=== PATIENT | male | born 1975 | race Caucasian/White ===

== ENCOUNTER → 2017-10-09 12:52 | Outpatient (CLI) | payer OTHER, SELFPAY ==
--- NOTE | 2017-10-09 12:59 | US_ITS ---
US thyroid HISTORY: Thyroid nodule, goiter ITS.REASON: GOITER ORDERING PHYSICIAN: Jovi Rangel MD PATIENT AGE: 41 years COMPARISON: None FINDINGS: Right lobe: 4.3 x 1.5 x 2.3 cm Left lobe: 4.5 x 1.5 x 2.2 cm Isthmus: Unremarkable There is homogeneous echogenicity of the thyroid gland. No mass or nodule evident. IMPRESSION: Mildly enlarged thyroid. No nodules apparent
== END ==
PROVIDERS: Family Provider Family Medicine; PCP Family Medicine; Visit Provider Family Medicine
DX: E04.9 Nontoxic goiter, unspecified (principal)
CPT/HCPCS: 76536

== ENCOUNTER → 2018-02-06 08:16 | Outpatient (CLI) | payer OTHER, SELFPAY ==
--- NOTE | 2018-02-06 08:42 | CA_ITS ---
PROCEDURE: 2-D M-mode and color Doppler study INDICATIONS FOR THE TEST: Chest pain COPD Heart Murmur Tobacco SmokingEX Palpitations Fatigue Syncope Edema HypertensionXDiabetes MellitusX Rheumatic Fever SOBXDOE ObesityXHyperlipidemiaX Family History HDX Additional History PATIENT INFORMATION HEIGHT: 72 WEIGHT:245 GENDER: Male B/P:130/80 2-D/M-MODE INTERPRETATION: 2-D MEASUREMENTS OBSERVED VALUES IN CMS Right Ventricular Dimension (RVDd) 2.6 Interventricular Septum (Thickness)(IVsd) 1.4 Left Ventricular Internal Dimensions(LVIDd) 3.9 Left Ventricular Posterior Wall (Thickness)(LVPWd) 1.3 Aortic Root 3.4 Aortic Cusp Separation 2.3 Left Atrial Dimensions (LAD) 4.0 2D 1. Left atrium is mildly enlarged, left ventricle is normal size, mild concentric left ventricular hypertrophy, hyperdynamic left ventricular systolic function, visually estimated ejection fraction over 65% with no obvious regional wall motion abnormality. 2. The right atrium and right ventricle are normal size and contractility. 3. The aortic valve is minimally thickened and fibrosed. 4. The mitral and tricuspid valvular grossly normal. 5. The pulmonic valve is poorly visualized. 6. No significant pericardial effusion noted. DOPPLER INTERROGATION: Doppler interrogation of the aortic, mitral and tricuspid valvular presence of mild mitral and tricuspid regurgitation, tricuspid regurgitant jet velocity is insufficient for calculation of the right ventricular systolic pressure, grade 1 diastolic dysfunction seen without tissue Doppler evidence of raised left atrial pressure. CONCLUSION: 1. Mildly enlarged left atrium, normal left ventricular size, mild concentric left ventricular hypertrophy, hyperdynamic left ventricular systolic function, visually estimated ejection fraction over 65% with no obvious regional wall motion abnormality, grade 1 diastolic dysfunction seen without tissue Doppler evidence of raised left atrial pressure. 2. Mild mitral and tricuspid regurgitation. 3. No significant pericardial effusion noted.
== END ==
PROVIDERS: Family Provider Family Medicine; PCP Family Medicine; Visit Provider Nurse Practitioner
DX: Z82.49 Family history of ischemic heart disease and other diseases of the circulatory system (principal)
CPT/HCPCS: 93017; 93306

== ENCOUNTER → 2020-04-19 14:41 | Outpatient (POV) | payer OTHER, SELFPAY | PROVIDERS: Visit Provider Dermatology | DX: Z00.00 Encounter for general adult medical examination without abnormal findings (principal) ==

== ENCOUNTER → 2020-11-22 14:41 | Outpatient (POV) | payer OTHER, SELFPAY | PROVIDERS: Visit Provider Dermatology | DX: Z00.00 Encounter for general adult medical examination without abnormal findings (principal) ==

== ENCOUNTER → 2021-09-05 11:19 | Outpatient (CLI) | payer OTHER, SELFPAY | PROVIDERS: PCP Family Medicine; Visit Provider Nurse Practitioner | DX: Z20.822 Contact with and (suspected) exposure to COVID-19 (principal) | CPT/HCPCS: C9803; U0003; U0005 ==

== ENCOUNTER → 2021-10-20 12:52 | Outpatient (CLI) | payer OTHER, SELFPAY ==
--- NOTE | 2021-10-20 12:54 | CA_ITS ---
APPROVED REPORT EXAM: Comprehensive 2D, Doppler, and color-flow Echocardiogram Trade Mark Examiner: Mandy German RVT Ht: 6 ft 1 in Wt: 243lbs BSA: 2.34 BP: 133/80 mmHg Indications: ABN EKG,TACHYCARDIA,HTN,HLD,DM,EX SMOKER 2D Dimensions LVOT 2.09 cm (M/F) 1.5-2.5 LA Volume 29.20 mL LA Volume Index 12.53 mL/m2 (M/F) 16-34 M-Mode Dimensions RVDd 2.38 cm (0.9-2.6) LA Diam 4.39 cm (1.9-4.0) LVDd 3.52 cm (3.5-5.7) Ao Diam 3.15 cm (2.0-3.7) LVDs 2.04 cm (3.5-5.7) IVSd 1.53 cm (0.6-1.1) PWd 1.15 cm (0.6-1.1) EF (Teich) 74.00% FS 42.00% EDV (Teich) 51.60 mL TAPSE 2.15 (<1.7) ESV (Teich) 13.40 mL LV Diastology E Decel Time 200.00 (160-240 msec) E/A Ratio 0.8 MED E' 5.70 (< 7 cm/sec) E'/MED E' Ratio 12.88 (>14) LAT E' 9.20 (<10 cm/sec) E/LAT E' Ratio 7.98 (>14) Aortic Valve AO Peak GR. 6.30 mmHg Mitral Valve MV E Max Randy. 73.00 (40-130 cm/s) MV A Velocity 93.00 (40-130 cm/s) E/A Ratio 0.79 MV Decel. Time 200.00 (160-240 ms) MV PHT 59.00 ms Pulmonary Valve PV Peak Velocity 96.00 (50-150 cm/s) Left Ventricle Left atrium is mildly enlarged, left ventricle is normal size, mild concentric left ventricular hypertrophy, visually estimated ejection fraction 55% with no regional wall motion abnormality, grade 1 diastolic dysfunction seen without tissue Doppler evidence of raise left atrial pressure. Right Ventricle Right atrium and right ventricle are normal size and contractility. Aortic Valve Aortic valve is minimally thickened and fibrosed, there is no aortic stenosis or aortic insufficiency. Mitral Valve Mitral valve grossly normal, there is trace mitral regurgitation. Tricuspid Valve Tricuspid grossly normal, there is trace tricuspid regurgitation, tricuspid regurgitation jet velocity is inadequate for calculation of the right ventricular systolic pressure. Pulmonic Valve Pulmonic valve is poorly visualized. Great Vessels Aortic root is normal size. Inferior vena cava normal 7 normal spectral collapse. Pericardium No significant pericardial effusion noted. Conclusion 1. Mildly enlarged left atrium, normal left ventricular size, mild concentric left ventricular hypertrophy, visually estimated ejection fraction 55% with no regional wall motion abnormality, grade 1 diastolic dysfunction seen without tissue Doppler evidence of raise left atrial pressure. 2. Trace mitral and tricuspid regurgitation. 3. No significant pericardial effusion. 4. Inferior vena cava normal size with normal inspiratory collapse. Electronically signed by : Francois Catalan MD 10/20/2021 14:38:43
== END ==
PROVIDERS: PCP Family Medicine; Visit Provider Urology
DX: R94.31 Abnormal electrocardiogram [ECG] [EKG] (principal); I10 Essential (primary) hypertension; E78.49 Other hyperlipidemia
CPT/HCPCS: 93306

== ENCOUNTER → 2021-11-30 09:10 | Outpatient (POV) | payer OTHER, SELFPAY ==
[2021-11-30 09:24] VITALS: BP 147/89; PULSE 98; RESP 18; TEMP 36.7; O2SAT 97; BMI 32.5
--- NOTE | 2021-11-30 10:10 | HMH.PMCON ---
Assessment and Plan (1) Chronic low back pain Status: Acute Category: Medical Code(s): M54.50 - Low back pain, unspecified; G89.29 - Other chronic pain - Assessment and plan all Dx Assessment and Plan for all problems:: Patient presents no pain. He says that he was having low back pain a few weeks ago but his symptoms resolved a few days later. It was a debilitating pain to a point that he was not able to get up. He took OTC meds that helped significantly. He was told that he had disc issues in the past and thought that he might aggravated it. He does say that he continues to have paresthesia in his right thigh. It is uncomfortable and says that it feels like he has a buzzing phone when there is nothing there. Patient has not had any imaging of his low back. We will schedule the patient for a lumbar MRI. Follow-up after the MRI Patient has been instructed to contact the clinic with any concerns before the next appointment. Dr. Reid has reviewed this note and agrees with this plan of care. This note was dictated using voice recognition software and make contain errors or omissions. HPI - Data of Consult Patient: new to practice Consult date: 11/30/21 Requesting Physician: LISS Huynh - Consult Narrative Reason for consult: low back pain History of present illness: Mr. Cruz is a 46 year old male who presents today as a new patient. Patient is referred by Dr. Grubbs for low back pain. Patient presents today with chronic low back pain that radiates to his right leg. He has a hx of falling in 2006 and hurt his back. He did not have any surgeries then. He was told he had disc issues in the past. Then recently, he was using his mower and feels like he strained his back. He said that he could not do anything for days and had radiating pain to his right leg. He took OTC medications which seemed to help. He did not go to the ER. Today, he presents with no low back pain. He does say that he continues to have paresthesia in his right thigh. This has been going on for several months. It is not painful and he can tolerate it, but just nagging and uncomfortable. He rates his pain today as 0/10. Denies any loss of bowel and bladder functions. He is not on any scheduled medications. CC: LISS Huynh [facility] History I have reviewed the patient's past medical history: Yes Medical History: Reports:: Diabetes Mellitus Type 2, Hyperlipidemia, Hypertension Denies:: Cancer, Diabetes Mellitus Type 1, MRSA *Have you ever received a pneumonia vaccine?: No *Have you received a flu vaccine this season?: Yes Other Surgeries: Yes: No Previous Surgery Amputation: No Fractures: No - *Social History Smoking Status: Former smoker Alcohol Intake: never Alcohol Intake Frequency:: a few times a month Substance Use Type: denies use *Occupational Status:: employed Housing: house Household Members: family *Travel in the last 8 weeks: None Family Hx:: Diabetes, Heart Attack, Stroke Review of Systems - Review of Systems Review of Systems: General: No recent weight changes, no fever, no sleep disturbances Respiratory: No cough, no shortness of air, no recurring pulmonary infections Cardiovascular/peripheral vascular: No chest pain, no palpitations, no edema, no shortness of breath Gastrointestinal: No new onset incontinence, normal bowel movements reported Genitourinary: No new onset incontinence Musculoskeletal: [low back pain] Psychiatric: [Normal mood/affect] Neurological: [Denies weakness in extremities], [denies balance issues] Meds Home Medications Medication Instructions Recorded Confirmed Type liraglutide 0.6 mg/0.1 mL (18 mg/3 1.2 mg SUB-Q ONCE ml 03/06/18 11/30/21 History mL) subcutaneous pen injector metformin 500 mg tablet 1,000 mg PO BID 03/06/18 11/30/21 History simvastatin 40 mg tablet 40 mg PO QPM 03/06/18 11/30/21 History aspirin 81 mg tablet,delayed 81 mg PO DAILY tab 03/11/18 11/30/21 History release
== END ==
PROVIDERS: Visit Provider Student in an Organized Health Care Education/Training Program
DX: M54.50 Low back pain, unspecified (principal); G89.29 Other chronic pain
CPT/HCPCS: 99202; G0463

== ENCOUNTER → 2021-12-08 10:02 | Outpatient (CLI) | payer OTHER, SELFPAY ==
--- NOTE | 2021-12-08 10:08 | MR_ITS ---
FINAL REPORT CLINICAL HISTORY: lower back pain with injury X 2WEEKS when mowing , right sided back pain and right sided tingling FINDINGS: Multiplanar MR imaging of the lumbar spine was performed without contrast. On the sagittal T2-weighted images, disc degeneration is seen at multiple levels. The vertebral alignment is normal. There is no evidence of fracture. The conus has an unremarkable appearance. T12-L1: There is no significant canal stenosis or neural foraminal narrowing. L1-2: There is no significant canal stenosis or neural foraminal narrowing. L2-3: Annular bulge and facet arthropathy are present. There is mild right and moderate left neural foraminal narrowing. L3-4: An annular bulge is present. Facet arthropathy and osteophytes are present. There is moderate right and severe left neural foraminal narrowing. There is mild central canal stenosis with an AP diameter of the thecal sac of 7 mm. L4-5: An annular bulge is present. Facet arthropathy and osteophytes are present. There is a small central disc protrusion with moderate right and severe left neural foraminal narrowing. There is left L5 and possible bilateral L5 nerve root impingement. There is mild central canal stenosis with an AP diameter of the thecal sac of 7 mm. L5-S1: An annular bulge is present. Facet arthropathy and osteophytes are present. There is mild right and severe left neural foraminal narrowing. IMPRESSION: Small central disc protrusion at L4-5 results in left L5 and possible bilateral L5 nerve root impingement. Multilevel degenerative disc disease and spondylosis with mild central canal stenosis at L3-4 and L4-5. Reviewed, Interpreted and Dictated by Juan Abad III, MD Transcribed by Poly Burton Authenticated by Juan Abad III, MD on 12/08/2021 12:17:54 PM [facility]
== END ==
PROVIDERS: PCP Family Medicine; Visit Provider Student in an Organized Health Care Education/Training Program
DX: M54.50 Low back pain, unspecified (principal)
CPT/HCPCS: 72148; 76376; 95806

== ENCOUNTER → 2021-12-25 09:26 | Outpatient (POV) | payer OTHER, SELFPAY ==
[2021-12-25 09:35] VITALS: BP 142/71; PULSE 88; RESP 18; TEMP 36.5; O2SAT 96; BMI 32.0
--- NOTE | 2021-12-25 11:10 | HMH.PAINSOAP ---
[facility] Pain Management SOAP Note Subjective:: This patient is a very pleasant 46-year-old white male that returns our clinic today to review lumbar MRI. MRI shows disc protrusion L4-5 with L5 nerve root impingement. Multilevel degenerative disc disease. Discussed in detail treatment options for the patient. Patient has been taking diclofenac 75 mg 1 p.o. twice daily from his primary care. Patient states this helps with his right leg pain at times. We will send in refill for him on this medication. Discussed in detail with the patient regarding lumbar epidural steroid injection at the L4-5 level. Patient wishes to proceed. Patient rates his low back pain 3/10 today. Patient states the lumbar spine increases significantly with extension and/or flexion. Patient works full-time in a factory. Does a lot of sitting and standing. This increases pain. Objective:: This patient is awake alert oriented x3. In no acute distress. Flexion and extension lumbar spine somewhat guarded secondary to pain. Deep tendon reflexes upper and lower extremities normal. Motor strength upper and lower extremities normal. There is no gross sensory deficit. Gait is normal. Assessment:: Degenerative disc disease lumbar spine. Disc bulge L4-5. Lumbar radicular pain. Plan:: Discussed in detail with the patient regarding lumbar epidural steroid injection of the L4-5 level. Discussed risk and benefits. Answered patient's questions. We will proceed with lumbar epidural steroid injection at the L4-5 level. [facility] History Medical History: Reports:: Diabetes Mellitus Type 2, Hyperlipidemia, Hypertension Denies:: Cancer, Diabetes Mellitus Type 1, MRSA *Have you ever received a pneumonia vaccine?: No *Have you received a flu vaccine this season?: Yes Other Surgeries: Yes: No Previous Surgery Amputation: No Fractures: No - *Social History Smoking Status: Former smoker Alcohol Intake: never Alcohol Intake Frequency:: a few times a month Substance Use Type: denies use *Occupational Status:: employed Housing: house Household Members: family *Travel in the last 8 weeks: None Family Hx:: Diabetes, Heart Attack, Stroke
== END ==
PROVIDERS: Visit Provider Nurse Anesthetist, Certified Registered
DX: M51.16 Intervertebral disc disorders with radiculopathy, lumbar region (principal); M51.26 Other intervertebral disc displacement, lumbar region
CPT/HCPCS: 99212; G0463

== ENCOUNTER 2022-01-12 12:59 | Day surgery (SDC) | payer OTHER, SELFPAY ==
[2022-01-12 13:24] VITALS: BP 135/79; PULSE 91; RESP 20; TEMP 36.6; O2SAT 98; BMI 32.5
[2022-01-12 13:37] VITALS: BP 139/80; PULSE 91; RESP 18; O2SAT 95
[2022-01-12 13:39] VITALS: BP 142/83; PULSE 100; RESP 18; O2SAT 97
[2022-01-12 13:48] VITALS: BP 123/72; PULSE 87; RESP 20; O2SAT 96
--- NOTE | 2022-01-12 13:54 | P.PCN_ITS ---
- Procedure Date: 01/12/22 Time: 13:54 Anesthesiologist:: Judd Valenzuela CRNA Complications:: None Pre-procedure Diagnosis:: Degenerative disc disease lumbar spine. Lumbar radicular symptoms. Post-procedure Diagnosis:: Same Indications for Procedure:: Very pleasant 46-year-old white male that comes to our injection clinic today for lumbar epidural steroid injection at L4-5 level. Patient is having lumbar pain as well as bilateral hip and leg radicular symptoms at times. Procedure Details:: Procedure: Lumbar epidural steroid injection under fluoroscopy Informed consent was obtained and the risks and benefits of the procedure were explained to the patient. The patient was taken to the procedure room and noninvasive monitors placed, including noninvasive blood pressure cuff and pulse oximeter. The back was viewed using C-arm Fluoroscopy and prepped using Betadine as a cleansing solution and the L4-L5 interspace was palpated. Skin and subcutaneous tissues were anesthetized using lidocaine 1.5% and a 25-gauge needle. After this, an 18-gauge Touhy epidural needle was placed into the L4-L5 interspace and advanced using fluoroscopic guidance and loss of resistance to air until the epidural space was encountered. After confirmation of needle placement in the epidural space, with dye, a solution containing lidocaine 1.5%, 4 mL and Depo-Medrol 80 mg were incrementally injected into the lumbar epidural space. The patient tolerated the procedure well with no complications. The patient was observed in the Pain Clinic and then discharged home neur ologically intact. Plan and Disposition:: Patient was discharged without incident.
== END 2022-01-12 13:49 | disposition home or self-care (01) ==
LOC: SC.PAINP 13:00
PROVIDERS: PCP Family Medicine; Visit Provider Nurse Anesthetist, Certified Registered
DX: M51.16 Intervertebral disc disorders with radiculopathy, lumbar region (principal); E11.9 Type 2 diabetes mellitus without complications; E78.5 Hyperlipidemia, unspecified; I10 Essential (primary) hypertension
CPT/HCPCS: 62323; J1040

== ENCOUNTER → 2022-02-06 09:10 | Outpatient (POV) | payer OTHER, SELFPAY ==
[2022-02-06 09:23] VITALS: BP 141/78; PULSE 93; RESP 18; TEMP 36.2; O2SAT 96; BMI 31.8
--- NOTE | 2022-02-06 09:52 | HMH.PAINSOAP ---
[facility] Pain Management SOAP Note Subjective:: Patient is a pleasant 46-year-old male who presents today for follow-up after a lumbar epidural steroid injection at L4-L5 on January 12, 2022. Patient is currently being treated for degenerative disc disease of the lumbar spine with lumbar radiculopathy symptoms. After the procedure, patient had significant relief of 90 to 100% and rates his pain today as 0 out of 10. Denies any issues after the procedure. Patient has been able to increase his activity since the injection. Patient is doing significantly well. He takes diclofenac 75 mg as needed. He is needing refills on this medication today. Review of Systems: General: No recent weight changes, no fever, no sleep disturbances Respiratory: No cough, no shortness of air, no recurring pulmonary infections Cardiovascular/peripheral vascular: No chest pain, no palpitations, no edema, no shortness of breath Gastrointestinal: No new onset incontinence, normal bowel movements reported Genitourinary: No new onset incontinence Musculoskeletal: Improving low back pain Psychiatric: [Normal mood/affect] Neurological: [Denies weakness in extremities], [denies balance issues] Objective:: Physical Exam: General: Alert and oriented x3, no acute distress, pleasant and cooperative Lungs: Respirations even and unlabored, symmetrical chest expansion Eyes: PERRL Musculoskeletal: Flexion and extension of lumbar [spine] somewhat guarded secondary to pain, [antalgic gait noted] Neurological: Speech clear, no gross sensory deficit Assessment:: Degenerative disc disease of the lumbar spine with lumbar radiculopathy symptoms Plan:: Patient continues to have significant relief after the lumbar epidural steroid injection. We will refill his diclofenac 75 mg and provide the patient 3 months worth of refill. He takes his medication as needed. We will follow-up with this patient in 3 months to reevaluate chronic pain syndrome and to see if he needs repeat injection. Patient has been instructed to contact the clinic with any concerns before the next appointment. Dr. Reid has reviewed this note and agrees with this plan of care. This note was dictated using voice recognition software and make contain errors or omissions. [facility] History Medical History: Reports:: Diabetes Mellitus Type 2, Hyperlipidemia, Hypertension Denies:: Cancer, Diabetes Mellitus Type 1, MRSA, Seizures *Have you ever received a pneumonia vaccine?: No *Have you received a flu vaccine this season?: Yes Other Medical History: Reports: Arthritis Other Surgeries: Yes: No Previous Surgery Amputation: No Fractures: No - *Social History Smoking Status: Former smoker Alcohol Intake: never Alcohol Intake Frequency:: a few times a month Substance Use Type: denies use *Occupational Status:: other Housing: house Household Members: other *Travel in the last 8 weeks: None Family Hx:: Diabetes, Heart Attack, Stroke, Hypertension
== END ==
PROVIDERS: Visit Provider Student in an Organized Health Care Education/Training Program
DX: M51.16 Intervertebral disc disorders with radiculopathy, lumbar region (principal)
CPT/HCPCS: 99212; G0463

== ENCOUNTER 2022-04-23 11:56 | Emergency (ER) | payer OTHER, SELFPAY ==
[2022-04-23 13:20] VITALS: BP 131/79; PULSE 99; RESP 20; TEMP 37.3; O2SAT 97; BMI 32.5
--- NOTE | 2022-04-23 13:50 | HMH.EDUTC ---
[facility] [place] Impression: Viral syndrome Disposition: Home, Self-Care Condition on Discharge: Good Instructions: DI for COVID-19 (Suspected or Confirmed ), Preventing the Spread of Coronavirus Discharge Instructions Additional Instructions: Drink plenty of fluids. Take tylenol or ibuprofen for pain or fever. Take the medications as directed. Follow up with your regular doctor. GO TO THE ER FOR ANY WORSENING SYMPTOMS Quarantine until you know the results of your covid-19 test. Notify your school or workplace of your results and follow their instructions regarding return to work/school. Prescriptions: Ondansetron [Zofran 4mg ODT] 4 mg PO Q8HP PRN #12 tab PRN Reason: Nausea Transmission Status: Received by [facility] Benzonatate [Benzonatate 100mg cap] 100 mg PO TIDP PRN #30 cap PRN Reason: Cough Transmission Status: Received by [facility] Referrals: Angie Gunn MD [Primary Care Provider] - Forms: Work/School Release Time of Disposition: 13:57 Medical Decision Making - Medical Records Medical records reviewed: No: I reviewed the patient's medical records. - Mukesh Inquiry Pt receiving controlled substance: No Vital Signs: 04/23/22 13:20 04/23/22 14:07 Temperature 99.2 F 99.2 F Temperature Source Oral Pulse Rate 99 H Pulse Rate [Right Brachial] 99 H Respiratory Rate 20 20 Blood Pressure 131/79 Blood Pressure [Right Arm] 131/79 Blood Pressure Mean [Right Arm] 96 Blood Pressure Source [Right Arm] Automatic Cuff Blood Pressure Position [Right Arm] Sitting 02 Sat by Pulse Oximetry 97 Oxygen Delivery Method Room Air - Lab Data Lab results reviewed: Yes: I reviewed the patient's lab results. Lab Results 04/23/22 13:48: Strep Scn Rapid Clinic Negative Orders (Tests/Meds): ORDERS Category Date Time Status Strep Screen Confirmation Stat Micro 04/23/22 13:48 [place] [facility] [place] - General Stated complaint: covid test Time Seen by Provider: 04/23/22 13:50 Mode of Arrival: Ambulatory Source of Information: Patient Limitations: No Limitations Description of Symptoms (Recalled from Triage Doc. by RN): PATIENT C/O FEVER AND RUNNY NOSE SINCE YESTERDAY HEENT Symptoms (Recalled from RN notes): Yes Resp Symptoms (Recalled from RN notes): No Skin Symptoms (Recalled from RN notes): No MS Symptoms (Recalled from RN notes): No Functional Status (Recalled from RN notes): WNL - History of Present Illness Provider Complaint: He is here to have a covid-19 test done. He has had body aches, chills and malaise for the past 2 days. - Related Data Home Medications Medication Instructions Recorded Confirmed metformin 500 mg tablet 1,000 mg PO BID 03/06/18 04/17/22 cetirizine 10 mg capsule 10 mg PO DAILY cap 03/11/18 04/17/22 zinc 50 mg tablet 50 mg PO QHS tab 03/11/18 04/17/22 empagliflozin 25 mg tablet 25 mg PO DAILY 10/21/18 04/17/22 lisinopril 20 mg tablet 20 mg PO DAILY 10/21/18 04/17/22 cholecalciferol (vitamin D3) 25 25 mcg PO DAILY 10/18/20 04/17/22 mcg (1,000 unit) capsule tamsulosin 0.4 mg capsule 0.4 mg PO DAILY cap 04/17/21 04/17/22 Diclofenac Sodium [Diclofenac 75mg 75 mg PO BID 02/06/22 04/17/22 Tab] simvastatin 20 mg tablet 20 mg PO DAILY tab 02/07/22 04/17/22 insulin glargine 100 unit/mL (3 62 unit SQ AM ml 03/28/22 04/17/22 mL) subcutaneous pen liraglutide 0.6 mg/0.1 mL (18 mg/3 1.8 mg SQ DAILY ml 03/28/22 04/17/22 mL) subcutaneous pen injector Previous Rx's Medication Instructions Recorded metoprolol succinate 100 mg 100 mg PO DAILY #90 tab 04/17/22 tablet,extended release 24 hr Benzonatate [Benzonatate 100mg 100 mg PO TIDP PRN #30 cap 04/23/22 cap] Ondansetron [Zofran 4mg ODT] 4 mg PO Q8HP PRN #12 tab 04/23/22 Allergies Allergy/AdvReac Type Severity Reaction Status Date / Time No Known Allergies Allergy Verified 04/17/22 13:01 - Worker's Co
[2022-04-23 14:01] LABS: UTC Strep Screen (Rapid) Negative (Negative)
[2022-04-23 14:07] VITALS: BP 131/79; PULSE 99; RESP 20; TEMP 37.3; O2SAT 97
== END 2022-04-23 14:12 | disposition home or self-care (01) ==
PROVIDERS: Emergency Provider Nurse Practitioner Family; PCP Family Medicine
DX: B34.9 Viral infection, unspecified (principal); Z20.822 Contact with and (suspected) exposure to COVID-19; Z87.891 Personal history of nicotine dependence
CPT/HCPCS: 87880; 99212; C9803; G0463; U0003; U0005

== ENCOUNTER → 2022-05-08 15:12 | Outpatient (POV) | payer OTHER, SELFPAY ==
[2022-05-08 15:16] VITALS: BP 143/85; PULSE 91; RESP 20; BMI 32.5
--- NOTE | 2022-05-08 15:53 | A.OFFVIS_ITS ---
[facility] Pain Management SOAP Note Subjective:: Patient is a pleasant 46-year-old male who presents today for follow-up. We are currently treating the patient for degenerative disc disease of lumbar spine with lumbar radiculopathy symptoms. Today the patient rates his pain a 0 out of 10. Patient states he only has pain when he is weed eating or on his feet for long periods of time. He states he is continue to have significant pain relief following his last lumbar epidural steroid injection at L4-L5 on January 12, 2022. Patient states he is continue to use his diclofenac 75 mg twice daily. He states this medication does help improve his symptoms. He denies any side effects. Patient states there has been a couple of times where he has taken an Aleve however the patient states he is aware that he is not to take that while using the diclofenac. Patient states he has had some of his tingling sensations in his legs return however they are tolerable at this point. Patient is not on any scheduled medications. His Mukesh is [id number]. It has been reviewed and appropriate. Review of Systems: General: No recent weight changes, no fever, no sleep disturbances Respiratory: No cough, no shortness of air, no recurring pulmonary infections Cardiovascular/peripheral vascular: No chest pain, no palpitations, no edema, no shortness of breath Gastrointestinal: No new onset incontinence, normal bowel movements reported Genitourinary: No new onset incontinence Musculoskeletal: Low back pain Psychiatric: [Normal mood/affect] Neurological: [Denies weakness in extremities], [denies balance issues] Objective:: Physical Exam: General: Alert and oriented x3, no acute distress, pleasant and cooperative Lungs: Respirations even and unlabored, symmetrical chest expansion Eyes: PERRL Musculoskeletal: Flexion and extension of lumbar [spine] somewhat guarded secondary to pain, [antalgic gait noted] Neurological: Speech clear, no gross sensory deficit Assessment:: Degenerative disc disease of lumbar spine with lumbar radiculopathy symptoms Plan:: Patient continues to have significant improvement of his pain symptoms following his last epidural injection. I have discussed with the patient regarding having a repeat lumbar epidural in the future when his symptoms start bothering him more. Risk and benefits were discussed with the patient. He would like to proceed forward with this injection. We will schedule the patient for a lumbar epidural steroid injection at L4-L5 in 1 month. The patient has been counseled regarding calling if he needs this appointment moved up or rescheduling if he needs it pushed further out based off his symptoms. I have counseled the patient to not take any Aleve or other NSAIDs while taking his diclofenac. I have advised the patient to try Tylenol. Patient has been instructed to contact the clinic with any concerns before the next appointment. Dr. Reid has reviewed this note and agrees with this plan of care. This note was dictated using voice recognition software and make contain errors or omissions. [facility] Medical History (Updated 04/23/22 @ 13:57 by George Rees APRN) Abnormal electrocardiography Social History Smoking Status: Former smoker alcohol intake: current substance use type: denies use current occupational status: other Travel in the last 8 weeks: None household members: other housing: house current occupational exposures/hazards: Yes caffeine: Yes
== END ==
PROVIDERS: PCP Family Medicine; Visit Provider Nurse Practitioner Family
DX: M51.16 Intervertebral disc disorders with radiculopathy, lumbar region (principal)
CPT/HCPCS: 99212; G0463

== ENCOUNTER 2022-06-05 12:43 | Day surgery (SDC) | payer OTHER, SELFPAY ==
[2022-06-05 12:57] VITALS: BP 161/77; PULSE 91; RESP 20; TEMP 36.3; O2SAT 98; BMI 71.7
[2022-06-05 13:08] VITALS: BP 172/86; PULSE 93; RESP 18; O2SAT 98
[2022-06-05 13:09] VITALS: BP 172/86; PULSE 93; RESP 18; O2SAT 98
--- NOTE | 2022-06-05 13:14 | EXP.PAIN.PRO ---
Procedure Date: 06/05/22 Time: 13:10 Anesthesiologist:: Judd Valenzuela CRNA Complications:: None Pre-procedure Diagnosis:: Degenerative disc disease lumbar spine multilevels. Lumbar radiculopathy symptoms. Post-procedure Diagnosis:: Same. Indications for Procedure:: Very pleasant 46-year-old male that comes today for a repeat lumbar epidural steroid injection at the L4-5 level. Patient had significant pain relief with his initial injection at the L4-5 level. Patient reports pain has returned to some degree. However, moderate compared to his pain prior to the injection. He describes low back pain as slight, dull, aching. Also, at times lumbar radicular symptoms bilateral hips and legs. Procedure Details:: Procedure: Lumbar epidural steroid injection under fluoroscopy Informed consent was obtained and the risks and benefits of the procedure were explained to the patient. The patient was taken to the procedure room and noninvasive monitors placed, including noninvasive blood pressure cuff and pulse oximeter. The back was viewed using C-arm Fluoroscopy and prepped using Betadine as a cleansing solution and the L4-L5 interspace was palpated. Skin and subcutaneous tissues were anesthetized using lidocaine 1.5% and a 25-gauge needle. After this, an 18-gauge Touhy epidural needle was placed into the L4-L5 interspace and advanced using fluoroscopic guidance and loss of resistance to air until the epidural space was encountered. After confirmation of needle placement in the epidural space, with dye, a solution containing lidocaine 1.5%, 4 mL and Depo-Medrol 80 mg were incrementally injected into the lumbar epidural space. The patient tolerated the procedure well with no complications. The patient was observed in the Pain Clinic and then discharged home neurologically intact. Plan and Disposition:: Patient was discharged without incident.
[2022-06-05 13:18] VITALS: BP 145/72; PULSE 81; RESP 20
[2022-06-05 16:43] LABS: POC Glucose,Bedside 100 (70-110)
== END 2022-06-05 13:20 | disposition home or self-care (01) ==
PROVIDERS: PCP Family Medicine; Visit Provider Nurse Anesthetist, Certified Registered
DX: M51.16 Intervertebral disc disorders with radiculopathy, lumbar region (principal); E11.9 Type 2 diabetes mellitus without complications
CPT/HCPCS: 62323; 82962; J1040

== ENCOUNTER → 2022-06-19 14:54 | Outpatient (POV) | payer OTHER, SELFPAY | PROVIDERS: Visit Provider Dermatology | DX: Z00.00 Encounter for general adult medical examination without abnormal findings (principal) ==

== ENCOUNTER → 2022-06-26 14:49 | Outpatient (POV) | payer OTHER, SELFPAY ==
[2022-06-26 14:56] VITALS: BP 140/67; PULSE 90; RESP 18; TEMP 36.7; O2SAT 97; BMI 31.6
--- NOTE | 2022-06-26 15:16 | EXP.PAIN.SOA ---
[facility] Pain Management SOAP Note Subjective:: Patient is a pleasant 46-year-old male who presents today for follow-up of lumbar epidural steroid injection L4-L5 on 06/05/2022. We are currently treating the patient for degenerative disc disease of lumbar spine with lumbar radiculopathy symptoms. Today the patient states he has gotten 100% relief of his pain symptoms following this injection and feels like it is still continuing to help. Patient rates his pain a 0 out of 10. Patient does continue to take diclofenac 75 mg twice a day. Patient denies any side effects from this medication. He states this medication does adequately help manage his pain symptoms. Patient is not on any scheduled medications. His Mukesh is [id number]. It has been reviewed and appropriate. Review of Systems: General: No recent weight changes, no fever, no sleep disturbances Respiratory: No cough, no shortness of air, no recurring pulmonary infections Cardiovascular/peripheral vascular: No chest pain, no palpitations, no edema, no shortness of breath Gastrointestinal: No new onset incontinence, normal bowel movements reported Genitourinary: No new onset incontinence Musculoskeletal: Low back pain Psychiatric: [Normal mood/affect] Neurological: [Denies weakness in extremities], [denies balance issues] Objective:: Physical Exam: General: Alert and oriented x3, no acute distress, pleasant and cooperative Lungs: Respirations even and unlabored, symmetrical chest expansion Eyes: PERRL Musculoskeletal: Flexion and extension of lumbar [spine] somewhat guarded secondary to pain, [antalgic gait noted] Neurological: Speech clear, no gross sensory deficit Assessment:: Degenerative disc disease lumbar spine with lumbar radiculopathy symptoms Plan:: Patient has had significant improvement of his pain symptoms following his last epidural steroid injection. At this time patient does not require any additional injective therapy. I have discussed with the patient regarding doing a physical therapy referral. Patient agrees with this plan of care. We will order this during today's visit. We will plan on seeing the patient back in 1 month. Patient will return to clinic in 1 month for reevaluation of symptoms and follow-up. Patient has been instructed to contact the clinic with any concerns before the next appointment. Dr. Reid has reviewed this note and agrees with this plan of care. This note was dictated using voice recognition software and make contain errors or omissions. [facility] Medical History (Updated 06/05/22 @ 13:03 by Reny Brandt RN) Abnormal electrocardiography Arthritis BPH (benign prostatic hyperplasia) Hyperlipidemia Hypertension Large tongue RAMESH and COPD overlap syndrome T2DM (type 2 diabetes mellitus) Family History (Updated 06/05/22 @ 13:03 by Reny Brandt RN) Other Diabetes Heart attack Hypertension No significant family history Stroke Social History (Updated 06/05/22 @ 13:03 by Reny Brandt RN) Smoking Status: Former smoker alcohol intake: current substance use type: denies use current occupational status: employed Travel in the last 8 weeks: None household members: other housing: house current occupational exposures/hazards: Yes caffeine: Yes
== END ==
PROVIDERS: PCP Family Medicine; Visit Provider Nurse Practitioner Family
DX: M51.16 Intervertebral disc disorders with radiculopathy, lumbar region (principal); Z79.899 Other long term (current) drug therapy
CPT/HCPCS: 99212; G0463

== ENCOUNTER 2022-07-31 17:00 | Outpatient (RCR) | payer OTHER, SELFPAY ==
--- NOTE | 2022-07-03 11:06 | HMH.PTOPEV ---
PT Outpatient Evaluation Rehab PT Outpatient Evaluation Start: 07/03/22 09:00 Freq: Status: Active Protocol: Document 07/03/22 10:42 FRANKIE (Rec: 07/03/22 11:05 FRANKIE [id number]) E-signed By Philippe Montague, PT Outpatient Therapy Subjective History Subjective History This is the initial PT evaluation for Tariq Cruz 46 yowm who presents with resolving R side LBP x ~8 mos. He reports hit a hole while riding his lawnmower which harris his back and resulted in a sharp pain. He underwent 2 injections (most recent one 06/05) with 100% relief of symptoms. He presents today for home program to maintain his improvement. He also reports distant prior injury ~ 20 yrs ago which similarly harris his back, but resolved on its own. He does reports intermittent continued tingling in the R anterior thigh. If I take the diclofenac every day I don't have that though. He reports PMH of HTN, DM-II, HL, tacchycardia. Chief Complaint Pain,Stiff,Paresthesia Symptom Type Sharp Symptoms Relieved By Prescription Meds Prior Functional Limitations None Current Functional Limitations Lifting Symptom Description Intermittent Level of pain today (0-10) 0 Pain scale - at its worst (0-10) 10 Lumbopelvic Eval Range of Motion Lumbar Spine Active Flexion Range of 0-65 Motion (degrees) Lumbar Spine Active Extension Range of 0-20 Motion (degrees) Left Lumbar Spine Lateral Flexion Active 0-20 Range of Motion (degrees) Right Lumbar Spine Lateral Flexion 0-20 Active Range of Motion (degrees) Manual Muscle Test Bilateral Knee Extension Strength Grade 5 Normal Knee Flexion Strength Grade 5 Normal Hip Flexion Strength Grade 5 Normal Hip Abduction Strength Grade 5 Normal Hip Adduction Strength Grade 5 Normal Extensor Hallucis Longus Strength Grade 5 Normal Ankle Dorsiflexion Strength Grade 5 Normal Gastronemius/Soleus Strength Grade 5 Normal Special Tests Lumbar Spine Screen Negative Forward Bending Test- Standing Negative Left,Negative Right Hip Scouring (Quadrant) Test Negative Left,Negat
== END 2022-07-31 17:35 | disposition home or self-care (01) ==
LOC: PT 17:00
PROVIDERS: PCP Family Medicine; Visit Provider Nurse Practitioner Family
DX: M54.6 Pain in thoracic spine (principal); M54.9 Dorsalgia, unspecified; M54.50 Low back pain, unspecified
CPT/HCPCS: 97110; 97163; 97530

== ENCOUNTER → 2022-10-17 15:11 | Outpatient (POV) | payer OTHER, SELFPAY ==
[2022-10-17 15:23] VITALS: BP 136/78; PULSE 90; RESP 18; O2SAT 97; BMI 32.1
--- NOTE | 2022-10-17 15:24 | EXP.PAIN.SOA ---
[facility] Pain Management SOAP Note Subjective:: Patient is a pleasant 46-year-old male who presents today for follow-up. We are currently treating the patient for degenerative disc disease of lumbar spine with lumbar radiculopathy symptoms. Today he rates his pain a 1 out of 10 while at rest. Patient denies any new trauma or injury. Patient denies any change location or type of pain he experiences. Patient did previously have a lumbar epidural steroid injection in June that provided 100% pain relief lasting up until the last couple of weeks. Patient states he is interested in repeating this injection. Patient has been going to physical therapy that has provided additional improvement however he does state that when he does flexion and reaches down to touch his toes he does experience numbness and tingling in his fingertips however it immediately resolves once he stands back up. Patient is currently managed with diclofenac 75 mg twice a day. Patient denies any side effects from this medication. Patient is not on any scheduled medications. His Mukesh is [id number]. Its been reviewed and appropriate. Review of Systems: General: No recent weight changes, no fever, no sleep disturbances Respiratory: No cough, no shortness of air, no recurring pulmonary infections Cardiovascular/peripheral vascular: No chest pain, no palpitations, no edema, no shortness of breath Gastrointestinal: No new onset incontinence, normal bowel movements reported Genitourinary: No new onset incontinence Musculoskeletal: Low back pain Psychiatric: [Normal mood/affect] Neurological: [Denies weakness in extremities], [denies balance issues] Objective:: Physical Exam: General: Alert and oriented x3, no acute distress, pleasant and cooperative Lungs: Respirations even and unlabored, symmetrical chest expansion Eyes: PERRL Musculoskeletal: Flexion and extension of lumbar [spine] somewhat guarded secondary to pain, [antalgic gait noted] Neurological: Speech clear, no gross sensory deficit Assessment:: Degenerative disc disease of lumbar spine with lumbar radiculopathy symptoms Plan:: Patient is experiencing significant pain in his low back with radiating symptoms into his lower extremities. Patient did have limited range of motion of his lumbar spine during today's visit. I have discussed with the patient that he may benefit from repeat lumbar epidural steroid injection. Risk and benefits were discussed with the patient and he would like to proceed forward with this plan of care. Patient is not on any blood thinners. I have counseled the patient to continue to monitor the numbness and tingling in his fingertips and if this does become a more constant or prominent sensation that we will order cervical imaging. I will refill the patient's diclofenac 75 mg twice daily and provide a 5 month supply of this medication. We will schedule him for a LESI L4-L5. Patient has been instructed to contact the clinic with any concerns before the next appointment. Dr. Reid has reviewed this note and agrees with this plan of care. This note was dictated using voice recognition software and make contain errors or omissions. [facility] Disclaimer: The information contained in this section may have been updated after the patient was seen, as this information can be updated by other users. Medical History Abnormal electrocardiography Arthritis BPH (benign prostatic hyperplasia) Hyperlipidemia Hypertension Large tongue RAMESH and COPD overlap syndrome T2DM (type 2 diabetes mellitus) Family History Other Diabetes Heart attack Hypertension No significant family history Stroke Social History Smoking Status: Former smoker alcohol intake: current substance use type: denies use current occupational status: employed Travel in the last 8
== END | disposition home or self-care (01) ==
PROVIDERS: PCP Nurse Practitioner Family; Visit Provider Nurse Practitioner Family
DX: M51.16 Intervertebral disc disorders with radiculopathy, lumbar region (principal)
CPT/HCPCS: 99212; G0463

== ENCOUNTER 2022-11-06 12:49 | Day surgery (SDC) | payer OTHER, SELFPAY ==
[2022-11-06 13:08] VITALS: BP 148/88; PULSE 79; RESP 18; TEMP 36.2; O2SAT 98; BMI 31.1
[2022-11-06 13:14] VITALS: BP 171/69; PULSE 84; RESP 18; O2SAT 98
[2022-11-06 13:15] VITALS: BP 171/69; PULSE 84; RESP 18; O2SAT 98
[2022-11-06 13:19] VITALS: BP 145/60; PULSE 79; RESP 18; O2SAT 98
--- NOTE | 2022-11-06 13:20 | P.PCN_ITS ---
Procedure Date: 11/06/22 Time: 13:10 Anesthesiologist:: Judd Valenzuela CRNA Complications:: None Pre-procedure Diagnosis:: Degenerative disc disease lumbar spine multilevels. Lumbar radiculopathy. Post-procedure Diagnosis:: Same. Indications for Procedure:: Patient is a very pleasant 46-year-old male who comes our clinic today for therapeutic lumbar epidural steroid injection at the L4-5 level. Patient has had significant improvement in terms of his low back pain as well as bilateral h ip and leg radicular symptoms with an occasional lumbar epidural steroid injection at the L4-5 level. Procedure Details:: Procedure: Lumbar epidural steroid injection under fluoroscopy Informed consent was obtained and the risks and benefits of the procedure were explained to the patient. The patient was taken to the procedure room and noninvasive monitors placed, including noninvasive blood pressure cuff and pulse oximeter. The back was viewed using C-arm Fluoroscopy and prepped using Chloraprep as a cleansing solution and the L4-L5 interspace was palpated. Skin and subcutaneous tissues were anesthetized using lidocaine 1.5% and a 25-gauge needle. After this, an 18-gauge Touhy epidural needle was placed into the L4-L5 interspace and advanced using fluoroscopic guidance and loss of resistance to air until the epidural space was encountered. After confirmation of needle placement in the epidural space, with dye, a solution containing normal saline, 3 mL and Depo-Medrol 80 mg were incrementally injected into the lumbar epidural space. The patient tolerated the procedure well with no complications. The patient was observed in the Pain Clinic and then discharged home neurologically intact. Plan and Disposition:: Patient was discharged without incident.
== END 2022-11-06 13:19 | disposition home or self-care (01) ==
PROVIDERS: PCP Nurse Practitioner Family; Visit Provider Nurse Anesthetist, Certified Registered
DX: M51.16 Intervertebral disc disorders with radiculopathy, lumbar region (principal)
CPT/HCPCS: 62323; J1040

== ENCOUNTER → 2022-11-22 10:50 | Outpatient (POV) | payer OTHER, SELFPAY ==
[2022-11-22 11:10] VITALS: BP 124/76; PULSE 87; RESP 19; O2SAT 97; BMI 32.1
--- NOTE | 2022-11-22 11:16 | A.OFFVIS_ITS ---
[facility] Pain Management SOAP Note Subjective:: Patient is a pleasant 47-year-old male who presents today for follow-up of lumbar epidural steroid injection at L4-L5 on 11/06/2022. We are currently treating the patient for degenerative disc disease of lumbar spine with lumbar radiculopathy symptoms. Today he rates his pain a 0 out of 10. He states he has had 100% improvement following this injection and feels like it still continuing to provide relief. Patient denies any new trauma or injury. Patient is currently managed with diclofenac 75 mg twice a day. Patient denies any side effects from this medication. He states that he does not need refills at this time. Patient is not on any scheduled medications. He does typically gets at least 4 months out of each of these injections. His Mukesh is [id number]. Its been reviewed and appropriate. Review of Systems: General: No recent weight changes, no fever, no sleep disturbances Respiratory: No cough, no shortness of air, no recurring pulmonary infections Cardiovascular/peripheral vascular: No chest pain, no palpitations, no edema, no shortness of breath Gastrointestinal: No new onset incontinence, normal bowel movements reported Genitourinary: No new onset incontinence Musculoskeletal: Low back pain Psychiatric: [Normal mood/affect] Neurological: [Denies weakness in extremities], [denies balance issues] Objective:: Physical Exam: General: Alert and oriented x3, no acute distress, pleasant and cooperative Lungs: Respirations even and unlabored, symmetrical chest expansion Eyes: PERRL Musculoskeletal: Flexion and extension of lumbar [spine] somewhat guarded secondary to pain, [antalgic gait noted] Neurological: Speech clear, no gross sensory deficit Assessment:: Degenerative disc disease lumbar spine with lumbar radiculopathy symptoms Plan:: Patient has had 100% improvement following this injection and does not require any additional injective therapy at this time. Patient will return to clinic in 1 month for reevaluation of symptoms and plan of care. Patient has been instructed to contact the clinic with any concerns before the next appointment. Dr. Reid has reviewed this note and agrees with this plan of care. This note was dictated using voice recognition software and make contain errors or omissions. [facility] Disclaimer: The information contained in this section may have been updated after the patient was seen, as this information can be updated by other users. Medical History Abnormal electrocardiography Arthritis BPH (benign prostatic hyperplasia) Hyperlipidemia Hypertension Large tongue RAMESH and COPD overlap syndrome T2DM (type 2 diabetes mellitus) Family History Other Diabetes Heart attack Hypertension No significant family history Stroke Social History Smoking Status: Former smoker alcohol intake: current substance use type: denies use current occupational status: employed Travel in the last 8 weeks: None household members: other housing: house current occupational exposures/hazards: Yes caffeine: Yes
== END ==
PROVIDERS: PCP Nurse Practitioner Family; Visit Provider Nurse Practitioner Family
DX: M51.16 Intervertebral disc disorders with radiculopathy, lumbar region (principal)
CPT/HCPCS: 99212; G0463

== ENCOUNTER → 2022-12-20 15:17 | Outpatient (POV) | payer OTHER, SELFPAY ==
--- NOTE | 2022-12-20 15:25 | EXP.PAIN.SOA ---
[facility] Pain Management SOAP Note Subjective:: Patient is a pleasant 47-year-old male who presents today for follow-up.? We are currently treating the patient for degenerative disc disease of lumbar spine with lumbar radiculopathy symptoms.? Today he rates his pain a 0 out of 10. Patient did have a lumbar epidural steroid injection on November 06, 2022 that provided 100% relief. He does typically get approximately 4 months worth of relief. Patient denies any new trauma or injury.? Patient is currently managed with diclofenac 75 mg twice a day.? Patient denies any side effects from this medication.? He is requesting this to be made a 90-day supply. He is not on any scheduled medications.? His Mukesh is [id number].? Its been reviewed and appropriate. Review of Systems: General: No recent weight changes, no fever, no sleep disturbances Respiratory: No cough, no shortness of air, no recurring pulmonary infections Cardiovascular/peripheral vascular: No chest pain, no palpitations,? no edema, no shortness of breath Gastrointestinal: No new onset incontinence, normal bowel movements reported Genitourinary: No new onset incontinence Musculoskeletal: Low back pain Psychiatric: [Normal mood/affect] Neurological: [Denies weakness in extremities], [denies balance issues] Objective:: Physical Exam: General: Alert and oriented x3, no acute distress, pleasant and cooperative Lungs: Respirations even and unlabored, symmetrical chest expansion Eyes: PERRL Musculoskeletal: Flexion and extension of lumbar [spine] somewhat guarded secondary to pain, [antalgic gait noted] Neurological: Speech clear, no gross sensory deficit Assessment:: Degenerative disc disease of lumbar spine with lumbar radiculopathy symptoms Plan:: Patient continues to do well from his lumbar epidural steroid injection and does not require any additional injections. I will refill his diclofenac 75 mg twice a day and provide a 90-day supply of this medication. Patient will return to clinic in approximately 1-1/2 months for follow-up, medication refill and reevaluation of symptoms. Patient has been instructed to contact the clinic with any concerns before the next appointment. Dr. Reid has reviewed this note and agrees with this plan of care. This note was dictated using voice recognition software and make contain errors or omissions. [facility] Disclaimer: The information contained in this section may have been updated after the patient was seen, as this information can be updated by other users. Medical History Abnormal electrocardiography Arthritis BPH (benign prostatic hyperplasia) Hyperlipidemia Hypertension Large tongue RAMESH and COPD overlap syndrome T2DM (type 2 diabetes mellitus) Family History Other Diabetes Heart attack Hypertension No significant family history Stroke Social History Smoking Status: Former smoker alcohol intake: current substance use type: denies use current occupational status: employed Travel in the last 8 weeks: None household members: other housing: house current occupational exposures/hazards: Yes caffeine: Yes
[2022-12-20 15:31] VITALS: BP 138/69; PULSE 94; RESP 18; O2SAT 98; BMI 31.2
== END | disposition home or self-care (01) ==
PROVIDERS: PCP Family Medicine; Visit Provider Nurse Practitioner Family
DX: M51.16 Intervertebral disc disorders with radiculopathy, lumbar region (principal)
CPT/HCPCS: 99212; G0463

== ENCOUNTER → 2023-01-24 15:13 | Outpatient (POV) | payer OTHER, SELFPAY ==
--- NOTE | 2023-01-24 15:14 | EXP.PAIN.SOA ---
[facility] Pain Management SOAP Note Subjective:: Patient is a pleasant 46-year-old male who presents today for follow-up.? We are currently treating the patient for degenerative disc disease of lumbar spine with lumbar radiculopathy symptoms.? Today he rates his pain a 0 out of 10.? He denies any new injury or change to the location of pain he experiences.? He has had multiple lumbar epidural steroid injections in the past that have provided significant improvement and typically last approximately 4 months. His last lumbar epidural steroid injection of L4-L5 was on November 06, 2022. He does state that he feels like he is still continuing to get additional relief from this injection. He states since our last visit he only had 1 episode of worsening pain while he was weed eating and immediately after he stopped the pain resolved. Patient is currently managed with diclofenac 75 mg twice a day.? Patient denies any side effects from this medication.? Patient is not on any scheduled medications.? His Mukesh is [id number].? Its been reviewed and appropriate. Review of Systems: General: No recent weight changes, no fever, no sleep disturbances Respiratory: No cough, no shortness of air, no recurring pulmonary infections Cardiovascular/peripheral vascular: No chest pain, no palpitations,? no edema, no shortness of breath Gastrointestinal: No new onset incontinence, normal bowel movements reported Genitourinary: No new onset incontinence Musculoskeletal: Low back pain Psychiatric: [Normal mood/affect] Neurological: [Denies weakness in extremities], [denies balance issues] Objective:: Physical Exam: General: Alert and oriented x3, no acute distress, pleasant and cooperative Lungs: Respirations even and unlabored, symmetrical chest expansion Eyes: PERRL Musculoskeletal: Flexion and extension of lumbar [spine] somewhat guarded secondary to pain, [antalgic gait noted] Neurological: Speech clear, no gross sensory deficit Assessment:: Degenerative disc disease of lumbar spine with lumbar radiculopathy symptoms Plan:: Patient continues to get significant improvement from his last lumbar epidural steroid injection in October and does not require any additional injective therapy at this time. I will refill his diclofenac 75 mg twice daily and provide a 3-month supply of this medication. Patient will return to clinic in 6 weeks for reevaluation of symptoms and plan of care. Patient has been instructed to contact the clinic with any concerns before the next appointment.? Dr. Reid has reviewed this note and agrees with this plan of care.? This note was dictated using voice recognition software and make contain errors or omissions. [facility] Disclaimer: The information contained in this section may have been updated after the patient was seen, as this information can be updated by other users. Medical History Abnormal electrocardiography Arthritis BPH (benign prostatic hyperplasia) Hyperlipidemia Hypertension Large tongue RAMESH and COPD overlap syndrome T2DM (type 2 diabetes mellitus) Family History Other Diabetes Heart attack Hypertension No significant family history Stroke Social History Smoking Status: Former smoker alcohol intake: current substance use type: denies use current occupational status: employed Travel in the last 8 weeks: None household members: other housing: house current occupational exposures/hazards: Yes caffeine: Yes
[2023-01-24 15:37] VITALS: BP 144/67; PULSE 85; RESP 18; O2SAT 98; BMI 31.8
== END | disposition home or self-care (01) ==
PROVIDERS: PCP Family Medicine; Visit Provider Nurse Practitioner Family
DX: M51.16 Intervertebral disc disorders with radiculopathy, lumbar region (principal)
CPT/HCPCS: 99212; G0463

== ENCOUNTER → 2023-03-11 15:02 | Outpatient (POV) | payer OTHER, SELFPAY ==
--- NOTE | 2023-03-11 15:11 | EXP.PAIN.SOA ---
[facility] Pain Management SOAP Note Subjective:: Patient is a pleasant 47-year-old male who presents today for follow-up. We are currently treating the patient for degenerative disc disease of lumbar spine with lumbar radiculopathy symptoms. Today he rates his pain a 3 out of 10. Patient states he is starting to have increasing pain in his low back and legs with limited range of motion. He does describe this as an aching, throbbing sensation that is worse with increased activity. It does interfere with his ability perform activities of daily living. Patient previously had a lumbar epidural steroid injection of L4-L5 on November 06, 2022 that did provide significant improvements of 100% lasting up until this point. Patient states during that time he was able to increase his activity with decreased pain symptoms. He is interested in repeating this injection. Patient is currently managed on diclofenac 75 mg twice a day. He denies any side effects from this medication. His Mukesh is [id number]. Its been reviewed and appropriate. Review of Systems: General: No recent weight changes, no fever, no sleep disturbances Respiratory: No cough, no shortness of air, no recurring pulmonary infections Cardiovascular/peripheral vascular: No chest pain, no palpitations, no edema, no shortness of breath Gastrointestinal: No new onset incontinence, normal bowel movements reported Genitourinary: No new onset incontinence Musculoskeletal: Low back pain, bilateral leg pain Psychiatric: [Normal mood/affect] Neurological: [Denies weakness in extremities], [denies balance issues] Objective:: Physical Exam: General: Alert and oriented x3, no acute distress, pleasant and cooperative Lungs: Respirations even and unlabored, symmetrical chest expansion Eyes: PERRL Musculoskeletal: Flexion and extension of lumbar [spine] somewhat guarded secondary to pain, [antalgic gait noted] Neurological: Speech clear, no gross sensory deficit Assessment:: Degenerative disc disease of lumbar spine with lumbar radiculopathy symptoms Plan:: Patient is experiencing worsening pain in his low back with radiating symptoms into his lower extremities. Patient did have limited range of motion of his lumbar spine during today's visit. I have counseled the patient that he may benefit from repeat lumbar epidural steroid injection. Risk and benefits were discussed with the patient and he would like to proceed forward with this plan of care. Patient did previously have a lumbar injection that did provide 100% relief lasting more than 4 months. Patient is not on any blood thinners. We will schedule him for an LESI L4-L5. Patient has been instructed to contact the clinic with any concerns before the next appointment. Dr. Reid has reviewed this note and agrees with this plan of care. This note was dictated using voice recognition software and make contain errors or omissions. [facility] Disclaimer: The information contained in this section may have been updated after the patient was seen, as this information can be updated by other users. Medical History Abnormal electrocardiography Arthritis BPH (benign prostatic hyperplasia) Hyperlipidemia Hypertension Large tongue RAMESH and COPD overlap syndrome T2DM (type 2 diabetes mellitus) Family History Other Diabetes Heart attack Hypertension No significant family history Stroke Social History Smoking Status: Former smoker alcohol intake: current substance use type: denies use current occupational status: employed Travel in the last 8 weeks: None household members: other housing: house current occupational exposures/hazards: Yes caffeine: Yes
[2023-03-11 15:13] VITALS: BP 132/73; PULSE 89; RESP 18; O2SAT 98; BMI 31.6
== END ==
PROVIDERS: PCP Family Medicine; Visit Provider Nurse Practitioner Family
DX: M51.16 Intervertebral disc disorders with radiculopathy, lumbar region (principal)
CPT/HCPCS: 99212; G0463

== ENCOUNTER → 2023-03-26 09:43 | Day surgery (SDC) | payer OTHER, SELFPAY ==
[2023-03-26 09:54] VITALS: BP 123/72; PULSE 92; RESP 18; TEMP 36.2; O2SAT 98; BMI 30.2
[2023-03-26 10:28] VITALS: BP 149/87; PULSE 91; RESP 20
--- NOTE | 2023-03-26 10:52 | EXP.PAIN.PRO ---
Procedure Date: 03/26/23 Time: 10:40 Anesthesiologist:: Judd Valenzuela CRNA Complications:: None Pre-procedure Diagnosis:: Degenerative disc sees lumbar spine multilevels. Lumbar radiculopathy Post-procedure Diagnosis:: Same. Indications for Procedure:: Patient is a very pleasant 47-year-old male that comes our clinic today for lumbar epidural steroid injection to L4-5 level. Patient complains of chronic low back pain as well as bilateral hip and leg radicular symptoms. Patient states standing for any length of time is difficult due to increased pain in the low back. He rates his pain today 6/10. Procedure Details:: Procedure: Lumbar epidural steroid injection under fluoroscopy Informed consent was obtained and the risks and benefits of the procedure were explained to the patient. The patient was taken to the procedure room and noninvasive monitors placed, including noninvasive blood pressure cuff and pulse oximeter. The back was viewed using C-arm Fluoroscopy and prepped using Chloraprep as a cleansing solution and the L4-L5 interspace was palpated. Skin and subcutaneous tissues were anesthetized using lidocaine 1.5% and a 25-gauge needle. After this, an 18-gauge Touhy epidural needle was placed into the L4-L5 interspace and advanced using fluoroscopic guidance and loss of resistance to air until the epidural space was encountered. After confirmation of needle placement in the epidural space, with dye, a solution containing normal saline, 3 mL and Depo-Medrol 80 mg were incrementally injected into the lumbar epidural space. The patient tolerated the procedure well with no complications. The patient was observed in the Pain Clinic and then discharged home neurologically intact. Plan and Disposition:: Patient was discharged without incident.
== END | disposition home or self-care (01) ==
PROVIDERS: PCP Family Medicine; Visit Provider Nurse Anesthetist, Certified Registered
DX: M51.16 Intervertebral disc disorders with radiculopathy, lumbar region (principal)
CPT/HCPCS: 62323; J1040

== ENCOUNTER → 2023-04-18 15:22 | Outpatient (POV) | payer OTHER, SELFPAY ==
[2023-04-18 15:30] VITALS: BP 129/73; PULSE 87; RESP 18; O2SAT 97; BMI 29.8
--- NOTE | 2023-04-18 15:40 | A.OFFVIS_ITS ---
[facility] Pain Management SOAP Note Subjective:: Patient is a pleasant 47-year-old male who presents today for medication refill and follow-up of lumbar epidural steroid injection L4-L5 on 03/26/2023. We are currently treating the patient for degenerative disc disease of lumbar spine with lumbar radiculopathy symptoms. Today he rates his pain a 0 out of 10. Patient states he has had 100% improvement following this injection and feels like it is still continuing to provide additional relief. Patient is currently managed with diclofenac 75 mg twice a day. Patient denies any side effects from this medication. His Mukesh is [id number]. Its been reviewed and appropriate. Review of Systems: General: No recent weight changes, no fever, no sleep disturbances Respiratory: No cough, no shortness of air, no recurring pulmonary infections Cardiovascular/peripheral vascular: No chest pain, no palpitations, no edema, no shortness of breath Gastrointestinal: No new onset incontinence, normal bowel movements reported Genitourinary: No new onset incontinence Musculoskeletal: Low back pain Psychiatric: [Normal mood/affect] Neurological: [Denies weakness in extremities], [denies balance issues] Objective:: Physical Exam: General: Alert and oriented x3, no acute distress, pleasant and cooperative Lungs: Respirations even and unlabored, symmetrical chest expansion Eyes: PERRL Musculoskeletal: Flexion and extension of lumbar [spine] somewhat guarded secondary to pain, [antalgic gait noted] Neurological: Speech clear, no gross sensory deficit Assessment:: Degenerative disc disease of lumbar spine with lumbar radiculopathy symptoms Plan:: Patient has had significant improvement following his epidural injection and does not require any additional injective therapy. Patient will be refilled of his diclofenac 75 mg twice a day and provided a 3-month supply of this medication. Patient will return to clinic in 3 months for reevaluation of symptoms and plan of care. Patient has been instructed to contact the clinic with any concerns before the next appointment. Dr. Reid has reviewed this note and agrees with this plan of care. This note was dictated using voice recognition software and make contain errors or omissions. [facility] Disclaimer: The information contained in this section may have been updated after the patient was seen, as this information can be updated by other users. Medical History Abnormal electrocardiography Arthritis BPH (benign prostatic hyperplasia) Hyperlipidemia Hypertension Large tongue RAMESH and COPD overlap syndrome T2DM (type 2 diabetes mellitus) Family History Other Diabetes Heart attack Hypertension No significant family history Stroke Social History (Updated 03/26/23 @ 09:54 by Rebeca Aguilar RN) Smoking Status: Former smoker alcohol intake: never substance use type: denies use current occupational status: employed Travel in the last 8 weeks: None household members: other housing: house current occupational exposures/hazards: Yes caffeine: Yes
== END | disposition home or self-care (01) ==
PROVIDERS: PCP Family Medicine; Visit Provider Nurse Practitioner Family
DX: M51.16 Intervertebral disc disorders with radiculopathy, lumbar region (principal)
CPT/HCPCS: 99212; G0463

== ENCOUNTER → 2023-05-17 07:31 | Outpatient (CLI) | payer OTHER, SELFPAY ==
--- NOTE | 2023-05-17 07:31 | CT_ITS ---
FINAL REPORT TECHNIQUE: Axial CT images of the abdomen and pelvis were obtained before and after the administration of IV contrast. Oral contrast was administered.This study was performed with techniques to keep radiation doses as low as reasonably achievable (ALARA). Individualized dose reduction techniques using automated exposure control or adjustment of mA and/or kV according to the patient''s size were employed. CLINICAL HISTORY: hot flashes FINDINGS: Abdomen: The lung bases are clear. The heart is normal in size. The liver has a lobular contour consistent with cirrhosis. There is mild nonspecific gallbladder wall thickening. There are venous collaterals in the right anterior abdomen. There is splenomegaly. The spleen measures 18.8 cm. There is an 18 mm fat attenuation nodule in the left adrenal gland, may represent a myelolipoma. The pancreas has an unremarkable appearance. The kidneys enhance normally. The aorta is normal in caliber. There are multiple mildly enlarged portal and portacaval nodes which are nonspecific but favor reactive. No mass or abnormal fluid collection is seen. Moderate vascular calcification is identified. There is a small left inguinal hernia containing fat. Precontrast images demonstrate no evidence of nephrolithiasis. Pelvis: The appendix is normal. The urinary bladder is unremarkable. No inflammatory process is seen. There is no evidence of mass or adenopathy. There is no evidence of bowel obstruction. IMPRESSION: Cirrhosis. Mild nonspecific gallbladder wall thickening. Reviewed, Interpreted and Dictated by Juan Abad III, MD Transcribed by Poly Burton Authenticated and [facility]
[2023-05-17 08:00] LABS: Blood Urea Nitrogen 12 mg/dl (9-20); Estimated Glomerular Filt Rate 103 ml/min (>60); GFR (African American) 124 ML/MIN (>60)
== END ==
PROVIDERS: PCP Family Medicine; Visit Provider Nurse Practitioner Family
DX: E27.9 Disorder of adrenal gland, unspecified (principal); R23.2 Flushing
CPT/HCPCS: 36415; 74178; 82565; 84520; Q9967

== ENCOUNTER → 2023-05-24 10:54 | Outpatient (CLI) | payer OTHER, SELFPAY ==
[2023-05-24 10:49] LABS: Hemoglobin A1C 5.8 % (4.0-6.0)
[2023-05-24 11:20] LABS: Alanine Aminotransferase 46 U/L (12-78); Albumin Level 4.7 g/dl (3.5-5.0); Albumin/Globulin Ratio 1.5 (1.1-1.8); Alkaline Phosphatase 54 U/L (38-126); Anion Gap 15.9 mEq/L (5-15); Aspartate Amino Transferase 44 U/L (17-59); Bilirubin,Total 0.7 mg/dl (0.2-1.3); Blood Urea Nitrogen 12 mg/dl (9-20); Calcium 9.1 mg/dl (8.4-10.2); Carbon Dioxide 25 mmol/L (22.0-30.0); Chloride 104 mmol/L (98-107); Chol/HDL Ratio 4.6 (1-3.5); Cholesterol 155 mg/dl (140-200); Estimated Glomerular Filt Rate 103 ml/min (>60); GFR (African American) 124 ML/MIN (>60); Globulin 3.1 g/dL (1.3-3.2); Glucose 133 mg/dl (74-100); HDL Cholesterol 34 mg/dl (40-60); Potassium 4.9 mmoL/L (3.5-5.1); Sodium 140 mmol/L (136-145); Total Protein,Serum 7.8 g/dl (6.3-8.2); Triglycerides 217 mg/dl (30-150); VLDL Cholesterol 43 mg/dL (0-40)
[2023-05-25 17:09] LABS: Adrenocorticotropic Hormone 12.7 pg/mL (7.2-63.3)
== END ==
PROVIDERS: PCP Nurse Practitioner Family; Visit Provider Nurse Practitioner Family
DX: E11.9 Type 2 diabetes mellitus without complications (principal); E27.9 Disorder of adrenal gland, unspecified; Q89.1 Congenital malformations of adrenal gland; R23.2 Flushing; E78.5 Hyperlipidemia, unspecified; Z79.4 Long term (current) use of insulin
CPT/HCPCS: 80053; 80061; 82024; 82533; 83036

== ENCOUNTER → 2023-07-18 15:18 | Outpatient (POV) | payer OTHER, SELFPAY ==
--- NOTE | 2023-07-18 15:33 | EXP.PAIN.SOA ---
[facility] Pain Management SOAP Note Subjective:: Patient is a pleasant 47-year-old male who presents today for 1 month follow-up. We are currently treating the patient for degenerative disc disease of lumbar spine with lumbar radiculopathy symptoms. Today he rates his pain a 0 out of 10 while sitting however his pain does go to a 6 out of 10 with ambulation or increased activity. The pain does go from his low back into his bilateral lower extremities with numbness and tingling. Patient does describe his pain as an aching, throbbing sensation that is worse with increased activity. He does state the pain interferes with his ability perform activities of daily living such as cooking and cleaning. Patient previously had a lumbar epidural steroid injection of L4-L5 back in March that did provide 100% relief and has been continuing to help up until the last week or so. Patient denies any new trauma or injury. Patient is currently prescribed diclofenac 75 mg twice a day. He denies any side effects from this medication. He states it does still help some of his symptoms. His Mukesh has been reviewed and is appropriate. Review of Systems: General: No recent weight changes, no fever, no sleep disturbances Respiratory: No cough, no shortness of air, no recurring pulmonary infections Cardiovascular/peripheral vascular: No chest pain, no palpitations, no edema, no shortness of breath Gastrointestinal: No new onset incontinence, normal bowel movements reported Genitourinary: No new onset incontinence Musculoskeletal: Low back pain, bilateral leg pain Psychiatric: [Normal mood/affect] Neurological: [Denies weakness in extremities], [denies balance issues] Objective:: Physical Exam: General: Alert and oriented x3, no acute distress, pleasant and cooperative Lungs: Respirations even and unlabored, symmetrical chest expansion Eyes: PERRL Musculoskeletal: Flexion and extension of lumbar [spine] somewhat guarded secondary to pain, [antalgic gait noted] Neurological: Speech clear, no gross sensory deficit Assessment:: Degenerative disc disease of lumbar spine with lumbar radiculopathy symptoms Plan:: Patient is experiencing worsening pain is in his low back and legs with limited range of motion. I have discussed with the patient that he may benefit from repeat lumbar epidural steroid injection. Risk and benefits were discussed with the patient and he would like to proceed forward with this plan of care. I will refill the patient's diclofenac 75 mg twice daily and provide a 3-month supply of this medication. Patient will be scheduled for an LESI L4-L5. All epidurals are done under fluoroscopic guidance to confirm placement. Patient has been counseled to contact our office with any questions or concerns before their next appointment date. This note has been dictated using voice recognition software and may contain errors or omissions. Dr. Reid has read this note and agrees with this plan of care. [facility] Disclaimer: The information contained in this section may have been updated after the patient was seen, as this information can be updated by other users. Medical History (Updated 05/24/23 @ 08:53 by Clarisa Grubbs APRN) Abnormal electrocardiography Arthritis BPH (benign prostatic hyperplasia) Fatty tumor Hyperlipidemia Hypertension Large tongue Non-alcoholic cirrhosis RAMESH and COPD overlap syndrome Skin cancer T2DM (type 2 diabetes mellitus) Family History (Updated 05/24/23 @ 08:24 by Slime Triplett CMA) Family/Other Cancer Other Diabetes Heart attack Hypertension No significant family history Stroke Social History Smoking Status: Former smoker alcohol intake: never substance use type: denies use current occupational status: employed Travel in the last 8 weeks: None household members: other housing: house current occupational exposures/hazards: Yes caffeine: Yes
[2023-07-18 15:37] VITALS: BP 141/74; PULSE 90; RESP 18; O2SAT 93; BMI 31.1
== END | disposition home or self-care (01) ==
PROVIDERS: PCP Nurse Practitioner Family; Visit Provider Nurse Practitioner Family
DX: M51.16 Intervertebral disc disorders with radiculopathy, lumbar region (principal)
CPT/HCPCS: 99212; G0463

== ENCOUNTER 2023-08-13 07:57 | Day surgery (SDC) | payer OTHER, SELFPAY ==
[2023-08-13 08:10] VITALS: BP 136/72; PULSE 81; RESP 16; TEMP 36.3; O2SAT 98; BMI 30.5
[2023-08-13 08:20] VITALS: BP 128/71; PULSE 78; RESP 16; O2SAT 98
--- NOTE | 2023-08-13 08:24 | EXP.PAIN.PRO ---
Procedure Date: 08/13/23 Time: 08:00 Anesthesiologist:: Judd Valenzuela CRNA Complications:: None Pre-procedure Diagnosis:: Degenerative disc lumbar spine multilevels. Lumbar radiculopathy. Post-procedure Diagnosis:: Same. Indications for Procedure:: Patient is a pleasant 47-year-old male who comes our clinic today for lumbar epidural steroid injection at L4-5 level. Patient currently being managed with occasional lumbar epidural steroid injection for low back pain as well as bilateral hip and leg radicular symptoms. His last injection was 6 months ago. Patient very happy with the results regarding lumbar epidural steroid injections for symptomology. He rates his pain today 5/10. Procedure Details:: Procedure: Lumbar epidural steroid injection under fluoroscopy Informed consent was obtained and the risks and benefits of the procedure were explained to the patient. The patient was taken to the procedure room and noninvasive monitors placed, including noninvasive blood pressure cuff and pulse oximeter. The back was viewed using C-arm Fluoroscopy and prepped using Chloraprep as a cleansing solution and the L4-L5 interspace was palpated. Skin and subcutaneous tissues were anesthetized using lidocaine 1.5% and a 25-gauge needle. After this, an 18-gauge Touhy epidural needle was placed into the L4-L5 interspace and advanced using fluoroscopic guidance and loss of resistance to air until the epidural space was encountered. After confirmation of needle placement in the epidural space, with dye, a solution containing normal saline, 3 mL and Depo-Medrol 80 mg were incrementally injected into the lumbar epidural space. The patient tolerated the procedure well with no complications. The patient was observed in the Pain Clinic and then discharged home neurologically intact. Plan and Disposition:: Patient was discharged without incident.
== END 2023-08-13 08:20 | disposition home or self-care (01) ==
PROVIDERS: PCP Nurse Practitioner Family; Visit Provider Nurse Anesthetist, Certified Registered
DX: M51.16 Intervertebral disc disorders with radiculopathy, lumbar region (principal)
CPT/HCPCS: 62323; J1040

== ENCOUNTER → 2023-08-16 11:59 | Outpatient (CLI) | payer OTHER, SELFPAY ==
[2023-08-17 10:04] LABS: DHEA-Sulfate 47.5 ug/dL (71.6-375.4)
[2023-08-17 14:14] LABS: Adrenocorticotropic Hormone 14.1 pg/mL (7.2-63.3)
== END ==
PROVIDERS: PCP Nurse Practitioner Family; Visit Provider Nurse Practitioner Family
DX: E27.8 Other specified disorders of adrenal gland (principal); Q89.1 Congenital malformations of adrenal gland; E11.9 Type 2 diabetes mellitus without complications; Z79.4 Long term (current) use of insulin; Z79.84 Long term (current) use of oral hypoglycemic drugs; Z79.85 Long-term (current) use of injectable non-insulin antidiabetic drugs
CPT/HCPCS: 82024; 82533; 82626; 83036

== ENCOUNTER → 2023-08-28 08:15 | Outpatient (CLI) | payer OTHER, SELFPAY ==
[2023-08-28 08:34] LABS: Basophils % 0.5 % (0.1-2.0); Eosinophils # 0.1 K/mm3 (0.0-0.4); Eosinophils % 1.1 % (0.1-12.0); Hematocrit 52.6 % (42.0-52.0); Hemoglobin 17.8 g/dL (14.1-18.0); Lymphocytes # 1.6 K/mm3 (0.7-4.5); Lymphocytes % 27.2 % (10-50); Mean Corpuscular HGB Conc 33.8 g/dL (31.8-35.4); Mean Corpuscular Hemoglobin 30.9 pg (27.0-31.2); Mean Corpuscular Volume 91.3 fl (80-94); Mean Platelet Volume 8.1 fl (7.4-10.4); Monocytes # 2.9 K/mm3 (0.1-1.0); Monocytes % 50.9 % (1.7-9.3); Neutrophils # 1.2 K/mm3 (1.8-7.8); Neutrophils % 20.3 % (37.0-80.0); Platelet Count 123 K/mm3 (142-424); Red Blood Count 5.76 M/mm3 (4.60-6.20); Red Cell Distribution Width 13.8 % (11.5-17.5); White Blood Count 5.7 K/mm3 (4.8-10.8)
[2023-08-28 08:40] LABS: MANUAL DIFFERENTIAL MANUAL DIFFERENTIAL (MANUAL DIFF)
[2023-08-28 08:51] LABS: INR 1.12 (0.9-1.1)
[2023-08-28 09:34] LABS: Lymphocytes % 30 % (10-50); Monocytes % 3 % (2-9); Neutrophils % 67 % (42-76); Total Cells Counted 100
[2023-08-28 09:36] LABS: Platelet Estimate Slight Decrease; RBC Morphology Normal
[2023-08-29 05:20] LABS: HBsAg Screen Negative (Negative); HCV Ab Non Reactive (Non Reactive); Hep A Ab, IGM Negative (Negative); Hep B Core Ab, IgM Negative (Negative)
[2023-08-29 08:18] LABS: AFP, Tumor Marker 3.9 ng/mL (0.0-6.9)
[2023-09-01 07:55] LABS: Fibrosis Score 0.24
[2023-09-01 07:56] LABS: Fibrosis Stage F0-F1; NASH Grade N2-MODERATE NASH; NASH Score 0.57; Steatosis Grade S1; Steatosis Score 0.54
[2023-09-01 07:57] LABS: Alpha 2-Macroglobulins, Qn 210; Apolipoprotein A-1 150; Bilirubin, Total 0.3; Haptoglobin 82
[2023-09-01 07:58] LABS: ALT (SGPT) P5P 37; AST (SGOT) P5P 30; GGT 45
[2023-09-01 07:59] LABS: Cholesterol, Total 146; Glucose 124; Triglycerides 202
== END ==
LOC: LAB 08:16
PROVIDERS: PCP Nurse Practitioner Family; Visit Provider Nurse Practitioner
DX: K76.0 Fatty (change of) liver, not elsewhere classified (principal); K74.60 Unspecified cirrhosis of liver; R23.3 Spontaneous ecchymoses; R16.1 Splenomegaly, not elsewhere classified; R93.89 Abnormal findings on diagnostic imaging of other specified body structures
CPT/HCPCS: 36415; 80074; 82105; 85007; 85025; 85610

== ENCOUNTER 2023-09-05 08:40 | Outpatient (CLI) | payer OTHER, SELFPAY ==
[2023-09-05 10:04] LABS: Iron 86 ug/dL (49-181)
[2023-09-05 10:14] LABS: Total Iron Binding Capacity 404 ug/dL (261-462)
[2023-09-05 10:40] LABS: Ferritin 60.9 ng/ml (17.9-464)
[2023-09-06 08:19] LABS: Transferrin 330 mg/dL (177-329)
== END 2023-09-05 23:59 ==
LOC: LAB 08:42
PROVIDERS: PCP Nurse Practitioner Family; Visit Provider Nurse Practitioner
DX: R79.89 Other specified abnormal findings of blood chemistry (principal); E83.119 Hemochromatosis, unspecified
CPT/HCPCS: 36415; 81256; 82728; 83540; 83550; 84466

== ENCOUNTER → 2023-09-05 10:05 | Outpatient (POV) | payer OTHER, SELFPAY ==
[2023-09-05 10:25] VITALS: BP 129/74; PULSE 80; RESP 18; O2SAT 99; BMI 29.7
--- NOTE | 2023-09-05 10:45 | A.OFFVIS_ITS ---
[facility] Pain Management SOAP Note Subjective:: Patient is a pleasant 47-year-old male who presents today for follow-up of lumbar epidural steroid injection L4-L5 on 08/13/2023. We are currently treating the patient for degenerative disc disease of lumbar spine with lumbar radiculopathy symptoms. Today he rates his pain a 0 out of 10. Patient states he has had at least 60% improvement following this injection and feels like it is still providing additional relief. Patient states he has been able to increase his activity with decreased pain symptoms and feels overall more functional. Since our last visit he does state that he has a CT scan that did end up showing some liver issues and since then he has stopped his diclofenac as a precaution. Patient does state this is his fourth day without this medication and he is doing fine. He does state in the past that when he would stop taking his diclofenac he would experience more leg spasms and tingling as if he had his phone in his pocket and it was on fibrate. Patient does state that he had complete resolution of this while on diclofenac. He states he has not noticed any of the symptoms return as of yet but is concerned that they may at a later date. His Mukesh has been reviewed and is appropriate. Review of Systems: General: No recent weight changes, no fever, no sleep disturbances Respiratory: No cough, no shortness of air, no recurring pulmonary infections Cardiovascular/peripheral vascular: No chest pain, no palpitations, no edema, no shortness of breath Gastrointestinal: No new onset incontinence, normal bowel movements reported Genitourinary: No new onset incontinence Musculoskeletal: Low back pain Psychiatric: [Normal mood/affect] Neurological: [Denies weakness in extremities], [denies balance issues] Objective:: Physical Exam: General: Alert and oriented x3, no acute distress, pleasant and cooperative Lungs: Respirations even and unlabored, symmetrical chest expansion Eyes: PERRL Musculoskeletal: Flexion and extension of lumbar [spine] somewhat guarded secondary to pain, [antalgic gait noted] Neurological: Speech clear, no gross sensory deficit Assessment:: Degenerative disc disease of lumbar spine with lumbar radiculopathy symptoms Plan:: Patient has had significant improvement following his lumbar epidural and does not require any additional injection therapy at this time. I have discussed with the patient if his leg spasms do return that I do recommend he contact our office to let us know. I have discussed with the patient that he may benefit from muscle relaxers or a trial of ropinirole 0.25 mg at bedtime. We will review this at future visits. Patient will return to clinic in 1 month for reevaluation of symptoms and plan of care. Patient has been instructed to contact the clinic with any concerns before the next appointment. Dr. Reid has reviewed this note and agrees with this plan of care. This note was dictated using voice recognition software and make contain errors or omissions. [facility] Disclaimer: The information contained in this section may have been updated after the patient was seen, as this information can be updated by other users. Medical History Abnormal electrocardiography Arthritis BPH (benign prostatic hyperplasia) Fatty tumor Hyperlipidemia Hypertension Large tongue Non-alcoholic cirrhosis RAMESH and COPD overlap syndrome Skin cancer T2DM (type 2 diabetes mellitus) Family History Family/Other Cancer skin Other Diabetes Heart attack Hypertension No significant family history Stroke Social History Smoking Status: Former smoker alcohol intake: never substance use type: denies use current occupational status: employed Travel in the last 8 weeks: None household members: other housing: house current occupational exposures/hazards: Yes caffeine: Yes
== END ==
LOC: SC.PAIN 10:05
PROVIDERS: PCP Nurse Practitioner Family; Visit Provider Nurse Practitioner Family
DX: M51.16 Intervertebral disc disorders with radiculopathy, lumbar region (principal)
CPT/HCPCS: 99212; G0463

== ENCOUNTER 2023-09-12 12:46 | Outpatient (CLI) | payer OTHER, SELFPAY ==
[2023-09-12 14:25] VITALS: BMI 31.1
== END 2023-09-12 23:59 ==
PROVIDERS: PCP Nurse Practitioner Family; Visit Provider Nurse Practitioner
DX: E66.3 Overweight (principal); E83.119 Hemochromatosis, unspecified; K76.0 Fatty (change of) liver, not elsewhere classified; K74.60 Unspecified cirrhosis of liver; Z68.30 Body mass index [BMI] 30.0-30.9, adult
CPT/HCPCS: 97802

== ENCOUNTER 2023-09-23 08:22 | Outpatient (CLI) | payer OTHER, SELFPAY ==
[2023-09-23 08:49] LABS: Basophils % 0.7 % (0.1-2.0); Eosinophils % 0.9 % (0.1-12.0); Hematocrit 49.8 % (42.0-52.0); Hemoglobin 17.4 g/dL (14.1-18.0); Lymphocytes # 1.5 K/mm3 (0.7-4.5); Lymphocytes % 30.6 % (10-50); Mean Corpuscular HGB Conc 34.8 g/dL (31.8-35.4); Mean Corpuscular Hemoglobin 31.6 pg (27.0-31.2); Mean Corpuscular Volume 90.9 fl (80-94); Mean Platelet Volume 8.5 fl (7.4-10.4); Monocytes # 2.1 K/mm3 (0.1-1.0); Monocytes % 43.6 % (1.7-9.3); Neutrophils # 1.2 K/mm3 (1.8-7.8); Neutrophils % 24.2 % (37.0-80.0); Platelet Count 130 K/mm3 (142-424); Red Blood Count 5.49 M/mm3 (4.60-6.20); Red Cell Distribution Width 14.2 % (11.5-17.5); White Blood Count 4.8 K/mm3 (4.8-10.8)
[2023-09-23 09:00] LABS: INR 1.12 (0.9-1.1)
[2023-09-23 09:02] LABS: MANUAL DIFFERENTIAL MANUAL DIFFERENTIAL (MANUAL DIFF)
[2023-09-23 09:28] LABS: Lymphocytes % 27 % (10-50); Monocytes % 3 % (2-9); Neutrophils % 70 % (42-76); RBC Morphology Normal; Total Cells Counted 100
[2023-09-23 09:30] LABS: Platelet Estimate Slight Decrease
[2023-09-23 10:07] LABS: Alanine Aminotransferase 42 U/L (12-78); Albumin Level 4.6 g/dl (3.5-5.0); Albumin/Globulin Ratio 1.6 (1.1-1.8); Alkaline Phosphatase 51 U/L (38-126); Anion Gap 13.5 mEq/L (5-15); Aspartate Amino Transferase 41 U/L (17-59); Bilirubin,Total 0.9 mg/dl (0.2-1.3); Blood Urea Nitrogen 14 mg/dl (9-20); Calcium 8.9 mg/dl (8.4-10.2); Carbon Dioxide 31 mmol/L (22.0-30.0); Chloride 100 mmol/L (98-107); Estimated Glomerular Filt Rate 103 ml/min (>60); GFR (African American) 124 ML/MIN (>60); Globulin 2.8 g/dL (1.3-3.2); Glucose 105 mg/dl (74-100); Potassium 4.5 mmoL/L (3.5-5.1); Sodium 140 mmol/L (136-145); Total Protein,Serum 7.4 g/dl (6.3-8.2)
[2023-09-24 09:24] LABS: AFP, Tumor Marker 3.1 ng/mL (0.0-6.9)
[2023-09-24 13:12] LABS: Mitochondrial (M2) Antibody <20.0 Units (0.0-20.0)
[2023-09-25 09:09] LABS: Antinuclear Antibodies (ANA) Negative
== END 2023-09-23 23:59 ==
LOC: LAB 08:23
PROVIDERS: PCP Nurse Practitioner Family; Visit Provider Nurse Practitioner
DX: K74.60 Unspecified cirrhosis of liver (principal); K76.0 Fatty (change of) liver, not elsewhere classified; R16.1 Splenomegaly, not elsewhere classified; R79.89 Other specified abnormal findings of blood chemistry; R93.89 Abnormal findings on diagnostic imaging of other specified body structures; R23.3 Spontaneous ecchymoses
CPT/HCPCS: 36415; 80053; 82105; 85007; 85025; 85610; 86038; 86225; 86235; 86256

== ENCOUNTER 2023-10-01 06:42 | Outpatient (CLI) | payer OTHER, SELFPAY ==
[2023-10-01] VITALS (13 sets, daily range): BP systolic 90–143; BP diastolic 49–85; PULSE 71–92; RESP 16–18; TEMP 36.1–36.3; O2SAT 95–100; BMI 28.5
--- NOTE | 2023-10-01 06:53 | CT_ITS ---
FINAL REPORT CLINICAL HISTORY: liver biopsy, evaluate for cirrhosis. FINDINGS: CT GUIDE Liver biopsy. HISTORY:Cirrhosis ATTENDING PHYSICIAN: Dr. Strong PHYSICIAN TRAIN BRAKEMAN: True Mckeon PA-C PROCEDURE: After informed consent was obtained and a timeout was performed, the patient was prepped and draped in usual sterile fashion over the right lateral abdomen. Utilizing local anesthesia and sterile technique with a coaxial system, access to liverwas obtained. 3 18-gauge core biopsy passes were made. The patient received mild procedural sedation. The patient tolerated the procedure well and left the department in good condition. IMPRESSION: Status post CT-guided biopsy of the liver. PROCEDURAL SEDATION: 2 mg of IV Versed and 50 mcg of Fentanyl were administered. Continuous vital sign monitoring was used. An RN was present during the sedation process. Overall sedation time was 30 minutes. Films reviewed , interpreted and dictated by Dr. Strong. Transcribed by True Mckeon PA-C. Reviewed, Interpreted and Dictated by Juan Pablo Strong MD Transcribed by LISS Kunz Authenticated and [facility]
--- NOTE | 2023-10-01 07:26 | PC.NURSE ---
FSBS 111
[2023-10-01] MEDS: LACTATED RINGERS 1000ML 1,000 ML 25 ML IV (07:30)
[2023-10-01 07:32] LABS: Basophils % 0.4 % (0.1-2.0); Eosinophils % 0.9 % (0.1-12.0); Hematocrit 47.2 % (42.0-52.0); Hemoglobin 16.2 g/dL (14.1-18.0); Lymphocytes # 1.4 K/mm3 (0.7-4.5); Lymphocytes % 31.7 % (10-50); Mean Corpuscular HGB Conc 34.4 g/dL (31.8-35.4); Mean Corpuscular Hemoglobin 31.1 pg (27.0-31.2); Mean Corpuscular Volume 90.4 fl (80-94); Mean Platelet Volume 7.3 fl (7.4-10.4); Monocytes # 2.1 K/mm3 (0.1-1.0); Monocytes % 46.9 % (1.7-9.3); Neutrophils # 0.9 K/mm3 (1.8-7.8); Neutrophils % 20.2 % (37.0-80.0); Platelet Count 110 K/mm3 (142-424); Red Blood Count 5.22 M/mm3 (4.60-6.20); White Blood Count 4.6 K/mm3 (4.8-10.8)
[2023-10-01 07:36] LABS: MANUAL DIFFERENTIAL MANUAL DIFFERENTIAL (MANUAL DIFF)
[2023-10-01 07:39] LABS: Activated Partial Thrombo Time 28.3 seconds (22.8-30.6); INR 1.09 (0.9-1.1); Prothrombin Time 11.7 seconds (10.1-12.5)
[2023-10-01 08:21] LABS: POC Glucose,Bedside 111 (70-110)
[2023-10-01 09:16] LABS: Total Cells Counted 100
[2023-10-01 09:20] LABS: Band Neutrophils % 2 (0-8); Lymphocytes % 25 % (10-50); Monocytes % 2 % (2-9); Neutrophils % 71 % (42-76)
[2023-10-01 09:21] LABS: Platelet Estimate Slight Decrease; RBC Morphology Normal
--- NOTE | 2023-10-01 09:24 | PC.NURSE ---
Time in room: 829 Time out: 844 Procedure start: 845 Procedure end: 849 Versed 2mg and Fentanyl 50mcg given at 45 Staff present during procedure: Juan Pablo Funk RN, Delores Hyatt RN, Paramjit Reynoso, RT and Juan Pablo Mckeon, NUSRAT Pt transported to Postop via stretcher, report given to Emigdio Pringle RN
== END 2023-10-01 11:00 | disposition home or self-care (01) ==
PROVIDERS: PCP Nurse Practitioner Family; Visit Provider Nurse Practitioner
DX: K74.60 Unspecified cirrhosis of liver (principal); K76.0 Fatty (change of) liver, not elsewhere classified; R79.89 Other specified abnormal findings of blood chemistry
CPT/HCPCS: 47000; 77012; 82962; 85007; 85025; 85610; 85730

== ENCOUNTER 2023-10-03 12:04 | Day surgery (SDC) | payer OTHER, SELFPAY ==
[2023-10-01 10:17] VITALS: BMI 28.5
[2023-10-03 12:15] VITALS: BP 149/84; PULSE 97; RESP 17; TEMP 36.2; O2SAT 98
[2023-10-03] MEDS: LACTATED RINGERS 1000ML 1,000 ML 25 ML IV (12:19)
--- NOTE | 2023-10-03 12:26 | EXP.ANES.CKL ---
[facility] Disclaimer: The information contained in this section may have been updated after the patient was seen, as this information can be updated by other users. Medical History Abnormal electrocardiography Arrhythmia Arthritis BPH (benign prostatic hyperplasia) Fatty tumor Hyperlipidemia Hypertension Large tongue Non-alcoholic cirrhosis RAEMSH and COPD overlap syndrome Skin cancer Sleep apnea T2DM (type 2 diabetes mellitus) Surgical History History of liver biopsy Family History Family/Other Cancer skin Other Diabetes Heart attack Hypertension No significant family history Stroke Social History Smoking Status: Former smoker alcohol intake: never substance use type: denies use current occupational status: employed Travel in the last 8 weeks: None household members: other housing: house current occupational exposures/hazards: Yes caffeine: Yes [facility] Anesthesia Checklist Patient Identification Patient Identification: Arm Band Structural Data Admitted From: Home Planned Operative Procedure/s: EGD/Colonoscopy Consent for Planned Operative Procedure(s) Verified: Yes Verified Documents: Surgical Consent and History and Physical NPO Status Verified Time NPO: 00:00 Additional verifications Anesthesia Reactions: No Hx Blood Transfusions: No Blood Transfusion Reaction: No Airway Assessment Mallampati Score:: Class II C-Spine Mobility Assessed: Yes TMJ Mobility Assessed: Yes Dentition: Good Dentition Neurological Assessment Level of Consciousness: Awake and Alert Anesthesia Plan Anesthesia Risk discussed: Yes Anesthesia Plan: Verified ASA Class: III Anesthesia Type: MAC
[2023-10-03 13:03] VITALS: O2SAT 98
[2023-10-03 13:35] VITALS: BP 169/65; PULSE 109; RESP 20; TEMP 36.1; O2SAT 96
--- NOTE | 2023-10-03 13:35 | HMH.SCOPE ---
Procedure: Date: 10/03/23 Patient Date of :: 1975 Procedure Performed:: Diagnostic EGD Indications:: Cirrhosis varices check Performing Provider:: Kaylin Mtz MD Referring Provider:: Sharri Mtz APRN Sedation:: Propofol Procedure:: The gastroscope was gently passed through the incisoral orifice into the oral cavity and under direct visualization the esophagus was intubated. The endoscope was passed down the esophagus, through the stomach, and into the duodenum. Color, texture, mucosa, and anatomy of the esophagus, stomach, and duodenum were carefully examined with the scope. 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
--- NOTE | 2023-10-03 13:39 | HMH.SCOPE ---
Procedure: Date: 10/03/23 Patient Date of :: 1975 Procedure Performed:: Screening colonoscopy with polypectomy Indications:: Colon cancer screening, rectal bleeding Performing Provider:: Kaylin Mtz MD Referring Provider:: Sharri Mtz APRN Sedation:: Propofol Procedure:: After placing the patient in the left lateral decubitus position, the colonoscopy was gently inserted into the rectum and under direct visualization advanced to the cecum which was identified by transillumination in the right lower quadrant, identification of the ileocecal valve, appendiceal orifice, and cecal strap. Color, texture, mucosa, and anatomy of the colon were carefully examined with the scope. Findings:: Anal canal: normal Rectum: 0.5 cm polyp identified and removed with forceps Sigmoid colon: normal without polyps or inflammatory changes Descending colon: 0.75 cm adenomatous polyp identified and removed with snare Splenic flexure: normal Transverse colon: normal without polyps or inflammatory changes Hepatic flexure: normal Ascending colon: normal without polyps or inflammatory changes Cecum: normal Terminal ileum: not visualized Impression: Polyps of decending colon & rectum Specimens:: Colon polyps Recommendations:: Follow up examination in about THREE years or so, sooner if clinically indicated in view of findings of polyps. Complications:: None Estimated blood obtained (mL): 1 Colonoscopy Component Colonoscopy Component Was a colonoscopy performed during today's procedure?: Yes Recommended follow up colonoscopy of at least 10 years?: No If no, follow up colonoscopy recommended in ___ years?: Three Reason for not recommending >/= 10 yr follow-up interval?: Polyps
[2023-10-03 13:45] VITALS: BP 153/66; PULSE 102; RESP 18; O2SAT 95
[2023-10-03 13:55] VITALS: BP 148/71; PULSE 100; RESP 20; O2SAT 94
[2023-10-03 14:21] VITALS: BP 128/70; PULSE 97; RESP 18; O2SAT 96
[2023-10-04 09:04] LABS: POC Glucose,Bedside 78 (70-110)
== END 2023-10-03 14:30 | disposition home or self-care (01) ==
PROVIDERS: PCP Nurse Practitioner Family; Visit Provider Internal Medicine Gastroenterology
PROC: 0DJ08ZZ Inspection of Upper Intestinal Tract, Via Natural or Artificial Opening Endoscopic (ICD-10-PCS; CPT 43235; principal; 2023-10-03 13:00)
DX: K74.60 Unspecified cirrhosis of liver (principal); I85.10 Secondary esophageal varices without bleeding; K76.6 Portal hypertension; Z12.11 Encounter for screening for malignant neoplasm of colon; K62.5 Hemorrhage of anus and rectum; D12.4 Benign neoplasm of descending colon; K62.1 Rectal polyp; E11.9 Type 2 diabetes mellitus without complications
CPT/HCPCS: 43235; 45380; 45385; 82962

== ENCOUNTER → 2023-10-10 15:00 | Outpatient (POV) | payer OTHER, SELFPAY ==
--- NOTE | 2023-10-10 15:03 | A.OFFVIS_ITS ---
[facility] Pain Management SOAP Note Subjective:: Patient is a pleasant 47-year-old male who presents today for 1 month follow-up. We are currently treating the patient for degenerative disc disease of lumbar spine with lumbar radiculopathy symptoms. Today he rates his pain a 5 out of 10. Patient denies any new trauma or injury. He states he continues to have good relief from his last lumbar epidural that was in August. Patient states he has been able to increase his activity with decreased pain symptoms and feels overall more functional on a day-to-day basis. Patient did previously have EGD and colonoscopy and was diagnosed with an esophageal ulcer. Patient did have to stop taking this and was worried about having additional leg symptoms however he states that this is still not came back. Patient does also state that over the last year he has lost approximately 30 pounds and feels like this may have also helped improve his overall back pain symptoms. Patient is not on any scheduled medications. His Mukesh has been reviewed and is appropriate. Review of Systems: General: No recent weight changes, no fever, no sleep disturbances Respiratory: No cough, no shortness of air, no recurring pulmonary infections Cardiovascular/peripheral vascular: No chest pain, no palpitations, no edema, no shortness of breath Gastrointestinal: No new onset incontinence, normal bowel movements reported Genitourinary: No new onset incontinence Musculoskeletal: Low back pain, bilateral leg pain Psychiatric: [Normal mood/affect] Neurological: [Denies weakness in extremities], [denies balance issues] Objective:: Physical Exam: General: Alert and oriented x3, no acute distress, pleasant and cooperative Lungs: Respirations even and unlabored, symmetrical chest expansion Eyes: PERRL Musculoskeletal: Flexion and extension of lumbar [spine] somewhat guarded secondary to pain, [antalgic gait noted] Neurological: Speech clear, no gross sensory deficit Assessment:: Degenerative disc disease of lumbar spine with lumbar radiculopathy symptoms Plan:: Patient continues to have significant relief following his lumbar epidural and does not require any additional injection therapy at this time. Patient will return to clinic in 3 months for reevaluation of symptoms and plan of care. Patient has been instructed to contact the clinic with any concerns before the next appointment. Dr. Reid has reviewed this note and agrees with this plan of care. This note was dictated using voice recognition software and make contain errors or omissions. [facility] Disclaimer: The information contained in this section may have been updated after the patient was seen, as this information can be updated by other users. Medical History (Updated 10/03/23 @ 17:22 by Sharri Mtz APRN) Abnormal electrocardiography Arrhythmia Arthritis BPH (benign prostatic hyperplasia) Fatty tumor Hyperlipidemia Hypertension Large tongue Non-alcoholic cirrhosis RAMESH and COPD overlap syndrome Skin cancer Sleep apnea T2DM (type 2 diabetes mellitus) Surgical History History of liver biopsy Family History Family/Other Cancer skin Other Diabetes Heart attack Hypertension No significant family history Stroke Social History Smoking Status: Former smoker alcohol intake: never substance use type: denies use current occupational status: employed Travel in the last 8 weeks: None household members: other housing: house current occupational exposures/hazards: Yes caffeine: Yes
[2023-10-10 15:09] VITALS: BP 137/76; PULSE 89; RESP 18; O2SAT 98; BMI 28.3
== END | disposition home or self-care (01) ==
PROVIDERS: PCP Nurse Practitioner Family; Visit Provider Nurse Practitioner Family
DX: M51.16 Intervertebral disc disorders with radiculopathy, lumbar region (principal)
CPT/HCPCS: 99212; G0463

== ENCOUNTER 2023-11-11 10:36 | Outpatient (CLI) | payer OTHER, SELFPAY ==
[2023-11-11 10:59] LABS: Basophils % 0.8 % (0.1-2.0); Eosinophils % 0.8 % (0.1-12.0); Hematocrit 49.9 % (42.0-52.0); Hemoglobin 16.5 g/dL (14.1-18.0); Lymphocytes # 1.4 K/mm3 (0.7-4.5); Mean Corpuscular HGB Conc 33.1 g/dL (31.8-35.4); Mean Corpuscular Hemoglobin 31.2 pg (27.0-31.2); Mean Corpuscular Volume 94.3 fl (80-94); Mean Platelet Volume 8.5 fl (7.4-10.4); Monocytes # 2.4 K/mm3 (0.1-1.0); Monocytes % 46.6 % (1.7-9.3); Neutrophils # 1.2 K/mm3 (1.8-7.8); Neutrophils % 23.9 % (37.0-80.0); Platelet Count 118 K/mm3 (142-424); Red Blood Count 5.29 M/mm3 (4.60-6.20); Red Cell Distribution Width 13.6 % (11.5-17.5); White Blood Count 5.1 K/mm3 (4.8-10.8)
[2023-11-11 11:03] LABS: MANUAL DIFFERENTIAL MANUAL DIFFERENTIAL (MANUAL DIFF)
[2023-11-11 11:11] LABS: INR 1.11 (0.9-1.1); Prothrombin Time 11.9 seconds (10.1-12.5)
[2023-11-11 11:18] LABS: Lymphocytes % 24 % (10-50); Monocytes % 5 % (2-9); Neutrophils % 64 % (42-76); Total Cells Counted 100
[2023-11-11 11:19] LABS: Platelet Estimate Slight Decrease; RBC Morphology Normal
[2023-11-11 11:22] LABS: Hemoglobin A1C 5.7 % (4.0-6.0)
[2023-11-11 11:36] LABS: Alanine Aminotransferase 35 U/L (12-78); Albumin Level 4.6 g/dl (3.5-5.0); Albumin/Globulin Ratio 1.8 (1.1-1.8); Alkaline Phosphatase 46 U/L (38-126); Anion Gap 11.4 mEq/L (5-15); Aspartate Amino Transferase 39 U/L (17-59); Bilirubin,Total 0.9 mg/dl (0.2-1.3); Blood Urea Nitrogen 15 mg/dl (9-20); Calcium 9.6 mg/dl (8.4-10.2); Carbon Dioxide 29 mmol/L (22.0-30.0); Chloride 104 mmol/L (98-107); Chol/HDL Ratio 4.8 (1-3.5); Cholesterol 181 mg/dl (140-200); Estimated Glomerular Filt Rate 120 ml/min (>60); GFR (African American) 145 ML/MIN (>60); Globulin 2.6 g/dL (1.3-3.2); Glucose 98 mg/dl (74-100); HDL Cholesterol 38 mg/dl (40-60); Potassium 4.4 mmoL/L (3.5-5.1); Sodium 140 mmol/L (136-145); Total Protein,Serum 7.2 g/dl (6.3-8.2); Triglycerides 96 mg/dl (30-150); VLDL Cholesterol 19 mg/dL (0-40)
[2023-11-11 11:47] LABS: Direct LDL Cholesterol 108.75 mg/dL (100-129)
[2023-11-11 12:08] LABS: Prostate Specific Ag Screen 0.6 ng/ml (0.0-4.0)
[2023-11-12 13:10] LABS: AFP, Tumor Marker 3.6 ng/mL (0.0-6.9)
== END 2023-11-11 23:59 ==
LOC: LAB 10:36
PROVIDERS: PCP Nurse Practitioner Family; Visit Provider Nurse Practitioner
DX: E11.9 Type 2 diabetes mellitus without complications (principal); Z12.5 Encounter for screening for malignant neoplasm of prostate; K76.0 Fatty (change of) liver, not elsewhere classified; K74.60 Unspecified cirrhosis of liver; I10 Essential (primary) hypertension; I85.00 Esophageal varices without bleeding; D69.6 Thrombocytopenia, unspecified; Z79.4 Long term (current) use of insulin; Z87.891 Personal history of nicotine dependence; E78.49 Other hyperlipidemia
CPT/HCPCS: 36415; 80053; 80061; 82105; 83036; 85007; 85025; 85610; G0103

== ENCOUNTER 2023-11-14 07:56 | Outpatient (CLI) | payer OTHER, SELFPAY ==
[2023-11-14] VITALS (10 sets, daily range): BP systolic 91–132; BP diastolic 60–90; PULSE 74–81; RESP 16; O2SAT 94–99; BMI 29.5
--- NOTE | 2023-11-14 08:00 | CT_ITS ---
APPROVED REPORT Electric Motor Mechanic: CLINICAL INDICATION Chest Pain TECHNIQUE Image Acquisition: A 128 slice MDCT scanner ([employer] RatePointa View) was used for data acquisition. A noncontrast coronary calcium scan was performed. A CT attenuation threshold of 130 Hounsfield units (HU) was used for the detection of calcium in contiguous voxels of 1 sq mm in area to be counted as individual lesions. Bolus tracking in the ascending aorta with a threshold of 180 HU was performed. Immediately afterwards, ECG synchronized cardiac CT was then performed from the cardiac base to apex using retrospective gating with ECG tube current modulation. A total of 85 mL of Isovue 370 mg/mL contrast medium was administered at 5 mL/sec followed by a saline flush using a biphasic injection protocol. A tube voltage of 120 KVp was used. The patient received the following medications prior to the cardiac CT. 125 mg of oral metoprolol 20 mg of intravenous metoprolol 15 mg of oral ivabradine 0.8 mg of sublingual nitroglycerin The average heart rate at the time of acquisition was 75 bpm and regular. Additional heart rate reducing medications were not administered due to marginal BP. Image Reconstruction Transaxial images were reconstructed at 0.67 mm slide thickness. Data was reviewed interactively on an advanced workstation capable of 2 and 3-dimensional displays in all conventional reconstruction formats, including multiplanar reformations, maximum intensity projections, curved multiplanar reformations, and volume rendered reconstructions. When applicable, selected routine images describing the relevant coronary anatomy and pathology were saved and sent to PACS. Complications None Technical Quality Overall image quality was suboptimal due to elevated HR despite HR-controlling medications. Coronary artery opacification was adequate. Total DLP (Dose-Length Product) is 1438.0 mGy-cm. The reported value represents the total of one or more individual components during the CT acquisition of this date and at this time, and as such, the same value may appear in more than one CT report depending on the interpreting/reporting physicians. COMPARISON None FINDINGS CT Coronary Calcium Scoring LMA (Left Main Artery) = 32 LAD (Left Anterior Descending) = 313 LCX (Left Coronary Circumflex) = 40 RCA (Right Coronary Artery) = 23 Total Calcium Score = 408 using the AJ-130 method. The observed calcium score of 408 is at 98th percentile for subjects of the same age, sex, and race/ethnicity. The interpretation of the calcium heart score is based on the following continuum*: 0 = no calcified plaque detected (risk of coronary artery disease is very low ??? less than 5%) 1-10 = calcium detected in extremely minimal levels (risk of coronary diseases is still low ??? less than 10%) 11-100 = mild levels of plaque detected with certainty (mild or minimal narrowing of heart arteries is likely) 101-400 = definite,at least moderate levels of plaque detected (relatively high risk of a heart attack within 3-5 years) >401-999 = extensive levels of plaque detected (high risk of heart attack, high levels of vascular disease are present, high likelihood of at least one significant coronary narrowing) *The calcium heart score quantifies the burden of coronary calcification/plaque in the coronary arteries. The calcium heart score is not able to evaluate the presence or burden of non-calcified (i.e. soft) plaque. There is also identifiable calcification in the ascending and descending thoracic aorta. Coronary CT Angiography The coronary arterial system is right dominant. Quantitative Stenosis Grading: Left Main (LM): The left main originates normally from the left sinus of Valsalva. The LM bifurcates into the left anterior descending artery and left circumflex artery. There is calcified plaque in the proxima Left Anterior Descending (LAD) and Diagonal Branches: The LAD gives off 2 diagonal branch(es). There is mixed calcified/noncalcified plaque along the proximal and mid LAD, with up to 50-70% luminal stenosis noted in the mid-segment. There is no evidence of LAD-myocardial bridge. Left Circumflex (LCX) and Obtuse Marginals (OM): The LCX gives off 1 Obtuse Marginal (OM) branch(es). There is calcified plaque in the distal LCx segment with 25-49% luminal stenosis. Right Coronary Artery (RCA): The RCA originates normally from the right sinus of Valsalva. The RCA gives off a posterior descending artery (PDA) and posterolateral (PL) branches. There is calcified plaque present along the RCA segment but with no evidence of luminal stenosis. Non-Coronary Cardiac Findings: Analysis of the left ventricular (LV) structure and function was performed after 3-D reconstruction of the LV from axial images, with user-corrected automatic contouring for assessment of LV volumes and user-defined reconstruction from oblique planes for measurement of 3-D cardiac structure and function. -The left ventricle systolic function is globally normal (LVEF 57%). There is mild hypokinesis of the anterior and anteroseptal LV mccullough. -There is no left atrial appendage filling defect. Two right pulmonary veins and two left pulmonary veins drain normally into the left atrium. -No pericardial thickening or calcification. -Central and branch pulmonary arteries in the [id number] are unremarkable. -Thoracic aorta within the visualized thoracic aortic-branches in the [id number] is unremarkable. Extracardiac Structures No significant extra-cardiac findings. Note, however, that this study is focused on the cardiac findings. IMPRESSION -Overall image quality was suboptimal due to elevated HR despite HR-controlling medications. -Presence of coronary calcification with an Agatston score = 408 using the AJ-130 method. -The observed calcium score of 408 is at 98th percentile for subjects of the same age, sex, and race/ethnicity. -Presence of multivessel plauqe, with possible significant flow-limiting atherosclerosis in the mid LAD. -CAD-RADS 3. Management recommendations per ACC/AHA guidelines*, as clinically appropriate. -Left ventricle systolic function is globally normal (LVEF 57%). There is mild hypokinesis of the anterior and anteroseptal LV mccullough. *Recommendations: CAD RADS 0: Reassurance. Consider non-atherosclerotic causes of chest pain. CAD RADS 1: Consider non-atherosclerotic causes of chest pain. Consider preventive therapy and risk factor modification. CAD RADS 2: Consider non-atherosclerotic causes of chest pain. Consider preventive therapy and risk factor modification, particularly for patients with nonobstructive plaque in multiple segments. CAD RADS 3: Consider further functional testing. Consider symptom-guided anti-ischemic and preventive pharmacotherapy as well as risk factor modification per published guideline statements. CAD RADS 4A: Consider further functional testing or invasive coronary angiography with revascularization per published guideline statements. Consider symptom-guided anti-ischemic and preventive pharmacotherapy as well as risk factor modification per published guideline statements. CAD RADS 4B: Invasive coronary angiography recommended with revascularization per published guideline statements. Consider symptom-guided anti-ischemic and preventive pharmacotherapy as well as risk factor modification per published guideline statements. CAD RADS 5: Consider invasive angiography and/or viability assessment with revascularization per published guideline statements. Consider symptom-guided anti-ischemic and preventive pharmacotherapy as well as risk factor modification per published guideline statements. CRITICAL RESULT None COMMUNICATION Per this written report The coronary and cardiac findings of this CCTA were reviewed, reported, and signed by Tomas Espinosa MD (Bus Cleaner) Conclusion Electronically signed by : Domenica Espinosa MD 11/19/2023 12:50:10
--- NOTE | 2023-11-14 08:01 | CA_ITS ---
APPROVED REPORT EXAM: Comprehensive 2D, Doppler, and color-flow Echocardiogram Commissary Manager: Michelle So RT(R) Ht: 6 ft 0 in Wt: 210lbs BSA: 2.18 BP: 122/68 mmHg Indications: ABN EKG, ex smoker, HTN, hyperlipidemia, DM, SOB, SANCHEZ, RAMESH 2D Dimensions LVEF (Malagon's) 58.60 % M: 52 - 72 LV Volume 95.60 mL M: 62 - 150 LV Volume Index 43.9 mL/m2 M: 34 - 74 LA Volume 35.00 mL LA Volume Index 16.06 mL/m2 (M/F) 16-34 EF AP4 63.00 % EF AP2 52.2 % EF BP 58.6 % GL Strain -19.6 % M-Mode Dimensions RVDd 2.50 cm (0.9-2.6) LA Diam 3.83 cm (1.9-4.0) LVDd 4.15 cm (3.5-5.7) LVDs 2.90 cm (3.5-5.7) IVSd 1.21 cm (0.6-1.1) PWd 0.85 cm (0.6-1.1) EF (Teich) 57.90% FS 30.10% EDV (Teich) 76.40 mL ESV (Teich) 32.20 mL LV Diastology E Decel Time 150 (160-240 msec) E/A Ratio 0.8 Mitral Valve MV E Max Randy. 75.0 (40-130 cm/s) MV A Velocity 100.0 (40-130 cm/s) E/A Ratio 0.75 MV PHT 44.0 ms Left Ventricle The left ventricle is normal size. The left ventricular systolic function is normal. The left ventricular ejection fraction is within the normal range. Proximal septal thickening is noted. There is normal LV segmental wall motion. Transmitral Doppler flow pattern suggests impaired LV relaxation. LVEF is 55%. Right Ventricle The right ventricle is normal size. The right ventricular systolic function is normal. Atria The left atrium size is normal. The right atrium size is normal. There is no Doppler evidence of interatrial shunt. Aortic Valve The aortic valve opens well. There is no aortic valvular stenosis. No aortic regurgitation is present. Mitral Valve The mitral valve is normal in structure. No evidence of mitral valve stenosis. There is no mitral valve regurgitation noted. Tricuspid Valve The tricuspid valve leaflets are thin and pliable. Trace tricuspid regurgitation. There is insufficient TR jet to estimate RVSP. Pulmonic Valve The pulmonary valve is normal in structure. Trace pulmonic regurgitation. Great Vessels The aortic root is normal in size. The ascending aorta is normal in size. IVC is normal in size and collapses >50% with inspiration. Pericardium There is no pericardial effusion. Conclusion Normal biventricular systolic function. No significant valvular stenosis or regurgitation. Electronically signed by : Domenica Espinosa MD 11/16/2023 22:16:54
[2023-11-14] MEDS: METOPROLOL TARTRATE 50MG TABLET *IVABRADINE+METOPROLOL REGIMINE 75 MG PO (08:48)
[2023-11-14] MEDS: IVABRADINE HCL 7.5MG TABLET *IVABRADINE+METOPROLOL REGIMINE 15 MG PO (08:48)
[2023-11-14 08:52] LABS: POC Glucose,Bedside 107 (70-110)
[2023-11-14] MEDS: METOPROLOL TARTRATE 25MG TABLET *IVABRADINE+METOPROLOL REGIMINE 25 MG PO (09:37)
[2023-11-14] MEDS: METOPROLOL TARTRATE 50MG TABLET *IVABRADINE+METOPROLOL REGIMINE 50 MG PO (09:37)
[2023-11-14] MEDS: NITROGLYCERIN 0.4MG SL TABLET 0.800000000000000044 MG SL (10:38)
[2023-11-14] MEDS: METOPROLOL TARTRATE 5MG/5ML VIAL *IVABRADINE+METOPROLOL REGIMINE 5 MG IV ×4 (10:39→10:54)
[2023-11-14] MEDS: 0.9 % SODIUM CHLORIDE 50 ML VIAL IV (11:03)
[2023-11-14] MEDS: IOPAMIDOL-370 (76%);100ML BOTTLE 85 ML IV (11:03)
== END 2023-11-14 11:49 | disposition home or self-care (01) ==
LOC: RT 07:57 → RAD 08:29
PROVIDERS: PCP Nurse Practitioner Family; Visit Provider Nurse Practitioner Family
DX: R06.00 Dyspnea, unspecified (principal); R94.31 Abnormal electrocardiogram [ECG] [EKG]; E11.9 Type 2 diabetes mellitus without complications; E78.5 Hyperlipidemia, unspecified; I10 Essential (primary) hypertension; G47.33 Obstructive sleep apnea (adult) (pediatric); Z99.89 Dependence on other enabling machines and devices; Z79.4 Long term (current) use of insulin
CPT/HCPCS: 75571; 75574; 82962; 93306; Q9967

== ENCOUNTER 2023-11-27 07:01 | Day surgery (SDC) | payer OTHER, SELFPAY ==
[2023-11-27] VITALS (12 sets, daily range): BP systolic 93–167; BP diastolic 56–104; PULSE 68–92; RESP 16–19; TEMP 36.6; O2SAT 92–97; BMI 30.1
--- NOTE | 2023-11-27 07:07 | IR_ITS ---
APPROVED REPORT Patient Location: Outpatient PROCEDURES Left heart catheterization Left ventriculogram Selective coronary angiogram INDICATION Abnormal noninvasive test, Coronary artery disease, Angina pectoris Informed consent was obtained prior to the procedure. COMPLICATIONS NONE Estimated Blood Loss: LESS THAN 10 ML TECHNIQUE One percent lidocaine used to anesthetize the right anterior aspect of the wrist. The right radial artery was accessed via the Seldinger technique. A 6 Guamanian sheath was placed in the right radial artery. 2.5 mg of Verapamil, 800 mcg of nitroglycerin, 1mg Lidocaine and 5000 U Heparin were given through the arterial sheath. The papa catheter was also used to perform left heart catheterization, left ventriculogram and selective coronary angiogram. At the end of the procedure the sheath was removed good hemostasis was achieved using Traclet band, patient was transferred to the postop holding area in stable condition. ANGIOGRAPHIC RESULTS The left main artery Normal The left anterior descending artery Has proximal 10% stenoses with diffuse 20 and 30% mid vessel stenoses The circumflex artery Nondominant with diffuse 10% luminal irregularities The right coronary artery Dominant with mid vessel distal 10% luminal irregularities The MIRANDA ventriculogram reveals Normal 65% The left ventricular end-diastolic pressure 10 mmHg IMPRESSION Mild diffuse luminal irregularities with mild disease involving the mid LAD Normal ejection fraction Normal left ventricular end-diastolic pressure PLAN 1. Aggressive medical management Electronically signed by : Gerry Golden MD 11/27/2023 09:54:57
[2023-11-27] MEDS: VERAPAMIL 2.5MG/ML 2ML VIAL 2.5 MG IV (09:48)
[2023-11-27] MEDS: LIDOCAINE 1% 10ML MDV 20 ML IJ (09:48)
[2023-11-27] MEDS: HEPARIN 1,000 UNITS/500ML NS (CATH LAB) 3000 UNIT IV (09:48)
[2023-11-27] MEDS: NITROGLYCERIN 800MCG/8ML SYR (CATH LAB) 800 MCG IA (09:48)
[2023-11-27] MEDS: 0.9 % SODIUM CHLORIDE 500 ML 25 ML IV (09:48)
[2023-11-27] MEDS: HEPARIN 1,000 UNITS/ML 10ML VIAL (CATH LAB) 10000 UNIT IV (09:48)
[2023-11-27] MEDS: diphenhydrAMINE 50MG/ML VIAL 50 MG IV (09:48)
[2023-11-27] MEDS: MIDAZOLAM HCL 1MG/1ML 5ML VIAL 1 MG IV (09:52)
[2023-11-27] MEDS: FENTANYL 100MCG/2ML VIAL 50 MCG IV (09:52)
[2023-11-27] MEDS: IOPAMIDOL-370 (76%);100ML BOTTLE 50 ML IV (12:26)
== END 2023-11-27 12:54 | disposition home or self-care (01) ==
PROVIDERS: PCP Nurse Practitioner Family; Visit Provider Internal Medicine
DX: I25.118 Atherosclerotic heart disease of native coronary artery with other forms of angina pectoris (principal); R93.1 Abnormal findings on diagnostic imaging of heart and coronary circulation; E11.69 Type 2 diabetes mellitus with other specified complication; Z87.891 Personal history of nicotine dependence; G47.33 Obstructive sleep apnea (adult) (pediatric); E11.9 Type 2 diabetes mellitus without complications; Z79.4 Long term (current) use of insulin; E78.5 Hyperlipidemia, unspecified; I10 Essential (primary) hypertension; R94.31 Abnormal electrocardiogram [ECG] [EKG]; Z79.899 Other long term (current) drug therapy; Z99.89 Dependence on other enabling machines and devices
CPT/HCPCS: 93458; 99152; C1725; C1769; J1644; Q9967

== ENCOUNTER 2023-12-05 15:05 | Outpatient (CLI) | payer OTHER, SELFPAY ==
--- NOTE | 2023-12-05 15:06 | CT_ITS ---
FINAL REPORT CLINICAL HISTORY: lung cancer screening former smoker, quit 15 years ago. smoked 3 ppd. smoked 15 years total FINDINGS: Axial images were obtained from the lung apex to the mid abdomen by computed tomography. Low-dose protocol was utilized. CTDl vol(mGy): 2.90 DLP (mGy-cm): 106.55 FINDINGS: There is no axillary adenopathy. There is no hilar or mediastinal adenopathy. There are moderate coronary artery calcifications. The heart size is normal. There is no pericardial or pleural effusion. Lung window images demonstrate a nodule at the major fissure measuring 6 mm which is felt to represent a fissural nodule. There is a nodule in the anterior right lower lobe measuring 3 mm seen on image 44. A nodule in the right lower lobe measures 3 mm and is well-seen on image 43. Limited images of the upper abdomen are unremarkable. IMPRESSION: Lung RADS category 2. Recommend 12 month follow-up low-dose chest CT. Reviewed, Interpreted and Dictated by Juan Abad III, MD Transcribed by Mallory Colón Authenticated and [facility]
== END 2023-12-05 23:59 ==
LOC: RAD 15:06
PROVIDERS: PCP Nurse Practitioner Family; Visit Provider Nurse Practitioner Family
DX: Z87.891 Personal history of nicotine dependence (principal)
CPT/HCPCS: 71271

== ENCOUNTER 2024-01-09 15:10 | Outpatient (POV) | payer OTHER, SELFPAY ==
[2024-01-09 15:23] VITALS: BP 155/83; PULSE 100; RESP 18; TEMP 36.7; O2SAT 99; BMI 29.0
--- NOTE | 2024-01-09 15:53 | EXP.PAIN.SOA ---
[facility] Pain Management SOAP Note Subjective:: Patient is a pleasant 48-year-old male who presents today for follow-up. Today he states his back is a 0 out of 10 however states that his bilateral shoulders are a 5 or 6 out of 10. Patient states that he has had shoulder discomfort for at least a year to year and a half. Patient states initially he thought it was more related to possible cholesterol medication and that he did end up stopping this medication and it seemed to get a little bit better however now over time it seems to be worse. He states that any little movement or range of motion with reaching his pain is aggravated. He does describe it as a throbbing, tingling sensation that does interfere with his ability to perform activities of daily living such as cooking and cleaning. Patient states he is interested in any help we may be able to provide regarding this. His Mukesh has been reviewed and is appropriate. Review of Systems: General: No recent weight changes, no fever, no sleep disturbances Respiratory: No cough, no shortness of air, no recurring pulmonary infections Cardiovascular/peripheral vascular: No chest pain, no palpitations, no edema, no shortness of breath Gastrointestinal: No new onset incontinence, normal bowel movements reported Genitourinary: No new onset incontinence Musculoskeletal: Bilateral shoulder pain Psychiatric: [Normal mood/affect] Neurological: [Denies weakness in extremities], [denies balance issues] Objective:: Physical Exam: General: Alert and oriented x3, no acute distress, pleasant and cooperative Lungs: Respirations even and unlabored, symmetrical chest expansion Eyes: PERRL Musculoskeletal: Flexion and extension of bilateral shoulders somewhat guarded secondary to pain, [antalgic gait noted] Neurological: Speech clear, no gross sensory deficit Assessment:: Degenerative disc disease of lumbar spine with lumbar radiculopathy symptoms, bilateral shoulder pain Plan:: Patient is experiencing worsening pain in his bilateral shoulders with limited range of motion. I have discussed with the patient that he may benefit from bilateral shoulder intra-articular injection. Risk and benefits were discussed with the patient and he would like to proceed forward with this plan of care. Patient will be scheduled for bilateral intra-articular shoulder injection. I will also order the patient a compounded cream. Patient has tried and failed conservative therapy. Patient has been instructed to contact the clinic with any concerns before the next appointment. Dr. Reid has reviewed this note and agrees with this plan of care. This note was dictated using voice recognition software and make contain errors or omissions. [facility] Disclaimer: The information contained in this section may have been updated after the patient was seen, as this information can be updated by other users. Medical History History of left heart catheterization Sleep apnea Arrhythmia Skin cancer Fatty tumor Non-alcoholic cirrhosis BPH (benign prostatic hyperplasia) Large tongue RAMESH and COPD overlap syndrome Arthritis T2DM (type 2 diabetes mellitus) Abnormal electrocardiography Hypertension Hyperlipidemia Surgical History History of esophagogastroduodenoscopy (EGD) History of liver biopsy Family History Family/Other Cancer skin Other Diabetes Heart attack Hypertension No significant family history Stroke Social History Smoking Status: Former smoker alcohol intake: never substance use type: denies use current occupational status: other Travel in the last 8 weeks: None household members: other housing: house current occupational exposures/hazards: Yes caffeine: Yes
== END 2024-01-09 23:59 | disposition home or self-care (01) ==
LOC: SC.PAIN 15:10
PROVIDERS: PCP Nurse Practitioner Family; Visit Provider Nurse Practitioner Family
DX: M51.16 Intervertebral disc disorders with radiculopathy, lumbar region (principal); M25.511 Pain in right shoulder; M25.512 Pain in left shoulder
CPT/HCPCS: 99212; G0463

== ENCOUNTER 2024-02-04 13:57 | Day surgery (SDC) | payer OTHER, SELFPAY ==
[2024-02-04 14:23] VITALS: BP 134/65; PULSE 97; RESP 18; TEMP 36.6; O2SAT 96; BMI 29.8
--- NOTE | 2024-02-04 14:34 | P.PCN_ITS ---
Procedure Date: 02/04/24 Time: 14:30 Anesthesiologist:: Judd Valenzuela CRNA Complications:: None Pre-procedure Diagnosis:: DJD bilateral shoulder joints. Chronic bilateral shoulder pain. Post-procedure Diagnosis:: Same. Indications for Procedure:: Patient is a very pleasant 48-year-old male comes our clinic today for bilateral intra-articular shoulder injections. Patient reports pain intensifies in the bilateral shoulders when working overhead with his arms. He describes the pain as constant, dull, aching. He rates pain 7/10. Procedure Details:: Procedure Details: Right shoulder intra-articular injection Informed consent was obtained risk and benefits of the procedure were explained to the patient. Patient was taken to the procedure room. The right shoulder was prepped using ChloraPrep. A 25-gauge needle was used first anteriorly, laterally, and then posteriorly to inject 10 mL bupivacaine 0.25% and Depo- Medrol 40 mg. The left shoulder was injected in the same manner. Patient tolerated procedure without difficulty. There are no complications. Plan and Disposition:: Patient was discharged without incident.
[2024-02-04 14:37] VITALS: BP 154/91; PULSE 94; RESP 18; O2SAT 95
[2024-02-04] MEDS: methylPREDNISolone ACETATE 80MG/ML VIAL 80 MG (14:43)
[2024-02-04] MEDS: BUPIVACAINE 0.25% 10ML INJ 25 MG IJ (14:43)
[2024-02-04] MEDS: LIDOCAINE 1% 5ML PF VIAL 5 ML (14:43)
[2024-02-04 14:44] VITALS: BP 140/92; PULSE 96; RESP 18; O2SAT 97
[2024-02-04 14:45] VITALS: BP 140/92; PULSE 96; RESP 18; O2SAT 97
== END 2024-02-04 14:39 | disposition home or self-care (01) ==
PROVIDERS: PCP Nurse Practitioner Family; Visit Provider Nurse Anesthetist, Certified Registered
DX: M19.011 Primary osteoarthritis, right shoulder (principal); M19.012 Primary osteoarthritis, left shoulder; M25.511 Pain in right shoulder; M25.512 Pain in left shoulder; G89.29 Other chronic pain
CPT/HCPCS: 20610; J1010

== ENCOUNTER 2024-03-04 14:45 | Outpatient (CLI) | payer OTHER, SELFPAY ==
[2024-03-04 13:12] LABS: Basophils % 0.6 % (0.1-2.0); Eosinophils # 0.1 K/mm3 (0.0-0.4); Eosinophils % 1.9 % (0.1-12.0); Hematocrit 51.4 % (42.0-52.0); Lymphocytes # 1.2 K/mm3 (0.7-4.5); Lymphocytes % 31.1 % (10-50); Mean Corpuscular HGB Conc 33.1 g/dL (31.8-35.4); Mean Corpuscular Hemoglobin 31.1 pg (27.0-31.2); Mean Corpuscular Volume 94.1 fl (80-94); Mean Platelet Volume 8.5 fl (7.4-10.4); Monocytes # 1.6 K/mm3 (0.1-1.0); Monocytes % 43.9 % (1.7-9.3); Neutrophils # 0.8 K/mm3 (1.8-7.8); Neutrophils % 22.5 % (37.0-80.0); Platelet Count 102 K/mm3 (142-424); Red Blood Count 5.47 M/mm3 (4.60-6.20); Red Cell Distribution Width 14.9 % (11.5-17.5); White Blood Count 3.7 K/mm3 (4.8-10.8)
[2024-03-04 13:15] LABS: MANUAL DIFFERENTIAL MANUAL DIFFERENTIAL (MANUAL DIFF)
[2024-03-04 13:47] LABS: Lymphocytes % 31 % (10-50); Monocytes % 6 % (2-9); Neutrophils % 59 % (42-76); Platelet Estimate Slight Decrease; RBC Morphology Normal; Total Cells Counted 100
[2024-03-04 13:54] LABS: Alanine Aminotransferase 54 U/L (12-78); Albumin Level 4.5 g/dl (3.5-5.0); Albumin/Globulin Ratio 1.6 (1.1-1.8); Alkaline Phosphatase 53 U/L (38-126); Anion Gap 15.6 mEq/L (5-15); Aspartate Amino Transferase 45 U/L (17-59); Bilirubin,Total 0.9 mg/dl (0.2-1.3); Blood Urea Nitrogen 13 mg/dl (9-20); Calcium 9.2 mg/dl (8.4-10.2); Carbon Dioxide 28 mmol/L (22.0-30.0); Chloride 101 mmol/L (98-107); Estimated Glomerular Filt Rate 143 ml/min (>60); GFR (African American) 173 ML/MIN (>60); Globulin 2.9 g/dL (1.3-3.2); Glucose 116 mg/dl (74-100); Potassium 4.6 mmoL/L (3.5-5.1); Sodium 140 mmol/L (136-145); Total Protein,Serum 7.4 g/dl (6.3-8.2)
[2024-03-04 14:24] LABS: Thyroid Stimulating Hormone 0.47 uIU/mL (0.465-4.68)
[2024-03-04 17:18] LABS: Hemoglobin A1C 6.4 % (4.0-6.0)
[2024-03-05 08:18] LABS: Testosterone,Total 440 ng/dL (264-916)
[2024-03-06 16:58] LABS: Peripheral Smear Review Scanned Result
== END 2024-03-04 23:59 | disposition home or self-care (01) ==
LOC: LAB.DROPOF 14:46
PROVIDERS: PCP Nurse Practitioner Family; Visit Provider Nurse Practitioner Family
DX: E11.69 Type 2 diabetes mellitus with other specified complication (principal); R79.89 Other specified abnormal findings of blood chemistry; D69.6 Thrombocytopenia, unspecified
CPT/HCPCS: 80053; 83036; 84403; 84443; 85007; 85025; 85027

== ENCOUNTER 2024-03-16 15:11 | Outpatient (POV) | payer OTHER, SELFPAY ==
[2024-03-16 15:21] VITALS: BP 135/76; PULSE 86; RESP 16; O2SAT 96; BMI 29.8
--- NOTE | 2024-03-16 15:22 | A.OFFVIS_ITS ---
[facility] Disclaimer: The information contained in this section may have been updated after the patient was seen, as this information can be updated by other users. Medical History History of left heart catheterization Sleep apnea Arrhythmia Skin cancer Fatty tumor Non-alcoholic cirrhosis BPH (benign prostatic hyperplasia) Large tongue RAMESH and COPD overlap syndrome Arthritis T2DM (type 2 diabetes mellitus) Abnormal electrocardiography Hypertension Hyperlipidemia Surgical History History of esophagogastroduodenoscopy (EGD) History of liver biopsy Family History Family/Other Cancer skin Other Diabetes Heart attack Hypertension No significant family history Stroke Social History Smoking Status: Former smoker alcohol intake: never substance use type: denies use current occupational status: other Travel in the last 8 weeks: None household members: other housing: house current occupational exposures/hazards: Yes caffeine: Yes PM Subjective & Objective Subjective Subjective:: Patient is a pleasant 48-year-old male who presents today for follow-up of bilateral intra-articular shoulder injections on 02/04/2024. Today he rates his pain a 3 out of 10. Patient states he has had at least 85 to 90% improvement following these injections. He denies any other issues. He does state that overall eating his low back has been managing well. He states he really only had 1 episode that he can think of where he started to have a little bit of pain in his low back however it was still manageable and then it did ease back down. His Mukesh has been reviewed and is appropriate. Review of Systems: General: No recent weight changes, no fever, no sleep disturbances Respiratory: No cough, no shortness of air, no recurring pulmonary infections Cardiovascular/peripheral vascular: No chest pain, no palpitations, no edema, no shortness of breath Gastrointestinal: No new onset incontinence, normal bowel movements reported Genitourinary: No new onset incontinence Musculoskeletal: Low back pain Psychiatric: [Normal mood/affect] Neurological: [Denies weakness in extremities], [denies balance issues] Pain at rest (0-10 scale): 3 Objective Objective:: Physical Exam: General: Alert and oriented x3, no acute distress, pleasant and cooperative Lungs: Respirations even and unlabored, symmetrical chest expansion Eyes: PERRL Musculoskeletal: Flexion and extension of lumbar spine within normal limits Neurological: Speech clear, no gross sensory deficit Has patient had previous pain injection?: Yes Percent improvement in pain since last injection: 85 to 90% improvement Conservative treatment options previously tried: Home exercise plan Length of treatment: Longer than 6 weeks Meds Home Medications and Allergies Home Medications Medication Instructions Recorded Confirmed Type cetirizine 10 mg capsule 10 mg PO DAILY ALLERGIES 03/11/18 03/04/24 History cholecalciferol (vitamin D3) 25 25 mcg PO DAILY SUPPLIMENT 10/18/20 03/04/24 History mcg (1,000 unit) capsule fluticasone propionate 50 1 spray intranasal DIRECTED PRN 09/26/22 03/04/24 History mcg/actuation nasal ALLERGIES spray,suspension metoprolol succinate 100 mg 100 mg PO DAILY BLOOD PRESSURE 90 08/16/23 03/04/24 Rx tablet,extended release 24 hr days #90 tabs blood-glucose sensor (Dexcom G7 #9 ea 10/07/23 03/04/24 Rx Sensor device) empagliflozin 25 mg tablet 25 mg PO DAILY Diabetes 90 days 11/11/23 03/04/24 Rx (Jardiance) #90 tabs insulin glargine 100 unit/mL (3 See Rx Instructions .Route 11/11/23 03/04/24 Rx mL) subcutaneous pen (Lantus .COMPLEX #45 mL Solostar U-100 Insulin) lisinopril 10 mg tablet 10 mg PO DAILY BLOOD PRESSURE 90 11/11/23 03/04/24 Rx days #90 tabs tamsulosin 0.4 mg capsule 0.4 mg PO DAILY BLADDER 90 days 11/11/23 03/04/24 Rx #90 caps tirzepatide 12.5 mg/0.5 mL 12.5 mg (0.5 mL) SQ WEEKLY 90 days 11/11/23 03/04/24 Rx subcutaneous pen injector #6.5 mL (Chaz) atorvastatin 40 mg tablet (Lipitor) 40 mg PO DAILY #30 tabs 11/27/23 03/04/24 Rx levalbuterol tartrate 45 inhalation 03/04/24 03/04/24 History mcg/actuation aerosol inhaler trazodone 50 mg tablet 50 mg PO DAILY #30 tabs 03/04/24 03/04/24 Rx New Prescriptions to Start Prescriptions: Allergies Allergy/AdvReac Type Severity Reaction Status Date / Time No Known Allergies Allergy Verified 03/04/24 08:29 Assessment and Plan *Assessment and plan (1) Bilateral shoulder pain: Status: Acute Qualifiers: Chronicity: chronic Qualified Code(s): M25.511 - Pain in right shoulder; M25.512 - Pain in left shoulder; G89.29 - Other chronic pain Category: Medical Code(s): M25.511 - Pain in right shoulder; M25.512 - Pain in left shoulder (2) Degenerative disc disease, lumbar: Status: Acute Category: Medical Code(s): M51.36 - Other intervertebral disc degeneration, lumbar region (3) Lumbar radiculopathy: Status: Acute Category: Medical Code(s): M54.16 - Radiculopathy, lumbar region Plan Patient has had significant improvement following his injections and does not require any additional injection therapy at this time. Patient will return to clinic in 3 months for reevaluation of symptoms and plan of care. Patient has been instructed to contact the clinic with any concerns before the next appointment. Dr. Reid has reviewed this note and agrees with this plan of care. This note was dictated using voice recognition software and make contain errors or omissions.
== END 2024-03-16 23:59 | disposition home or self-care (01) ==
LOC: SC.PAIN 15:11
PROVIDERS: PCP Nurse Practitioner Family; Visit Provider Nurse Practitioner Family
DX: M25.511 Pain in right shoulder (principal); M25.512 Pain in left shoulder; G89.29 Other chronic pain; M51.36 Other intervertebral disc degeneration, lumbar region; M54.16 Radiculopathy, lumbar region; E11.9 Type 2 diabetes mellitus without complications; Z79.4 Long term (current) use of insulin
CPT/HCPCS: 99212; G0463

== ENCOUNTER 2024-03-18 13:42 | Outpatient (CLI) | payer OTHER, SELFPAY ==
[2024-03-18 14:34] LABS: Basophils % 0.6 % (0.1-2.0); Eosinophils # 0.1 K/mm3 (0.0-0.4); Eosinophils % 1.2 % (0.1-12.0); Hematocrit 48.4 % (42.0-52.0); Hemoglobin 16.3 g/dL (14.1-18.0); Lymphocytes # 1.6 K/mm3 (0.7-4.5); Lymphocytes % 35.8 % (10-50); Mean Corpuscular HGB Conc 33.7 g/dL (31.8-35.4); Mean Corpuscular Hemoglobin 30.7 pg (27.0-31.2); Mean Corpuscular Volume 91.1 fl (80-94); Mean Platelet Volume 7.4 fl (7.4-10.4); Monocytes # 0.3 K/mm3 (0.1-1.0); Monocytes % 6.1 % (1.7-9.3); Neutrophils # 2.5 K/mm3 (1.8-7.8); Neutrophils % 56.3 % (37.0-80.0); Platelet Count 96 K/mm3 (142-424); Red Blood Count 5.31 M/mm3 (4.60-6.20); Red Cell Distribution Width 14.9 % (11.5-17.5); White Blood Count 4.5 K/mm3 (4.8-10.8)
[2024-03-18 15:46] LABS: Vitamin B12 768 pg/mL (239-931)
[2024-03-18 15:47] LABS: Folate > 20.00 ng/mL
== END 2024-03-18 23:59 | disposition home or self-care (01) ==
LOC: LAB 13:42
PROVIDERS: PCP Nurse Practitioner Family; Visit Provider Internal Medicine Medical Oncology
DX: D69.6 Thrombocytopenia, unspecified (principal)
CPT/HCPCS: 36415; 82607; 82746; 85025

== ENCOUNTER 2024-06-01 08:08 | Outpatient (CLI) | payer OTHER, SELFPAY ==
[2024-06-01 08:53] LABS: INR 1.08 (0.9-1.1)
[2024-06-01 08:54] LABS: Basophils % 0.1 % (0.1-2.0); Eosinophils # 0.1 K/mm3 (0.0-0.4); Eosinophils % 1.4 % (0.1-12.0); Hemoglobin 16.2 g/dL (14.1-18.0); Lymphocytes # 1.3 K/mm3 (0.7-4.5); Lymphocytes % 36.7 % (10-50); Mean Corpuscular HGB Conc 33.1 g/dL (31.8-35.4); Mean Corpuscular Hemoglobin 30.9 pg (27.0-31.2); Mean Corpuscular Volume 93.5 fl (80-94); Mean Platelet Volume 7.3 fl (7.4-10.4); Monocytes # 1.8 K/mm3 (0.1-1.0); Monocytes % 51.5 % (1.7-9.3); Neutrophils # 0.4 K/mm3 (1.8-7.8); Platelet Count 99 K/mm3 (142-424); Red Blood Count 5.24 M/mm3 (4.60-6.20); Red Cell Distribution Width 13.8 % (11.5-17.5); White Blood Count 3.4 K/mm3 (4.8-10.8)
[2024-06-01 08:57] LABS: Neutrophils % 10.1 % (37.0-80.0)
[2024-06-01 09:00] LABS: MANUAL DIFFERENTIAL MANUAL DIFFERENTIAL (MANUAL DIFF)
[2024-06-01 09:51] LABS: Chloride 99 mmol/L (98-107)
[2024-06-01 09:52] LABS: Albumin Level 4.5 g/dl (3.5-5.0); Potassium 4.5 mmoL/L (3.5-5.1); Sodium 136 mmol/L (136-145)
[2024-06-01 09:54] LABS: Blood Urea Nitrogen 13 mg/dl (9-20); Estimated Glomerular Filt Rate 102 ml/min (>60); GFR (African American) 124 ML/MIN (>60)
[2024-06-01 09:55] LABS: Alanine Aminotransferase 37 U/L (12-78); Albumin/Globulin Ratio 1.7 (1.1-1.8); Alkaline Phosphatase 56 U/L (38-126); Anion Gap 12.5 mEq/L (5-15); Aspartate Amino Transferase 41 U/L (17-59); Bilirubin,Total 1.1 mg/dl (0.2-1.3); Calcium 9.5 mg/dl (8.4-10.2); Carbon Dioxide 29 mmol/L (22.0-30.0); Globulin 2.6 g/dL (1.3-3.2); Glucose 139 mg/dl (74-100); Total Protein,Serum 7.1 g/dl (6.3-8.2)
[2024-06-01 10:14] LABS: Lymphocytes % 22 % (10-50); Monocytes % 3 % (2-9); Neutrophils % 75 % (42-76); Platelet Estimate Moderate Decrease; RBC Morphology Normal; Total Cells Counted 100
[2024-06-02 11:29] LABS: AFP, Tumor Marker 4.4 ng/mL (0.0-6.9)
== END 2024-06-01 23:59 | disposition home or self-care (01) ==
LOC: LAB 08:10
PROVIDERS: PCP Nurse Practitioner Family; Visit Provider Nurse Practitioner
DX: K74.60 Unspecified cirrhosis of liver (principal); I85.00 Esophageal varices without bleeding; D69.6 Thrombocytopenia, unspecified
CPT/HCPCS: 36415; 80053; 82105; 85007; 85025; 85027; 85610

== ENCOUNTER 2024-06-25 09:47 | Outpatient (POV) | payer OTHER, SELFPAY ==
--- NOTE | 2024-06-25 10:15 | A.OFFVIS_ITS ---
[facility] Disclaimer: The information contained in this section may have been updated after the patient was seen, as this information can be updated by other users. Medical History History of left heart catheterization Sleep apnea Arrhythmia Skin cancer Fatty tumor Non-alcoholic cirrhosis BPH (benign prostatic hyperplasia) Large tongue RAMESH and COPD overlap syndrome Arthritis T2DM (type 2 diabetes mellitus) Abnormal electrocardiography Hypertension Hyperlipidemia Surgical History History of esophagogastroduodenoscopy (EGD) History of liver biopsy Family History Family/Other Cancer skin Other Diabetes Heart attack Hypertension No significant family history Stroke Social History Smoking Status: Former smoker alcohol intake: never substance use type: denies use current occupational status: employed Travel in the last 8 weeks: None household members: other housing: house current occupational exposures/hazards: Yes caffeine: Yes PM Subjective & Objective Subjective Subjective:: Patient is a pleasant 48-year-old male who presents today for worsening pain in his left shoulder. Today he rates his pain a 6 out of 10. He denies any new trauma or injury. Patient does say he has started to have more pain as an aching, throbbing sensation in his left shoulder however he states he has right is pain-free. Patient did previously have intra-articular injections bilaterally in January that provided 85% to 90% and has lasted up until the last couple of weeks. Patient did have improved function overall and is interested in repeating the left shoulder injection. Patient has tried and failed conservative therapy including continued at home stretching exercise for longer than 12 weeks. Patient is also requesting if we can make sure to put refills on his compounded cream. His Mukesh has been reviewed and is appropriate. Review of Systems: General: No recent weight changes, no fever, no sleep disturbances Respiratory: No cough, no shortness of air, no recurring pulmonary infections Cardiovascular/peripheral vascular: No chest pain, no palpitations, no edema, no shortness of breath Gastrointestinal: No new onset incontinence, normal bowel movements reported Genitourinary: No new onset incontinence Musculoskeletal: Left shoulder pain Psychiatric: [Normal mood/affect] Neurological: [Denies weakness in extremities], [denies balance issues] Pain at rest (0-10 scale): 6 Objective Objective:: Physical Exam: General: Alert and oriented x3, no acute distress, pleasant and cooperative Lungs: Respirations even and unlabored, symmetrical chest expansion Eyes: PERRL Musculoskeletal: Flexion and extension of left shoulder somewhat guarded secondary to pain Neurological: Speech clear, no gross sensory deficit Has patient had previous pain injection?: No Conservative treatment options previously tried: Home exercise plan Length of treatment: Longer than 12 weeks Meds Home Medications and Allergies Home Medications ?Medication ?Instructions ?Recorded ?Confirmed ?Type cetirizine 10 mg capsule 10 mg PO DAILY ALLERGIES 03/11/18 03/18/24 History cholecalciferol (vitamin D3) 25 25 mcg PO DAILY SUPPLIMENT 10/18/20 03/18/24 History mcg (1,000 unit) capsule fluticasone propionate 50 1 spray intranasal DIRECTED PRN 09/26/22 03/18/24 History mcg/actuation nasal ALLERGIES spray,suspension blood-glucose sensor (Dexcom G7 #9 ea 10/07/23 03/18/24 Rx Sensor device) insulin glargine 100 unit/mL (3 See Rx Instructions .Route 11/11/23 03/18/24 Rx mL) subcutaneous pen (Lantus .COMPLEX #45 mL Solostar U-100 Insulin) lisinopril 10 mg tablet 10 mg PO DAILY BLOOD PRESSURE 90 11/11/23 03/18/24 Rx days #90 tabs tamsulosin 0.4 mg capsule 0.4 mg PO DAILY BLADDER 90 days 11/11/23 03/18/24 Rx #90 caps levalbuterol tartrate 45 45 mcg inhalation DIRECTED 03/04/24 03/18/24 History mcg/actuation aerosol inhaler metoprolol succinate 100 mg See Rx Instructions .Route 03/23/24 Rx tablet,extended release 24 hr .COMPLEX #90 tabs atorvastatin 40 mg tablet See Rx Instructions .Route 04/03/24 Rx .COMPLEX #90 tabs empagliflozin 25 mg tablet 25 mg PO DAILY Diabetes 90 days 06/01/24 Rx (Jardiance) #90 tabs trazodone 50 mg tablet 50 mg PO DAILY #90 tabs 06/01/24 Rx tirzepatide 12.5 mg/0.5 mL See Rx Instructions .Route 06/12/24 Rx subcutaneous pen injector .COMPLEX #2 mL (Mounjaro) New Prescriptions to Start Prescriptions: Allergies Allergy/AdvReac Type Severity Reaction Status Date / Time No Known Allergies Allergy Verified 03/18/24 13:21 Assessment and Plan *Assessment and plan (1) Left shoulder pain: Status: Acute Qualifiers: Chronicity: chronic Qualified Code(s): M25.512 - Pain in left shoulder; G89.29 - Other chronic pain Category: Medical Code(s): M25.512 - Pain in left shoulder Plan Patient is experiencing worsening pain in his left shoulder with limited range of motion. Patient did previously have a successful bilateral intra-articular shoulder injections with 85 to 90% improvement back in January and his right shoulder remains pain-free. I did discuss with patient that he may benefit from repeat left intra-articular shoulder injection. Risk and benefits were discussed with the patient and he would like to proceed forward with this plan of care. Patient has tried and failed conservative therapy including continued at home exercise and stretching for longer than 12 weeks. I will also refill the patient's compounded cream. Patient will be scheduled for a left shoulder intra-articular injection. This will be done without fluoroscopic guidance or ultrasound guidance. Patient has been instructed to contact the clinic with any concerns before the next appointment. Dr. Reid has reviewed this note and agrees with this plan of care. This note was dictated using voice recognition software and make contain errors or omissions. All injections are used with Lidocaine or Bupivacaine and Depo Medrol.
[2024-06-25 10:34] VITALS: BP 119/75; PULSE 81; RESP 18; O2SAT 96; BMI 29.5
== END 2024-06-25 23:59 | disposition home or self-care (01) ==
LOC: SC.PAIN 09:47
PROVIDERS: PCP Nurse Practitioner Family; Visit Provider Nurse Practitioner Family
DX: M25.512 Pain in left shoulder (principal); G89.29 Other chronic pain; Z87.891 Personal history of nicotine dependence
CPT/HCPCS: 99212; G0463

== ENCOUNTER 2024-07-14 08:21 | Day surgery (SDC) | payer OTHER, SELFPAY ==
[2024-07-14 08:24] VITALS: BP 129/70; PULSE 89; RESP 16; TEMP 36.6; O2SAT 98; BMI 29.2
[2024-07-14 08:57] VITALS: BP 131/72; PULSE 93; RESP 18; O2SAT 96
[2024-07-14] MEDS: methylPREDNISolone ACETATE 80MG/ML VIAL 80 MG (08:57)
[2024-07-14] MEDS: LIDOCAINE 1% 5ML PF VIAL 5 ML (08:57)
[2024-07-14] MEDS: BUPIVACAINE 0.25% 10ML INJ 25 MG IJ (08:57)
[2024-07-14 08:59] VITALS: BP 131/72; PULSE 85; RESP 18; O2SAT 98
--- NOTE | 2024-07-14 09:00 | EXP.PAIN.PRO ---
Procedure Date: 07/14/24 Time: 09:00 Anesthesiologist:: Judd Valenzuela CRNA Complications:: None Pre-procedure Diagnosis:: DJD left shoulder. Chronic left shoulder pain. Post-procedure Diagnosis:: Same. Indications for Procedure:: Patient is a very pleasant 48-year-old male who comes our clinic today for intra-articular left shoulder injection. Patient has 5/5 strength in the left arm. However, limited range of motion secondary to left shoulder pain. He has responded well to intra-articular cortisone and local anesthetic in the past. He is requesting a repeat injection to the left shoulder joint. Procedure Details:: Procedure Details: Left shoulder intra-articular injection Informed consent was obtained risk and benefits of the procedure were explained to the patient. Patient was taken to the procedure room. The Left shoulder was prepped using ChloraPrep. A 25-gauge needle was used posteriorly to inject 10 mL bupivacaine 0.25% and Depo-Medrol 40 mg. Patient tolerated procedure well with no complications. Plan and Disposition:: Patient was discharged without incident.
[2024-07-14 09:03] VITALS: BP 146/86; PULSE 94; RESP 16; O2SAT 97
== END 2024-07-14 09:03 | disposition home or self-care (01) ==
PROVIDERS: PCP Nurse Practitioner Family; Visit Provider Nurse Anesthetist, Certified Registered
DX: M19.012 Primary osteoarthritis, left shoulder (principal); M25.512 Pain in left shoulder; G89.29 Other chronic pain
CPT/HCPCS: 20610; J1010

== ENCOUNTER 2024-07-16 12:44 | Outpatient (CLI) | payer OTHER, SELFPAY ==
[2024-07-15 14:29] LABS: Alanine Aminotransferase 33 U/L (12-78); Albumin Level 4.8 g/dl (3.5-5.0); Albumin/Globulin Ratio 1.9 (1.1-1.8); Alkaline Phosphatase 51 U/L (38-126); Anion Gap 15.1 mEq/L (5-15); Aspartate Amino Transferase 37 U/L (17-59); Bilirubin,Total 1.2 mg/dl (0.2-1.3); Blood Urea Nitrogen 14 mg/dl (9-20); Calcium 9.2 mg/dl (8.4-10.2); Carbon Dioxide 25 mmol/L (22.0-30.0); Chloride 105 mmol/L (98-107); Chol/HDL Ratio 2.7 (1-3.5); Cholesterol 123 mg/dl (140-200); Estimated Glomerular Filt Rate 119 ml/min (>60); GFR (African American) 144 ML/MIN (>60); Globulin 2.5 g/dL (1.3-3.2); Glucose 97 mg/dl (74-100); HDL Cholesterol 46 mg/dl (40-60); Potassium 4.1 mmoL/L (3.5-5.1); Sodium 141 mmol/L (136-145); Total Protein,Serum 7.3 g/dl (6.3-8.2); Triglycerides 86 mg/dl (30-150); VLDL Cholesterol 17 mg/dL (0-40)
[2024-07-15 14:40] LABS: Direct LDL Cholesterol 74.28 mg/dL (100-129)
[2024-07-15 15:00] LABS: Hemoglobin A1C 6.1 % (4.0-6.0)
[2024-07-16 13:13] LABS: Ammonia < 9 umol/L (9-30)
[2024-07-16 13:18] LABS: Prothrombin Time 12.2 seconds (10.1-12.5)
[2024-07-16 13:26] LABS: Creatinine,Urine Random 85 mg/dL (Not Estab.)
[2024-07-16 13:27] LABS: Microalbumin/Creatinine Ratio 7.8
[2024-07-16 13:34] LABS: Alanine Aminotransferase 36 U/L (12-78); Albumin Level 4.6 g/dl (3.5-5.0); Albumin/Globulin Ratio 1.8 (1.1-1.8); Alkaline Phosphatase 58 U/L (38-126); Anion Gap 11.9 mEq/L (5-15); Aspartate Amino Transferase 38 U/L (17-59); Blood Urea Nitrogen 16 mg/dl (9-20); Calcium 9.2 mg/dl (8.4-10.2); Carbon Dioxide 28 mmol/L (22.0-30.0); Chloride 102 mmol/L (98-107); Estimated Glomerular Filt Rate 119 ml/min (>60); GFR (African American) 144 ML/MIN (>60); Globulin 2.5 g/dL (1.3-3.2); Glucose 101 mg/dl (74-100); Iron 79 ug/dL (49-181); Potassium 3.9 mmoL/L (3.5-5.1); Sodium 138 mmol/L (136-145); Total Protein,Serum 7.1 g/dl (6.3-8.2)
[2024-07-16 13:44] LABS: Total Iron Binding Capacity 382 ug/dL (261-462)
[2024-07-16 13:59] LABS: Basophils % 0.3 % (0.1-2.0); Eosinophils % 0.5 % (0.1-12.0); Hematocrit 47.9 % (42.0-52.0); Hemoglobin 16.3 g/dL (14.1-18.0); Lymphocytes # 1.1 K/mm3 (0.7-4.5); Mean Corpuscular Hemoglobin 30.2 pg (27.0-31.2); Mean Platelet Volume 7.9 fl (7.4-10.4); Monocytes # 3.1 K/mm3 (0.1-1.0); Monocytes % 51.8 % (1.7-9.3); Neutrophils # 1.8 K/mm3 (1.8-7.8); Neutrophils % 29.4 % (37.0-80.0); Platelet Count 92 K/mm3 (142-424); Red Blood Count 5.38 M/mm3 (4.60-6.20); Red Cell Distribution Width 14.1 % (11.5-17.5)
[2024-07-16 14:01] LABS: MANUAL DIFFERENTIAL MANUAL DIFFERENTIAL (MANUAL DIFF)
[2024-07-16 14:10] LABS: Ferritin 62.2 ng/ml (17.9-464)
[2024-07-16 15:09] LABS: Eosinophils % 1 % (0-3); Lymphocytes % 19 % (10-50); Monocytes % 10 % (2-9); Neutrophils % 69 % (42-76); Platelet Estimate Slight Decrease; RBC Morphology Normal; Total Cells Counted 100
== END 2024-07-16 23:59 | disposition home or self-care (01) ==
LOC: LAB 12:45
PROVIDERS: Nurse Practitioner Family; PCP Nurse Practitioner Family; Visit Provider Nurse Practitioner Family
DX: E11.69 Type 2 diabetes mellitus with other specified complication (principal); K74.60 Unspecified cirrhosis of liver
CPT/HCPCS: 36415; 80053; 80061; 82043; 82105; 82140; 82570; 82728; 83036; 83540; 83550; 85007; 85025; 85027; 85610

== ENCOUNTER 2024-07-21 07:56 | Outpatient (CLI) | payer OTHER, SELFPAY ==
--- NOTE | 2024-07-21 07:56 | US_ITS ---
FINAL REPORT CLINICAL HISTORY: cirrhosis COMPARISON: None FINDINGS: Sonographic images of the right upper quadrant were obtained. The pancreas is partially obscured. There is a mildly nodular marginated liver with a coarsened echotexture, probably due to cirrhosis. The gallbladder appears normal without evidence of gallstones.There is no evidence of biliary ductal dilatation.The common duct measures 4mm. Limited images of the right kidney are unremarkable. IMPRESSION: Findings consistent with cirrhosis. Reviewed, Interpreted and Dictated by Nicola Harrell MD Transcribed by Kimberly Mcmillan Authenticated and [facility]
== END 2024-07-21 23:59 | disposition home or self-care (01) ==
LOC: RAD 07:56
PROVIDERS: PCP Nurse Practitioner Family; Visit Provider Nurse Practitioner Family
DX: K74.60 Unspecified cirrhosis of liver (principal)
CPT/HCPCS: 76705

== ENCOUNTER 2024-08-07 15:03 | Outpatient (POV) | payer OTHER, SELFPAY ==
--- NOTE | 2024-08-07 15:08 | A.OFFVIS_ITS ---
[facility] Disclaimer: The information contained in this section may have been updated after the patient was seen, as this information can be updated by other users. Medical History History of left heart catheterization Sleep apnea Arrhythmia Skin cancer Fatty tumor Non-alcoholic cirrhosis BPH (benign prostatic hyperplasia) Large tongue RAMESH and COPD overlap syndrome Arthritis T2DM (type 2 diabetes mellitus) Abnormal electrocardiography Hypertension Hyperlipidemia Surgical History History of esophagogastroduodenoscopy (EGD) History of liver biopsy Family History Family/Other Cancer skin Other Diabetes Heart attack Hypertension No significant family history Stroke Social History Smoking Status: Former smoker alcohol intake: never substance use type: denies use current occupational status: employed Travel in the last 8 weeks: None household members: other housing: house current occupational exposures/hazards: Yes caffeine: Yes PM Subjective & Objective Subjective Subjective:: Patient is a pleasant 48-year-old male who presents today for follow-up of left shoulder intra-articular injection. Today he rates his pain a 0 out of 10 and that only when he moves his arm a certain way will even go to roughly a 3 out of 10. He denies any new trauma or injury. He does state he has had significant improvement following this injection and feels that it did help approximately 75-80 % and it is still working well. He is prescribed compounded cream. His Mukesh has been reviewed and is appropriate. Review of Systems: General: No recent weight changes, no fever, no sleep disturbances Respiratory: No cough, no shortness of air, no recurring pulmonary infections Cardiovascular/peripheral vascular: No chest pain, no palpitations, no edema, no shortness of breath Gastrointestinal: No new onset incontinence, normal bowel movements reported Genitourinary: No new onset incontinence Musculoskeletal: Left shoulder pain Psychiatric: [Normal mood/affect] Neurological: [Denies weakness in extremities], [denies balance issues] Pain at rest (0-10 scale): 0 Objective Objective:: Physical Exam: General: Alert and oriented x3, no acute distress, pleasant and cooperative Lungs: Respirations even and unlabored, symmetrical chest expansion Eyes: PERRL Musculoskeletal: Flexion and extension of left shoulder somewhat guarded secondary to pain Neurological: Speech clear, no gross sensory deficit Has patient had previous pain injection?: Yes Percent improvement in pain since last injection: 75 to 80% Conservative treatment options previously tried: Home exercise plan Length of treatment: Longer than 12 Meds Home Medications and Allergies Home Medications ?Medication ?Instructions ?Recorded ?Confirmed ?Type cetirizine 10 mg capsule 10 mg PO DAILY ALLERGIES 03/11/18 08/06/24 History cholecalciferol (vitamin D3) 25 25 mcg PO DAILY SUPPLIMENT 10/18/20 08/06/24 History mcg (1,000 unit) capsule fluticasone propionate 50 1 spray intranasal DIRECTED PRN 09/26/22 08/06/24 History mcg/actuation nasal ALLERGIES spray,suspension blood-glucose sensor ([email or web address] G7 #9 ea 10/07/23 08/06/24 Rx Sensor device) insulin glargine 100 unit/mL (3 See Rx Instructions .Route 11/11/23 08/06/24 Rx mL) subcutaneous pen (Lantus .COMPLEX #45 mL Solostar U-100 Insulin) lisinopril 10 mg tablet 10 mg PO DAILY BLOOD PRESSURE 90 11/11/23 08/06/24 Rx days #90 tabs tamsulosin 0.4 mg capsule 0.4 mg PO DAILY BLADDER 90 days 11/11/23 08/06/24 Rx #90 caps levalbuterol tartrate 45 45 mcg inhalation DIRECTED 03/04/24 08/06/24 History mcg/actuation aerosol inhaler metoprolol succinate 100 mg See Rx Instructions .Route 03/23/24 08/06/24 Rx tablet,extended release 24 hr .COMPLEX #90 tabs atorvastatin 40 mg tablet See Rx Instructions .Route 04/03/24 08/06/24 Rx .COMPLEX #90 tabs empagliflozin 25 mg tablet 25 mg PO DAILY Diabetes 90 days 06/01/24 08/06/24 Rx (Jardiance) #90 tabs trazodone 50 mg tablet 50 mg PO DAILY #90 tabs 06/01/24 08/06/24 Rx tirzepatide 12.5 mg/0.5 mL See Rx Instructions .Route 07/15/24 08/06/24 Rx subcutaneous pen injector .COMPLEX #2 mL (Chaz) New Prescriptions to Start Prescriptions: Allergies Allergy/AdvReac Type Severity Reaction Status Date / Time No Known Allergies Allergy Verified 08/05/24 17:04 Assessment and Plan *Assessment and plan (1) Left shoulder pain: Status: Acute Qualifiers: Chronicity: chronic Qualified Code(s): M25.512 - Pain in left shoulder; G89.29 - Other chronic pain Category: Medical Code(s): M25.512 - Pain in left shoulder (2) Lumbar radiculopathy: Status: Acute Category: Medical Code(s): M54.16 - Radiculopathy, lumbar region (3) Degenerative disc disease, lumbar: Status: Acute Category: Medical Code(s): M51.36 - Other intervertebral disc degeneration, lumbar region Plan Patient has had significant improvement following his shoulder injection and does not require any additional injection therapy at this time. Patient will return to clinic in 2 months for reevaluation of symptoms and plan of care. Patient has been instructed to contact the clinic with any concerns before the next appointment. Dr. Reid has reviewed this note and agrees with this plan of care. This note was dictated using voice recognition software and make contain errors or omissions. All injections are used with Lidocaine or Bupivacaine and Depo Medrol.
[2024-08-07 15:28] VITALS: BP 151/87; PULSE 80; RESP 14; O2SAT 98; BMI 29.8
== END 2024-08-07 23:59 | disposition home or self-care (01) ==
LOC: SC.PAIN 15:03
PROVIDERS: PCP Nurse Practitioner Family; Visit Provider Nurse Practitioner Family
DX: M25.512 Pain in left shoulder (principal); G89.29 Other chronic pain; M51.16 Intervertebral disc disorders with radiculopathy, lumbar region; Z87.891 Personal history of nicotine dependence; Z79.899 Other long term (current) drug therapy
CPT/HCPCS: 99212; G0463

== ENCOUNTER 2024-10-08 10:44 | Outpatient (POV) | payer OTHER, SELFPAY ==
[2024-10-08 11:10] VITALS: BP 116/69; PULSE 92; RESP 14; O2SAT 98; BMI 29.1
--- NOTE | 2024-10-08 11:13 | A.OFFVIS_ITS ---
[facility] Disclaimer: The information contained in this section may have been updated after the patient was seen, as this information can be updated by other users. Medical History History of left heart catheterization Sleep apnea Arrhythmia Skin cancer Fatty tumor Non-alcoholic cirrhosis BPH (benign prostatic hyperplasia) Large tongue RAMESH and COPD overlap syndrome Arthritis T2DM (type 2 diabetes mellitus) Abnormal electrocardiography Hypertension Hyperlipidemia Surgical History History of esophagogastroduodenoscopy (EGD) History of liver biopsy Family History Family/Other Cancer skin Other Diabetes Heart attack Hypertension No significant family history Stroke Social History Smoking Status: Former smoker alcohol intake: never substance use type: denies use current occupational status: other Travel in the last 8 weeks: None household members: other housing: house current occupational exposures/hazards: Yes caffeine: Yes PM Subjective & Objective Subjective Subjective:: Patient is a pleasant 48-year-old male who presents today for follow-up. Today he rates his pain a 0 out of 10. He denies any new trauma or injury. He does state that he is still doing well from his shoulder injection and does not need any additional interventions. He states that those have done really well for him. His Mukesh has been reviewed and is appropriate. Review of Systems: General: No recent weight changes, no fever, no sleep disturbances Respiratory: No cough, no shortness of air, no recurring pulmonary infections Cardiovascular/peripheral vascular: No chest pain, no palpitations, no edema, no shortness of breath Gastrointestinal: No new onset incontinence, normal bowel movements reported Genitourinary: No new onset incontinence Musculoskeletal: Shoulder pain Psychiatric: [Normal mood/affect] Neurological: [Denies weakness in extremities], [denies balance issues] Pain at rest (0-10 scale): 0 Objective Objective:: Physical Exam: General: Alert and oriented x3, no acute distress, pleasant and cooperative Lungs: Respirations even and unlabored, symmetrical chest expansion Eyes: PERRL Musculoskeletal: Flexion and extension of left shoulder within normal limits Neurological: Speech clear, no gross sensory deficit Has patient had previous pain injection?: No Conservative treatment options previously tried: Home exercise plan Length of treatment: Longer than 12 weeks Meds Home Medications and Allergies Home Medications ?Medication ?Instructions ?Recorded ?Confirmed ?Type cetirizine 10 mg capsule 10 mg PO DAILY ALLERGIES 03/11/18 10/08/24 History cholecalciferol (vitamin D3) 25 25 mcg PO DAILY SUPPLIMENT 10/18/20 10/08/24 His tory mcg (1,000 unit) capsule fluticasone propionate 50 1 spray intranasal DIRECTED PRN 09/26/22 10/08/24 History mcg/actuation nasal ALLERGIES spray,suspension insulin glargine 100 unit/mL (3 See Rx Instructions .Route 11/11/23 10/08/24 Rx mL) subcutaneous pen (Lantus .COMPLEX #45 mL Solostar U-100 Insulin) tamsulosin 0.4 mg capsule 0.4 mg PO DAILY BLADDER 90 days 11/11/23 10/08/24 Rx #90 caps levalbuterol tartrate 45 45 mcg inhalation DIRECTED 03/04/24 10/08/24 History mcg/actuation aerosol inhaler metoprolol succinate 100 mg See Rx Instructions .Route 03/23/24 10/08/24 Rx tablet,extended release 24 hr .COMPLEX #90 tabs atorvastatin 40 mg tablet See Rx Instructions .Route 04/03/24 10/08/24 Rx .COMPLEX #90 tabs empagliflozin 25 mg tablet 25 mg PO DAILY Diabetes 90 days 06/01/24 10/08/24 Rx (Jardiance) #90 tabs trazodone 50 mg tablet 50 mg PO DAILY #90 tabs 06/01/24 10/08/24 Rx tirzepatide 12.5 mg/0.5 mL See Rx Instructions .Route 07/15/24 10/08/24 Rx subcutaneous pen injector .COMPLEX #2 mL (Mounjaro) blood-glucose sensor (Dexcom G7 #9 ea 08/18/24 10/08/24 Rx Sensor device) lisinopril 10 mg tablet See Rx Instructions .Route 08/27/24 10/08/24 Rx .COMPLEX #90 tabs New Prescriptions to Start Prescriptions: Allergies Allergy/AdvReac Type Severity Reaction Status Date / Time No Known Allergies Allergy Verified 08/05/24 17:04 Assessment and Plan *Assessment and plan (1) Left shoulder pain: Status: Acute Qualifiers: Chronicity: chronic Qualified Code(s): M25.512 - Pain in left shoulder; G89.29 - Other chronic pain Category: Medical Code(s): M25.512 - Pain in left shoulder Plan Patient is still doing extremely well and does not require any additional interventions at this time. Patient will return to clinic in 3 months. Patient has been instructed to contact the clinic with any concerns before the next appointment. Dr. Reid has reviewed this note and agrees with this plan of care. This note was dictated using voice recognition software and make contain errors or omissions. All injections are used with Lidocaine, Bupivacaine and Depo Medrol. Occasionally urine drug screen is needed to verify patient's compliance with our office pain contract. This is ordered based off specific treatments related to chronic pain with the potential to abuse certain medications.
== END 2024-10-08 23:59 | disposition home or self-care (01) ==
LOC: SC.PAIN 10:45
PROVIDERS: PCP Nurse Practitioner Family; Visit Provider Nurse Practitioner Family
DX: M25.512 Pain in left shoulder (principal); G89.29 Other chronic pain
CPT/HCPCS: 99212; G0463

== ENCOUNTER 2025-01-04 13:47 | Outpatient (POV) | payer OTHER, SELFPAY ==
[2025-01-04 13:59] VITALS: BP 115/79; PULSE 104; RESP 16; O2SAT 96; BMI 28.6
--- NOTE | 2025-01-04 14:16 | EXP.PAIN.SOA ---
[facility] Disclaimer: The information contained in this section may have been updated after the patient was seen, as this information can be updated by other users. 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 overlap syndrome Skin cancer Sleep apnea T2DM (type 2 diabetes mellitus) Surgical History History of esophagogastroduodenoscopy (EGD) History of liver biopsy Family History Family/Other Cancer skin Other Diabetes Heart attack Hypertension No significant family history Stroke Social History (Updated 01/04/25 @ 10:02 by Slime Triplett CMA) Smoking Status: Former smoker alcohol intake: never substance use type: denies use current occupational status: other Travel in the last 8 weeks?: None household members: other housing: house current occupational exposures/hazards: Yes caffeine: Yes PM Subjective & Objective Subjective Subjective:: Patient is a pleasant 49-year-old male who presents today for 3-month follow-up. Today he rates his pain a 0 out of 10. He states overall he is still doing very well from his last shoulder injection and does not require any additional injection therapy. He does continue to get occasionally of pain every so often but he is using his compounded cream and feels like this is working well. His Mukesh has been reviewed and is appropriate. Review of Systems: General: No recent weight changes, no fever, no sleep disturbances Respiratory: No cough, no shortness of air, no recurring pulmonary infections Cardiovascular/peripheral vascular: No chest pain, no palpitations, no edema, no shortness of breath Gastrointestinal: No new onset incontinence, normal bowel movements reported Genitourinary: No new onset incontinence Musculoskeletal: Shoulder pain Psychiatric: [Normal mood/affect] Neurological: [Denies weakness in extremities], [denies balance issues] Pain at rest (0-10 scale): 0 Objective Objective:: Physical Exam: General: Alert and oriented x3, no acute distress, pleasant and cooperative Lungs: Respirations even and unlabored, symmetrical chest expansion Eyes: PERRL Musculoskeletal: Flexion and extension of lumbar spine within normal limits Neurological: Speech clear, no gross sensory deficit Has patient had previous pain injection?: No Conservative treatment options previously tried: Home exercise plan Length of treatment: Longer than 12 weeks Meds Home Medications and Allergies Home Medications ?Medication ?Instructions ?Recorded ?Confirmed ?Type cetirizine 10 mg capsule 10 mg PO DAILY ALLERGIES 03/11/18 01/04/25 History cholecalciferol (vitamin D3) 25 25 mcg PO DAILY SUPPLIMENT 10/18/20 01/04/25 History mcg (1,000 unit) capsule fluticasone propionate 50 1 spray intranasal DIRECTED PRN 09/26/22 01/04/25 History mcg/actuation nasal ALLERGIES spray,suspension levalbuterol tartrate 45 45 mcg inhalation DIRECTED 03/04/24 01/04/25 History mcg/actuation aerosol inhaler metoprolol succinate 100 mg See Rx Instructions .Route 03/23/24 01/04/25 Rx tablet,extended release 24 hr .COMPLEX #90 tabs atorvastatin 40 mg tablet See Rx Instructions .Route 04/03/24 01/04/25 Rx .COMPLEX #90 tabs trazodone 50 mg tablet 50 mg PO DAILY #90 tabs 06/01/24 01/04/25 Rx blood-glucose sensor (Dexcom G7 #9 ea 08/18/24 01/04/25 Rx Sensor device) tamsulosin 0.4 mg capsule 0.4 mg PO DAILY BLADDER 90 days 10/23/24 01/04/25 Rx #90 caps empagliflozin 25 mg tablet 25 mg PO DAILY Diabetes 90 days 11/18/24 01/04/25 Rx (Jardiance) #90 tabs insulin glargine 100 unit/mL (3 50 unit SQ DAILY 01/04/25 01/04/25 History mL) subcutaneous pen (Lantus Solostar U-100 Insulin) tirzepatide 12.5 mg/0.5 mL See Rx Instructions .Route 01/04/25 01/04/25 Rx subcutaneous pen injector .COMPLEX #2 mL (Chaz) New Prescriptions to Start Prescriptions: Allergies Allergy/AdvReac Type Severity Reaction Status Date / Time No Known Allergies Allergy Verified 01/04/25 09:59 Assessment and Plan *Assessment and plan (1) Left shoulder pain: Status: Acute Qualifiers: Chronicity: chronic Qualified Code(s): M25.512 - Pain in left shoulder; G89.29 - Other chronic pain Category: Medical Code(s): M25.512 - Pain in left shoulder Plan Patient continues to do well and does not require any additional interventional therapy at this time. Patient will return to clinic in 6 months for reevaluation of symptoms and plan of care. Patient has been instructed to contact the clinic with any concerns before the next appointment. Dr. Reid has reviewed this note and agrees with this plan of care. This note was dictated using voice recognition software and make contain errors or omissions. All injections are used with Lidocaine, Bupivacaine and dexamethasone. Occasionally urine drug screen is needed to verify patient's compliance with our office pain contract. This is ordered based off specific treatments related to chronic pain with the potential to abuse certain medications.
[2025-01-04 14:49] LABS: Basophils % 0.2 % (0.1-2.0); Eosinophils # 0.1 Kmm3 (0.0-0.4); Eosinophils % 0.4 % (0.1-12.0); Hematocrit 36.7 % (42.0-52.0); Hemoglobin 11.1 g/dL (14.1-18.0); Lymphocytes # 0.8 K/mm3 (0.7-4.5); Mean Corpuscular HGB Conc 30.2 g/dL (31.8-35.4); Mean Corpuscular Hemoglobin 25.1 pg (27.0-31.2); Mean Platelet Volume 9.6 fl (7.4-10.4); Monocytes # 0.7 K/mm3 (0.1-1.0); Monocytes % 5.4 % (1.7-9.3); Neutrophils # 11.3 K/mm3 (1.8-7.8); Neutrophils % 87.8 % (37.0-80.0); Nucleated Red Blood Cells # 0 10^3/uL; Nucleated Red Blood Cells % 0 %; Platelet Count 264 K/mm3 (142-424); Red Blood Count 4.42 M/mm3 (4.60-6.20); Red Cell Distribution Width 13.9 % (11.5-17.5); Red Cell Distribution Width-SD 42.1 fL; White Blood Count 12.9 K/mm3 (4.8-10.8)
[2025-01-04 14:57] LABS: NT Pro Brain Natriuretic Pep. 22.4 pg/mL (0-125)
[2025-01-04 14:58] LABS: Albumin Level 3.3 g/dl (3.5-5.0)
[2025-01-04 14:59] LABS: Chloride 102 mmol/L (98-107); Potassium 3.6 mmoL/L (3.5-5.1); Sodium 136 mmol/L (136-145)
[2025-01-04 15:01] LABS: Alanine Aminotransferase 20 U/L (12-78); Amylase 110 U/L (30-110); Blood Urea Nitrogen 12 mg/dl (9-20); Creatinine Clearance Estimated 197 mL/min (50-200); Estimated Glomerular Filt Rate 142 ml/min (>60); GFR (African American) 172 ML/MIN (>60)
[2025-01-04 15:02] LABS: Albumin/Globulin Ratio 1.3 (1.1-1.8); Alkaline Phosphatase 103 U/L (38-126); Anion Gap 8.6 mEq/L (5-15); Aspartate Amino Transferase 83 U/L (17-59); Bilirubin,Total 0.5 mg/dl (0.2-1.3); Calcium 8.3 mg/dl (8.4-10.2); Carbon Dioxide 29 mmol/L (22.0-30.0); Chol/HDL Ratio 3.8 (1-3.5); Cholesterol 106 mg/dl (140-200); Globulin 2.6 g/dL (1.3-3.2); Glucose 95 mg/dl (74-100); HDL Cholesterol 28 mg/dl (40-60); Magnesium 1.8 mg/dl (1.6-2.3); Total Protein,Serum 5.9 g/dl (6.3-8.2); Triglycerides 125 mg/dl (30-150); VLDL Cholesterol 25 mg/dL (0-40)
[2025-01-04 15:13] LABS: Direct LDL Cholesterol 55.47 mg/dL (100-129)
[2025-01-04 15:18] LABS: Thyroid Stimulating Hormone 0.73 uIU/mL (0.465-4.68)
[2025-01-04 15:46] LABS: Lactate Dehydrogenase 372 U/L (313-618)
[2025-01-04 16:50] LABS: Microscopic, Urine URINE MICROSCOPIC (MICROSCOPIC)
[2025-01-04 20:17] LABS: Appearance,Urine CLEAR (Clear); Bilirubin,Urine Negative (Negative); Blood, Urine Negative (Negative); Color,Urine YELLOW (Yellow); Glucose,Urine (UA) 3+ (Negative); Ketones,Urine Negative (Negative); Leukocyte Esterase,Urine Negative (Negative); Nitrate,Urine Negative (Negative); Protein,Urine Negative (Negative); Specific Gravity, Urine 1.015 (1.005-1.030)
[2025-01-04 20:48] LABS: Squamous Epithelial Cell,Urine Occasional #/hpf (0-5); WBC,Urine Occasional #/hpf (0-3)
[2025-01-04 20:49] LABS: Bacteria,Urine Trace /lpf
[2025-01-05 11:30] LABS: Hemoglobin A1C 5.5 % (4.0-6.0)
== END 2025-01-04 23:59 | disposition home or self-care (01) ==
LOC: SC.PAIN 13:48
PROVIDERS: PCP Nurse Practitioner Family; Visit Provider Nurse Practitioner Family
DX: M25.512 Pain in left shoulder (principal); G89.29 Other chronic pain; R19.00 Intra-abdominal and pelvic swelling, mass and lump, unspecified site; R11.0 Nausea; E11.69 Type 2 diabetes mellitus with other specified complication; I10 Essential (primary) hypertension; Z79.4 Long term (current) use of insulin; K74.60 Unspecified cirrhosis of liver; K76.0 Fatty (change of) liver, not elsewhere classified; Z87.891 Personal history of nicotine dependence
CPT/HCPCS: 80053; 80061; 81001; 82150; 83036; 83615; 83735; 83880; 84443; 85025; 99212; G0463

== ENCOUNTER 2025-01-07 09:26 | Outpatient (CLI) | payer OTHER, SELFPAY ==
--- NOTE | 2025-01-07 09:45 | CT_ITS ---
FINAL REPORT TECHNIQUE: Thin section axial images were obtained through the abdomen after intravenous contrast. Reconstruction images were obtained from the axial data. This study was performed with techniques to keep radiation doses as low as reasonably achievable, (ALARA). Individualized dose reduction techniques using automated exposure control or adjustment of mA and/or kV according to the patient's size were employed. CLINICAL HISTORY: Nausea, abdominal swelling, shortness of breath COMPARISON: 05/17/2023 FINDINGS: There are new patchy bilateral reticulonodular opacities in the lower lungs most consistent with bronchopneumonia. The liver is nodular in contour consistent with cirrhosis. The gallbladder is present. The spleen is enlarged. There is no focal splenic lesion. The adrenal glands are without acute abnormality. A small adrenal myelolipoma is again noted. There is no hydronephrosis or renal mass. There is mass at the GE junction concerning for neoplasm. There is a soft tissue mass in the region of the gastrohepatic ligament that is inseparable from the superior pancreas. This is likely a large lymph node conglomerate or peritoneal mass. Pancreatic origin is felt to be less likely. There is no evidence of small bowel obstruction. The appendix is visualized and appears normal. There are numerous new pathologic lymph nodes in the retroperitoneum, mesentery, and retrocrural stations. A large aortocaval lymph node measures 4 cm on axial image 78. There is moderate ascites. There is diffuse body wall anasarca. There is no acute osseous abnormality. IMPRESSION: Mass at the GE junction concerning for neoplasm. Large soft tissue mass in the region of the gastrohepatic ligament. This is likely a large lymph node conglomerate. Favor metastatic disease although lymphoma not entirely excluded. This is less likely to be of pancreatic origin. Cirrhosis and splenomegaly. Worsening ascites is likely related to the cirrhosis, although malignant ascites is not excluded. New bilateral lower lung bronchopneumonia. Reviewed, Interpreted and Dictated by Leila Betancur MD Transcribed by Janine Junior Authenticated and [facility]
[2025-01-07] MEDS: SODIUM CHLORIDE 0.9% 10ML SYR (RAD ONLY) 10 ML IV (09:59)
[2025-01-07] MEDS: IOPAMIDOL-370 (76%);100ML BOTTLE 75 ML IV (09:59)
== END 2025-01-07 23:59 | disposition home or self-care (01) ==
LOC: RAD 09:27
PROVIDERS: PCP Nurse Practitioner Family; Visit Provider Nurse Practitioner Family
DX: R11.0 Nausea (principal); R19.00 Intra-abdominal and pelvic swelling, mass and lump, unspecified site
CPT/HCPCS: 74177; Q9967

== ENCOUNTER 2025-01-07 10:17 | Emergency (ER) | payer OTHER, SELFPAY ==
[2025-01-07] VITALS (9 sets, daily range): BP systolic 115–131; BP diastolic 63–69; PULSE 100–111; RESP 13–24; TEMP 36.6–37; O2SAT 93–100; BMI 28.5
--- NOTE | 2025-01-07 10:51 | PC.NURSE ---
rounded on patient, no needs voiced at this time.
[2025-01-07 10:55] LABS: Basophils % 0.3 % (0.1-2.0); Eosinophils # 0.1 Kmm3 (0.0-0.4); Eosinophils % 0.5 % (0.1-12.0); Hematocrit 35.3 % (42.0-52.0); Hemoglobin 10.9 g/dL (14.1-18.0); Immature Granulocytes # 0.07 10^3uL; Immature Granulocytes % 0.5 %; Lymphocytes # 0.9 K/mm3 (0.7-4.5); Lymphocytes % 5.7 % (10-50); Mean Corpuscular HGB Conc 30.9 g/dL (31.8-35.4); Mean Corpuscular Hemoglobin 25.2 pg (27.0-31.2); Mean Corpuscular Volume 81.5 fl (80-94); Mean Platelet Volume 8.6 fl (7.4-10.4); Monocytes # 0.9 K/mm3 (0.1-1.0); Monocytes % 6.1 % (1.7-9.3); Neutrophils # 13.1 K/mm3 (1.8-7.8); Neutrophils % 86.9 % (37.0-80.0); Nucleated Red Blood Cells # 0 10^3/uL; Nucleated Red Blood Cells % 0 %; Platelet Count 242 K/mm3 (142-424); Red Blood Count 4.33 M/mm3 (4.60-6.20); Red Cell Distribution Width 14.2 % (11.5-17.5); Red Cell Distribution Width-SD 41.8 fL
[2025-01-07 11:00] LABS: Alanine Aminotransferase 21 U/L (12-78); Albumin Level 3.4 g/dl (3.5-5.0); Albumin/Globulin Ratio 1.2 (1.1-1.8); Alkaline Phosphatase 120 U/L (38-126); Anion Gap 6.6 mEq/L (5-15); Aspartate Amino Transferase 86 U/L (17-59); Bilirubin,Total 0.9 mg/dl (0.2-1.3); Blood Urea Nitrogen 14 mg/dl (9-20); Calcium 8.4 mg/dl (8.4-10.2); Carbon Dioxide 28 mmol/L (22.0-30.0); Chloride 103 mmol/L (98-107); Creatinine Clearance Estimated 196 mL/min (50-200); Estimated Glomerular Filt Rate 142 ml/min (>60); GFR (African American) 172 ML/MIN (>60); Globulin 2.9 g/dL (1.3-3.2); Glucose 90 mg/dl (74-100); Potassium 3.6 mmoL/L (3.5-5.1); Sodium 134 mmol/L (136-145); Total Protein,Serum 6.3 g/dl (6.3-8.2)
[2025-01-07 11:01] LABS: INR 1.12 (0.9-1.1); Prothrombin Time 12.4 seconds (10.1-12.5)
[2025-01-07 11:02] LABS: Lipase 981 U/L (23-300)
--- NOTE | 2025-01-07 11:07 | PC.NURSE ---
Dr. Rinaldi notified of Lipase [id number].
[2025-01-07 11:37] LABS: HIV Combo NEGATIVE (Negative)
[2025-01-07 11:46] LABS: Hepatitis C Ab Qual. W/ RFX NEGATIVE (Negative)
--- NOTE | 2025-01-07 13:28 | HMH.EDGENADL ---
Discharge Plan Disposition Patient Disposition: Home, Self-Care Condition: Good Prescriptions Prescriptions: No Action cetirizine 10 mg capsule 10 mg PO DAILY cholecalciferol (vitamin D3) 25 mcg (1,000 unit) capsule 25 mcg PO DAILY levalbuterol tartrate 45 mcg/actuation HFA aerosol inhaler 45 mcg inhalation DIRECTED fluticasone propionate 50 mcg/actuation spray,suspension 1 spray intranasal DIRECTED PRN (Reason: ALLERGIES) insulin glargine [Lantus Solostar U-100 Insulin] 100 unit/mL (3 mL) insulin pen 50 unit SQ DAILY Mounjaro 12.5 mg/0.5 mL pen injector See Rx Instructions .ROUTE .COMPLEX Qty: 2 2RF Dose Instruction: INJECT 12.5 MG SUBCUTANEOUSLY ONCE WEEKLY Rx Instructions: INJECT 12.5 MG SUBCUTANEOUSLY ONCE WEEKLY metoprolol succinate 100 mg tablet extended release 24 hr See Rx Instructions .ROUTE .COMPLEX Qty: 90 3RF Dose Instruction: TAKE 1 TABLET BY MOUTH DAILY FOR BLOOD PRESSURE Rx Instructions: TAKE 1 TABLET BY MOUTH DAILY FOR BLOOD PRESSURE atorvastatin 40 mg tablet See Rx Instructions .ROUTE .COMPLEX Qty: 90 3RF Dose Instruction: TAKE ONE TABLET BY MOUTH ONCE A DAY Rx Instructions: TAKE ONE TABLET BY MOUTH ONCE A DAY trazodone 50 mg tablet 50 mg PO DAILY Qty: 90 2RF (DME) Dexcom G7 Sensor Device See Rx Instructions .Route Qty: 9 3RF Rx Instructions: As directed, change every 10 days tamsulosin 0.4 mg capsule 0.4 mg PO DAILY 90 Days Qty: 90 2RF Jardiance 25 mg tablet 25 mg PO DAILY 90 Days Qty: 90 1RF Referrals Follow up/Referrals: Epifanio Jesus II, MD [Staff Physician] - See instructions Clarisa Grubbs APRN [Primary Care Provider] - See instructions Mitch Vicente MD [Staff Physician] - See instructions Activity Restrictions/Add. Instructions Additional Instructions/Restrictions: You were evaluated in the emergency department today. At this time, CT scan is very concerning for a mass at your gastroesophageal junction. This is highly concerning for cancer with spread to lymph nodes in your abdomen, which is likely the cause of the fluid in your belly. It is very important that you keep follow-up with GI as well as with oncology on an outpatient basis. GI should be contacting you to schedule an EGD. Please call Dr. Montague's office to schedule an appointment as well. Please return right away to the emergency department for significant abdominal pain, nausea, vomiting, inability to tolerate oral intake, difficulty breathing, or other concerns. Clinical Impressions Clinical Impression: Gastric mass, Lymphadenopathy, Elevated lipase, Ascites Stand Alone Forms Stand Alone Forms: Work/School Release Instructions Patient Instructions: DI for Ascites Print Language Print Language: Urdu Discharge ED Provider: Joanna Rinaldi General Adult HPI General Chief complaint: Abdominal Pain Stated complaint: Ref. Romie. Poss. fluid in abd. Swelling/Nausea Time Seen by Provider: 01/07/25 10:38 Mode of Arrival: Ambulatory Source of Information: Patient Description of Symptoms (Recalled from ER Triage Doc. by RN): patient states he came in today to get a CT due to his abdomen swelling for approximatley two months. he reports the last couple of days he has felt very uncomfortable with shortness of breath intermittently. the CT today showed fluid in his abdomen. he reports history of LORENZO History of Present Illness HPI narrative: This patient is a 49-year-old male with a history of nonalcoholic fatty liver disease, hypertension, hyperlipidemia, RAMESH, BPH presenting to the emergency department for evaluation of concern for fluid in his abdomen. Patient reports that he has had worsening abdominal distention and fluid buildup. He states that he feels short of breath when lying flat because of the distention making it hard to breathe, however right now he is very comfortable and asymptomatic. He notes that he saw his PCP for this and they ordered an outpatient CT scan today and referred him to GI, and they told him that the CT scan showed a lot of fluid in his belly and recommended evaluation in the ED. He denies any fevers, chest pain, shortness of breath, abdominal pain, vomiting, changes bowel movements, or other concerns. He does note intermittent nausea, but he states he feels okay currently. Related Data Home Medications ?Medication ?Instructions ?Recorded ?Confirmed cetirizine 10 mg capsule 10 mg PO DAILY ALLERGIES 03/11/18 01/04/25 cholecalciferol (vitamin D3) 25 25 mcg PO DAILY SUPPLIMENT 10/18/20 01/04/25 mcg (1,000 unit) capsule fluticasone propionate 50 1 spray intranasal DIRECTED PRN 09/26/22 01/04/25 mcg/actuation nasal ALLERGIES spray,suspension levalbuterol tartrate 45 45 mcg inhalation DIRECTED 03/04/24 01/04/25 mcg/actuation aerosol inhaler insulin glargine 100 unit/mL (3 50 unit SQ DAILY 01/04/25 01/04/25 mL) subcutaneous pen (Lantus Solostar U-100 Insulin) Previous Rx's ?Medication ?Instructions ?Recorded metoprolol succinate 100 mg See Rx Instructions .Route 03/23/24 tablet,extended release 24 hr .COMPLEX #90 tabs atorvastatin 40 mg tablet See Rx Instructions .Route 04/03/24 .COMPLEX #90 tabs trazodone 50 mg tablet 50 mg PO DAILY #90 tabs 06/01/24 blood-glucose sensor (SIPphone G7 #9 ea 08/18/24 Sensor device) tamsulosin 0.4 mg capsule 0.4 mg PO DAILY BLADDER 90 days 10/23/24 #90 caps empagliflozin 25 mg tablet 25 mg PO DAILY Diabetes 90 days 11/18/24 (Jardiance) #90 tabs tirzepatide 12.5 mg/0.5 mL See Rx Instructions .Route 01/04/25 subcutaneous pen injector .COMPLEX #2 mL (Mounjaro) Allergies Allergy/AdvReac Type Severity Reaction Status Date / Time No Known Allergies Allergy Verified 01/04/25 09:59 [facility] Disclaimer: The information contained in this section may have been updated after the patient was seen, as this information can be updated by other users. Medical History History of left heart catheterization Sleep apnea Arrhythmia Skin cancer Fatty tumor Non-alcoholic cirrhosis BPH (benign prostatic hyperplasia) Large tongue RAMESH and COPD overlap syndrome Arthritis T2DM (type 2 diabetes mellitus) Abnormal electrocardiography Hypertension Hyperlipidemia Surgical History History of esophagogastroduodenoscopy (EGD) History of liver biopsy Family History Family/Other Cancer Other Diabetes Heart attack Hypertension No significant family history Stroke Social History Smoking Status: Former smoker alcohol intake: never substance use type: denies use current occupational status: other Travel in the last 8 weeks?: None household members: other housing: house current occupational exposures/hazards: Yes caffeine: Yes Have you lived/traveled outside [place] in past 30 days?: No Contact w/someone who lives/traveled outside [place] past 30 days?: No Exposure to someone with infectious disease in past 14 days?: No Do you have a fever (greater than 100.4 F or 38 C)?: No Have you tested positive for COVID-19?: No Exposed to someone with COVID-19 in past 14 days?: No Do you have a sore throat?: No Do you have a cough?: No Do you have any weakness?: No Do you have any diarrhea?: No Are you experiencing any unusual bleeding?: No Do you have any muscle aches/pain?: No Do you have any abdominal pain?: Yes Are you experiencing loss of taste or smell?: No Other Medical History Have you received the Flu Vaccine for this season: Yes Have you received the Pneumonia Vaccine: Yes ROS Obtained: Yes All systems reviewed & no additional complaints except as documented Physical Exam General General appearance: alert and in no apparent distress Head Head exam: atraumatic and normocephalic Eye Eye exam: Present normal appearance, PERRL and EOMI ENT ENT exam: Present normal exam, normal oropharynx, mucous membranes moist and normal external ear exam Neck Neck exam: Present normal inspection, full ROM and trachea midline; Absent tenderness Chest Chest inspection: Present normal inspection and symmetric chest wall rise; Absent tenderness Respiratory Respiratory exam: Present normal lung sounds bilaterally; Absent respiratory distress, wheezes, stridor or accessory muscle use Cardiovascular Cardiovascular exam: Present normal rhythm and tachycardia Abdominal Exam Abdominal exam: Present distention; Absent tenderness, guarding or rebound Extremities Exam Extremities exam: Present normal inspection, full ROM and normal capillary refill; Absent tenderness or edema Back Exam Back exam: Present normal inspection and full ROM; Absent tenderness Neurological Exam Neurological exam: Present alert, oriented X3, CN II-XII intact and normal gait; Absent motor sensory deficit Psychiatric Psychiatric exam: Present normal affect and normal mood Skin Skin exam: Present warm and dry Medical Decision Making Medical Records Medical records reviewed: Yes I reviewed the patient's medical records. Screening: Per USPSTF and CDC recommendations, given the prevalence of disease in our region, it is our hospital?s policy to screen for HIV and viral Hepatitis for all patients aged 18 and over and those with ongoing risk factors. Mukesh Inquiry Pt receiving controlled substance: No Vital Signs: 01/07/25 10:23 01/07/25 10:28 01/07/25 10:30 Temperature 98.6 F Temperature Source Oral Pulse Rate 107 H 107 H Pulse Rate [Right Radial] 106 H Respiratory Rate 15 19 Blood Pressure 131/69 131/69 Blood Pressure [Right Arm] 131/69 Blood Pressure Mean [Right Arm] 89 Blood Pressure Source Blood Pressure Source [Right Arm] Automatic Cuff Blood Pressure Position Blood Pressure Position [Right Arm] Supine 02 Sat by Pulse Oximetry 100 98 96 Oxygen Delivery Method Room Air 01/07/25 11:00 01/07/25 11:30 01/07/25 12:00 Temperature Temperature Source Pulse Rate 106 H 107 H 107 H Pulse Rate [Right Radial] Respiratory Rate 17 22 20 Blood Pressure 115/64 120/64 Blood Pressure [Right Arm] Blood Pressure Mean [Right Arm] Blood Pressure Source Blood Pressure Source [Right Arm] Blood Pressure Position Blood Pressure Position [Right Arm] 02 Sat by Pulse Oximetry 94 L 93 L 94 L Oxygen Delivery Method Room Air 01/07/25 12:45 01/07/25 13:00 01/07/25 13:09 Temperature 97.9 F Temperature Source Oral Pulse Rate 111 H 109 H 100 H Pulse Rate [Right Radial] Respiratory Rate 13 24 16 Blood Pressure 120/64 116/63 116/63 Blood Pressure [Right Arm] Blood Pressure Mean [Right Arm] Blood Pressure Source Automatic Cuff Blood Pressure Source [Right Arm] Blood Pressure Position Supine Blood Pressure Position [Right Arm] 02 Sat by Pulse Oximetry 95 93 L Oxygen Delivery Method Room Air Room Air Lab Data Lab results reviewed: Yes I reviewed the patient's lab results. Lab Results 01/07/25 10:30: WBC 15.0 H, RBC 4.33 L, Hgb 10.9 L, Hct 35.3 L, MCV 81.5, MCH 25.2 L, MCHC 30.9 L, RDW 14.2, Plt Count 242, MPV 8.6, Neut % (Auto) 86.9 H, Lymph % (Auto) 5.7 L, Hodgeman % (Auto) 6.1, Eos % (Auto) 0.5, Baso % (Auto) 0.3, Neut # (Auto) 13.1 H, Lymph # (Auto) 0.9, Hodgeman # (Auto) 0.9, Eos # (Auto) 0.1, Baso # (Auto) 0.0, PT 12.4, INR 1.12 H, Sodium 134 L, Potassium 3.6, Chloride 103, Carbon Dioxide 28, Anion Gap 6.6, BUN 14, Creatinine 0.60 L, Estimated Creat Clear 196, Estimated GFR 142, Est GFR ( Amer) 172, Glucose 90, Calcium 8.4, Total Bilirubin 0.9, AST 86 H, ALT 21, Alkaline Phosphatase 120, Total Protein 6.3, Albumin 3.4 L, Globulin 2.9, Albumin/Globulin Ratio 1.2, Lipase 981 H, HCV Ab REANNA w/Rflx PCR Qn Negative, HIV Ag/Ab Combo Qual Negative 01/07/25 10:30 01/07/25 10:30 Orders (Tests/Meds): ORDERS Category Date Time Status Complete Blood Count Auto Diff Stat Lab 01/07/25 10:30 Completed Comprehensive Metabolic Panel Stat Lab 01/07/25 10:30 Completed HIV Combo Stat Lab 01/07/25 10:30 Completed Hepatitis C Ab Qual. W/ RFX Stat Lab 01/07/25 10:30 Completed INR [Prothrombin Time INR] Stat Lab 01/07/25 10:30 Completed Lipase Stat Lab 01/07/25 10:30 Completed Medical Decision Narrative: In summary, this patient is a 49-year-old male presenting to the Emergency Department for evaluation of abdominal distention and fluid buildup. Differential diagnoses considered include but are not limited to cirrhosis, malignancy, colitis, bowel obstruction, CHF. Ruling out the most morbid conditions drove assessment. It should be noted patient's history includes nonalcoholic fatty liver disease which is not at goal therapy. This complicates all aspects of care by increasing patient's risk for morbidity. I reviewed patient's past medical records and noted previous PCP evaluations for workup of this worsening abdominal fluid and distention as well as outpatient CT scan that was obtained today. I independently interpreted the CT scan prior to radiology read and noted concerns for mass and ascites, very concerning for malignant disease. On exam, the patient is lying in bed in no acute distress. He has no increased work of breathing he denies any current chest pain or shortness of breath. Vitals are reassuring on cardiac telemetry with the exception of mild sinus tachycardia.. He has abdominal distention and fluid wave but otherwise exam is benign. Workup included lab evaluation including CBC, CMP, lipase, INR. He just had a CT prior to arrival, please see my independent interpretation above. Radiology notes concerns for mass at the GE junction, lymphadenopathy with conglomerate of lymph nodes at the gastrohepatic ligament, ascites. Please see their read for final interpretation. Labs were obtained that demonstrated leukocytosis, which is nonspecific. He is afebrile and nontoxic-appearing with no current symptoms concerning for infection. Chemistry demonstrates a significant elevated lipase with no current abdominal pain, nausea, or vomiting. No significant abdominal tenderness. I feel this is likely related to the mass/malignancy. He has mild anemia, but no indication for transfusion at this time. INR is very mildly elevated. MELD score is currently 8. I considered admission of the patient for further workup of this new malignancy and further evaluation, the patient is currently asymptomatic and is doing okay. I had an interactive discussion with Dr. Jesus who is in agreement to follow the patient up outpatient very closely and will schedule an EGD within the week. I also advised that he follow-up very closely with his primary care provider as well as with Dr. Montague. I gave the patient very strict return precautions should he start having any symptoms. He was discharged with thorough explanation of his findings on imaging and plan for very close outpatient follow-up. Strict return precautions given prior to discharge Critical Care Critical Care Time Critical Care Time: Yes Attestation: On 01/07/25, the high probability of a clinically significant, sudden or life threatening deterioration of the following system(s) required my full and direct attention, intervention and personal management. The time I documented below is in addition to time spent performing reported procedures but includes the following listed in this critical care notation. Total Time Total Critical Care Time: 35
== END 2025-01-07 13:11 | disposition home or self-care (01) ==
PROVIDERS: Emergency Provider Emergency Medicine; PCP Nurse Practitioner Family
DX: R18.8 Other ascites (principal); K31.89 Other diseases of stomach and duodenum; R06.02 Shortness of breath; R00.0 Tachycardia, unspecified; K75.81 Nonalcoholic steatohepatitis (NASH); R59.0 Localized enlarged lymph nodes; R74.8 Abnormal levels of other serum enzymes
CPT/HCPCS: 80053; 83690; 85025; 85610; 86803; 87389; 99291

== ENCOUNTER 2025-01-09 19:48 | Inpatient (IN) | payer OTHER, SELFPAY ==
[2025-01-09] VITALS (10 sets, daily range): BP systolic 122–150; BP diastolic 68–80; PULSE 105–111; RESP 16–19; TEMP 37; O2SAT 94–98; BMI 28.5
[2025-01-09 20:53] LABS: Basophils % 0.2 % (0.1-2.0); Eosinophils % 0.3 % (0.1-12.0); Hematocrit 32.8 % (42.0-52.0); Hemoglobin 10.2 g/dL (14.1-18.0); Immature Granulocytes # 0.04 10^3uL; Immature Granulocytes % 0.3 %; Lymphocytes # 0.8 K/mm3 (0.7-4.5); Lymphocytes % 5.6 % (10-50); Mean Corpuscular HGB Conc 31.1 g/dL (31.8-35.4); Mean Corpuscular Hemoglobin 25.4 pg (27.0-31.2); Mean Corpuscular Volume 81.6 fl (80-94); Monocytes % 6.9 % (1.7-9.3); Neutrophils # 12.5 K/mm3 (1.8-7.8); Neutrophils % 86.7 % (37.0-80.0); Nucleated Red Blood Cells # 0 10^3/uL; Nucleated Red Blood Cells % 0 %; Platelet Count 248 K/mm3 (142-424); Red Blood Count 4.02 M/mm3 (4.60-6.20); Red Cell Distribution Width 14.5 % (11.5-17.5); Red Cell Distribution Width-SD 42.2 fL; White Blood Count 14.4 K/mm3 (4.8-10.8)
[2025-01-09 20:55] LABS: Albumin Level 3.3 g/dl (3.5-5.0); Chloride 104 mmol/L (98-107); Potassium 3.7 mmoL/L (3.5-5.1); Sodium 136 mmol/L (136-145)
[2025-01-09 20:57] LABS: Blood Urea Nitrogen 14 mg/dl (9-20); Creatinine Clearance Estimated 196 mL/min (50-200); Estimated Glomerular Filt Rate 142 ml/min (>60); GFR (African American) 172 ML/MIN (>60)
[2025-01-09 20:58] LABS: Alanine Aminotransferase 22 U/L (12-78); Albumin/Globulin Ratio 1.1 (1.1-1.8); Alkaline Phosphatase 116 U/L (38-126); Anion Gap 8.7 mEq/L (5-15); Aspartate Amino Transferase 100 U/L (17-59); Bilirubin,Total 0.7 mg/dl (0.2-1.3); Calcium 8.5 mg/dl (8.4-10.2); Carbon Dioxide 27 mmol/L (22.0-30.0); Globulin 2.9 g/dL (1.3-3.2); Glucose 110 mg/dl (74-100); Lipase 539 U/L (23-300); Total Protein,Serum 6.2 g/dl (6.3-8.2)
[2025-01-09] MEDS: LIDOCAINE 1% 20ML MDV 20 ML IJ (21:10)
--- NOTE | 2025-01-09 21:38 | [facility].EDGENADL ---
Discharge Plan Disposition Patient Disposition: Admitted Chief Complaint: PAIN Clinical Impressions Clinical Impression: SBP (spontaneous bacterial peritonitis), Upper abdominal mass Discharge ED Provider: Keon Carr General Adult HPI <Magdiel Yip MD - Last Filed: 01/09/25 22:56> General Chief complaint: PAIN Stated complaint: Abdominal swelling Time Seen by Provider: 01/09/25 20:11 Mode of Arrival: Ambulatory Source of Information: Patient Description of Symptoms (Recalled from ER Triage Doc. by RN): patient c/o abd pain x 2 [address] of CAMPOS. Ct on showes acites and mass to esophagus. Reports increase shortness of breath History of Present Illness HPI narrative: Please note that above description of symptoms, in this electronic medical record under categorization of recalled from ER triage doctor by RN are reflective of an initial nursing assessment, however, is not reflective of my full history and physical exam that was personally taken and clarified. Consequentially, this preceding description of symptoms, which may include the patient's categorized chief complaint in the EMR, do not reflect my personal clinical impression, and the ultimate description of history of present illness and patient stated complaints should be deferred to this section of the note. Unless stated otherwise or congruent with this section of the note, additional signs, symptoms, or incongruence should be interpreted as inaccurate with my clinical impression. Related Data Home Medications ?Medication ?Instructions ?Recorded ?Confirmed cetirizine 10 mg capsule 10 mg PO DAILY ALLERGIES 03/11/18 01/08/25 cholecalciferol (vitamin D3) 25 25 mcg PO DAILY SUPPLIMENT 10/18/20 01/08/25 mcg (1,000 unit) capsule fluticasone propionate 50 1 spray intranasal DIRECTED PRN 09/26/22 01/08/25 mcg/actuation nasal ALLERGIES spray,suspension levalbuterol tartrate 45 45 mcg inhalation DIRECTED 03/04/24 01/08/25 mcg/actuation aerosol inhaler insulin glargine 100 unit/mL (3 50 unit SQ DAILY 01/04/25 01/08/25 mL) subcutaneous pen (Lantus Solostar U-100 Insulin) Previous Rx's ?Medication ?Instructions ?Recorded metoprolol succinate 100 mg See Rx Instructions .Route 03/23/24 tablet,extended release 24 hr .COMPLEX #90 tabs atorvastatin 40 mg tablet See Rx Instructions .Route 04/03/24 .COMPLEX #90 tabs trazodone 50 mg tablet 50 mg PO DAILY #90 tabs 06/01/24 blood-glucose sensor (Dexcom G7 #9 ea 08/18/24 Sensor device) tamsulosin 0.4 mg capsule 0.4 mg PO DAILY BLADDER 90 days 10/23/24 #90 caps empagliflozin 25 mg tablet 25 mg PO DAILY Diabetes 90 days 11/18/24 (Jardiance) #90 tabs tirzepatide 12.5 mg/0.5 mL See Rx Instructions .Route 01/04/25 subcutaneous pen injector .COMPLEX #2 mL (Mounjaro) cefdinir 300 mg capsule 300 mg PO BID 7 days #14 caps 01/08/25 furosemide 20 mg tablet 20 mg PO DAILY #30 tabs 01/08/25 Allergies Allergy/AdvReac Type Severity Reaction Status Date / Time No Known Allergies Allergy Verified 01/08/25 12:58 [facility] [place] <Magdiel Yip MD - Last Filed: 01/09/25 22:56> [facility] Disclaimer: The information contained in this section may have been updated after the patient was seen, as this information can be updated by other users. 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 overlap syndrome Skin cancer Sleep apnea T2DM (type 2 diabetes mellitus) Surgical History History of esophagogastroduodenoscopy (EGD) History of liver biopsy Family History Family/Other Cancer skin Other Diabetes Heart attack Hypertension No significant family history Stroke Social History Smoking Status: Unknown if ever smoked alcohol intake: never substance use type: denies use current occupational status: other Travel in the last 8 weeks?: None household members: other housing: house current occupational exposures/hazards: Yes caffeine: Yes Have you lived/traveled outside [place] in past 30 days?: No Contact w/someone who lives/traveled outside [place] past 30 days?: No Exposure to someone with infectious disease in past 14 days?: No Do you have a fever (greater than 100.4 F or 38 C)?: No Have you tested positive for COVID-19?: No Exposed to someone with COVID-19 in past 14 days?: No Do you have a sore throat?: No Do you have a cough?: No Do you have any weakness?: No Do you have any diarrhea?: No Are you experiencing any unusual bleeding?: No Do you have any muscle aches/pain?: No Do you have any abdominal pain?: No Are you experiencing loss of taste or smell?: No Other Medical History Have you received the Flu Vaccine for this season: Yes Have you received the Pneumonia Vaccine: No <Magdiel Yip MD - Last Filed: 01/09/25 22:56> ROS Obtained: Yes All systems reviewed & no additional complaints except as documented Physical Exam <Magdiel Yip MD - Last Filed: 01/09/25 22:56> General General appearance: alert and in no apparent distress Head Head exam: atraumatic and normocephalic Eye Eye exam: Present normal appearance, PERRL and EOMI Neck Neck exam: Present normal inspection, full ROM and trachea midline Respiratory Respiratory exam: Absent respiratory distress, wheezes, stridor, accessory muscle use or prolonged expiratory phase Cardiovascular Cardiovascular exam: Present other (Pulses equal symmetric in upper and lower extremities) Abdominal Exam Abdominal exam: Present soft and distention; Absent tenderness, guarding, rebound, rigidity or pulsatile mass Extremities Exam Extremities exam: Absent edema Neurological Exam Neurological exam: Present alert, oriented X3 and CN II-XII intact; Absent motor sensory deficit Skin Skin exam: Present warm and dry; Absent diaphoresis or erythema Medical Decision Making <Magdiel Yip MD - Last Filed: 01/09/25 22:56> Medical Records Medical records reviewed: Yes I reviewed the patient's medical records. Screening: Per USPSTF and CDC recommendations, given the prevalence of disease in our region, it is our hospital?s policy to screen for HIV and viral Hepatitis for all patients aged 18 and over and those with ongoing risk factors. Mukesh Inquiry Pt receiving controlled substance: No Mukesh was queried for this patient: No Vital Signs: 01/09/25 20:09 01/09/25 20:23 01/09/25 20:30 Temperature 98.6 F Temperature Source Oral Pulse Rate 108 H 108 H Pulse Rate [Right] 105 H Respiratory Rate 16 Blood Pressure 138/72 131/75 Blood Pressure [Right Arm] 138/72 Blood Pressure Mean Blood Pressure Mean [Right Arm] 94 Blood Pressure Source [Right Arm] Automatic Cuff Blood Pressure Position [Right Arm] Sitting 02 Sat by Pulse Oximetry 95 98 96 Oxygen Delivery Method Room Air Room Air Room Air 01/09/25 21:00 01/09/25 21:22 01/09/25 21:30 Temperature Temperature Source Pulse Rate 107 H 111 H 107 H Pulse Rate [Right] Respiratory Rate 18 19 Blood Pressure 128/73 150/80 H 122/68 Blood Pressure [Right Arm] Blood Pressure Mean 87 103 Blood Pressure Mean [Right Arm] Blood Pressure Source [Right Arm] Blood Pressure Position [Right Arm] 02 Sat by Pulse Oximetry 94 L 95 95 Oxygen Delivery Method Room Air 01/09/25 22:00 01/09/25 22:30 01/09/25 23:00 Temperature Temperature Source Pulse Rate 107 H 106 H 107 H Pulse Rate [Right] Respiratory Rate 17 19 16 Blood Pressure 125/69 122/70 132/69 Blood Pressure [Right Arm] Blood Pressure Mean 83 80 Blood Pressure Mean [Right Arm] Blood Pressure Source [Right Arm] Blood Pressure Position [Right Arm] 02 Sat by Pulse Oximetry 95 94 L 95 Oxygen Delivery Method Room Air 01/09/25 23:30 01/10/25 00:00 Temperature Temperature Source Pulse Rate 108 H 108 H Pulse Rate [Right] Respiratory Rate 18 17 Blood Pressure 122/69 126/76 Blood Pressure [Right Arm] Blood Pressure Mean 85 85 Blood Pressure Mean [Right Arm] Blood Pressure Source [Right Arm] Blood Pressure Position [Right Arm] 02 Sat by Pulse Oximetry 94 L 95 Oxygen Delivery Method Lab Data Lab Results 01/09/25 20:20: WBC 14.4 H, RBC 4.02 L, Hgb 10.2 L, Hct 32.8 L, MCV 81.6, MCH 25.4 L, MCHC 31.1 L, RDW 14.5, Plt Count 248, MPV 9.0, Neut % (Auto) 86.7 H, Lymph % (Auto) 5.6 L, [place] % (Auto) 6.9, Eos % (Auto) 0.3, Baso % (Auto) 0.2, Neut # (Auto) 12.5 H, Lymph # (Auto) 0.8, [place] # (Auto) 1.0, Eos # (Auto) 0.0, Baso # (Auto) 0.0, Sodium 136, Potassium 3.7, Chloride 104, Carbon Dioxide 27, Anion Gap 8.7, BUN 14, Creatinine 0.60 L, Estimated Creat Clear 196, Estimated GFR 142, Est GFR ( Amer) 172, Glucose 110 H, Calcium 8.5, Total Bilirubin 0.7, AST 100 H, ALT 22, Alkaline Phosphatase 116, Total Protein 6.2 L, Albumin 3.3 L, Globulin 2.9, Albumin/Globulin Ratio 1.1, Lipase 539 H 01/09/25 21:15: Fluid Source Peritoneal fluid, Fluid Volume 27, Fluid Appearance Normal, Fluid RBC (Auto) 2000, Fld Tot Nucleated Cell 1332, Fld Polynuclear WBCs % 50, Fld Mononuclear WBCs % 50 01/09/25 20:20 01/09/25 20:20 Orders (Tests/Meds): ED MEDICATIONS Generic Name Dose Route Start Last Admin Trade Name Freq PRN Reason Stop Dose Admin Acetaminophen 650 mg 01/10/25 01:31 Acetaminophen 325mg Tab PO 02/09/25 01:30 Q4HP PRN Fever or Mild Pain (1-3) Insulin Human Lispro 0 unit 01/10/25 06:00 Humalog 100 Units/Ml 10ml Vial (Ssi) SUBCUT 02/09/25 05:59 ACHS SHANI Protocol Ketorolac Tromethamine 30 mg 01/10/25 01:31 Ketorolac 30mg/Ml Vial IV 01/15/25 01:30 Q6HP PRN Moderate Pain (4-6) Morphine Sulfate 2 mg 01/10/25 01:31 Morphine 2mg/Ml Syringe IV 02/09/25 01:30 Q2HP PRN Severe Pain (7-10) Ondansetron HCl 4 mg 01/10/25 01:31 Ondansetron 4mg/2ml Vial IV 02/09/25 01:30 Q8HP PRN Nausea Sodium Chloride 10 ml 01/10/25 01:31 Sodium Chloride 0.9% 10ml Flush Syringe IV 02/09/25 01:30 NEEDED PRN Maintain IV Site Discontinued Medications Generic Name Dose Route Start Last Admin Trade Name Freq PRN Reason Stop Dose Admin Ceftriaxone Sodium 1 gm/ 50 mls @ 100 mls/hr 01/10/25 01:09 Sodium Chloride IV 01/10/25 01:38 ONCE ONE Lidocaine HCl 20 ml 01/09/25 20:50 01/09/25 21:10 Lidocaine 1% 20ml Mdv IJ 01/09/25 20:51 20 ml ONCE ONE Administration ORDERS Category Date Time Status POCUS Point of Care (ER Only) Stat Exams 01/09/25 21:03 Completed Body Fluid: Cell Count w/ Diff Stat Lab 01/09/25 21:15 Completed CBC w/Auto Diff [Complete Blood Count Auto Diff] Stat Lab 01/09/25 20:20 Completed CMP [Comprehensive Metabolic Panel] Stat Lab 01/09/25 20:20 Completed Cytology Routine Lab 01/09/25 20:46 Ordered Lipase Stat Lab 01/09/25 20:20 Completed Peripheral Smear Review Stat Lab 01/09/25 21:15 Received Blood Culture Stat Micro 01/10/25 01:15 Received Body Fluid Cult & Gram Stain Stat Micro 01/09/25 21:15 Received Medical Decision Narrative: 49-year-old male with history of Campos cirrhosis, ascites, esophageal mass presenting with distention. States has been getting worse for a while, had CT scan done last week that was suspicious for GE junction mass and cancer. Has follow-up with gastroenterology next week for scope and biopsy. States that he is gotten to the point where his abdominal distention is kept him from sleeping. It is tight, full, no overt pain and just feels as if is due to pressure. No fevers or chills, nausea or vomiting, blood in his stool, vomiting, or any other concerns. History was obtained via conversation with patient. On arrival, patient hemodynamically stable, alert, oriented x4, appropriate, GCS 15, moving all extremities spontaneously, pupils equal and reactive to light. Full physical exam performed and significant for well-appearing male no acute distress. Abdominal distention without tenderness, rebound, rigidity, or guarding. No hernia. Differential includes malignant ascites, cirrhosis associated with ascites and portal hypertension, liver cancer, among others. Patient placed on continuous cardiac monitoring and continuous pulse ox with initial blood pressure 138/72, heart rate 108, saturation 95% on room air. Bedside [id number] ultrasound was performed, patient has large fluid pocket and this was used under ultrasound guidance for paracentesis. Patient was given lidocaine for field block. Workup independently interpreted and significant for leukocytosis which appears stable. Chemistry nonactionable with LFTs with only mildly elevated AST at 100. Alkaline phosphatase, bili, ALT normal. Patient's lipase downtrending to 539. INR just 2 days ago was 1.12. On independent interpretation of imaging, patient has large volume ascites and mass on previous CT scan, no evidence of hepatic masses. See radiology read for full review of final results. Peritoneal fluid studies demonstrated 1300 nucleated cells, but differential pending at time of handoff. Schedule Clerk disclaimer Much of this encounter note is an electronic web content executive spoken language to printed text. Electronic web content executive of the spoken language may permit errors. Although I have reviewed the note, some errors may still exist. <Keon Carr MD - Last Filed: 01/10/25 01:43> Vital Signs: 01/09/25 20:09 01/09/25 20:23 01/09/25 20:30 Temperature 98.6 F Temperature Source Oral Pulse Rate 108 H 108 H Pulse Rate [Right] 105 H Respiratory Rate 16 Blood Pressure 138/72 131/75 Blood Pressure [Right Arm] 138/72 Blood Pressure Mean Blood Pressure Mean [Right Arm] 94 Blood Pressure Source [Right Arm] Automatic Cuff Blood Pressure Position [Right Arm] Sitting 02 Sat by Pulse Oximetry 95 98 96 Oxygen Delivery Method Room Air Room Air Room Air 01/09/25 21:00 01/09/25 21:22 01/09/25 21:30 Temperature Temperature Source Pulse Rate 107 H 111 H 107 H Pulse Rate [Right] Respiratory Rate 18 19 Blood Pressure 128/73 150/80 H 122/68 Blood Pressure [Right Arm] Blood Pressure Mean 87 103 Blood Pressure Mean [Right Arm] Blood Pressure Source [Right Arm] Blood Pressure Position [Right Arm] 02 Sat by Pulse Oximetry 94 L 95 95 Oxygen Delivery Method Room Air 01/09/25 22:00 01/09/25 22:30 01/09/25 23:00 Temperature Temperature Source Pulse Rate 107 H 106 H 107 H Pulse Rate [Right] Respiratory Rate 17 19 16 Blood Pressure 125/69 122/70 132/69 Blood Pressure [Right Arm] Blood Pressure Mean 83 80 Blood Pressure Mean [Right Arm] Blood Pressure Source [Right Arm] Blood Pressure Position [Right Arm] 02 Sat by Pulse Oximetry 95 94 L 95 Oxygen Delivery Method Room Air 01/09/25 23:30 01/10/25 00:00 Temperature Temperature Source Pulse Rate 108 H 108 H Pulse Rate [Right] Respiratory Rate 18 17 Blood Pressure 122/69 126/76 Blood Pressure [Right Arm] Blood Pressure Mean 85 85 Blood Pressure Mean [Right Arm] Blood Pressure Source [Right Arm] Blood Pressure Position [Right Arm] 02 Sat by Pulse Oximetry 94 L 95 Oxygen Delivery Method Lab Data Lab Results 01/09/25 20:20: WBC 14.4 H, RBC 4.02 L, Hgb 10.2 L, Hct 32.8 L, MCV 81.6, MCH 25.4 L, MCHC 31.1 L, RDW 14.5, Plt Count 248, MPV 9.0, Neut % (Auto) 86.7 H, Lymph % (Auto) 5.6 L, [place] % (Auto) 6.9, Eos % (Auto) 0.3, Baso % (Auto) 0.2, Neut # (Auto) 12.5 H, Lymph # (Auto) 0.8, [place] # (Auto) 1.0, Eos # (Auto) 0.0, Baso # (Auto) 0.0, Sodium 136, Potassium 3.7, Chloride 104, Carbon Dioxide 27, Anion Gap 8.7, BUN 14, Creatinine 0.60 L, Estimated Creat Clear 196, Estimated GFR 142, Est GFR ( Amer) 172, Glucose 110 H, Calcium 8.5, Total Bilirubin 0.7, AST 100 H, ALT 22, Alkaline Phosphatase 116, Total Protein 6.2 L, Albumin 3.3 L, Globulin 2.9, Albumin/Globulin Ratio 1.1, Lipase 539 H 01/09/25 21:15: Fluid Source Peritoneal fluid, Fluid Volume 27, Fluid Appearance Normal, Fluid RBC (Auto) 2000, Fld Tot Nucleated Cell 1332, Fld Polynuclear WBCs % 50, Fld Mononuclear WBCs % 50 Orders (Tests/Meds): ED MEDICATIONS Generic Name Dose Route Start Last Admin Trade Name Freq PRN Reason Stop Dose Admin Acetaminophen 650 mg 01/10/25 01:31 Acetaminophen 325mg Tab PO 02/09/25 01:30 Q4HP PRN Fever or Mild Pain (1-3) Insulin Human Lispro 0 unit 01/10/25 06:00 Humalog 100 Units/Ml 10ml Vial (Ssi) SUBCUT 02/09/25 05:59 ACHS SHANI Protocol Ketorolac Tromethamine 30 mg 01/10/25 01:31 Ketorolac 30mg/Ml Vial IV 01/15/25 01:30 Q6HP PRN Moderate Pain (4-6) Morphine Sulfate 2 mg 01/10/25 01:31 Morphine 2mg/Ml Syringe IV 02/09/25 01:30 Q2HP PRN Severe Pain (7-10) Ondansetron HCl 4 mg 01/10/25 01:31 Ondansetron 4mg/2ml Vial IV 02/09/25 01:30 Q8HP PRN Nausea Sodium Chloride 10 ml 01/10/25 01:31 Sodium Chloride 0.9% 10ml Flush Syringe IV 02/09/25 01:30 NEEDED PRN Maintain IV Site Discontinued Medications Generic Name Dose Route Start Last Admin Trade Name Freq PRN Reason Stop Dose Admin Ceftriaxone Sodium 1 gm/ 50 mls @ 100 mls/hr 01/10/25 01:09 Sodium Chloride IV 01/10/25 01:38 ONCE ONE Lidocaine HCl 20 ml 01/09/25 20:50 01/09/25 21:10 Lidocaine 1% 20ml Mdv IJ 01/09/25 20:51 20 ml ONCE ONE Administration ORDERS Category Date Time Status POCUS Point of Care (ER Only) Stat Exams 01/09/25 21:03 Completed Body Fluid: Cell Count w/ Diff Stat Lab 01/09/25 21:15 Completed CBC w/Auto Diff [Complete Blood Count Auto Diff] Stat Lab 01/09/25 20:20 Completed CMP [Comprehensive Metabolic Panel] Stat Lab 01/09/25 20:20 Completed Cytology Routine Lab 01/09/25 20:46 Ordered Lipase Stat Lab 01/09/25 20:20 Completed Peripheral Smear Review Stat Lab 01/09/25 21:15 Received Blood Culture Stat Micro 01/10/25 01:15 Received Body Fluid Cult & Gram Stain Stat Micro 01/09/25 21:15 Received Medical Decision Narrative: 49-year-old male with history of Campos cirrhosis, ascites, esophageal mass presenting with distention. States has been getting worse for a while, had CT scan done last week that was suspicious for GE junction mass and cancer. Has follow-up with gastroenterology next week for scope and biopsy. States that he is gotten to the point where his abdominal distention is kept him from sleeping. It is tight, full, no overt pain and just feels as if is due to pressure. No fevers or chills, nausea or vomiting, blood in his stool, vomiting, or any other concerns. History was obtained via conversation with patient. On arrival, patient hemodynamically stable, alert, oriented x4, appropriate, GCS 15, moving all extremities spontaneously, pupils equal and reactive to light. Full physical exam performed and significant for well-appearing male no acute distress. Abdominal distention without tenderness, rebound, rigidity, or guarding. No hernia. Differential includes malignant ascites, cirrhosis associated with ascites and portal hypertension, liver cancer, among others. Patient placed on continuous cardiac monitoring and continuous pulse ox with initial blood pressure 138/72, heart rate 108, saturation 95% on room air. Bedside [id number] ultrasound was performed, patient has large fluid pocket and this was used under ultrasound guidance for paracentesis. Patient was given lidocaine for field block. Workup independently interpreted and significant for leukocytosis which appears stable. Chemistry nonactionable with LFTs with only mildly elevated AST at 100. Alkaline phosphatase, bili, ALT normal. Patient's lipase downtrending to 539. INR just 2 days ago was 1.12. On independent interpretation of imaging, patient has large volume ascites and mass on previous CT scan, no evidence of hepatic masses. See radiology read for full review of final results. Peritoneal fluid studies demonstrated 1300 nucleated cells, but differential pending at time of handoff. Schedule Clerk disclaimer Much of this encounter note is an electronic web content executive spoken language to printed text. Electronic web content executive of the spoken language may permit errors. Although I have reviewed the note, some errors may still exist. Bruno ROBB: I assumed care of the patient at the time of handoff from the prior provider. On reassessment patient remains hemodynamically stable but tachycardic with heart rate of 110. Reports improvement in symptoms. The results of the differential are 50% PMN and 50% mononuclear cells. I called and spoke with the lab who reported that the microscopy looked abnormal, a pathology order was placed. I had an interactive schedule with patient guarding his presentation. Given his known upper GI mass and the abnormalities noted on his paracentesis, I think his presentation is most consistent with malignant ascites. However, I cannot rule out SBP given he has over 600 PMNs. Patient was agreeable to admission for IV antibiotics and further workup. Interactive discussion was had with hospitalist on-call for admission. Procedures <Magdiel Yip MD - Last Filed: 01/09/25 22:56> Paracentesis Time Out Performed: Yes Indication: Ascites Procedure: therapeutic paracentesis (And diagnostic) Location: RLQ Local Anesthetic: lidocaine 1% Amount of anesthesia used (mL): 20 Bedside Ultrasound Used: yes, real-time guidance Preparation: sterile prep and drape (11 blade used to make skin sujata) Amount of fluid obtained (mL): 2,500 Fluid: clear (Straw-colored) Size of Needle Used: 4 Post Procedure Exam: awake, alert and normal BP Patient Tolerated Procedure: well and no complications Complications: none Critical Care <Magdiel Yip MD - Last Filed: 01/09/25 22:56> Critical Care Time Critical Care Time: No
[2025-01-09 21:50] LABS: Appearance,Body Fld. Normal; Source, Body Fld. Peritoneal Fluid; Volume,Body Fld. 27 mL
[2025-01-09 22:32] LABS: RBC,Body Fluid 2000 cells/uL (< 10 X 10^3); TNC,Body Fluid 1332 cells/uL (< 1000)
[2025-01-10] VITALS (11 sets, daily range): BP systolic 126–162; BP diastolic 67–86; PULSE 97–110; RESP 16–18; TEMP 36.8–37.3; O2SAT 93–98; BMI 28.9
[2025-01-10 00:18] LABS: Mononuclear WBCs,Body Fluid 50 %; Polynuclear WBC,Body Fluid 50 %
[2025-01-10] MEDS: CEFTRIAXONE 1 GM 1 GM in 0.9 % SODIUM CHLORIDE 50 ML IV (01:46)
--- NOTE | 2025-01-10 01:57 | P.HP_ITS ---
History of Present Illness *Admission Date: 01/10/25 *Reason for visit:: Abdominal Pain *History of present illness: 49-year-old male patient who is admitted to the hospital with worsening abdominal pain and pressure for two months associated with nausea, weight loss and abdominal distention. The patient had a CT completed on which indicated ascites and an esophageal mass. He has OP appt with Dr. Montague to follow up on CT findings. Since that time he has had increased shortness of breath due to pressure on his ribs from the fluid in his abdomen. A paracentesis was completed in the ER, the patient reports he had immediate relief of pain/pressure at that time. He denies any CP, V/D, fever, chills, dizziness or weakness. [facility] Disclaimer: The information contained in this section may have been updated after the patient was seen, as this information can be updated by other users. Medical History (Updated 01/10/25 @ 04:29 by Dylan Edwards APRN) History of left heart catheterization Sleep apnea Arrhythmia Skin cancer Fatty tumor Non-alcoholic cirrhosis BPH (benign prostatic hyperplasia) Large tongue RAMESH and COPD overlap syndrome Arthritis T2DM (type 2 diabetes mellitus) Abnormal electrocardiography Hypertension Hyperlipidemia Surgical History History of esophagogastroduodenoscopy (EGD) History of liver biopsy Family History Family/Other Cancer skin Other Diabetes Heart attack Hypertension No significant family history Stroke Social History (Updated 01/10/25 @ 02:34 by Mireya Knight RNA) Smoking Status: Former smoker tobacco type: cigarettes packs per day: 2 smoking status start date: age 14 smoking status stop date: 17 years ago alcohol intake: former substance use type: denies use current occupational status: employed and other Travel in the last 8 weeks?: None household members: other housing: house current occupational exposures/hazards: Yes caffeine: Yes Have you lived/traveled outside [place] in past 30 days?: No Contact w/someone who lives/traveled outside US past 30 days?: No Exposure to someone with infectious disease in past 14 days?: No Do you have a fever (greater than 100.4 F or 38 C)?: No Have you tested positive for COVID-19?: No Exposed to someone with COVID-19 in past 14 days?: No Do you have a sore throat?: No Do you have a cough?: No Do you have any weakness?: No Are you experiencing any nausea/vomitting?: Yes Do you have any diarrhea?: No Are you experiencing any unusual bleeding?: No Do you have any muscle aches/pain?: No Do you have any abdominal pain?: No Are you experiencing loss of taste or smell?: No Other Medical History Have you received the Flu Vaccine for this season: Yes Have you received the Pneumonia Vaccine: No Review of Systems Review of Systems Review of systems:: pertinent systems reviewed and negative unless documented below Constitutional Constitutional: Reports fatigue and Reports weight loss *Gastrointestinal Gastrointestinal: Reports abdominal pain, Reports bloating, Reports early satiety and Reports nausea Endocrine Endocrine: Reports fatigue Meds Home Medications and Allergies Home Medications ?Medication ?Instructions ?Recorded ?Confirmed ?Type cetirizine 10 mg capsule 10 mg PO DAILY ALLERGIES 03/11/18 01/10/25 History cholecalciferol (vitamin D3) 25 25 mcg PO DAILY SUPPLIMENT 10/18/20 01/10/25 History mcg (1,000 unit) capsule fluticasone propionate 50 1 spray intranasal NEEDED PRN 09/26/22 01/10/25 History mcg/actuation nasal ALLERGIES spray,suspension levalbuterol tartrate 45 45 mcg inhalation NEEDED PRN 03/04/24 01/10/25 History mcg/actuation aerosol inhaler Shortness Of Breath trazodone 50 mg tablet 50 mg PO DAILY #90 tabs 06/01/24 01/10/25 Rx blood-glucose sensor (Dexcom G7 #9 ea 08/18/24 01/10/25 Rx Sensor device) tamsulosin 0.4 mg capsule 0.4 mg PO DAILY BLADDER 90 days 10/23/24 01/10/25 Rx #90 caps empagliflozin 25 mg tablet 25 mg PO DAILY Diabetes 90 days 11/18/24 01/10/25 Rx (Jardiance) #90 tabs insulin glargine 100 unit/mL (3 50 unit SQ DAILY 01/04/25 01/10/25 History mL) subcutaneous pen (Lantus Solostar U-100 Insulin) cefdinir 300 mg capsule 300 mg PO BID 7 days #14 caps 01/08/25 01/10/25 Rx furosemide 20 mg tablet 20 mg PO DAILY #30 tabs 01/08/25 01/10/25 Rx atorvastatin 40 mg tablet 40 mg PO DAILY 01/10/25 01/10/25 History metoprolol succinate 100 mg 100 mg PO DAILY 01/10/25 01/10/25 History tablet,extended release 24 hr tirzepatide 12.5 mg/0.5 mL 12.5 mg SQ WEEKLY 01/10/25 01/10/25 History subcutaneous pen injector (Chaz) New Prescriptions to Start Prescriptions: Allergies Allergy/AdvReac Type Severity Reaction Status Date / Time No Known Allergies Allergy Verified 01/08/25 12:58 Exam Data for Last 24 hours Vital signs and Labs for Last 24 Hours: Temp Pulse Resp BP Pulse Ox O2 Del Method 98.8 F 109 H 18 137/86 95 Room Air 01/10/25 01:55 01/10/25 01:55 01/10/25 01:55 01/10/25 01:55 01/10/25 00:00 01/10/25 01:55 Laboratory Results - last 24 hr 01/09/25 20:20: WBC 14.4 H, RBC 4.02 L, Hgb 10.2 L, Hct 32.8 L, MCV 81.6, MCH 25.4 L, MCHC 31.1 L, RDW 14.5, Plt Count 248, MPV 9.0, Neut % (Auto) 86.7 H, Lymph % (Auto) 5.6 L, Jasper % (Auto) 6.9, Eos % (Auto) 0.3, Baso % (Auto) 0.2, Neut # (Auto) 12.5 H, Lymph # (Auto) 0.8, Jasper # (Auto) 1.0, Eos # (Auto) 0.0, Baso # (Auto) 0.0, Sodium 136, Potassium 3.7, Chloride 104, Carbon Dioxide 27, Anion Gap 8.7, BUN 14, Creatinine 0.60 L, Estimated Creat Clear 196, Estimated GFR 142, Est GFR ( Amer) 172, Glucose 110 H, Calcium 8.5, Total Bilirubin 0.7, AST 100 H, ALT 22, Alkaline Phosphatase 116, Total Protein 6.2 L, Albumin 3.3 L, Globulin 2.9, Albumin/Globulin Ratio 1.1, Lipase 539 H 01/09/25 21:15: Fluid Source Peritoneal fluid, Fluid Volume 27, Fluid Appearance Normal, Fluid RBC (Auto) 2000, Fld Tot Nucleated Cell 1332, Fld Polynuclear WBCs % 50, Fld Mononuclear WBCs % 50 I & O for Last 24 hours: Intake & Output 01/07/25 01/08/25 01/09/25 01/10/25 23:59 23:59 23:59 23:59 Weight 95.254 kg *Routine HEENT Exam Head: Present normocephalic and atraumatic Eye: Present EOMI ENT: Present mucous membranes moist and external ear normal *Routine Neck Exam Neck: Present supple and full ROM *Routine Respiratory Exam Respiratory: Present normal respiratory effort, able to speak in complete sentences and symmetric chest movement *Routine Cardiovascular Exam Cardiovascular: Present RRR *Routine Abdominal Exam Abdominal: Present distended and firm *Routine Rectal Exam Rectal:: deferred *Routine Genitalia Exam Genitalia:: deferred *Routine Extremities Exam Extremities: Present pulses intact and normal capillary refill *Routine Skin Exam Skin: Present intact, dry and warm *Routine Neurological Exam Neurological: Present alert and oriented X3 Assessment and Plan *Assessment and plan (1) SBP (spontaneous bacterial peritonitis): Status: Acute Category: Medical Code(s): K65.2 - Spontaneous bacterial peritonitis (2) Ascites: Status: Acute Category: Medical Code(s): R18.8 - Other ascites (3) Elevated lipase: Status: Acute Category: Medical Code(s): R74.8 - Abnormal levels of other serum enzymes (4) Hypertension: Status: Chronic Qualifiers: Hypertension type: essential hypertension Qualified Code(s): I10 - Essential (primary) hypertension Category: Medical Code(s): I10 - Essential (primary) hypertension (5) Hyperlipidemia: Status: Chronic Qualifiers: Hyperlipidemia type: other hyperlipidemia Qualified Code(s): E78.4 - Other hyperlipidemia Category: Medical Code(s): E78.5 - Hyperlipidemia, unspecified (6) T2DM (type 2 diabetes mellitus): Status: Chronic Qualifiers: Diabetes mellitus complication status: with other specified complication Diabetes mellitus superintendent terminal insulin use: unspecified usp insulin use status Qualified Code(s): E11.69 - Type 2 diabetes mellitus with other specified complication Category: Medical Code(s): E11.9 - Type 2 diabetes mellitus without complications (7) Upper abdominal mass: Status: Acute Category: Medical Code(s): R19.09 - Other intra-abdominal and pelvic swelling, mass and lump (8) Gastric mass: Status: Acute Category: Medical Code(s): K31.89 - Other diseases of stomach and duodenum (9) BPH (benign prostatic hyperplasia): Status: Acute Category: Medical Code(s): N40.0 - Benign prostatic hyperplasia without lower urinary tract symptoms Plan SBP/Ascites (Hx of LORENZO) Anemia Elevated Lipase Leukocytosis CT A/P /04/26 - Mass at the GE junction concerning for neoplasm. Large soft tissue mass in the region of the gastrohepatic ligament. This is likely a large lymph node conglomerate. Favor metastatic disease although lymphoma not entirely excluded.This is less likely to be of pancreatic origin.Cirrhosis and splenomegaly. Worsening ascites is likely related to the cirrhosis, although malignant ascites is not excluded. New bilateral lower lung bronchopneumonia. WBC/Neut - 14.4/86.7. Lipase - 539. H&H - 10.2/32.8. Rocephin 1G IV Q@24H. Paracentesis completed in ER. BC/Fluid Culture ordered/pending. Iron studies ordered/pending. Continue PO Lasix. Trend labs/inflammatory markers. VS/O2 monitoring. DMII Accuchecks ACHS.? SSI.? Continue home regimen - Jardiance. ? Hypoglycemia protocol.? HTN/HLD Continue home meds - Metoprolol, Atorvastatin. VS monitoring. BPH Continue Flomax.
--- NOTE | 2025-01-10 02:06 | PC.NURSE ---
Patient arrived to floor via wheelchair from ED at 02:03.
[2025-01-10 06:19] LABS: POC Glucose,Bedside 76 (70-110)
[2025-01-10 08:17] LABS: Chloride 105 mmol/L (98-107)
[2025-01-10 08:18] LABS: Potassium 3.5 mmoL/L (3.5-5.1); Sodium 136 mmol/L (136-145)
[2025-01-10 08:21] LABS: Anion Gap 12.5 mEq/L (5-15); Blood Urea Nitrogen 12 mg/dl (9-20); Carbon Dioxide 22 mmol/L (22.0-30.0); Creatinine Clearance Estimated 199 mL/min (50-200); Estimated Glomerular Filt Rate 142 ml/min (>60); GFR (African American) 172 ML/MIN (>60); Glucose 76 mg/dl (74-100)
[2025-01-10 09:16] LABS: Basophils % 0.1 % (0.1-2.0); Eosinophils % 0.1 % (0.1-12.0); Hematocrit 31.2 % (42.0-52.0); Hemoglobin 9.8 g/dL (14.1-18.0); Immature Granulocytes # 0.05 10^3uL; Immature Granulocytes % 0.4 %; Lymphocytes # 0.7 K/mm3 (0.7-4.5); Lymphocytes % 5.2 % (10-50); Mean Corpuscular HGB Conc 31.4 g/dL (31.8-35.4); Mean Corpuscular Hemoglobin 25.5 pg (27.0-31.2); Mean Platelet Volume 9.2 fl (7.4-10.4); Monocytes # 0.8 K/mm3 (0.1-1.0); Monocytes % 5.6 % (1.7-9.3); Neutrophils % 88.6 % (37.0-80.0); Nucleated Red Blood Cells # 0 10^3/uL; Nucleated Red Blood Cells % 0 %; Platelet Count 211 K/mm3 (142-424); Red Blood Count 3.85 M/mm3 (4.60-6.20); Red Cell Distribution Width 14.6 % (11.5-17.5); Red Cell Distribution Width-SD 42.7 fL; White Blood Count 13.5 K/mm3 (4.8-10.8)
--- NOTE | 2025-01-10 09:17 | CT_ITS ---
PROCEDURE INFORMATION: Exam: CTA Chest With Contrast Exam date and time: 01/10/2025 9:57 AM Age: 49 years old Clinical indication: Condition or disease; Other: Pneumonia, abdominal cancer; Additional info: Further eval pneumonia, cancer on CT abdomen TECHNIQUE: Imaging protocol: Computed tomographic angiography of the chest with contrast. Exam focused on the arteries. 3D rendering (Not supervised by radiologist): MIP and/or 3D reconstructed images were created by the technologist. Radiation optimization: All CT scans at this facility use at least one of these dose optimization techniques: automated exposure control; mA and/or kV adjustment per patient size (includes targeted exams where dose is matched to clinical indication); or iterative reconstruction. Contrast material: ISOVUE 370; Contrast volume: 70 ml; Contrast route: INTRAVENOUS (IV); COMPARISON: CT LUNG SCREENING 12/05/2023 3:17 PM FINDINGS: Pulmonary arteries: Normal. No pulmonary emboli. Aorta: Unremarkable. No aortic aneurysm. No aortic dissection. Lungs: Pleural-based nodular density in the right upper lobe 10 mm (series 5, image 44). 8.7 mm pleural-based nodule along the right major fissure ( series 5, image 53). Consolidation in the right middle lobe and both lower lobes. Patchy opacities in the right middle lobe and left lower lobe. Findings may represent atelectasis or pneumonia . Pleural spaces: Small bilateral pleural effusions. Heart: There is calcification of the aortic valve annulus. There is calcification of the mitral valve annulus. Coronary arteries: Coronary artery calcifications may indicate coronary artery disease. Lymph nodes: Unremarkable. No enlarged lymph nodes. Intraperitoneal space: Large amount of ascites in the upper abdomen. There is a retroperitoneal mass that is large enough to compresses the stomach. Likely malignancy or metastatic disease. Recommend MRI if clinically indicated. Bones/joints: Unremarkable. No acute fracture. Soft tissues: Unremarkable. IMPRESSION: 1. Pleural-based nodular density in the right upper lobe 10 mm (series 5, image 44). 8.7 mm pleural-based nodule along the right major fissure ( series 5, image 53). For both low risk and high risk patients, consider CT Chest at 3 months, PET/CT, or biopsy. (Reference: Caroline) References: Caroline Quiroga et al. Guidelines for Management of Incidental Pulmonary Nodules Detected on CT Images: From the Fleischner Society 2017. Radiology. 2017;284(1):228-243. 2. Small bilateral pleural effusions. 3. Consolidation in the right middle lobe and both lower lobes. Patchy opacities in the right middle lobe and left lower lobe. Findings may represent atelectasis or pneumonia 4. Large amount of ascites in the upper abdomen. 5 There is a retroperitoneal mass that is large enough to compresses the stomach. Likely malignancy or metastatic disease. Recommend MRI if clinically indicated.
[2025-01-10 09:20] LABS: Vitamin B12 901 pg/mL (239-931)
[2025-01-10 09:36] LABS: Iron 34 ug/dL (49-181)
[2025-01-10] MEDS: TAMSULOSIN 0.4MG CAPSULE 0.4 MG PO (09:37)
[2025-01-10] MEDS: FUROSEMIDE 20MG TABLET 20 MG PO (09:37)
[2025-01-10] MEDS: METOPROLOL SUCCINATE XL 100MG TABLET 100 MG PO (09:37)
[2025-01-10] MEDS: CHOLECALCIFEROL 1,000 UNITS (25MCG) TABLET 25 MCG PO (09:37)
[2025-01-10] MEDS: LORATADINE 10MG TABLET 10 MG PO (09:38)
[2025-01-10] MEDS: DOXYCYCLINE HYCLATE 100 MG in 0.9 % SODIUM CHLORIDE 250 ML 166.667 MG IV ×2 (09:38→21:59)
[2025-01-10 09:45] LABS: Total Iron Binding Capacity 293 ug/dL (261-462)
[2025-01-10] MEDS: IOPAMIDOL-370 (76%);100ML BOTTLE 75 ML IV (10:01)
[2025-01-10] MEDS: SODIUM CHLORIDE 0.9% 10ML SYR (RAD ONLY) 10 ML IV (10:01)
[2025-01-10 10:19] LABS: INR 1.12 (0.9-1.1); Prothrombin Time 12.4 seconds (10.1-12.5)
[2025-01-10] MEDS: SPIRONOLACTONE 25MG TABLET 50 MG PO (12:37)
[2025-01-10] MEDS: ACETAMINOPHEN 325MG TAB 650 MG PO ×2 (15:30→23:45)
[2025-01-10] MEDS: CEFTRIAXONE SODIUM 2 GM in 0.9 % SODIUM CHLORIDE 100 ML IV (16:37)
[2025-01-10] MEDS: FUROSEMIDE 40MG/4ML VIAL 40 MG IV (16:37)
--- NOTE | 2025-01-10 17:19 | PC.NURSE ---
pt resting supine in bed with family at bedside. abx given per oct. CTA completed this shift. pt complained of shoulder pain that he deals with chronically and requested tylenol. medication given per oct. abdomen remains firm and distended. swelling noted to L lower extremity. no tenderness or pain on palpation of the abdomen. diuretics given per oct. no needs voiced at this time. call light within reach.
--- NOTE | 2025-01-10 18:25 | EXP.EVENT.NO ---
For SBP, increase ceftriaxone to 2 g daily. Has sepsis, but improving leukocytosis and tachycardia. For pneumonia, continue ceftriaxone and started doxycycline. For esophageal mass, consulted GI and n.p.o. at midnight. Does have mild to moderate dysphagia. Perihepatic mass seems to be lymphadenopathy but undifferentiated at this time. Follow-up AFP, CA 19. For decompensated cirrhosis, started IV Lasix 40 mg twice daily and spironolactone 50 mg. Switch to metoprolol succinate 100 mg to Coreg 12.5 mg twice daily for history of esophageal varices. Started IV Protonix 40 mg twice daily for mass, cirrhosis, varices. CTA chest without PE but does show suspected RML pneumonia. Pleural nodules will be evaluated outpatient with pulmonology. Discontinued Lantus Farxiga as hemoglobin A1c is 5.5%.
[2025-01-10 19:59] LABS: POC Glucose,Bedside 130 (70-110)
[2025-01-10] MEDS: TRAZODONE 50MG TABLET 50 MG PO (21:59)
[2025-01-10] MEDS: CARVEDILOL 12.5MG TABLET 12.5 MG PO (21:59)
[2025-01-10] MEDS: PANTOPRAZOLE 40MG VIAL 40 MG IV (22:00)
[2025-01-10] MEDS: SODIUM CHLORIDE 0.9% 10ML VIAL 10 ML IV (22:00)
[2025-01-11] VITALS (15 sets, daily range): BP systolic 101–153; BP diastolic 60–80; PULSE 104–109; RESP 16–20; TEMP 36.4–37.2; O2SAT 93–98; BMI 28.0
--- NOTE | 2025-01-11 03:25 | PC.NURSE ---
Patient is alert and oriented x4. He was observed to have eyes closed, respirations even and unlabored on room air, and no apparent distress throughout the majority of the night. His mother has remained at the bedside this shift. Upon palpation of the patient's abdomen, it remains distended, rounded, and ascitic, but soft to the touch. He denies any tenderness, stating that it just feels full. Chelsea ice cream and Diet Starry soda were given at bedtime; patient tolerated consumption of the food items well. He has remained NPO since midnight per GI consult. Patient ambulates independently in his room/to the bathroom without any difficulties. A shower was taken tonight. Scheduled medications were administered as appropriately per OCT. Tylenol was also given for a complaint of chronic back pain/pressure in the middle of his shoulder blades. Auscultation of his heart, lungs, and bowels were within normal findings. Swelling was noted in his left lower extremity. ACHS glucose checks performed. At this time, the patient is resting in bed without any further complaints. No new needs at this time. Call light within reach.
[2025-01-11 05:58] LABS: POC Glucose,Bedside 119 (70-110)
[2025-01-11 06:31] LABS: Basophils % 0.2 % (0.1-2.0); Eosinophils % 0.2 % (0.1-12.0); Hematocrit 32.6 % (42.0-52.0); Hemoglobin 10.3 g/dL (14.1-18.0); Immature Granulocytes # 0.07 10^3uL; Immature Granulocytes % 0.4 %; Lymphocytes # 0.8 K/mm3 (0.7-4.5); Lymphocytes % 4.4 % (10-50); Mean Corpuscular HGB Conc 31.6 g/dL (31.8-35.4); Mean Corpuscular Hemoglobin 25.3 pg (27.0-31.2); Mean Corpuscular Volume 80.1 fl (80-94); Mean Platelet Volume 8.8 fl (7.4-10.4); Neutrophils # 15.3 K/mm3 (1.8-7.8); Neutrophils % 88.8 % (37.0-80.0); Nucleated Red Blood Cells # 0 10^3/uL; Nucleated Red Blood Cells % 0 %; Platelet Count 240 K/mm3 (142-424); Red Blood Count 4.07 M/mm3 (4.60-6.20); Red Cell Distribution Width 14.6 % (11.5-17.5); Red Cell Distribution Width-SD 42.5 fL; White Blood Count 17.2 K/mm3 (4.8-10.8)
[2025-01-11 07:05] LABS: Alanine Aminotransferase 29 U/L (12-78); Albumin Level 3.1 g/dl (3.5-5.0); Albumin/Globulin Ratio 1.1 (1.1-1.8); Alkaline Phosphatase 173 U/L (38-126); Anion Gap 10.6 mEq/L (5-15); Aspartate Amino Transferase 110 U/L (17-59); Bilirubin,Total 0.9 mg/dl (0.2-1.3); Blood Urea Nitrogen 13 mg/dl (9-20); Calcium 8.2 mg/dl (8.4-10.2); Carbon Dioxide 22 mmol/L (22.0-30.0); Chloride 105 mmol/L (98-107); Creatinine Clearance Estimated 193 mL/min (50-200); Estimated Glomerular Filt Rate 142 ml/min (>60); GFR (African American) 172 ML/MIN (>60); Globulin 2.7 g/dL (1.3-3.2); Glucose 110 mg/dl (74-100); Potassium 3.6 mmoL/L (3.5-5.1); Sodium 134 mmol/L (136-145); Total Protein,Serum 5.8 g/dl (6.3-8.2)
[2025-01-11 07:21] LABS: Procalcitonin 0.178 ng/mL (0.0-2.0)
--- NOTE | 2025-01-11 08:04 | US_ITS ---
FINAL REPORT CLINICAL HISTORY: Suspected pancreatitis, worsening sepsis FINDINGS: Sonographic images of the right upper quadrant were obtained. The liver has a coarsened echotexture. There is moderate ascites present. Marked gallbladder wall thickening is seen measuring up to 1.1 cm which may be in part due to ascites. However, acalculous cholecystitis cannot be excluded. Right kidney is unremarkable. Common bile duct measures 5 mm. Pancreas is poorly visualized. IMPRESSION: Coarsened echotexture of the liver with ascites. Gallbladder wall thickening. Cannot exclude acalculus cholecystitis. Poor visualization of the pancreas. Consider CT for further evaluation. Reviewed, Interpreted and Dictated by Nicola Harrell MD Transcribed by Maggy Neal Authenticated and [facility]
[2025-01-11] MEDS: TAMSULOSIN 0.4MG CAPSULE 0.4 MG PO (08:12)
[2025-01-11] MEDS: SPIRONOLACTONE 25MG TABLET 50 MG PO (08:12)
[2025-01-11] MEDS: CHOLECALCIFEROL 1,000 UNITS (25MCG) TABLET 25 MCG PO (08:12)
[2025-01-11] MEDS: LORATADINE 10MG TABLET 10 MG PO (08:12)
[2025-01-11] MEDS: FUROSEMIDE 40MG/4ML VIAL 40 MG IV ×2 (08:14→16:03)
[2025-01-11] MEDS: SODIUM CHLORIDE 0.9% 10ML VIAL 10 ML IV ×2 (08:15→21:06)
[2025-01-11] MEDS: PANTOPRAZOLE 40MG VIAL 40 MG IV ×2 (08:15→21:06)
[2025-01-11] MEDS: CARVEDILOL 12.5MG TABLET 12.5 MG PO ×2 (08:15→21:06)
[2025-01-11] MEDS: DOXYCYCLINE HYCLATE 100 MG in 0.9 % SODIUM CHLORIDE 250 ML 166.667 MG IV ×2 (08:15→21:06)
--- NOTE | 2025-01-11 11:32 | P.PNANES_ITS ---
[facility] Disclaimer: The information contained in this section may have been updated after the patient was seen, as this information can be updated by other users. Medical History (Updated 01/10/25 @ 04:29 by Dylan Edwards APRN) History of left heart catheterization Sleep apnea Arrhythmia Skin cancer Fatty tumor Non-alcoholic cirrhosis BPH (benign prostatic hyperplasia) Large tongue RAMESH and COPD overlap syndrome Arthritis T2DM (type 2 diabetes mellitus) Abnormal electrocardiography Hypertension Hyperlipidemia Surgical History History of esophagogastroduodenoscopy (EGD) History of liver biopsy Family History Family/Other Cancer skin Other Diabetes Heart attack Hypertension No significant family history Stroke Social History (Updated 01/10/25 @ 02:34 by AMANDA Marsh) Smoking Status: Former smoker tobacco type: cigarettes packs per day: 2 smoking status start date: age 14 smoking status stop date: 17 years ago alcohol intake: former substance use type: denies use current occupational status: employed and other Travel in the last 8 weeks?: None household members: other housing: house current occupational exposures/hazards: Yes caffeine: Yes [facility] Anesthesia Checklist Patient Identification Patient Identification: Arm Band Structural Data Admitted From: Home Planned Operative Procedure/s: EGD Consent for Planned Operative Procedure(s) Verified: Yes Verified Documents: Surgical Consent and History and Physical NPO Status Verified Time NPO: 00:00 Additional verifications Anesthesia Reactions: No Hx Blood Transfusions: No Blood Transfusion Reaction: No Airway Assessment Mallampati Score:: Class II C-Spine Mobility Assessed: Yes TMJ Mobility Assessed: Yes Dentition: Good Dentition Neurological Assessment Level of Consciousness: Awake, Alert and Appropriate Anesthesia Plan Anesthesia Risk discussed: Yes Anesthesia Plan: Verified ASA Class: III Anesthesia Type: MAC
--- NOTE | 2025-01-11 11:59 | P.HP_ITS ---
History of Present Illness *Admission Date: 01/10/25 *History of present illness: 49-year-old male patient who is admitted to the hospital with worsening abdominal pain and pressure for two months associated with nausea, weight loss and abdominal distention. The patient had a CT completed on which indicated ascites and an esophageal mass. He has OP appt with Dr. Montague to follow up on CT findings. Since that time he has had increased shortness of breath due to pressure on his ribs from the fluid in his abdomen. A paracentesis was completed in the ER, the patient reports he had immediate relief of pain/pressure at that time. He denies any CP, V/D, fever, chills, dizziness or weakness. [facility] Disclaimer: The information contained in this section may have been updated after the patient was seen, as this information can be updated by other users. Medical History (Updated 01/11/25 @ 12:01 by Epifanio Jesus II, MD) History of left heart catheterization Sleep apnea Arrhythmia Skin cancer Fatty tumor Non-alcoholic cirrhosis BPH (benign prostatic hyperplasia) Large tongue RAMESH and COPD overlap syndrome Arthritis T2DM (type 2 diabetes mellitus) Abnormal electrocardiography Hypertension Hyperlipidemia Surgical History History of esophagogastroduodenoscopy (EGD) History of liver biopsy Family History Family/Other Cancer skin Other Diabetes Heart attack Hypertension No significant family history Stroke Social History (Updated 01/10/25 @ 02:34 by AMANDA Marsh) Smoking Status: Former smoker tobacco type: cigarettes packs per day: 2 smoking status start date: age 14 smoking status stop date: 17 years ago alcohol intake: former substance use type: denies use current occupational status: employed and other Travel in the last 8 weeks?: None household members: other housing: house current occupational exposures/hazards: Yes caffeine: Yes Other Medical History Have you received the Flu Vaccine for this season: Yes Have you received the Pneumonia Vaccine: No Review of Systems Review of Systems Review of systems (narrative): Negative *Cardiovascular Comments: Negative *Gastrointestinal Comments: Negative *Genitourinary Comments: Negative *Musculoskeletal Comments: Negative *Neurologic Comments: Negative Meds Home Medications and Allergies Home Medications ?Medication ?Instructions ?Recorded ?Confirmed ?Type cetirizine 10 mg capsule 10 mg PO DAILY ALLERGIES 03/11/18 01/10/25 History cholecalciferol (vitamin D3) 25 25 mcg PO DAILY SUPPLIMENT 10/18/20 01/10/25 History mcg (1,000 unit) capsule trazodone 50 mg tablet 50 mg PO DAILY #90 tabs 06/01/24 01/10/25 Rx tamsulosin 0.4 mg capsule 0.4 mg PO DAILY BLADDER 90 days 10/23/24 01/10/25 Rx #90 caps empagliflozin 25 mg tablet 25 mg PO DAILY Diabetes 90 days 11/18/24 01/10/25 Rx (Jardiance) #90 tabs insulin glargine 100 unit/mL (3 50 unit SQ DAILY 01/04/25 01/10/25 History mL) subcutaneous pen (Lantus Solostar U-100 Insulin) cefdinir 300 mg capsule 300 mg PO BID 7 days #14 caps 01/08/25 01/10/25 Rx furosemide 20 mg tablet 20 mg PO DAILY #30 tabs 01/08/25 01/10/25 Rx atorvastatin 40 mg tablet 40 mg PO DAILY 01/10/25 01/10/25 History metoprolol succinate 100 mg 100 mg PO DAILY 01/10/25 01/10/25 History tablet,extended release 24 hr tirzepatide 12.5 mg/0.5 mL 12.5 mg SQ WEEKLY 01/10/25 01/10/25 History subcutaneous pen injector (Chaz) New Prescriptions to Start Prescriptions: Allergies Allergy/AdvReac Type Severity Reaction Status Date / Time No Known Allergies Allergy Verified 01/08/25 12:58 Exam Data for Last 24 hours Vital signs and Labs for Last 24 Hours: Temp Pulse Resp BP Pulse Ox O2 Del Method 98.9 F 107 H 16 144/69 H 94 L Room Air 01/11/25 10:11 01/11/25 10:11 01/11/25 10:11 01/11/25 10:11 01/11/25 10:11 01/11/25 10:11 Laboratory Results - last 24 hr 01/10/25 19:52: POC Glucose 130 H 01/11/25 05:51: POC Glucose 119 H 01/11/25 05:55: WBC 17.2 H D, RBC 4.07 L, Hgb 10.3 L, Hct 32.6 L, MCV 80.1, MCH 25.3 L, MCHC 31.6 L, RDW 14.6, Plt Count 240, MPV 8.8, Neut % (Auto) 88.8 H, Lymph % (Auto) 4.4 L, [place] % (Auto) 6.0, Eos % (Auto) 0.2, Baso % (Auto) 0.2, Neut # (Auto) 15.3 H, Lymph # (Auto) 0.8, [place] # (Auto) 1.0, Eos # (Auto) 0.0, Baso # (Auto) 0.0, Sodium 134 L, Potassium 3.6, Chloride 105, Carbon Dioxide 22, Anion Gap 10.6, BUN 13, Creatinine 0.60 L, Estimated Creat Clear 193, Estimated GFR 142, Est GFR ( Amer) 172, Glucose 110 H D, Calcium 8.2 L, Magnesium 2.0, Total Bilirubin 0.9, AST 110 H, ALT 29 D, Alkaline Phosphatase 173 H, Total Protein 5.8 L, Albumin 3.1 L, Globulin 2.7, Albumin/Globulin Ratio 1.1, Procalcitonin 0.178 I & O for Last 24 hours: Intake & Output 01/08/25 01/09/25 01/10/25 01/11/25 23:59 23:59 23:59 23:59 Intake Total 1020 / 1610 590 / 590 Output Total 0 / 0 Balance 1020 / 1610 590 / 590 Weight 210 lb 213 lb 6.4 oz 207 lb Microbiology Reports for the Last 24 Hours: Microbiology 01/10/25 01:15 Blood Blood Culture - Preliminary NO GROWTH AFTER 24 HOURS 01/10/25 01:00 Blood Blood Culture - Preliminary NO GROWTH AFTER 24 HOURS 01/09/25 21:15 Ascites Fluid Gram Stain - Final 01/09/25 21:15 Ascites Fluid Body Fluid Culture - Preliminary NO GROWTH AFTER 24 HOURS *Routine HEENT Exam Head: Present normocephalic Eye: Present EOMI and PERRL ENT: Present mucous membranes moist *Routine Neck Exam Neck: Present supple *Routine Respiratory Exam Respiratory: Present CTA bilaterally *Routine Cardiovascular Exam Cardiovascular: Present RRR *Routine Abdominal Exam Abdominal: Present soft and normoactive bowel sounds; Absent tenderness *Routine Rectal Exam Rectal:: deferred *Routine Genitalia Exam Genitalia:: deferred *Routine Extremities Exam Extremities: Absent cyanosis, clubbing or edema *Routine Skin Exam Skin: Present warm; Absent rash *Routine Neurological Exam Neurological: Present alert and oriented X3 Assessment and Plan *Assessment and plan (1) Esophageal mass: Status: Acute Category: Medical Code(s): K22.89 - Other specified disease of esophagus (2) Decompensated cirrhosis: Status: Acute Category: Medical Code(s): K72.90 - Hepatic failure, unspecified without coma; K74.60 - Unspecified cirrhosis of liver (3) Generalized abdominal pain: Status: Acute Category: Medical Code(s): R10.84 - Generalized abdominal pain (4) Nausea: Status: Acute Category: Medical Code(s): R11.0 - Nausea (5) Portal hypertension: Status: Acute Category: Medical Code(s): K76.6 - Portal hypertension Plan A/P: 1. Worsening abdominal pain and pressure with nausea, weight loss and abdominal distention and CAT scan showing esophageal mass is the preprocedural diagnosis. The patient does have decompensated cirrhosis with ascites and history of portal hypertension and varices the patient will be anesthetized/sedated using MAC sedation. The patient has been seen and examined. Cardiac and lung assessment prior to the examination is stable. Proceed with planned diagnostic EGD.
--- NOTE | 2025-01-11 12:09 | HMH.PROCNOTE ---
[facility] Procedure Note Date: 01/11/25 Time: 12:22 Procedure Note:: Upper Endoscopy Procedure Report: Esophagogastroduodenoscopy with cold biopsies Endoscopost: Epifanio Jesus II, MD Referring Physician: LENA Dickinson Date of Procedure: January 11, 2025 Equipment: Olympus GIF 190 standard upper endoscope Sedation: MAC sedation Indications: Mr. Cruz is a 49-year-old gentleman who has been admitted because of worsening abdominal pain, pressure and distention. He does have a history of cirrhosis and was diagnosed with SBP and is on ceftriaxone. He is also being given diuretics and states that today his abdominal pain and distention is markedly improved. The patient did have a CAT scan on 01/07/2025 showing a mass at the GE junction in the region of the gastrohepatic ligament. Metastatic disease was a possibility or possibly lymphoma. The patient has a long history of cirrhosis that was felt to be related to fatty liver. He has not consumed alcohol for 20 to 25 years. He does have heterozygous hemochromatosis (single mutation H63D). His alpha-fetoprotein is normal. He did have an EGD in October 2019 for and was found to have esophageal varices but no mass. He reports no melena or hematochezia. He has been on metoprolol. Procedure: Prior to the procedure, a history and physical exam was performed, and patient's medications and allergies were reviewed. The risks, benefits and alternatives of the sedation and procedure were discussed with the patient. All questions were answered and informed consent was obtained. The patient was brought to the procedure room. Patient identification and proposed procedure were verified by the physician and the nurse. The patient was placed in a left lateral decubitus position and the scope was passed under direct vision. Throughout the procedure, the patient's blood pressure, pulse, and oxygen saturations were monitored continuously. The upper GI endoscopy was accomplished without difficulty. The patient tolerated the procedure well. Findings: The scope was passed directly into the upper esophagus and advanced to the third portion of the duodenum. There was some scalloping of the duodenal conniventes in the 1st and 2nd portion so biopsies were obtained from the duodenum to rule out celiac disease. The scope was withdrawn through a normal duodenal bulb and pylorus into the stomach. There was a moderate amount of retained solid food in the body and fundus of the stomach impairing visibility of the fundus. There was evidence of portal gastropathy of the body and fundus. A biopsy was taken along the lesser curvature to rule out H. pylori. Because of the large amount of food in the stomach and assessment for gastric varices was difficult. The scope was then withdrawn into the esophagus. Within the esophagus there was a friable and fungating circumferential mass/malignancy that extended from the GE junction at 38 cm to about 34 to 35 cm from the incisors and was circumferential. Multiple biopsies were obtained. There were grade 2 esophageal varices without stigmata. The proximal esophagus was normal. Impression: 1. Distal esophageal mass (friable/fungating circumferential extending from 38 cm to 34 cm from incisors)?rule out distal esophageal adenocarcinoma 2. Grade 2 esophageal varices 3. Moderate portal gastropathy 4. Large amount of retained solid gastric food content?rule out gastric dysmotility 5. Minor scalloping of duodenal conniventes?rule out celiac disease Plan: I will follow-up the biopsies and this does appear to be primary distal esophageal malignancy (rule out adenocarcinoma). He will have follow-up with oncology. This does not appear to be early stage by CAT scan and will likely need consideration of chemoradiation. However, he is high risk with his cirrhosis and decompensation.
[2025-01-11 13:16] LABS: AFP, Tumor Marker 2.2 ng/mL (0.0-8.4); CA 19-9 <2 U/mL (0-35)
[2025-01-11] MEDS: CEFTRIAXONE SODIUM 2 GM in 0.9 % SODIUM CHLORIDE 100 ML IV (16:03)
[2025-01-11 16:34] LABS: POC Glucose,Bedside 141 (70-110)
--- NOTE | 2025-01-11 17:11 | PC.NURSE ---
patient is a/ox4 remains on room air tolerating well. patient had an EGD this shift, VSS. tolerating regular diet. ambulates to the bathroom independently. no c/o pain this shift other than ABD feeling full. ABX and diuretics given per MAR. family at bedside. patient is currently sitting up in bed with call light within reach. plan of care ongoing.
[2025-01-11] MEDS: ACETAMINOPHEN 325MG TAB 650 MG PO (21:05)
[2025-01-11] MEDS: TRAZODONE 50MG TABLET 50 MG PO (21:06)
[2025-01-11 21:22] LABS: POC Glucose,Bedside 129 (70-110)
--- NOTE | 2025-01-11 23:33 | EXP.PN ---
Subjective *Date: 01/11/25 *Time: 23:40 Interval history: Patient is in good spirits this morning, awaiting EGD. Continue diuresis, antibiotics. Discontinue Mounjaro due to pancreatitis. Exam Data for Last 24 hours Vital signs and Labs for Last 24 Hours: Temp Pulse Resp BP Pulse Ox O2 Del Method O2 Flow Rate 98.2 F 104 H 16 153/79 H 95 Room Air 5 01/11/25 20:00 01/11/25 20:00 01/11/25 20:00 01/11/25 20:00 01/11/25 20:00 01/11/25 23:00 01/11/25 12:02 Laboratory Results - last 24 hr 01/10/25 09:50: Tumor Marker AFP 2.2, CA 19-9 Antigen <2 01/11/25 05:51: POC Glucose 119 H 01/11/25 05:55: WBC 17.2 H D, RBC 4.07 L, Hgb 10.3 L, Hct 32.6 L, MCV 80.1, MCH 25.3 L, MCHC 31.6 L, RDW 14.6, Plt Count 240, MPV 8.8, Neut % (Auto) 88.8 H, Lymph % (Auto) 4.4 L, [place] % (Auto) 6.0, Eos % (Auto) 0.2, Baso % (Auto) 0.2, Neut # (Auto) 15.3 H, Lymph # (Auto) 0.8, [place] # (Auto) 1.0, Eos # (Auto) 0.0, Baso # (Auto) 0.0, Sodium 134 L, Potassium 3.6, Chloride 105, Carbon Dioxide 22, Anion Gap 10.6, BUN 13, Creatinine 0.60 L, Estimated Creat Clear 193, Estimated GFR 142, Est GFR ( Amer) 172, Glucose 110 H D, Calcium 8.2 L, Magnesium 2.0, Total Bilirubin 0.9, AST 110 H, ALT 29 D, Alkaline Phosphatase 173 H, Total Protein 5.8 L, Albumin 3.1 L, Globulin 2.7, Albumin/Globulin Ratio 1.1, Procalcitonin 0.178 01/11/25 16:26: POC Glucose 141 H 01/11/25 21:14: POC Glucose 129 H I & O for Last 24 hours: Intake & Output 01/08/25 01/09/25 01/10/25 01/11/25 23:59 23:59 23:59 23:59 Intake Total 1020 / 1610 1010 / 1010 Output Total 0 / 0 0 / 0 Balance 1020 / 1610 1010 / 1010 Weight 95.254 kg 96.797 kg 93.894 kg Microbiology Reports for the Last 24 Hours: Microbiology 01/09/25 21:15 Ascites Fluid Gram Stain - Final 01/09/25 21:15 Ascites Fluid Body Fluid Culture - Preliminary NO GROWTH AFTER 48 HOURS 01/10/25 01:15 Blood Blood Culture - Preliminary NO GROWTH AFTER 24 HOURS 01/10/25 01:00 Blood Blood Culture - Preliminary NO GROWTH AFTER 24 HOURS Constitutional Constitutional: no acute distress *Routine HEENT Exam Head: Present normocephalic Eye: Present EOMI and PERRL ENT: Present mucous membranes moist *Routine Neck Exam Neck: Present supple; Absent lymphadenopathy *Routine Respiratory Exam Respiratory: Present CTA bilaterally *Routine Cardiovascular Exam Cardiovascular: Present RRR *Routine Abdominal Exam Abdominal: Present soft and normoactive bowel sounds; Absent tenderness *Routine Extremities Exam Extremities: Present edema; Absent cyanosis or clubbing *Routine Skin Exam Skin: Present warm; Absent rash *Routine Neurological Exam Neurological: Present alert and oriented X3 Assessment and Plan *Assessment and plan (1) Decompensated cirrhosis: Status: Acute Category: Medical Code(s): K72.90 - Hepatic failure, unspecified without coma; K74.60 - Unspecified cirrhosis of liver (2) Portal hypertension: Status: Acute Category: Medical Code(s): K76.6 - Portal hypertension (3) Esophageal mass: Status: Acute Category: Medical Code(s): K22.89 - Other specified disease of esophagus (4) BPH (benign prostatic hyperplasia): Status: Acute Category: Medical Code(s): N40.0 - Benign prostatic hyperplasia without lower urinary tract symptoms (5) Upper abdominal mass: Status: Acute Category: Medical Code(s): R19.09 - Other intra-abdominal and pelvic swelling, mass and lump (6) Ascites: Status: Acute Category: Medical Code(s): R18.8 - Other ascites (7) SBP (spontaneous bacterial peritonitis): Status: Acute Category: Medical Code(s): K65.2 - Spontaneous bacterial peritonitis (8) Elevated lipase: Status: Acute Category: Medical Code(s): R74.8 - Abnormal levels of other serum enzymes Plan Tariq Cruz is a 49-year-old male who presented with abdominal pain, distention and was admitted for sepsis secondary to SBP, pneumonia and decompensated cirrhosis, esophageal mass. #Sepsis #Spontaneous bacterial peritonitis #Right lobe community-acquired pneumonia ? Therapeutic paracentesis in the ED revealed SBP in the peritoneal fluid. ? WBC bumped to 17.2 from 13.5 yesterday. Continues to be tachycardic. However, patient feels better today. ? Continue IV ceftriaxone 2 g, doxycycline. ? Follow-up blood, sputum cultures. #Suspected esophageal adenocarcinoma #Perihepatic mass, suspected lymphadenopathy ? GI consulted, s/p EGD with biopsies today. Full EGD impression below. ? Will need close follow-up with oncology on discharge. ? Continue IV Protonix 40 mg twice daily. #Decompensated cirrhosis #Grade 2 esophageal varices ? Continue IV Lasix 40 mg twice daily, spironolactone 50 mg daily ? Continue Coreg 12.5 mg twice daily for esophageal varices. #Acute pancreatitis ? Epigastric pain, elevated lipase 981. Takes Mounjaro. ? Discontinue Mounjaro. Continue supportive therapy. Tolerating diet. #Type 2 diabetes ? Hemoglobin A1c 5.5%. ? Discontinued home Lantus 50 units, Jardiance 25 mg. Blood sugar at goal. #BPH ? Continue home tamsulosin. Full code DVT prophylaxis: Lovenox 40 mg
[2025-01-12] VITALS: BP 122/70; PULSE 102; RESP 16; TEMP 36.5; O2SAT 93
[2025-01-12 04:00] VITALS: BP 131/69; PULSE 100; RESP 17; TEMP 36.8; O2SAT 94; BMI 28.3
--- NOTE | 2025-01-12 04:12 | PC.NURSE ---
Patient was observed to have eyes closed, respirations even and unlabored, and no apparent distress throughout the night. Scheduled medications were administered as appropriately per OCT. Tylenol was given again for complaint of back/shoulder blade pain. He also complained of mild abdominal tenderness this time during this shift; abdomen remains distended with a feeling of fullness. Appetite quality decreased since EGD procedure. ACHS glucose checks performed. At this time, the patient is resting in bed without any further complaints. No new needs at this time. Call light within reach.
[2025-01-12 06:22] LABS: POC Glucose,Bedside 116 (70-110)
[2025-01-12 06:30] LABS: Basophils % 0.2 % (0.1-2.0); Eosinophils % 0.1 % (0.1-12.0); Hematocrit 32.8 % (42.0-52.0); Hemoglobin 10.3 g/dL (14.1-18.0); Immature Granulocytes # 0.08 10^3uL; Immature Granulocytes % 0.4 %; Lymphocytes # 0.7 K/mm3 (0.7-4.5); Lymphocytes % 3.9 % (10-50); Mean Corpuscular HGB Conc 31.4 g/dL (31.8-35.4); Mean Corpuscular Hemoglobin 25.3 pg (27.0-31.2); Mean Corpuscular Volume 80.6 fl (80-94); Monocytes # 1.1 K/mm3 (0.1-1.0); Monocytes % 6.2 % (1.7-9.3); Neutrophils % 89.2 % (37.0-80.0); Nucleated Red Blood Cells # 0 10^3/uL; Nucleated Red Blood Cells % 0 %; Platelet Count 256 K/mm3 (142-424); Red Blood Count 4.07 M/mm3 (4.60-6.20); Red Cell Distribution Width 14.8 % (11.5-17.5); Red Cell Distribution Width-SD 42.9 fL
[2025-01-12 06:51] LABS: Alanine Aminotransferase 57 U/L (12-78); Albumin Level 2.9 g/dl (3.5-5.0); Albumin/Globulin Ratio 1.1 (1.1-1.8); Alkaline Phosphatase 268 U/L (38-126); Anion Gap 6.7 mEq/L (5-15); Aspartate Amino Transferase 162 U/L (17-59); Bilirubin,Total 1.3 mg/dl (0.2-1.3); Blood Urea Nitrogen 16 mg/dl (9-20); Calcium 8.3 mg/dl (8.4-10.2); Carbon Dioxide 22 mmol/L (22.0-30.0); Chloride 105 mmol/L (98-107); Creatinine Clearance Estimated 195 mL/min (50-200); Estimated Glomerular Filt Rate 142 ml/min (>60); GFR (African American) 172 ML/MIN (>60); Globulin 2.7 g/dL (1.3-3.2); Glucose 115 mg/dl (74-100); Magnesium 1.9 mg/dl (1.6-2.3); Potassium 3.7 mmoL/L (3.5-5.1); Sodium 130 mmol/L (136-145); Total Protein,Serum 5.6 g/dl (6.3-8.2)
[2025-01-12 07:57] VITALS: BP 139/71; PULSE 95; RESP 20; TEMP 36.9; O2SAT 94
--- NOTE | 2025-01-12 08:03 | EXP.ACUTE.PN ---
Subjective *Date: 01/12/25 *Time: 18:11 Interval history: Patient feeling some discomfort in his abdomen. No nausea or vomiting today. Denies chest pain. Stable on room air. White count remains elevated. Cultures remain negative. Medical Exam Vital signs and Labs for Last 24 Hours: Vital Signs Temp Pulse Resp BP Pulse Ox O2 Del Method O2 Flow Rate 01/12/25 07:57 98.5 F 95 H 20 139/71 94 L Room Air 01/12/25 06:40 Room Air 01/12/25 05:00 Room Air 01/12/25 04:00 98.2 F 100 H 17 131/69 94 L Room Air 01/12/25 03:00 Room Air 01/12/25 01:00 Room Air 01/12/25 00:00 97.7 F 102 H 16 122/70 93 L Room Air 01/11/25 23:00 Room Air 01/11/25 21:00 Room Air 01/11/25 20:00 104 H 16 95 Room Air 01/11/25 20:00 98.2 F 104 H 16 153/79 H 95 Room Air 01/11/25 18:44 Room Air 01/11/25 17:00 Room Air 01/11/25 15:30 104 H 20 141/79 H 96 Room Air 01/11/25 15:00 98.2 F 105 H 18 142/74 H 98 Room Air 01/11/25 15:00 Room Air 01/11/25 14:30 108 H 16 150/80 H 95 Room Air 01/11/25 14:00 104 H 20 137/68 96 01/11/25 13:45 106 H 18 145/76 H 95 Room Air 01/11/25 13:30 98.4 F 106 H 20 101/68 L 94 L Room Air 01/11/25 13:15 98.5 F 107 H 18 129/75 94 L Room Air 01/11/25 12:46 105 H 18 136/76 94 L Room Air 01/11/25 12:36 109 H 18 134/76 93 L Room Air 01/11/25 12:26 97.5 F L 106 H 16 110/60 95 Room Air 01/11/25 12:02 Nasal Cannula 5 01/11/25 10:11 98.9 F 107 H 16 144/69 H 94 L Room Air 01/11/25 09:00 Room Air Intake and Output 01/11/25 01/12/25 01/12/25 23:59 07:59 15:59 Intake Total 420 / 1482 472 / 472 Output Total 0 / 0 0 / 0 Balance 420 / 1482 472 / 472 Intake: Intake, Oral Amount 420 / 982 222 / 222 Infusion Intake 250 / 250 Doxycycline Hyclate 100 mg In 0 250 / 250 .9 % Sodium Chloride 250 ml @ 166.667 mls/hr IV Q12 PENDING [facility] TO [facility] Rx#: [id number] Output: Output, Urine Amount 0 / 0 0 / 0 Other: Number of Unmeasured Voids 1 1 Weight 94.71 kg Patient Weight 01/12/25 23:59 Weight 94.71 kg Laboratory Results - last 24 hr 01/10/25 09:50: Tumor Marker AFP 2.2, CA 19-9 Antigen <2 01/11/25 16:26: POC Glucose 141 H 01/11/25 21:14: POC Glucose 129 H 01/12/25 05:47: WBC 18.0 H, RBC 4.07 L, Hgb 10.3 L, Hct 32.8 L, MCV 80.6, MCH 25.3 L, MCHC 31.4 L, RDW 14.8, Plt Count 256, MPV 9.0, Neut % (Auto) 89.2 H, Lymph % (Auto) 3.9 L, [place] % (Auto) 6.2, Eos % (Auto) 0.1, Baso % (Auto) 0.2, Neut # (Auto) 16.0 H, Lymph # (Auto) 0.7, [place] # (Auto) 1.1 H, Eos # (Auto) 0.0, Baso # (Auto) 0.0, Sodium 130 L, Potassium 3.7, Chloride 105, Carbon Dioxide 22, Anion Gap 6.7, BUN 16, Creatinine 0.60 L, Estimated Creat Clear 195, Estimated GFR 142, Est GFR ( Amer) 172, Glucose 115 H, Calcium 8.3 L, Magnesium 1.9, Total Bilirubin 1.3, AST 162 H D, ALT 57 D, Alkaline Phosphatase 268 H, Total Protein 5.6 L, Albumin 2.9 L, Globulin 2.7, Albumin/Globulin Ratio 1.1 01/12/25 06:07: POC Glucose 116 H I & O for Labs for Last 24 Hours: Intake & Output 01/09/25 01/10/25 01/11/25 01/12/25 23:59 23:59 23:59 23:59 Intake Total 1020 / 1610 1010 / 1482 472 / 472 Output Total 0 / 0 0 / 0 0 / 0 Balance 1020 / 1610 1010 / 1482 472 / 472 Weight 95.254 kg 96.797 kg 93.894 kg 94.71 kg Microbiology Reports for the Last 24 Hours: Microbiology 01/10/25 01:15 Blood Blood Culture - Preliminary NO GROWTH AFTER 48 HOURS 01/10/25 01:00 Blood Blood Culture - Preliminary NO GROWTH AFTER 48 HOURS 01/09/25 21:15 Ascites Fluid Gram Stain - Final 01/09/25 21:15 Ascites Fluid Body Fluid Culture - Preliminary NO GROWTH AFTER 48 HOURS Constitutional: Present no acute distress, average body habitus, chronically ill appearing and cooperative Head: Present atraumatic and normocephalic ENT: Present normal exam Respiratory: Present normal respiratory effort; Absent rhonchi, wheezes or crackles Cardiac: Present Reg Rate and Rhythm GI: Present soft, distention, tenderness (Epigastric), rebound and normal bowel sounds; Absent guarding Extremities: Present normal inspection and full ROM Skin: Present intact; Absent erythema Neuro: Present Grossly Intact, alert, awake, oriented x 3 and moves all extremities Assessment and Plan *Assessment and plan (1) Decompensated cirrhosis: Status: Acute Category: Medical Code(s): K72.90 - Hepatic failure, unspecified without coma; K74.60 - Unspecified cirrhosis of liver (2) Portal hypertension: Status: Acute Category: Medical Code(s): K76.6 - Portal hypertension (3) Esophageal mass: Status: Acute Category: Medical Code(s): K22.89 - Other specified disease of esophagus (4) BPH (benign prostatic hyperplasia): Status: Acute Category: Medical Code(s): N40.0 - Benign prostatic hyperplasia without lower urinary tract symptoms (5) Upper abdominal mass: Status: Acute Category: Medical Code(s): R19.09 - Other intra-abdominal and pelvic swelling, mass and lump (6) Ascites: Status: Acute Category: Medical Code(s): R18.8 - Other ascites (7) SBP (spontaneous bacterial peritonitis): Status: Acute Category: Medical Code(s): K65.2 - Spontaneous bacterial peritonitis (8) Elevated lipase: Status: Acute Category: Medical Code(s): R74.8 - Abnormal levels of other serum enzymes Plan Tariq Cruz is a 49-year-old male who presented with abdominal pain, distention and was admitted for sepsis secondary to SBP, pneumonia and decompensated cirrhosis, esophageal mass. Post EGD yesterday with GI, concern for esophageal cancer. Biopsies obtained. Slowly advancing diet. Anticipate discharge in the next day or 2 with transition oral antibiotics for SBP and close follow-up with GI and oncology. Problems addressed as follows: #Sepsis #Spontaneous bacterial peritonitis #Right lobe community-acquired pneumonia ? Therapeutic paracentesis in the ED revealed SBP in the peritoneal fluid. ? WBC remains elevated at 18. Repeat CBC, CMP, magnesium ordered for the morning. Peritoneal cultures remain negative. - Continue IV ceftriaxone 2 g, doxycycline. ? Follow-up blood, sputum cultures. - Continue ceftriaxone for SBP at this time. Will transition to fluoroquinolone at discharge for further treatment and ongoing prophylaxis. 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 Biopsies obtained. - Will need close follow-up with oncology given concern for advanced disease and need to determine whether chemoradiation is a possibility. His decompensated cirrhosis complicates treatment options. ? Continue IV Protonix 40 mg twice daily. - Component of delayed gastric emptying. Recommend initiating low-dose Reglan to promote GI motility. Resume MiraLAX for obstipation. - Discontinue Mounjaro #Decompensated cirrhosis #Grade 2 esophageal varices ? Continue IV Lasix 40 mg twice daily, spironolactone 50 mg daily -Lefty stable with bilirubin 1.3, AST 162, ALT 57, alk phos 268. Kidney function normal BUN 16, creatinine 0.6. Repeat CBC, CMP, magnesium ordered for the morning ? Continue Coreg 12.5 mg twice daily for esophageal varices. #Acute pancreatitis ? Epigastric pain, elevated lipase 981. Takes Mounjaro. ? Discontinue Mounjaro. Continue supportive therapy. Tolerating diet. #Type 2 diabetes ? Hemoglobin A1c 5.5%. ? Discontinued home Lantus 50 units, Jardiance 25 mg. Blood sugar at goal. #BPH ? Continue home tamsulosin. Full code DVT prophylaxis: Lovenox 40 mg
[2025-01-12 08:12] LABS: CEA 10.5 ng/mL (0.0-4.7)
[2025-01-12] MEDS: CHOLECALCIFEROL 1,000 UNITS (25MCG) TABLET 25 MCG PO (09:25)
[2025-01-12] MEDS: SPIRONOLACTONE 25MG TABLET 50 MG PO (09:25)
[2025-01-12] MEDS: LORATADINE 10MG TABLET 10 MG PO (09:25)
[2025-01-12] MEDS: CARVEDILOL 12.5MG TABLET 12.5 MG PO ×2 (09:25→20:16)
[2025-01-12] MEDS: ENOXAPARIN 40MG/0.4ML SYRINGE 40 MG SUBCUT (09:26)
[2025-01-12] MEDS: FUROSEMIDE 40MG/4ML VIAL 40 MG IV ×2 (09:26→16:00)
[2025-01-12] MEDS: PANTOPRAZOLE 40MG VIAL 40 MG IV ×2 (09:26→20:16)
[2025-01-12] MEDS: DOXYCYCLINE HYCLATE 100 MG in 0.9 % SODIUM CHLORIDE 250 ML 166.667 MG IV ×2 (09:26→20:16)
[2025-01-12] MEDS: TAMSULOSIN 0.4MG CAPSULE 0.4 MG PO (09:26)
[2025-01-12 10:12] LABS: POC Glucose,Bedside 161 (70-110)
[2025-01-12] MEDS: ACETAMINOPHEN 325MG TAB 650 MG PO ×2 (10:12→20:16)
[2025-01-12] MEDS: humaLOG 100 UNITS/ML 10ML VIAL (SSI) SUBCUT (10:13)
[2025-01-12 12:00] VITALS: BP 133/70; PULSE 101; RESP 16; TEMP 37.1; O2SAT 96
--- NOTE | 2025-01-12 12:31 | EXP.PN ---
Subjective *Date: 01/12/25 *Time: 12:31 Interval history: Patient eating lunch and not having any abdominal pain but does have moderate fullness/early satiety. He has not had a bowel movement in a couple of days and does struggle some with constipation. He reports today that he has been on Mounjaro and his last dose was about 1 week ago. He has been afebrile. Exam Data for Last 24 hours Vital signs and Labs for Last 24 Hours: Temp Pulse Resp BP Pulse Ox O2 Del Method O2 Flow Rate 98.5 F 95 H 20 139/71 94 L Room Air 5 01/12/25 07:57 01/12/25 07:57 01/12/25 07:57 01/12/25 07:57 01/12/25 07:57 01/12/25 12:29 01/11/25 12:02 Laboratory Results - last 24 hr 01/10/25 09:50: Tumor Marker AFP 2.2, CA 19-9 Antigen <2 01/11/25 05:55: Carcinoembryonic Ag 10.5 H 01/11/25 16:26: POC Glucose 141 H 01/11/25 21:14: POC Glucose 129 H 01/12/25 05:47: WBC 18.0 H, RBC 4.07 L, Hgb 10.3 L, Hct 32.8 L, MCV 80.6, MCH 25.3 L, MCHC 31.4 L, RDW 14.8, Plt Count 256, MPV 9.0, Neut % (Auto) 89.2 H, Lymph % (Auto) 3.9 L, [place] % (Auto) 6.2, Eos % (Auto) 0.1, Baso % (Auto) 0.2, Neut # (Auto) 16.0 H, Lymph # (Auto) 0.7, [place] # (Auto) 1.1 H, Eos # (Auto) 0.0, Baso # (Auto) 0.0, Sodium 130 L, Potassium 3.7, Chloride 105, Carbon Dioxide 22, Anion Gap 6.7, BUN 16, Creatinine 0.60 L, Estimated Creat Clear 195, Estimated GFR 142, Est GFR ( Amer) 172, Glucose 115 H, Calcium 8.3 L, Magnesium 1.9, Total Bilirubin 1.3, AST 162 H D, ALT 57 D, Alkaline Phosphatase 268 H, Total Protein 5.6 L, Albumin 2.9 L, Globulin 2.7, Albumin/Globulin Ratio 1.1 01/12/25 06:07: POC Glucose 116 H 01/12/25 10:04: POC Glucose 161 H I & O for Last 24 hours: Intake & Output 01/09/25 01/10/25 01/11/25 01/12/25 23:59 23:59 23:59 23:59 Intake Total 1020 / 1610 1010 / 1482 842 / 842 Output Total 0 / 0 0 / 0 0 / 0 Balance 1020 / 1610 1010 / 1482 842 / 842 Weight 210 lb 213 lb 6.4 oz 207 lb 208 lb 12.8 oz Microbiology Reports for the Last 24 Hours: Microbiology 01/10/25 01:15 Blood Blood Culture - Preliminary NO GROWTH AFTER 48 HOURS 01/10/25 01:00 Blood Blood Culture - Preliminary NO GROWTH AFTER 48 HOURS 01/09/25 21:15 Ascites Fluid Gram Stain - Final 01/09/25 21:15 Ascites Fluid Body Fluid Culture - Preliminary NO GROWTH AFTER 48 HOURS *Routine Abdominal Exam Comments: Mild gaseous distention with nontense ascites liver firm and palpable, no rebound or guarding Assessment and Plan *Assessment and plan (1) Esophageal mass: Status: Acute Category: Medical Code(s): K22.89 - Other specified disease of esophagus (2) Cancer of lower third of esophagus: Status: Acute Category: Medical Code(s): C15.5 - Malignant neoplasm of lower third of esophagus (3) Early satiety: Status: Acute Category: Medical Code(s): R68.81 - Early satiety (4) Gastroparesis: Status: Acute Category: Medical Code(s): K31.84 - Gastroparesis (5) Portal hypertension: Status: Acute Category: Medical Code(s): K76.6 - Portal hypertension (6) Decompensated cirrhosis: Status: Acute Category: Medical Code(s): K72.90 - Hepatic failure, unspecified without coma; K74.60 - Unspecified cirrhosis of liver (7) SBP (spontaneous bacterial peritonitis): Status: Acute Category: Medical Code(s): K65.2 - Spontaneous bacterial peritonitis (8) Constipation: Status: Acute Category: Medical Code(s): K59.00 - Constipation, unspecified Plan 1. Distal esophageal mass?circumferential but not obstructing. Awaiting biopsies but do suspect adenocarcinoma. I do feel that this is advanced based on his CAT scan and would like for him to have follow-up in the office as early as possible with Mitch Vicente MD/oncology to determine whether chemoradiation is a possibility. He does have decompensated cirrhosis and this may disqualify him from aggressive treatment. If he is not a candidate for treatment at some point, he will likely need uncovered esophageal metal stent since eventually this will occlude. 2. Advanced cirrhosis with recent SBP. He was treated with ceftriaxone and symptoms have improved. He is also on diuretics. I would consider prophylactic antibiotic treatment with a quinolone to prevent further recurrences. 3. Presently having fullness/early satiety and uncomfortable with some nausea. He has been on Mounjaro and I would encourage him to stop taking this presently and I suspect that most of his present symptoms are drug related from the Mounjaro. I may recommend low-dose metoclopramide. I also feel that his obstipation is playing some role and I would like for him to resume MiraLAX at home.
[2025-01-12 15:44] LABS: POC Glucose,Bedside 138 (70-110)
[2025-01-12 16:00] VITALS: BP 128/71; PULSE 100; RESP 18; TEMP 37.8; O2SAT 94
[2025-01-12] MEDS: CEFTRIAXONE SODIUM 2 GM in 0.9 % SODIUM CHLORIDE 100 ML IV (16:00)
[2025-01-12] MEDS: METOCLOPRAMIDE 5MG TABLET 5 MG PO (16:00)
--- NOTE | 2025-01-12 16:22 | PC.NURSE ---
Aox 4, up ad nora, on abx, tylenol once today for pain, on RA, regular diet, 20g L fa sl.
[2025-01-12] MEDS: POLYETHYLENE GLYCOL 3350 17 GM PACKET PO (18:43)
[2025-01-12 19:51] VITALS: BP 136/59; PULSE 100; RESP 16; TEMP 37.1; O2SAT 95
[2025-01-12] MEDS: TRAZODONE 50MG TABLET 50 MG PO (20:16)
[2025-01-12 21:10] LABS: POC Glucose,Bedside 139 (70-110)
[2025-01-13] VITALS: BP 124/67; PULSE 100; RESP 16; TEMP 37.1; O2SAT 94
[2025-01-13 04:00] VITALS: BP 142/76; PULSE 97; RESP 18; TEMP 37.2; O2SAT 94; BMI 269100.2
[2025-01-13] MEDS: METOCLOPRAMIDE 5MG TABLET 5 MG PO ×2 (05:51→10:10)
[2025-01-13 06:11] LABS: POC Glucose,Bedside 148 (70-110)
--- NOTE | 2025-01-13 06:13 | PC.NURSE ---
Pt A&OX4 and has tolerated room air. Lung sounds clear and bowel sounds active. VSS. He has complained of shoulder pain once and was medicated per MAR. He has ambulated room independently. No complaints at this time call light within reach.
[2025-01-13 06:48] LABS: Basophils % 0.2 % (0.1-2.0); Hematocrit 34.3 % (42.0-52.0); Hemoglobin 10.7 g/dL (14.1-18.0); Immature Granulocytes # 0.11 10^3uL; Immature Granulocytes % 0.6 %; Lymphocytes # 0.7 K/mm3 (0.7-4.5); Lymphocytes % 3.3 % (10-50); Mean Corpuscular HGB Conc 31.2 g/dL (31.8-35.4); Mean Corpuscular Hemoglobin 24.7 pg (27.0-31.2); Mean Corpuscular Volume 79.2 fl (80-94); Mean Platelet Volume 9.1 fl (7.4-10.4); Monocytes % 5.1 % (1.7-9.3); Neutrophils % 90.8 % (37.0-80.0); Nucleated Red Blood Cells # 0 10^3/uL; Nucleated Red Blood Cells % 0 %; Platelet Count 279 K/mm3 (142-424); Red Blood Count 4.33 M/mm3 (4.60-6.20); Red Cell Distribution Width 14.9 % (11.5-17.5); Red Cell Distribution Width-SD 41.9 fL; White Blood Count 19.8 K/mm3 (4.8-10.8)
[2025-01-13 07:01] LABS: Alanine Aminotransferase 254 U/L (12-78); Albumin Level 3.1 g/dl (3.5-5.0); Albumin/Globulin Ratio 1.1 (1.1-1.8); Alkaline Phosphatase 524 U/L (38-126); Anion Gap 10.6 mEq/L (5-15); Aspartate Amino Transferase 593 U/L (17-59); Bilirubin,Total 3.8 mg/dl (0.2-1.3); Blood Urea Nitrogen 19 mg/dl (9-20); Calcium 8.3 mg/dl (8.4-10.2); Carbon Dioxide 24 mmol/L (22.0-30.0); Chloride 102 mmol/L (98-107); Creatinine Clearance Estimated 185 mL/min (50-200); Estimated Glomerular Filt Rate 142 ml/min (>60); GFR (African American) 172 ML/MIN (>60); Globulin 2.8 g/dL (1.3-3.2); Glucose 134 mg/dl (74-100); Potassium 3.6 mmoL/L (3.5-5.1); Sodium 133 mmol/L (136-145); Total Protein,Serum 5.9 g/dl (6.3-8.2)
[2025-01-13 08:00] VITALS: BP 142/72; PULSE 94; RESP 16; TEMP 36.8; O2SAT 95
[2025-01-13] MEDS: ENOXAPARIN 40MG/0.4ML SYRINGE 40 MG SUBCUT (08:15)
[2025-01-13] MEDS: CARVEDILOL 12.5MG TABLET 12.5 MG PO (08:16)
[2025-01-13] MEDS: TAMSULOSIN 0.4MG CAPSULE 0.4 MG PO (08:16)
[2025-01-13] MEDS: POLYETHYLENE GLYCOL 3350 17 GM PACKET PO (08:16)
[2025-01-13] MEDS: CHOLECALCIFEROL 1,000 UNITS (25MCG) TABLET 25 MCG PO (08:16)
[2025-01-13] MEDS: LORATADINE 10MG TABLET 10 MG PO (08:16)
[2025-01-13] MEDS: SPIRONOLACTONE 25MG TABLET 50 MG PO (08:17)
[2025-01-13] MEDS: PANTOPRAZOLE 40MG VIAL 40 MG IV (08:17)
[2025-01-13] MEDS: DOXYCYCLINE HYCLATE 100 MG in 0.9 % SODIUM CHLORIDE 250 ML 166.667 MG IV (08:18)
[2025-01-13] MEDS: FUROSEMIDE 40MG/4ML VIAL 40 MG IV (08:18)
--- NOTE | 2025-01-13 09:34 | P.PN_ITS ---
Subjective *Date: 01/13/25 *Time: 09:34 Medical Exam Vital signs and Labs for Last 24 Hours: Vital Signs Temp Pulse Resp BP Pulse Ox O2 Del Method 01/13/25 08:25 Room Air 01/13/25 08:22 Room Air 01/13/25 06:37 Room Air 01/13/25 05:00 Room Air 01/13/25 04:00 99.0 F 97 H 18 142/76 H 94 L Room Air 01/13/25 03:00 Room Air 01/13/25 01:00 Room Air 01/13/25 00:00 98.8 F 100 H 16 124/67 94 L Room Air 01/12/25 23:00 Room Air 01/12/25 21:00 Room Air 01/12/25 20:00 Room Air 01/12/25 19:51 98.7 F 100 H 16 136/59 L 95 Room Air 01/12/25 17:39 Room Air 01/12/25 16:00 100.0 F H 100 H 18 128/71 94 L Room Air 01/12/25 15:49 Room Air 01/12/25 13:45 Room Air 01/12/25 12:29 Room Air 01/12/25 12:00 98.7 F 101 H 16 133/70 96 Room Air 01/12/25 10:19 Room Air Intake and Output 01/12/25 01/13/25 01/13/25 23:59 07:59 15:59 Intake Total 220 / 1672 250 / 770 520 / 770 Output Total 0 / 0 Balance 220 / 1672 250 / 770 520 / 770 Intake: Intake, Oral Amount 120 / 822 270 / 270 Intake, Total IV Amount 100 / 600 250 / 500 250 / 500 Ceftriaxone Sodium 2 gm In 0.9 100 / 100 % Sodium Chloride 100 ml @ 200 mls/hr IV Q24H [facility] Rx#:[id number] Doxycycline Hyclate 100 mg In 0 250 / 500 250 / 500 .9 % Sodium Chloride 250 ml @ 166.667 mls/hr IV Q12 [facility] Rx#: [id number] Output: Output, Urine Amount 0 / 0 Other: Number of Unmeasured Voids 1 Weight 90.01 kg Patient Weight 01/13/25 23:59 Weight 90.01 kg Laboratory Results - last 24 hr 01/12/25 10:04: POC Glucose 161 H 01/12/25 15:15: POC Glucose 138 H 01/12/25 20:16: POC Glucose 139 H 01/13/25 05:50: POC Glucose 148 H 01/13/25 05:54: WBC 19.8 H, RBC 4.33 L, Hgb 10.7 L, Hct 34.3 L, MCV 79.2 L, MCH 24.7 L, MCHC 31.2 L, RDW 14.9, Plt Count 279, MPV 9.1, Neut % (Auto) 90.8 H, [place] % (Auto) 3.3 L, [place] % (Auto) 5.1, Eos % (Auto) 0.0 L, Baso % (Auto) 0.2, Neut # (Auto) 18.0 H, Lymph # (Auto) 0.7, [place] # (Auto) 1.0, Eos # (Auto) 0.0, Baso # (Auto) 0.0, Sodium 133 L, Potassium 3.6, Chloride 102, Carbon Dioxide 24, Anion Gap 10.6, BUN 19, Creatinine 0.60 L, Estimated Creat Clear 185, Estimated GFR 142, Est GFR ( Amer) 172, Glucose 134 H, Calcium 8.3 L, Magnesium 2.0, Total Bilirubin 3.8 H, AST 593 H* D, ALT 254 H D, Alkaline Phosphatase 524 H, Total Protein 5.9 L, Albumin 3.1 L, Globulin 2.8, Albumin/Globulin Ratio 1.1 I & O for Labs for Last 24 Hours: Intake & Output 01/10/25 01/11/25 01/12/25 01/13/25 23:59 23:59 23:59 23:59 Intake Total 1020 / 1610 1010 / 1482 1422 / 1672 770 / 770 Output Total 0 / 0 0 / 0 0 / 0 Balance 1020 / 1610 1010 / 1482 1422 / 1672 770 / 770 Weight 96.797 kg 93.894 kg 94.71 kg 90.01 kg Microbiology Reports for the Last 24 Hours: Microbiology 01/09/25 21:15 Ascites Fluid Gram Stain - Final 01/09/25 21:15 Ascites Fluid Body Fluid Culture - Preliminary NO GROWTH AFTER 72 HOURS The patient's infection will respond to the chosen ABx?: Yes Is the patient receiving the right drug, dose, and route?: Yes Could a more targeted ABx be ordered?: No (WBC STILL ELEVATED, TMAX OVERNIGHT 100F. CONT CURRENT ABX.)
[2025-01-13 09:57] LABS: POC Glucose,Bedside 172 (70-110)
[2025-01-13] MEDS: LEVOFLOXACIN/D5W 750 MG/150 ML 750 MG/150 ML PIGGYBACK 100 MG IV (10:03)
[2025-01-13] MEDS: humaLOG 100 UNITS/ML 10ML VIAL (SSI) SUBCUT (10:09)
[2025-01-13] MEDS: ACETAMINOPHEN 325MG TAB 650 MG PO (10:10)
--- NOTE | 2025-01-13 11:34 | P.DS_ITS ---
General Admission date:: 01/10/25 Discharge date: 01/13/25 HPI HPI HPI: 49-year-old male patient who is admitted to the hospital with worsening abdominal pain and pressure for two months associated with nausea, weight loss and abdominal distention. The patient had a CT completed on which indicated ascites and an esophageal mass. He has OP appt with Dr. Montague to follow up on CT findings. Since that time he has had increased shortness of breath due to pressure on his ribs from the fluid in his abdomen. A paracentesis was completed in the ER, the patient reports he had immediate relief of pain/pressure at that time. He denies any CP, V/D, fever, chills, dizziness or weakness. Hospital Course Hospital Course Hospital Course: Tariq Cruz is a 49-year-old male who presented with abdominal pain, distention and was admitted for sepsis secondary to SBP, pneumonia and decompensated cirrhosis, esophageal mass. Post EGD yesterday with GI, concern for esophageal cancer. Biopsies obtained. Diet was gradually advanced. Patient tolerating with intermittent nausea but no cristhian emesis. Plan for close follow-up with oncology and GI as an outpatient. Abdomen feeling better. Will complete empiric course of antibiotics. Stable to discharge home. Problems addressed as follows: #Sepsis #Spontaneous bacterial peritonitis #Right lobe community-acquired pneumonia ? Therapeutic paracentesis in the ED revealed SBP in the peritoneal fluid. White count was elevated, initiated on empiric antibiotics with ceftriaxone. Tolerating well. Transition to fluoroquinolone to complete course. Abdomen feeling better, afebrile. No significant pain. Still slight elevation of white count day of discharge but clinically was improving with minimal pain, no rebound or guarding, and no fever. Would benefit from repeat labs at follow-up with specialist in the next week or 2. Stable on room air, no respiratory distress. 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 They were consulted to assist with care. Patient taken for EGD. Found to have distal esophageal mass circumferentially that is highly suspicious for adenocarcinoma. Biopsies obtained. Pathology still pending at time of discharge. Referred to oncology for further discussion as an outpatient about chemoradiation possibilities. His decompensated cirrhosis complicates treatment options. Treated with IV Protonix during admission. No signs of bleeding. Continue pantoprazole 40 mg daily at discharge. On patient's scope, he still had gastric contents. Has a component of delayed gastric emptying. GI recommended initiating Reglan to promote motility. Continue with meals. Resumed MiraLAX for obstipation. Recommend discontinuing Mounjaro due to its slowing of gastric motility. #Decompensated cirrhosis #Grade 2 esophageal varices ? Treated with IV diuretics during admission. Showing response. Transition to oral Lasix and spironolactone at discharge. LFTs remained stable during a dmission. Kidney function remained normal. Bilirubin 1.3, AST 162, ALT 57, alk phos 268. Kidney function normal BUN 16, creatinine 0.6. Continue Coreg 12.5 mg twice daily for esophageal varices. #Acute pancreatitis: Epigastric pain, elevated lipase 981. Takes Mounjaro. Discontinue Mounjaro. Continue supportive therapy. Tolerating diet. #Type 2 diabetes: Hemoglobin A1c 5.5%. Discontinued home Lantus 50 units, and Mounjaro. Continue Jardiance 25 mg daily. Blood sugar at goal. #BPH: Continue home tamsulosin. Total time spent on discharge 42 minutes in counseling, documentation, chart review, and direct care with patient. Exam Data for Last 24 hours Vital signs and Labs for Last 24 Hours: Temp Pulse Resp BP Pulse Ox O2 Del Method O2 Flow Rate 98.3 F 94 H 16 142/72 H 95 Room Air 5 01/13/25 08:00 01/13/25 08:00 01/13/25 08:00 01/13/25 08:00 01/13/25 08:00 01/13/25 10:15 01/11/25 12:02 Laboratory Results - last 24 hr 01/12/25 15:15: POC Glucose 138 H 01/12/25 20:16: POC Glucose 139 H 01/13/25 05:50: POC Glucose 148 H 01/13/25 05:54: WBC 19.8 H, RBC 4.33 L, Hgb 10.7 L, Hct 34.3 L, MCV 79.2 L, MCH 24.7 L, MCHC 31.2 L, RDW 14.9, Plt Count 279, MPV 9.1, Neut % (Auto) 90.8 H, Lymph % (Auto) 3.3 L, Gillespie % (Auto) 5.1, Eos % (Auto) 0.0 L, Baso % (Auto) 0.2, Neut # (Auto) 18.0 H, Lymph # (Auto) 0.7, Gillespie # (Auto) 1.0, Eos # (Auto) 0.0, Baso # (Auto) 0.0, Sodium 133 L, Potassium 3.6, Chloride 102, Carbon Dioxide 24, Anion Gap 10.6, BUN 19, Creatinine 0.60 L, Estimated Creat Clear 185, Estimated GFR 142, Est GFR ( Amer) 172, Glucose 134 H, Calcium 8.3 L, Magnesium 2.0, Total Bilirubin 3.8 H, AST 593 H* D, ALT 254 H D, Alkaline Phosphatase 524 H, Total Protein 5.9 L, Albumin 3.1 L, Globulin 2.8, Albumin/Globulin Ratio 1.1 01/13/25 09:50: POC Glucose 172 H I & O for Last 24 hours: Intake & Output 01/10/25 01/11/25 01/12/25 01/13/25 23:59 23:59 23:59 23:59 Intake Total 1020 / 1610 1010 / 1482 1422 / 1672 920 / 920 Output Total 0 / 0 0 / 0 0 / 0 0 / 0 Balance 1020 / 1610 1010 / 1482 1422 / 1672 920 / 920 Weight 96.797 kg 93.894 kg 94.71 kg 90.01 kg Microbiology Reports for the Last 24 Hours: Microbiology 01/09/25 21:15 Ascites Fluid Gram Stain - Final 01/09/25 21:15 Ascites Fluid Body Fluid Culture - Preliminary NO GROWTH AFTER 72 HOURS Constitutional Constitutional: no acute distress, average body habitus, chronically ill appearing and cooperative *Routine HEENT Exam Head: Present normocephalic Eye: Present EOMI and PERRL ENT: Present mucous membranes moist *Routine Neck Exam Neck: Present supple; Absent lymphadenopathy *Routine Respiratory Exam Respiratory: Present CTA bilaterally; Absent rhonchi, wheezes or crackles *Routine Cardiovascular Exam Cardiovascular: Present RRR *Routine Abdominal Exam Abdominal: Present soft, normoactive bowel sounds and distended; Absent tenderness, rebound or guarding *Routine Rectal Exam Patient deferred: visual exam *Routine Exam Patient deferred: penile exam *Routine Extremities Exam Extremities: Absent cyanosis, clubbing or edema *Routine Skin Exam Skin: Present intact, pallor and warm; Absent rash *Routine Neurological Exam Neurological: Present alert, oriented X3 and moving all extremities; Absent altered mental status Results Data Completed and Pending Labs on day of discharge: Labs from last 24 hours 01/13/25 01/13/25 01/13/25 09:50 05:54 05:50 WBC 19.8 H RBC 4.33 L Hgb 10.7 L Hct 34.3 L MCV 79.2 L MCH 24.7 L MCHC 31.2 L RDW 14.9 Plt Count 279 MPV 9.1 Neut % (Auto) 90.8 H Lymph % (Auto) 3.3 L Gillespie % (Auto) 5.1 Eos % (Auto) 0.0 L Baso % (Auto) 0.2 Neut # (Auto) 18.0 H Lymph # (Auto) 0.7 Gillespie # (Auto) 1.0 Eos # (Auto) 0.0 Baso # (Auto) 0.0 Sodium 133 L Potassium 3.6 Chloride 102 Carbon Dioxide 24 Anion Gap 10.6 BUN 19 Creatinine 0.60 L Estimated Creat Clear 185 Estimated GFR 142 Est GFR ( Amer) 172 Glucose 134 H POC Glucose 172 H 148 H Calcium 8.3 L Magnesium 2.0 Total Bilirubin 3.8 H AST 593 H* D ALT 254 H D Alkaline Phosphatase 524 H Total Protein 5.9 L Albumin 3.1 L Globulin 2.8 Albumin/Globulin Ratio 1.1 01/12/25 01/12/25 20:16 15:15 WBC RBC Hgb Hct MCV MCH MCHC RDW Plt Count MPV Neut % (Auto) Lymph % (Auto) Gillespie % (Auto) Eos % (Auto) Baso % (Auto) Neut # (Auto) Lymph # (Auto) Gillespie # (Auto) Eos # (Auto) Baso # (Auto) Sodium Potassium Chloride Carbon Dioxide Anion Gap BUN Creatinine Estimated Creat Clear Estimated GFR Est GFR ( Amer) Glucose POC Glucose 139 H 138 H Calcium Magnesium Total Bilirubin AST ALT Alkaline Phosphatase Total Protein Albumin Globulin Albumin/Globulin Ratio Preliminary micro results at discharge 01/09/25 21:15 Body Fluid Culture - Preliminary Ascites Fluid NO GROWTH AFTER 72 HOURS 01/10/25 01:15 Blood Culture - Preliminary Blood NO GROWTH AFTER 48 HOURS 01/10/25 01:00 Blood Culture - Preliminary Blood NO GROWTH AFTER 48 HOURS DS: Diagnosis Discharge Diagnosis (1) Decompensated cirrhosis: Status: Acute Code(s): K72.90 - Hepatic failure, unspecified without coma; K74.60 - Unspecified cirrhosis of liver (2) Portal hypertension: Status: Acute Code(s): K76.6 - Portal hypertension (3) Esophageal mass: Status: Acute Code(s): K22.89 - Other specified disease of esophagus (4) BPH (benign prostatic hyperplasia): Status: Acute Code(s): N40.0 - Benign prostatic hyperplasia without lower urinary tract symptoms (5) Upper abdominal mass: Status: Acute Code(s): R19.09 - Other intra-abdominal and pelvic swelling, mass and lump (6) Ascites: Status: Acute Code(s): R18.8 - Other ascites (7) SBP (spontaneous bacterial peritonitis): Status: Acute Code(s): K65.2 - Spontaneous bacterial peritonitis (8) Elevated lipase: Status: Acute Code(s): R74.8 - Abnormal levels of other serum enzymes Meds Home Medications and Allergies Home Medications ?Medication ?Instructions ?Recorded ?Confirmed ?Type cetirizine 10 mg capsule 10 mg PO DAILY ALLERGIES 03/11/18 01/10/25 History cholecalciferol (vitamin D3) 25 25 mcg PO DAILY SUPPLIMENT 10/18/20 01/10/25 History mcg (1,000 unit) capsule trazodone 50 mg tablet 50 mg PO DAILY #90 tabs 06/01/24 01/10/25 Rx tamsulosin 0.4 mg capsule 0.4 mg PO DAILY BLADDER 90 days 10/23/24 01/10/25 Rx #90 caps empagliflozin 25 mg tablet 25 mg PO DAILY Diabetes 90 days 11/18/24 01/10/25 Rx (Jardiance) #90 tabs insulin glargine 100 unit/mL (3 50 unit SQ DAILY 01/04/25 01/10/25 History mL) subcutaneous pen (Lantus Solostar U-100 Insulin) atorvastatin 40 mg tablet 40 mg PO DAILY 01/10/25 01/10/25 History carvedilol 12.5 mg tablet 12.5 mg PO BID 30 days #60 tabs 01/13/25 Rx ciprofloxacin HCl 500 mg tablet 500 mg PO BID #8 tabs 01/13/25 Rx furosemide 40 mg tablet (Lasix) 40 mg PO DAILY #30 tabs 01/13/25 Rx metoclopramide HCl 5 mg tablet 5 mg PO AC 30 days #90 tabs 01/13/25 Rx polyethylene glycol 3350 17 gram 17 g PO DAILY #30 ea 01/13/25 Rx oral powder packet (HealthyLax) spironolactone 25 mg tablet 50 mg (2 x 25 mg) PO DAILY 30 days 01/13/25 Rx #60 tabs pantoprazole 40 mg tablet,delayed 40 mg PO DAILY #30 tabs 01/14/25 Rx release New Prescriptions to Start Prescriptions: carvedilol Vilma,George ciprofloxacin HCl Vilma,George furosemide [Lasix] Vilma,George metoclopramide HCl Vilma,George pantoprazole Vilma,George polyethylene glycol 3350 [HealthyLax] Vilma,George spironolactone Vilma,George Allergies Allergy/AdvReac Type Severity Reaction Status Date / Time No Known Allergies Allergy Verified 01/08/25 12:58 Discharge Plan Disposition Patient Disposition: Home, Self-Care Condition: Fair Discharge Order Discharge Orders: Discharge Order (Routine); Ordered 01/13/25 Ordered By: George Esparza Follow up Plan Follow up with: Epifanio Jesus II, MD [Staff Physician] - 01/14/25 2:30 pm Clarisa Grubbs APRN [Primary Care Provider] - 01/22/25 2:30 pm Mitch Vicente MD [Staff Physician] - 01/20/25 1:30 pm Prescriptions/Medication Reconciliation: New carvedilol 12.5 mg Tablet 12.5 mg PO BID 30 Days Qty: 60 0RF polyethylene glycol 3350 [HealthyLax] 17 gram Powder In Packet 17 g PO DAILY Qty: 30 0RF spironolactone 25 mg Tablet 50 mg PO DAILY 30 Days Qty: 60 0RF metoclopramide HCl 5 mg Tablet 5 mg PO AC 30 Days Qty: 90 0RF furosemide [Lasix] 40 mg tablet 40 mg PO DAILY Qty: 30 0RF ciprofloxacin HCl 500 mg tablet 500 mg PO BID Qty: 8 0RF pantoprazole 40 mg tablet,delayed release (DR/EC) 40 mg PO DAILY Qty: 30 0RF Continued cetirizine 10 mg capsule 10 mg PO DAILY cholecalciferol (vitamin D3) 25 mcg (1,000 unit) capsule 25 mcg PO DAILY trazodone 50 mg tablet 50 mg PO DAILY Qty: 90 2RF tamsulosin 0.4 mg capsule 0.4 mg PO DAILY 90 Days Qty: 90 2RF Jardiance 25 mg tablet 25 mg PO DAILY 90 Days Qty: 90 1RF atorvastatin 40 mg tablet 40 mg PO DAILY Rx Instructions: TAKE ONE TABLET BY MOUTH ONCE A DAY Held insulin glargine [Lantus Solostar U-100 Insulin] 100 unit/mL (3 mL) insulin pen 50 unit SQ DAILY Hold Instructions: Pending follow-up with primary care and reevaluation after advancement of diet Discontinued cefdinir 300 mg capsule 300 mg PO BID 7 Days Qty: 14 0RF furosemide 20 mg tablet 20 mg PO DAILY Qty: 30 0RF metoprolol succinate 100 mg tablet extended release 24 hr 100 mg PO DAILY Rx Instructions: TAKE 1 TABLET BY MOUTH DAILY FOR BLOOD PRESSURE Mounjaro 12.5 mg/0.5 mL pen injector 12.5 mg SQ WEEKLY Rx Instructions: INJECT 12.5 MG SUBCUTANEOUSLY ONCE WEEKLY Problem Reconciliation Problems Reviewed?: Yes Patient Discharge Instructions ACTIVITY: Continue current activity DIET: continue same diet Patient Instructions: DI for Ascites, DI for Peritonitis, DI for Abdominal Paracentesis, DI for Surgical Site Infection, Stop Light Infection Print Language: Serbian Providers Primary Care Provider: Clarisa Grubbs Admit Provider: Tariq Vidal Attending Provider: Tariq Vidal
[2025-01-13 12:00] VITALS: BP 135/75; PULSE 98; RESP 18; TEMP 36.9; O2SAT 95
--- NOTE | 2025-01-14 09:53 | SW/DCPLANNER ---
Spoke with patient on the phone. Patient stated that he is doing well. Patient stated that he is aware of his upcoming appointments. Patient stated that he was able to get his new medicine and was brought to his room. Patient stated that he has no concerns or questions at this time. I spoke with the patient and to let him know that Dr. Esparza called in his new medicine and patient stated that he is going to pick it up when he comes to his appointment today. Spoke with patient about his blood sugar and told him that DR Esparza said if his blood sugar is running low to hold his blood sugar medicine till he follows up with his primary care provider. Delores Whelan
== END 2025-01-13 15:42 | disposition home or self-care (01) | DRG 871 ==
LOC: ER 23:24 → 2ND 01-10 01:38
PROVIDERS: Emergency Medicine; Internal Medicine Gastroenterology; Nurse Practitioner Acute Care; Admitting Provider Student in an Organized Health Care Education/Training Program; Emergency Provider Emergency Medicine; PCP Nurse Practitioner Family; Visit Provider Student in an Organized Health Care Education/Training Program
PROC: 0DJ08ZZ Inspection of Upper Intestinal Tract, Via Natural or Artificial Opening Endoscopic (ICD-10-PCS; principal; 2025-01-11 12:00)
DX: A41.9 Sepsis, unspecified organism (principal); J18.9 Pneumonia, unspecified organism; K65.2 Spontaneous bacterial peritonitis; K85.90 Acute pancreatitis without necrosis or infection, unspecified; C15.5 Malignant neoplasm of lower third of esophagus; K76.6 Portal hypertension; I85.10 Secondary esophageal varices without bleeding; J44.0 Chronic obstructive pulmonary disease with (acute) lower respiratory infection; K75.81 Nonalcoholic steatohepatitis (NASH); I10 Essential (primary) hypertension; N40.0 Benign prostatic hyperplasia without lower urinary tract symptoms; K31.84 Gastroparesis; E11.69 Type 2 diabetes mellitus with other specified complication; K59.00 Constipation, unspecified; K31.89 Other diseases of stomach and duodenum; Z79.4 Long term (current) use of insulin; Z87.891 Personal history of nicotine dependence
CPT/HCPCS: 36415; 49083; 71275; 76705; 80048; 80053; 82105; 82378; 82607; 82746; 82962; 83540; 83550; 83690; 83735; 84145; 85025; 85610; 86301; 87040; 87070; 87205; 88104; 88305; 88341; 88342; 88360; 89051; 99285; J0696; J1650; J1938; J1956; J2470; Q9967

== ENCOUNTER 2025-01-14 15:23 | Outpatient (CLI) | payer OTHER, SELFPAY ==
[2025-01-14 15:41] LABS: Basophils # 0.1 K/mm3 (0-0.2); Basophils % 0.2 % (0.1-2.0); Hematocrit 35.2 % (42.0-52.0); Hemoglobin 11.2 g/dL (14.1-18.0); Immature Granulocytes # 0.33 10^3uL; Lymphocytes # 0.7 K/mm3 (0.7-4.5); Lymphocytes % 2.1 % (10-50); Mean Corpuscular HGB Conc 31.8 g/dL (31.8-35.4); Mean Corpuscular Hemoglobin 24.8 pg (27.0-31.2); Mean Corpuscular Volume 77.9 fl (80-94); Mean Platelet Volume 8.7 fl (7.4-10.4); Monocytes # 1.3 K/mm3 (0.1-1.0); Monocytes % 3.9 % (1.7-9.3); Neutrophils # 30.2 K/mm3 (1.8-7.8); Neutrophils % 92.8 % (37.0-80.0); Nucleated Red Blood Cells # 0 10^3/uL; Nucleated Red Blood Cells % 0 %; Platelet Count 348 K/mm3 (142-424); Red Blood Count 4.52 M/mm3 (4.60-6.20); Red Cell Distribution Width 15.6 % (11.5-17.5); Red Cell Distribution Width-SD 41.5 fL
[2025-01-14 15:50] LABS: White Blood Count 32.5 K/mm3 (4.8-10.8)
[2025-01-14 15:51] LABS: MANUAL DIFFERENTIAL MANUAL DIFFERENTIAL (MANUAL DIFF)
[2025-01-14 15:58] LABS: INR 1.19 (0.9-1.1); Prothrombin Time 13.1 seconds (10.1-12.5)
[2025-01-14 15:59] LABS: Alanine Aminotransferase 435 U/L (12-78); Albumin Level 3.4 g/dl (3.5-5.0); Albumin/Globulin Ratio 1.2 (1.1-1.8); Alkaline Phosphatase 630 U/L (38-126); Aspartate Amino Transferase 713 U/L (17-59); Bilirubin,Total 7.9 mg/dl (0.2-1.3); Blood Urea Nitrogen 25 mg/dl (9-20); Calcium 8.8 mg/dl (8.4-10.2); Carbon Dioxide 23 mmol/L (22.0-30.0); Chloride 97 mmol/L (98-107); Estimated Glomerular Filt Rate 119 ml/min (>60); GFR (African American) 144 ML/MIN (>60); Globulin 2.8 g/dL (1.3-3.2); Glucose 162 mg/dl (74-100); Sodium 130 mmol/L (136-145); Total Protein,Serum 6.2 g/dl (6.3-8.2)
[2025-01-14 16:00] LABS: Anion Gap 13.9 mEq/L (5-15); Potassium 3.9 mmoL/L (3.5-5.1)
[2025-01-14 17:08] LABS: Lymphocytes % 2 % (10-50); Monocytes % 4 % (2-9); Neutrophils % 94 % (42-76); Total Cells Counted 100
[2025-01-14 17:10] LABS: Ovalocytes 1+
[2025-01-14 17:13] LABS: Polychromasia 1+
[2025-01-14 17:14] LABS: Platelet Estimate Normal
== END 2025-01-14 23:59 | disposition home or self-care (01) ==
LOC: LAB 15:24
PROVIDERS: PCP Nurse Practitioner Family; Visit Provider Nurse Practitioner Family
DX: R17 Unspecified jaundice (principal)
CPT/HCPCS: 36415; 80053; 85007; 85025; 85610

== ENCOUNTER 2025-01-14 20:16 | Emergency (ER) | payer OTHER, SELFPAY ==
[2025-01-14 20:25] VITALS: BP 118/70; PULSE 100; RESP 18; TEMP 36.6; O2SAT 96; BMI 27.9
--- NOTE | 2025-01-14 20:44 | PC.NURSE ---
RT notified of VBG
[2025-01-14 20:51] LABS: Lactate Venous 3.2 mmol/L (0.4-2.0); VBG HCO3 21.8 mmol/L (23-30); VBG Oxygen Saturation 97.7 % (50-70); VBG PH 7.46 mmol/L (7.31-7.41); VBG PO2 97.8 mmol/L (28-40); VBG Total CO2 22.7 mmol/L (23-27)
[2025-01-14 20:51] LABS: Basophils # 0.1 K/mm3 (0-0.2); Basophils % 0.2 % (0.1-2.0); Hematocrit 34.3 % (42.0-52.0); Hemoglobin 11.1 g/dL (14.1-18.0); Immature Granulocytes # 0.25 10^3uL; Immature Granulocytes % 0.8 %; Lymphocytes # 0.7 K/mm3 (0.7-4.5); Lymphocytes % 2.3 % (10-50); Mean Corpuscular HGB Conc 32.4 g/dL (31.8-35.4); Mean Corpuscular Hemoglobin 25.2 pg (27.0-31.2); Monocytes # 1.4 K/mm3 (0.1-1.0); Monocytes % 4.5 % (1.7-9.3); Neutrophils # 27.7 K/mm3 (1.8-7.8); Neutrophils % 92.2 % (37.0-80.0); Nucleated Red Blood Cells # 0 10^3/uL; Nucleated Red Blood Cells % 0 %; Platelet Count 355 K/mm3 (142-424); Red Cell Distribution Width 15.6 % (11.5-17.5); Red Cell Distribution Width-SD 41.7 fL
[2025-01-14 21:00] LABS: Albumin Level 3.1 g/dl (3.5-5.0); Chloride 98 mmol/L (98-107); Sodium 129 mmol/L (136-145)
[2025-01-14 21:01] LABS: Potassium 3.9 mmoL/L (3.5-5.1)
[2025-01-14 21:03] LABS: Alanine Aminotransferase 430 U/L (12-78); Alkaline Phosphatase 655 U/L (38-126); Anion Gap 10.9 mEq/L (5-15); Aspartate Amino Transferase 679 U/L (17-59); Blood Urea Nitrogen 26 mg/dl (9-20); Carbon Dioxide 24 mmol/L (22.0-30.0); Creatinine Clearance Estimated 144 mL/min (50-200); Estimated Glomerular Filt Rate 102 ml/min (>60); GFR (African American) 123 ML/MIN (>60)
[2025-01-14 21:04] LABS: Albumin/Globulin Ratio 1.1 (1.1-1.8); Calcium 8.9 mg/dl (8.4-10.2); Globulin 2.9 g/dL (1.3-3.2); Glucose 183 mg/dl (74-100); Lipase 467 U/L (23-300)
[2025-01-14 21:11] LABS: Lactic Acid 2.1 mmol/L (0.7-2.1)
[2025-01-14 22:00] VITALS: BP 141/80; PULSE 100; O2SAT 94
--- NOTE | 2025-01-14 22:02 | HMH.EDGENADL ---
Discharge Plan Disposition Patient Disposition: Xfer Short-Term Hosp Condition: Fair Prescriptions Prescriptions: No Action cetirizine 10 mg capsule 10 mg PO DAILY cholecalciferol (vitamin D3) 25 mcg (1,000 unit) capsule 25 mcg PO DAILY insulin glargine [Lantus Solostar U-100 Insulin] 100 unit/mL (3 mL) insulin pen 50 unit SQ DAILY trazodone 50 mg tablet 50 mg PO DAILY Qty: 90 2RF tamsulosin 0.4 mg capsule 0.4 mg PO DAILY 90 Days Qty: 90 2RF Jardiance 25 mg tablet 25 mg PO DAILY 90 Days Qty: 90 1RF atorvastatin 40 mg tablet 40 mg PO DAILY Rx Instructions: TAKE ONE TABLET BY MOUTH ONCE A DAY carvedilol 12.5 mg Tablet 12.5 mg PO BID 30 Days Qty: 60 0RF polyethylene glycol 3350 [HealthyLax] 17 gram Powder In Packet 17 g PO DAILY Qty: 30 0RF spironolactone 25 mg Tablet 50 mg PO DAILY 30 Days Qty: 60 0RF metoclopramide HCl 5 mg Tablet 5 mg PO AC 30 Days Qty: 90 0RF furosemide [Lasix] 40 mg tablet 40 mg PO DAILY Qty: 30 0RF ciprofloxacin HCl 500 mg tablet 500 mg PO BID Qty: 8 0RF pantoprazole 40 mg tablet,delayed release (DR/EC) 40 mg PO DAILY Qty: 30 0RF Referrals Follow up/Referrals: Clarisa Grubbs APRN [Primary Care Provider] - See instructions Clinical Impressions Clinical Impression: Decompensated cirrhosis, Adenocarcinoma of esophagus, Thickening of wall of gallbladder Instructions Patient Instructions: DI for Acute Abdominal Pain Print Language Print Language: Nepali Discharge ED Provider: Joanna Rinaldi General Adult HPI <Joanna Rinaldi DO - Last Filed: 01/15/25 01:14> General Chief complaint: Abdominal Pain Stated complaint: Abnormal labs sent by Jamilah Andrew Time Seen by Provider: 01/14/25 20:48 Mode of Arrival: Ambulatory Source of Information: Patient Description of Symptoms (Recalled from ER Triage Doc. by RN): Pt presents for evaluation of abnormal lab, pt was referred by Dr. Andrew. Pt states he was admitted for ascites to [facility] and was discharged yesterday. Pt noted to be slightly jaundiced. Pt's wbc yesterday was 15 and on today's labs it was 32. Pt had a EGD on saturday by Dr. Jesus and a mass was noted and was biopsied. History of Present Illness HPI narrative: This patient is a 49-year-old male with a history of recently diagnosed esophageal adenocarcinoma, cirrhosis with recent admission for concern for acute decompensation with discharged yesterday, nonalcoholic fatty liver disease, hypertension, hyperlipidemia, RAMESH presenting to the emergency department for evaluation with concern for abnormal labs. Patient states that since discharge, he suddenly turned yellow. He went to outpatient clinic and had labs drawn which showed new elevation in his bilirubin from 3.8-8. He also had worsening transaminitis from 100s to the 700s. White count also increased from 19k to 32k. this was an acute change from his recent admission. During this admission, he had biopsy concerning for esophageal adenocarcinoma and had imaging of his right upper quadrant that was concerning for gallbladder wall thickening, could not exclude acalculous cholecystitis, however it was felt this was likely related to his cirrhosis with new ascites as well as SBP. He was discharged on ciprofloxacin. He notes that he still had nausea and dry heaves, but actually feels a little bit better today. He notes some upper abdominal discomfort and tightness, but no other concerns or complaints. GI sent him over requesting MRCP. Related Data Home Medications ?Medication ?Instructions ?Recorded ?Confirmed cetirizine 10 mg capsule 10 mg PO DAILY ALLERGIES 03/11/18 01/14/25 cholecalciferol (vitamin D3) 25 25 mcg PO DAILY SUPPLIMENT 10/18/20 01/14/25 mcg (1,000 unit) capsule insulin glargine 100 unit/mL (3 50 unit SQ DAILY 01/04/25 01/10/25 mL) subcutaneous pen (Lantus Solostar U-100 Insulin) atorvastatin 40 mg tablet 40 mg PO DAILY 01/10/25 01/14/25 Previous Rx's ?Medication ?Instructions ?Recorded trazodone 50 mg tablet 50 mg PO DAILY #90 tabs 06/01/24 tamsulosin 0.4 mg capsule 0.4 mg PO DAILY BLADDER 90 days 10/23/24 #90 caps empagliflozin 25 mg tablet 25 mg PO DAILY Diabetes 90 days 11/18/24 (Jardiance) #90 tabs carvedilol 12.5 mg tablet 12.5 mg PO BID 30 days #60 tabs 01/13/25 ciprofloxacin HCl 500 mg tablet 500 mg PO BID #8 tabs 01/13/25 furosemide 40 mg tablet (Lasix) 40 mg PO DAILY #30 tabs 01/13/25 metoclopramide HCl 5 mg tablet 5 mg PO AC 30 days #90 tabs 01/13/25 polyethylene glycol 3350 17 gram 17 g PO DAILY #30 ea 01/13/25 oral powder packet (HealthyLax) spironolactone 25 mg tablet 50 mg (2 x 25 mg) PO DAILY 30 days 01/13/25 #60 tabs pantoprazole 40 mg tablet,delayed 40 mg PO DAILY #30 tabs 01/14/25 release Allergies Allergy/AdvReac Type Severity Reaction Status Date / Time No Known Allergies Allergy Verified 01/14/25 14:39 PFS <Joanna Rinaldi DO - Last Filed: 01/15/25 01:14> [facility] Disclaimer: The information contained in this section may have been updated after the patient was seen, as this information can be updated by other users. Medical History History of left heart catheterization Sleep apnea Arrhythmia Skin cancer Fatty tumor Non-alcoholic cirrhosis BPH (benign prostatic hyperplasia) Large tongue RAMESH and COPD overlap syndrome Arthritis T2DM (type 2 diabetes mellitus) Abnormal electrocardiography Hypertension Hyperlipidemia Surgical History History of esophagogastroduodenoscopy (EGD) History of liver biopsy Family History Family/Other Cancer Other Diabetes Heart attack Hypertension No significant family history Stroke Social History Smoking Status: Never smoker smoking status start date: age 14 smoking status stop date: 17 years ago alcohol intake: former substance use type: denies use current occupational status: employed and other Travel in the last 8 weeks?: None household members: other housing: house current occupational exposures/hazards: Yes caffeine: Yes Have you lived/traveled outside [place] in past 30 days?: No Contact w/someone who lives/traveled outside US past 30 days?: No Exposure to someone with infectious disease in past 14 days?: No Do you have a fever (greater than 100.4 F or 38 C)?: No Have you tested positive for COVID-19?: No Exposed to someone with COVID-19 in past 14 days?: No Do you have a sore throat?: No Do you have a cough?: No Do you have any weakness?: No Do you have any diarrhea?: No Are you experiencing any unusual bleeding?: No Do you have any muscle aches/pain?: No Do you have any abdominal pain?: Yes Are you experiencing loss of taste or smell?: No Other Medical History Have you received the Flu Vaccine for this season: No Have you received the Pneumonia Vaccine: No <Joanna Rinaldi DO - Last Filed: 01/15/25 01:14> ROS Obtained: Yes All systems reviewed & no additional complaints except as documented Physical Exam <Joanna Rinaldi DO - Last Filed: 01/15/25 01:14> General General appearance: alert, in no apparent distress and obese Head Head exam: atraumatic and normocephalic Eye Eye exam: Present PERRL, EOMI and scleral icterus ENT ENT exam: Present normal exam, normal oropharynx, mucous membranes moist and normal external ear exam Neck Neck exam: Present normal inspection, full ROM and trachea midline; Absent tenderness Chest Chest inspection: Present normal inspection and symmetric chest wall rise; Absent tenderness Respiratory Respiratory exam: Present normal lung sounds bilaterally; Absent respiratory distress, wheezes, stridor or accessory muscle use Cardiovascular Cardiovascular exam: Present regular rate and normal rhythm Abdominal Exam Abdominal exam: Present soft and distention; Absent tenderness or guarding Extremities Exam Extremities exam: Present normal inspection, full ROM and normal capillary refill; Absent tenderness or edema Back Exam Back exam: Present normal inspection and full ROM; Absent tenderness Neurological Exam Neurological exam: Present alert, oriented X3, CN II-XII intact and normal gait; Absent motor sensory deficit Psychiatric Psychiatric exam: Present normal affect and normal mood Skin Skin exam: Present warm, dry and other (Jaundice) Medical Decision Making <Joanna Rinaldi DO - Last Filed: 01/15/25 01:14> Medical Records Medical records reviewed: Yes I reviewed the patient's medical records. Screening: Per USPSTF and CDC recommendations, given the prevalence of disease in our region, it is our hospital?s policy to screen for HIV and viral Hepatitis for all patients aged 18 and over and those with ongoing risk factors. Mukesh Inquiry Pt receiving controlled substance: No Vital Signs: 01/14/25 20:25 01/14/25 22:00 01/14/25 23:00 Temperature 98 F Temperature Source Temporal Artery Scan Pulse Rate 100 H 102 H Pulse Rate [Right] 100 H Respiratory Rate 18 Blood Pressure 141/80 H 128/77 Blood Pressure [Right Arm] 118/70 Blood Pressure Mean [Right Arm] 86 Blood Pressure Source [Right Arm] Automatic Cuff Blood Pressure Position [Right Arm] Sitting 02 Sat by Pulse Oximetry 96 94 L 93 L Oxygen Delivery Method Room Air 01/15/25 00:00 Temperature Temperature Source Pulse Rate 102 H Pulse Rate [Right] Respiratory Rate Blood Pressure 115/76 Blood Pressure [Right Arm] Blood Pressure Mean [Right Arm] Blood Pressure Source [Right Arm] Blood Pressure Position [Right Arm] 02 Sat by Pulse Oximetry 94 L Oxygen Delivery Method Lab Data Lab results reviewed: Yes I reviewed the patient's lab results. Lab Results 01/14/25 20:31: Direct Bilirubin 6.5 H 01/14/25 20:38: WBC 30.0 H*, RBC 4.40 L, Hgb 11.1 L, Hct 34.3 L, MCV 78.0 L, MCH 25.2 L, MCHC 32.4, RDW 15.6, Plt Count 355, MPV 9.0, Neut % (Auto) 92.2 H, Lymph % (Auto) 2.3 L, [place] % (Auto) 4.5, Eos % (Auto) 0.0 L, Baso % (Auto) 0.2, Neut # (Auto) 27.7 H, Lymph # (Auto) 0.7, [place] # (Auto) 1.4 H, Eos # (Auto) 0.0, Baso # (Auto) 0.1, PT 13.0 H, INR 1.18 H, APTT 23.6, Sodium 129 L, Potassium 3.9, Chloride 98, Carbon Dioxide 24, Anion Gap 10.9, BUN 26 H, Creatinine 0.80, Estimated Creat Clear 144, Estimated GFR 102, Est GFR ( Amer) 123, Glucose 183 H, Lactate 2.1, Calcium 8.9, Total Bilirubin 8.0 H, AST 679 H*, ALT 430 H*, Alkaline Phosphatase 655 H, Total Protein 6.0 L, Albumin 3.1 L, Globulin 2.9, Albumin/Globulin Ratio 1.1, Lipase 467 H 01/14/25 20:44: VBG pH 7.46 H, VBG pCO2 31.0 L, VBG pO2 97.8 H, VBG HCO3 21.8 L, VBG Total CO2 22.7 L, VBG O2 Saturation 97.7 H, VBG Base Excess -2.0, VBG Lactic Acid 3.2 H 01/15/25 01:07: Lactate 1.6 01/14/25 20:38 01/14/25 20:38 Orders (Tests/Meds): ED MEDICATIONS Generic Name Dose Route Start Last Admin Trade Name Freq PRN Reason Stop Dose Admin Lactated Ringer's 1,000 mls @ 125 mls/hr 01/15/25 01:15 01/15/25 02:04 Lactated Ringer's 1000 Ml Bag IV 02/14/25 01:14 125 mls/hr .Q8H SHANI Administration Discontinued Medications Generic Name Dose Route Start Last Admin Trade Name Freq PRN Reason Stop Dose Admin Piperacillin Sod/Tazobactam 50 mls @ 100 mls/hr 01/14/25 22:55 01/14/25 23:05 Sod 3.375 gm/ Sodium Chloride IV 01/14/25 23:24 100 mls/hr ONCE ONE Administration Lactated Ringer's 1,000 mls @ 999 mls/hr 01/14/25 22:55 01/14/25 23:05 Lactated Ringer's 1000 Ml Bag IV 01/14/25 23:55 999 mls/hr .Q1H1M ONE Administration Iopamidol 75 ml 01/14/25 21:23 Iopamidol-370 (76%);100ml Bottle IV 01/14/25 21:24 ONCE ONE Sodium Chloride 10 ml 01/14/25 21:23 Sodium Chloride 0.9% 10ml Syr (Rad Only) IV 01/14/25 21:24 ONCE ONE ORDERS Category Date Time Status Bilirubin,Direct Stat Lab 01/15/25 00:53 Completed Complete Blood Count Auto Diff Stat Lab 01/14/25 20:38 Completed Comprehensive Metabolic Panel Stat Lab 01/14/25 20:38 Completed Lactic Acid Follow Up (RFLX 1) Stat Lab 01/15/25 01:07 Completed Lactic Acid Stat Lab 01/14/25 20:38 Completed Lipase Stat Lab 01/14/25 20:38 Completed PT INR [Prothrombin Time INR] Stat Lab 01/14/25 20:38 Completed PTT [Activated Partial Thrombo Time] Stat Lab 01/14/25 20:38 Completed Blood Culture Stat Micro 01/14/25 21:17 Received VBG [Venous Blood Gas] Stat RT 01/14/25 20:44 Completed Medical Decision Narrative: In summary, this patient is a 49-year-old male presenting to the Emergency Department for evaluation of jaundice with abnormal labs obtained in outpatient clinic after just being discharged from the hospital yesterday. Differential diagnoses considered include but are not limited to decompensated cirrhosis, ascending cholangitis given his abnormal biliary imaging as well as lab abnormalities, mass causing biliary outflow obstruction in the setting of this recently biopsied new diagnosis of cancer for which he is not currently on treatment. Ruling out the most morbid conditions drove assessment. It should be noted patient's history includes new diagnosis of esophageal adenocarcinoma, LORENZO cirrhosis, hypertension, hyperlipidemia, type 2 diabetes which are not at goal therapy. This complicates all aspects of care by increasing patient's risk for morbidity. I reviewed patient's past medical records and noted recent admission as detailed in HPI as well as evaluation in outpatient clinic. As detailed in HPI, he was admitted for cirrhosis, esophageal adenocarcinoma that was newly diagnosed this admission, SBP, pneumonia for which she was discharged home on ciprofloxacin I had an interactive discussion with the patient's GI provider prior to arrival who advised that she recommended MRCP and possible ERCP, however I had an indirect discussion with the hospitalist who advised they are concerned that we would not be able to get ERCP likely over the weekend and they feel the patient needs higher level of care in case of possible ascending colon jaundice versus mass causing biliary outflow obstruction. Workup included CBC, CMP, coags, lipase, blood cultures. I gave the patient IV fluids as well as IV Zosyn. He was not given full sepsis bolus with concern for possible volume overload, as I feel it would be detrimental to him. I had ordered a CT scan of the abdomen and pelvis with IV contrast, however patient did not want to obtain this because he had multiple recent bouts of imaging and was told by his GI specialist that he needs an MRI. Given this after shared decision making, CT imaging was deferred. Labs demonstrated significant leukocytosis of 30,000, mild anemia 11.1, mild elevation in INR at 1.18, elevated lactic of 3.2, hyponatremia with a sodium of 129, significant elevation in bilirubin at 8, AST 679, ALT 430, alkaline phosphatase 655, lipase 467. MELD has gone from 15-22. On reassessment, patient is resting comfortably. Perfusion improved on skin assessment. He denies any need for any medications and is comfortable at this time given all of these things as well as patient's acutely decompensated state since just discharged yesterday, providers here to hospital are in agreement that the patient requires transfer to higher level of care for further evaluation and management just in case needs debulking surgery versus management of possible ascending cholangitis. Ultrasound imaging from yesterday showing the pericholecystic fluid and gallbladder wall thickening was PowerShare to both and . We initially called for consultation, and Dr. Silverio the transfer center did not connect me with any specialist but advised they do not have any beds. I advised my concern that the patient could be having a surgical emergency if he does have ascending colon jaundice, but she stated they do not have any bed so she is unable to accept him. I then initiated discussions with [facility], but Dr. Frye the hospitalist at [facility] recommended transfer to higher level of care such as . Given that they did not accept the patient, I had interactive discussion with the patient who initially was reluctant but then finally agreeable to possible transfer to . Call was initiated to at 2330. At 0100 I had indirect discussion with Dr. Virgen Sun who accepted the patient for transfer to for higher level of care. Started the patient on maintenance IV fluids. EMS transport is pending at this time, as they are currently [facility]. Patient care signed out to the oncoming provider, Dr. Tai, pending transport. <Niurka Tai MD - Last Filed: 01/15/25 02:24> Vital Signs: 01/14/25 20:25 01/14/25 22:00 01/14/25 23:00 Temperature 98 F Temperature Source Temporal Artery Scan Pulse Rate 100 H 102 H Pulse Rate [Right] 100 H Respiratory Rate 18 Blood Pressure 141/80 H 128/77 Blood Pressure [Right Arm] 118/70 Blood Pressure Mean [Right Arm] 86 Blood Pressure Source [Right Arm] Automatic Cuff Blood Pressure Position [Right Arm] Sitting 02 Sat by Pulse Oximetry 96 94 L 93 L Oxygen Delivery Method Room Air 01/15/25 00:00 Temperature Temperature Source Pulse Rate 102 H Pulse Rate [Right] Respiratory Rate Blood Pressure 115/76 Blood Pressure [Right Arm] Blood Pressure Mean [Right Arm] Blood Pressure Source [Right Arm] Blood Pressure Position [Right Arm] 02 Sat by Pulse Oximetry 94 L Oxygen Delivery Method Lab Data Lab Results 01/14/25 20:31: Direct Bilirubin 6.5 H 01/14/25 20:38: WBC 30.0 H*, RBC 4.40 L, Hgb 11.1 L, Hct 34.3 L, MCV 78.0 L, MCH 25.2 L, MCHC 32.4, RDW 15.6, Plt Count 355, MPV 9.0, Neut % (Auto) 92.2 H, Lymph % (Auto) 2.3 L, [place] % (Auto) 4.5, Eos % (Auto) 0.0 L, Baso % (Auto) 0.2, Neut # (Auto) 27.7 H, Lymph # (Auto) 0.7, [place] # (Auto) 1.4 H, Eos # (Auto) 0.0, Baso # (Auto) 0.1, PT 13.0 H, INR 1.18 H, APTT 23.6, Sodium 129 L, Potassium 3.9, Chloride 98, Carbon Dioxide 24, Anion Gap 10.9, BUN 26 H, Creatinine 0.80, Estimated Creat Clear 144, Estimated GFR 102, Est GFR ( Amer) 123, Glucose 183 H, Lactate 2.1, Calcium 8.9, Total Bilirubin 8.0 H, AST 679 H*, ALT 430 H*, Alkaline Phosphatase 655 H, Total Protein 6.0 L, Albumin 3.1 L, Globulin 2.9, Albumin/Globulin Ratio 1.1, Lipase 467 H 01/14/25 20:44: VBG pH 7.46 H, VBG pCO2 31.0 L, VBG pO2 97.8 H, VBG HCO3 21.8 L, VBG Total CO2 22.7 L, VBG O2 Saturation 97.7 H, VBG Base Excess -2.0, VBG Lactic Acid 3.2 H 01/15/25 01:07: Lactate 1.6 Orders (Tests/Meds): ED MEDICATIONS Generic Name Dose Route Start Last Admin Trade Name Freq PRN Reason Stop Dose Admin Lactated Ringer's 1,000 mls @ 125 mls/hr 01/15/25 01:15 01/15/25 02:04 Lactated Ringer's 1000 Ml Bag IV 02/14/25 01:14 125 mls/hr .Q8H SHANI Administration Discontinued Medications Generic Name Dose Route Start Last Admin Trade Name Freq PRN Reason Stop Dose Admin Piperacillin Sod/Tazobactam 50 mls @ 100 mls/hr 01/14/25 22:55 01/14/25 23:05 Sod 3.375 gm/ Sodium Chloride IV 01/14/25 23:24 100 mls/hr ONCE ONE Administration Lactated Ringer's 1,000 mls @ 999 mls/hr 01/14/25 22:55 01/14/25 23:05 Lactated Ringer's 1000 Ml Bag IV 01/14/25 23:55 999 mls/hr .Q1H1M ONE Administration Iopamidol 75 ml 01/14/25 21:23 Iopamidol-370 (76%);100ml Bottle IV 01/14/25 21:24 ONCE ONE Sodium Chloride 10 ml 01/14/25 21:23 Sodium Chloride 0.9% 10ml Syr (Rad Only) IV 01/14/25 21:24 ONCE ONE ORDERS Category Date Time Status Bilirubin,Direct Stat Lab 01/15/25 00:53 Completed Complete Blood Count Auto Diff Stat Lab 01/14/25 20:38 Completed Comprehensive Metabolic Panel Stat Lab 01/14/25 20:38 Completed Lactic Acid Follow Up (RFLX 1) Stat Lab 01/15/25 01:07 Completed Lactic Acid Stat Lab 01/14/25 20:38 Completed Lipase Stat Lab 01/14/25 20:38 Completed PT INR [Prothrombin Time INR] Stat Lab 01/14/25 20:38 Completed PTT [Activated Partial Thrombo Time] Stat Lab 01/14/25 20:38 Completed Blood Culture Stat Micro 01/14/25 21:17 Received VBG [Venous Blood Gas] Stat RT 01/14/25 20:44 Completed Medical Decision Narrative: In summary, this patient is a 49-year-old male presenting to the Emergency Department for evaluation of jaundice with abnormal labs obtained in outpatient clinic after just being discharged from the hospital yesterday. Differential diagnoses considered include but are not limited to decompensated cirrhosis, ascending cholangitis given his abnormal biliary imaging as well as lab abnormalities, mass causing biliary outflow obstruction in the setting of this recently biopsied new diagnosis of cancer for which he is not currently on treatment. Ruling out the most morbid conditions drove assessment. It should be noted patient's history includes new diagnosis of esophageal adenocarcinoma, LORENZO cirrhosis, hypertension, hyperlipidemia, type 2 diabetes which are not at goal therapy. This complicates all aspects of care by increasing patient's risk for morbidity. I reviewed patient's past medical records and noted recent admission as detailed in HPI as well as evaluation in outpatient clinic. As detailed in HPI, he was admitted for cirrhosis, esophageal adenocarcinoma that was newly diagnosed this admission, SBP, pneumonia for which she was discharged home on ciprofloxacin I had an interactive discussion with the patient's GI provider prior to arrival who advised that she recommended MRCP and possible ERCP, however I had an indirect discussion with the hospitalist who advised they are concerned that we would not be able to get ERCP likely over the weekend and they feel the patient needs higher level of care in case of possible ascending colon jaundice versus mass causing biliary outflow obstruction. Workup included CBC, CMP, coags, lipase, blood cultures. I gave the patient IV fluids as well as IV Zosyn. He was not given full sepsis bolus with concern for possible volume overload, as I feel it would be detrimental to him. I had ordered a CT scan of the abdomen and pelvis with IV contrast, however patient did not want to obtain this because he had multiple recent bouts of imaging and was told by his GI specialist that he needs an MRI. Given this after shared decision making, CT imaging was deferred. Labs demonstrated significant leukocytosis of 30,000, mild anemia 11.1, mild elevation in INR at 1.18, elevated lactic of 3.2, hyponatremia with a sodium of 129, significant elevation in bilirubin at 8, AST 679, ALT 430, alkaline phosphatase 655, lipase 467. MELD has gone from 15-22. On reassessment, patient is resting comfortably. Perfusion improved on skin assessment. He denies any need for any medications and is comfortable at this time given all of these things as well as patient's acutely decompensated state since just discharged yesterday, providers here to hospital are in agreement that the patient requires transfer to higher level of care for further evaluation and management just in case needs debulking surgery versus management of possible ascending cholangitis. Ultrasound imaging from yesterday showing the pericholecystic fluid and gallbladder wall thickening was PowerShare to both and . We initially called for consultation, and Dr. Silverio the transfer center did not connect me with any specialist but advised they do not have any beds. I advised my concern that the patient could be having a surgical emergency if he does have ascending colon jaundice, but she stated they do not have any bed so she is unable to accept him. I then initiated discussions with [facility], but Dr. Frye the hospitalist at [facility] recommended transfer to higher level of care such as . Given that they did not accept the patient, I had interactive discussion with the patient who initially was reluctant but then finally agreeable to possible transfer to . Call was initiated to at 2330. At 0100 I had indirect discussion with Dr. Virgen Sun who accepted the patient for transfer to for higher level of care. Started the patient on maintenance IV fluids. EMS transport is pending at this time, as they are currently [facility] of the [facility]. Patient care signed out to the oncoming provider, Dr. Tai, pending transport. Tai: Upon my assumption of care patient is stable. I agree with the assessment and plan from Dr. Rinaldi. Direct bilirubin resulted elevated, increased concern for obstructive cause for his hyperbilirubinemia. Patient is already excepted to [facility]. EMS transport became available. I reassessed the patient immediately before transfer. He remains hemodynamically stable, afebrile, airway patent, ill-appearing but not in extremis. Patient and family were given the opportunity to ask questions which were answered to their satisfaction. Patient was transferred in serious but currently stable condition. Critical Care <Joanna Rinaldi, DO - Last Filed: 01/15/25 01:14> Critical Care Time Critical Care Time: Yes Attestation: On 01/14/25, the high probability of a clinically significant, sudden or life threatening deterioration of the following system(s) required my full and direct attention, intervention and personal management. The time I documented below is in addition to time spent performing reported procedures but includes the following listed in this critical care notation. Total Time Total Critical Care Time: 65
--- NOTE | 2025-01-14 22:02 | PC.NURSE ---
called [facility] to see about transferring patient
--- NOTE | 2025-01-14 22:19 | PC.NURSE ---
called [facility] about transferring patient said they would call back
[2025-01-14 22:39] LABS: Activated Partial Thrombo Time 23.6 seconds (22.8-30.6); INR 1.18 (0.9-1.1)
--- NOTE | 2025-01-14 22:45 | PC.NURSE ---
Dr. Rinaldi speaking with [facility] at this time
[2025-01-14 23:00] VITALS: BP 128/77; PULSE 102; O2SAT 93
[2025-01-14] MEDS: PIPERACILLIN/TAZO 3.375 GM in 0.9 % SODIUM CHLORIDE 50 ML IV (23:05)
[2025-01-14] MEDS: LACTATED RINGERS 1000ML 1,000 ML 999 ML IV (23:05)
--- NOTE | 2025-01-14 23:34 | PC.NURSE ---
spoke with [facility]. speaking to them now
[2025-01-15] VITALS: BP 115/76; PULSE 102; O2SAT 94
[2025-01-15 00:46] LABS: Reflex Lactic Add Lactic Reflex
[2025-01-15 01:14] LABS: Bilirubin,Direct 6.5 mg/dl (0.0-0.4)
[2025-01-15 01:25] LABS: Lactic Acid Follow Up (RFLX 1) 1.6 mmol/L (0.7-2.1)
[2025-01-15] MEDS: LACTATED RINGERS 1000ML 1,000 ML 125 ML IV (02:04)
--- NOTE | 2025-01-15 02:05 | PC.NURSE ---
Report given to Breanne HUI at . call back number [phone] room assignment [id number]
[2025-01-15] MEDS: ONDANSETRON 4MG/2ML VIAL 4 MG IV (02:30)
[2025-01-15 02:32] VITALS: BP 130/69; PULSE 102; RESP 18; TEMP 36.9; O2SAT 97
== END 2025-01-15 02:42 | disposition short-term general hospital (02) ==
PROVIDERS: Emergency Medicine; Emergency Provider Emergency Medicine; PCP Nurse Practitioner Family
DX: K72.90 Hepatic failure, unspecified without coma (principal); C15.9 Malignant neoplasm of esophagus, unspecified; K82.8 Other specified diseases of gallbladder; R74.02 Elevation of levels of lactic acid dehydrogenase [LDH]; E87.1 Hypo-osmolality and hyponatremia; D72.89 Other specified disorders of white blood cells; E80.7 Disorder of bilirubin metabolism, unspecified; R74.8 Abnormal levels of other serum enzymes
CPT/HCPCS: 36415; 80053; 82248; 82803; 83605; 83690; 85025; 85610; 85730; 87040; 96361; 96365; 96375; 99291; J2405; J2543; J7120

== ENCOUNTER 2025-01-24 11:54 | Inpatient (IN) | payer OTHER, SELFPAY ==
[2025-01-24] VITALS (56 sets, daily range): BP systolic 63–124; BP diastolic 30–75; PULSE 90–112; RESP 12–34; TEMP 35.2–37.1; O2SAT 91–100; BMI 28.7; BMI 28.9
--- NOTE | 2025-01-24 11:52 | ECG_ITS ---
APPROVED REPORT Exam: Resting ECG HR:97 bpm ECG Measurements Heart Rate 97 AXES TN 176 P 38 QRSd 95 QRS 46 QT 358 T -2 QTc 413 Conclusion SINUS RHYTHM NONSPECIFIC ST & T-WAVE ABNORMALITY No STEMI Electronically signed by : LUCIEN MARTINEZ, 01/26/2025 19:59:40
--- NOTE | 2025-01-24 11:59 | XR_ITS ---
PROCEDURE INFORMATION: Exam: XR Chest Exam date and time: 01/24/2025 11:54 AM Age: 49 years old Clinical indication: Shortness of breath; Additional info: SOA TECHNIQUE: Imaging protocol: Radiologic exam of the chest. Views: 1 view. COMPARISON: CT ANGIO CHEST PE PROTOCOL 01/10/2025 9:57 AM FINDINGS: Lungs: The lungs are hypoinflated. Patchy opacities in both lungs may represent edema or infection. Moderate atelectasis is seen in the right lung base. Pleural spaces: Unremarkable. No pleural effusion. No pneumothorax. Heart/Mediastinum: Unremarkable. No cardiomegaly. Bones/joints: Unremarkable. IMPRESSION: Patchy opacities in both lungs may represent edema or infection. Moderate atelectasis is seen in the right lung base.
--- NOTE | 2025-01-24 12:05 | PC.NURSE ---
started the emergent paracentesis. pt tolerated the procedure well.
[2025-01-24 12:06] LABS: Adenovirus,PCR Not Detected (NotDetected); Bordetella Pertussis Not Detected (NotDetected); Chlamydophila Pneumoniae, PCR Not Detected (NotDetected); Coronavirus 19, PCR Not Detected (NotDetected); Coronavirus 229E Not Detected (NotDetected); Coronavirus NL63 Not Detected (NotDetected); Coronavirus OC43 Not Detected (NotDetected); Coronovirus HKU1,PCR Not Detected (NotDetected); Human Metapneumovirus Not Detected (NotDetected); Influenza A, PCR Not Detected (NotDetected); Influenza AH1, 2009 Not Detected (NotDetected); Influenza AH1, PCR Not Detected (NotDetected); Influenza AH3,PCR Not Detected (NotDetected); Influenza B, PCR Not Detected (NotDetected); Mycoplasma Pneumoniae, PCR Not Detected (NotDetected); Parainfluenza 1, PCR Not Detected (NotDetected); Parainfluenza 2, PCR Not Detected (NotDetected); Parainfluenza 3, PCR Not Detected (NotDetected); Parainfluenza 4, PCR Not Detected (NotDetected); Respiratory Syncytial Virus Not Detected (NotDetected); Rhinovirus/Enterovirus Not Detected (NotDetected)
[2025-01-24 12:10] LABS: Microscopic, Urine URINE MICROSCOPIC (MICROSCOPIC)
--- NOTE | 2025-01-24 12:13 | PC.NURSE ---
Para fluid hand delivered to lab.
[2025-01-24 12:16] LABS: VBG Base Excess -16.4 mmol/L (-2.4-2.3); VBG HCO3 12.8 mmol/L (23-30); VBG Oxygen Saturation 74.3 % (50-70); VBG PCO2 39.8 mmol/L (35-51); VBG PO2 55.2 mmol/L (28-40)
[2025-01-24 12:19] LABS: Appearance,Urine CLEAR (Clear); Blood, Urine Negative (Negative); Color,Urine YELLOW (Yellow); Glucose,Urine (UA) 1+ (Negative); Ketones,Urine Negative (Negative); Leukocyte Esterase,Urine Negative (Negative); Nitrate,Urine Negative (Negative); PH,Urine 5.5 (5.0-8.5); Protein,Urine Negative (Negative); Specific Gravity, Urine >= 1.030 (1.005-1.030)
[2025-01-24 12:20] LABS: Basophils # 0.2 K/mm3 (0-0.2); Basophils % 0.3 % (0.1-2.0); Hematocrit 25.9 % (42.0-52.0); Hemoglobin 8.2 g/dL (14.1-18.0); Immature Granulocytes # 2.09 10^3uL; Immature Granulocytes % 3.6 %; Lymphocytes % 1.7 % (10-50); Mean Corpuscular HGB Conc 31.7 g/dL (31.8-35.4); Mean Corpuscular Hemoglobin 26.2 pg (27.0-31.2); Mean Corpuscular Volume 82.7 fl (80-94); Mean Platelet Volume 9.9 fl (7.4-10.4); Monocytes # 3.2 K/mm3 (0.1-1.0); Monocytes % 5.5 % (1.7-9.3); Neutrophils # 51.3 K/mm3 (1.8-7.8); Neutrophils % 88.9 % (37.0-80.0); Nucleated Red Blood Cells # 0.05 10^3/uL; Nucleated Red Blood Cells % 0.1 %; Platelet Count 435 K/mm3 (142-424); Red Blood Count 3.13 M/mm3 (4.60-6.20); Red Cell Distribution Width 22.6 % (11.5-17.5); Red Cell Distribution Width-SD 63.7 fL
[2025-01-24 12:23] LABS: Bilirubin,Urine 3+ (Negative)
[2025-01-24 12:24] LABS: Albumin Level 2.8 g/dl (3.5-5.0); Chloride 89 mmol/L (98-107); Sodium 118 mmol/L (136-145)
[2025-01-24 12:25] LABS: Potassium 5.6 mmoL/L (3.5-5.1)
[2025-01-24 12:27] LABS: Alanine Aminotransferase 327 U/L (12-78); Alkaline Phosphatase 949 U/L (38-126); Anion Gap 21.6 mEq/L (5-15); Bilirubin,Total 16.6 mg/dl (0.2-1.3); Blood Urea Nitrogen 78 mg/dl (9-20); Calcium 7.7 mg/dl (8.4-10.2); Carbon Dioxide 13 mmol/L (22.0-30.0); Globulin 2.9 g/dL (1.3-3.2); Glucose 229 mg/dl (74-100); Total Protein,Serum 5.7 g/dl (6.3-8.2)
[2025-01-24 12:29] LABS: INR 1.54 (0.9-1.1); Prothrombin Time 16.6 seconds (10.1-12.5)
[2025-01-24 12:32] LABS: White Blood Count 57.7 K/mm3 (4.8-10.8)
[2025-01-24 12:33] LABS: C-Reactive Protein 51.5 mg/L (0-4)
[2025-01-24 12:34] LABS: Creatinine Clearance Estimated 43 mL/min (50-200); Estimated Glomerular Filt Rate 26 ml/min (>60); GFR (African American) 32 ML/MIN (>60); MANUAL DIFFERENTIAL MANUAL DIFFERENTIAL (MANUAL DIFF)
[2025-01-24 12:35] LABS: Bacteria,Urine 3+ /lpf
[2025-01-24 12:35] LABS: Lactate Venous 8.6 mmol/L (0.4-2.0); VBG PH 7.13 mmol/L (7.31-7.41)
[2025-01-24 12:45] LABS: Ammonia 66 umol/L (9-30)
[2025-01-24 12:45] LABS: T4 (Thyroxine) 2.9 ug/dl (5.53-11.0)
[2025-01-24 12:46] LABS: Lactic Acid 8.1 mmol/L (0.7-2.1)
--- NOTE | 2025-01-24 12:48 | PC.NURSE ---
pt has had 4L of fluid drained. The fluid is tea colored and cloudy. A new safety vac has been placed. scant to no drainage at this time.
[2025-01-24 12:49] LABS: Aspartate Amino Transferase 867 U/L (17-59); Creatine Kinase 1673 U/L (55-170); Troponin I < 0.01 ng/ml (0.00-0.034)
[2025-01-24 12:52] LABS: Appearance,Body Fld. Hazy; Source, Body Fld. Paracentesis Fluid; Volume,Body Fld. 2000 mL
[2025-01-24 12:53] LABS: TNC,Body Fluid 3169 cells/uL (< 1000)
[2025-01-24] MEDS: ALBUMIN HUMAN 12.5 GM/50 ML BAG IV (12:54)
[2025-01-24] MEDS: LACTATED RINGERS 1000ML 1,000 ML 999 ML IV (12:55)
[2025-01-24] MEDS: NOREPINEPHRINE BITARTRATE/D5W 8 MG/250 ML PLAST..BAG 56.25 MG IV (12:56)
[2025-01-24 12:58] LABS: Thyroid Stimulating Hormone 1.11 uIU/mL (0.465-4.68)
[2025-01-24] MEDS: PIPERACILLIN/TAZO 3.375 GM in 0.9 % SODIUM CHLORIDE 50 ML IV (13:01)
--- NOTE | 2025-01-24 13:29 | EXP.HP ---
History of Present Illness *Admission Date: 01/24/25 *Reason for visit:: Hospice care *History of present illness: Tariq Cruz is a 49-year-old male with medical history for end-stage liver cirrhosis, esophageal adenocarcinoma who presents with worsening abdominal distention, jaundice, generalized weakness. Patient was recently admitted to [facility] for similar symptoms and unfortunately due to esophageal adenocarcinoma, end-stage liver cirrhosis is not a transplant candidate. He was discharged on hospice care who evaluated him yesterday at home. However, patient symptoms became worse overnight and into today and patient called hospice care and advised patient to proceed to the ED. En route, he was placed on a nonrebreather and on arrival patient's BP was in the 70s over 40s. Workup in the ED significant for WBC 57, sodium 118, total bilirubin 16.6, AST/ALT 867/327, ALP 949. It was not known that patient had been accepted to hospice care, so the ED resuscitated him with albumin, fluids, Levophed. When family arrived, extensive conversation was had with the ED provider and decision was made to make patient comfort care. Levophed was discontinued. Case discussed with ED provider and she was made to admit patient for the same. [facility] Disclaimer: The information contained in this section may have been updated after the patient was seen, as this information can be updated by other users. Medical History History of left heart catheterization Sleep apnea Arrhythmia Skin cancer Fatty tumor Non-alcoholic cirrhosis BPH (benign prostatic hyperplasia) Large tongue RAMESH and COPD overlap syndrome Arthritis T2DM (type 2 diabetes mellitus) Abnormal electrocardiography Hypertension Hyperlipidemia Surgical History History of esophagogastroduodenoscopy (EGD) History of liver biopsy Family History Family/Other Cancer Other Diabetes Heart attack Hypertension No significant family history Stroke Social History Smoking Status: Former smoker tobacco type: cigarettes packs per day: 2 smoking status start date: age 14 smoking status stop date: 17 years ago alcohol intake: former substance use type: denies use current occupational status: employed and other Travel in the last 8 weeks?: None household members: other housing: house current occupational exposures/hazards: Yes caffeine: Yes Other Medical History Have you received the Flu Vaccine for this season: No Have you received the Pneumonia Vaccine: No Meds Home Medications and Allergies Home Medications ?Medication ?Instructions ?Recorded ?Confirmed ?Type cetirizine 10 mg capsule 10 mg PO DAILY ALLERGIES 03/11/18 01/14/25 History cholecalciferol (vitamin D3) 25 25 mcg PO DAILY SUPPLIMENT 10/18/20 01/14/25 History mcg (1,000 unit) capsule trazodone 50 mg tablet 50 mg PO DAILY #90 tabs 06/01/24 01/14/25 Rx tamsulosin 0.4 mg capsule 0.4 mg PO DAILY BLADDER 90 days 10/23/24 01/14/25 Rx #90 caps empagliflozin 25 mg tablet 25 mg PO DAILY Diabetes 90 days 11/18/24 01/14/25 Rx (Jardiance) #90 tabs insulin glargine 100 unit/mL (3 50 unit SQ DAILY 01/04/25 01/10/25 History mL) subcutaneous pen (Lantus Solostar U-100 Insulin) atorvastatin 40 mg tablet 40 mg PO DAILY 01/10/25 01/14/25 History carvedilol 12.5 mg tablet 12.5 mg PO BID 30 days #60 tabs 01/13/25 01/14/25 Rx ciprofloxacin HCl 500 mg tablet 500 mg PO BID #8 tabs 01/13/25 01/14/25 Rx furosemide 40 mg tablet (Lasix) 40 mg PO DAILY #30 tabs 01/13/25 01/14/25 Rx metoclopramide HCl 5 mg tablet 5 mg PO AC 30 days #90 tabs 01/13/25 01/14/25 Rx polyethylene glycol 3350 17 gram 17 g PO DAILY #30 ea 01/13/25 01/14/25 Rx oral powder packet (HealthyLax) spironolactone 25 mg tablet 50 mg (2 x 25 mg) PO DAILY 30 days 01/13/25 01/14/25 Rx #60 tabs pantoprazole 40 mg tablet,delayed 40 mg PO DAILY #30 tabs 01/14/25 01/14/25 Rx release New Prescriptions to Start Prescriptions: Allergies Allergy/AdvReac Type Severity Reaction Status Date / Time No Known Allergies Allergy Verified 01/14/25 14:39 Exam Data for Last 24 hours Vital signs and Labs for Last 24 Hours: Temp Pulse Resp BP Pulse Ox O2 Del Method O2 Flow Rate 97.2 F L 111 H 18 124/55 L 99 Vapotherm 30 01/24/25 12:55 01/24/25 12:55 01/24/25 12:55 01/24/25 12:55 01/24/25 12:55 01/24/25 12:36 01/24/25 12:36 FiO2 70 01/24/25 12:36 Laboratory Results - last 24 hr 01/24/25 11:55: WBC 57.7 H*, RBC 3.13 L, Hgb 8.2 L, Hct 25.9 L, MCV 82.7, MCH 26.2 L, MCHC 31.7 L, RDW 22.6 H, Plt Count 435 H, MPV 9.9, Neut % (Auto) 88.9 H, Lymph % (Auto) 1.7 L, Harper % (Auto) 5.5, Eos % (Auto) 0.0 L, Baso % (Auto) 0.3, Neut # (Auto) 51.3 H, Lymph # (Auto) 1.0, Harper # (Auto) 3.2 H, Eos # (Auto) 0.0, Baso # (Auto) 0.2, PT 16.6 H, INR 1.54 H, APTT 33.0 H, VBG pH 7.13 L, VBG pCO2 39.8, VBG pO2 55.2 H, VBG HCO3 12.8 L, VBG Total CO2 14.0 L, VBG O2 Saturation 74.3 H, VBG Base Excess -16.4 L, VBG Lactic Acid 8.6 H, Sodium 118 L, Potassium 5.6 H, Chloride 89 L, Carbon Dioxide 13 L, Anion Gap 21.6 H, BUN 78 H, Creatinine 2.60 H, Estimated Creat Clear 43, Estimated GFR 26 L, Est GFR ( Amer) 32 L, Glucose 229 H, Lactate 8.1 H, Calcium 7.7 L, Total Bilirubin 16.6 H*, AST 867 H*, ALT 327 H*, Alkaline Phosphatase 949 H, Total Creatine Kinase 1673 H*, Troponin I < 0.01, C-Reactive Protein 51.5 H, Total Protein 5.7 L, Albumin 2.8 L, Globulin 2.9, Albumin/Globulin Ratio 1.0 L, TSH 1.11, Thyroxine (T4) 2.9 L 01/24/25 12:04: Urine Color Yellow, Urine Appearance Clear, Urine pH 5.5, Ur Specific [place] >= 1.030, Urine Protein Negative, Urine Glucose (UA) 1+, Urine Ketones Negative, Urine Blood Negative, Urine Nitrate Negative, Urine Bilirubin 3+ A, Urine Urobilinogen 1.0, Ur Leukocyte Esterase Negative, Urine RBC None, Urine WBC 5-10, Ur Squamous Epith Cells 3-5, Urine Bacteria 3+ 01/24/25 12:11: Fluid Source Paracentesis fluid, Fluid Volume 2000, Fluid Appearance Hazy, Fluid RBC (Auto) 4, Fld Tot Nucleated Cell 3169 01/24/25 12:18: Ammonia 66 H I & O for Last 24 hours: Intake & Output 01/21/25 01/22/25 01/23/25 01/24/25 23:59 23:59 23:59 23:59 Weight 90.718 kg Constitutional Constitutional: moderate distress Comments: Jaundice. *Routine HEENT Exam Head: Present normocephalic Eye: Present EOMI and PERRL ENT: Present mucous membranes moist *Routine Neck Exam Neck: Present supple; Absent lymphadenopathy *Routine Respiratory Exam Respiratory: Present CTA bilaterally *Routine Cardiovascular Exam Cardiovascular: Present RRR *Routine Abdominal Exam Abdominal: Present soft, normoactive bowel sounds and tenderness Comments: distention with fluid wave. *Routine Rectal Exam Rectal:: deferred *Routine Genitalia Exam Genitalia:: deferred *Routine Extremities Exam Extremities: Present edema; Absent cyanosis or clubbing *Routine Skin Exam Skin: Present warm; Absent rash *Routine Neurological Exam Neurological: Present alert and oriented X3 Assessment and Plan *Assessment and plan (1) Decompensated cirrhosis: Status: Acute Category: Medical Code(s): K72.90 - Hepatic failure, unspecified without coma; K74.60 - Unspecified cirrhosis of liver Plan Tariq Cruz is a 49-year-old male with medical history for end-stage liver cirrhosis, esophageal adenocarcinoma who presents with worsening abdominal distention, jaundice, generalized weakness. Patient was recently admitted to [facility] for similar symptoms and unfortunately due to esophageal adenocarcinoma, end-stage liver cirrhosis is not a transplant candidate. He was discharged on hospice care who evaluated him yesterday at home. However, patient symptoms became worse overnight and into today and patient called hospice care and advised patient to proceed to the ED. En route, he was placed on a nonrebreather and on arrival patient's BP was in the 70s over 40s. Workup in the ED significant for WBC 57, sodium 118, total bilirubin 16.6, AST/ALT 867/327, ALP 949. It was not known that patient had been accepted to hospice care, so the ED resuscitated him with albumin, fluids, Levophed. When family arrived, extensive conversation was had with the ED provider and decision was made to make patient comfort care. Levophed was discontinued. Case discussed with ED provider and she was made to admit patient for the same. #Comfort care #End-stage liver cirrhosis #Esophageal adenocarcinoma #Hepatic failure #Transaminitis, #Jaundice #Decompensated cirrhosis ? On my evaluation of patient, he was moderately distressed but alert and oriented. He was thoroughly jaundiced, with significant abdominal distention and anasarca. He was still on Vapotherm, and patient desired to be weaned to nasal cannula. ? ED did palliative paracentesis with with some improvement of symptoms. ? At this time, patient wants to pursue comfort care. He made it clear that he does not want any advanced interventions including Levophed, antibiotics. ? Family was at bedside when I confirmed his wishes. ? Morphine, Ativan available as needed for comfort care. DNR/DNI
--- NOTE | 2025-01-24 13:30 | PC.NURSE ---
I called to request a bed to med/surg for hospice care to the hospitalist.
[2025-01-24 13:37] LABS: Lymphocytes % 2 % (10-50); Monocytes % 6 % (2-9); Neutrophils % 90 % (42-76); Total Cells Counted 100
[2025-01-24 13:53] LABS: Hypochromasia 1+; Platelet Estimate Slight Increase
[2025-01-24] MEDS: VANCOMYCIN/WATER FOR INJ (PEG) 1.75 GM/350 ML PIGGYBACK IV (14:03)
--- NOTE | 2025-01-24 14:03 | PC.NURSE ---
Levophed paused but reinitiated at this time at previous rate.
--- NOTE | 2025-01-24 14:09 | PC.NURSE ---
Pt alert and oriented and verbalized his DNR and specific wishes. Pt unable to write and requested his next of kin, his daughter to sign for him.
[2025-01-24 14:45] LABS: RBC,Body Fluid 4000 cells/uL (< 10 X 10^3)
--- NOTE | 2025-01-24 14:46 | [facility].EDGENADL ---
Discharge Plan Disposition Patient Disposition: Admitted Clinical Impressions Clinical Impression: Decompensated cirrhosis, Acute hypoxic respiratory failure, Ascites, Abdominal compartment syndrome Discharge ED Provider: Joanna Rinaldi General Adult HPI General Chief complaint: Shortness of Breath/Dyspnea Stated complaint: liver failure; low O2 Time Seen by Provider: 01/24/25 11:59 Mode of Arrival: EMS Source of Information: Patient, Relative and EMS Description of Symptoms (Recalled from ER Triage Doc. by RN): EMS called out for pt having shortness of breath and ascites. pt has known liver failure. Pts vitals signs on arrival by EMS was BP 72/38, HR 99, RR 28, 02 44%, ETC02 26. EMS placed pt on bougie mask at 15L. EMS placed bilateral 18g AC and started NS. pt had his last paracentesis with his liver Doctor at . PT A&O x4. GCS 15. On arrival pts vital signs BP 75/42, HR 97, 97% Non-Rebreather, Temp 96.8. Jaundice and abdominal distention noted. History of Present Illness HPI narrative: This patient is a 49-year-old male with a history of recently diagnosed esophageal adenocarcinoma, cirrhosis with recent admission for concern for acute decompensation at , discharged home saturday on hospice,nonalcoholic fatty liver disease, hypertension, hyperlipidemia, RAMESH presenting to the emergency department for evaluation with concern for shortness of breath. Patient arrives by EMS in extremis. Patient arrives hypotensive, hypoxic, tachycardic and generally ill-appearing with significant diminished breath sounds and significant distended abdomen. Patient does provide some history and stated that he felt extremely short of breath since going home and has not been able to pee. He notes that his abdomen is doubled in size. EMS notes that he was 44% with a good pleth when they arrived to pick him up today. They noted that they put him on positive pressure ventilation and brought him in with some improvement. Related Data Home Medications ?Medication ?Instructions ?Recorded ?Confirmed cetirizine 10 mg capsule 10 mg PO DAILY ALLERGIES 03/11/18 01/14/25 cholecalciferol (vitamin D3) 25 25 mcg PO DAILY SUPPLIMENT 10/18/20 01/14/25 mcg (1,000 unit) capsule insulin glargine 100 unit/mL (3 50 unit SQ DAILY 01/04/25 01/10/25 mL) subcutaneous pen (Lantus Solostar U-100 Insulin) atorvastatin 40 mg tablet 40 mg PO DAILY 01/10/25 01/14/25 Previous Rx's ?Medication ?Instructions ?Recorded trazodone 50 mg tablet 50 mg PO DAILY #90 tabs 06/01/24 tamsulosin 0.4 mg capsule 0.4 mg PO DAILY BLADDER 90 days 10/23/24 #90 caps empagliflozin 25 mg tablet 25 mg PO DAILY Diabetes 90 days 11/18/24 (Jardiance) #90 tabs carvedilol 12.5 mg tablet 12.5 mg PO BID 30 days #60 tabs 01/13/25 ciprofloxacin HCl 500 mg tablet 500 mg PO BID #8 tabs 01/13/25 furosemide 40 mg tablet (Lasix) 40 mg PO DAILY #30 tabs 01/13/25 metoclopramide HCl 5 mg tablet 5 mg PO AC 30 days #90 tabs 01/13/25 polyethylene glycol 3350 17 gram 17 g PO DAILY #30 ea 01/13/25 oral powder packet (HealthyLax) spironolactone 25 mg tablet 50 mg (2 x 25 mg) PO DAILY 30 days 01/13/25 #60 tabs pantoprazole 40 mg tablet,delayed 40 mg PO DAILY #30 tabs 01/14/25 release Allergies Allergy/AdvReac Type Severity Reaction Status Date / Time No Known Allergies Allergy Verified 01/14/25 14:39 [facility] [place] Disclaimer: The information contained in this section may have been updated after the patient was seen, as this information can be updated by other users. Medical History History of left heart catheterization Sleep apnea Arrhythmia Skin cancer Fatty tumor Non-alcoholic cirrhosis BPH (benign prostatic hyperplasia) Large tongue RAMESH and COPD overlap syndrome Arthritis T2DM (type 2 diabetes mellitus) Abnormal electrocardiography Hypertension Hyperlipidemia Surgical History History of esophagogastroduodenoscopy (EGD) History of liver biopsy Family History Family/Other Cancer Other Diabetes Heart attack Hypertension No significant family history Stroke Social History Smoking Status: Former smoker tobacco type: cigarettes packs per day: 2 smoking status start date: age 14 smoking status stop date: 17 years ago alcohol intake: former substance use type: denies use current occupational status: employed and other Travel in the last 8 weeks?: None household members: other housing: house current occupational exposures/hazards: Yes caffeine: Yes Other Medical History Have you received the Flu Vaccine for this season: No Have you received the Pneumonia Vaccine: No ROS Obtained: Yes Systems reviewed as appropriate & no additional complaints except as documented Physical Exam General General appearance: alert and in distress Comment: In moderate respiratory distress, diminished breath sounds, significantly distended abdomen Head Head exam: atraumatic and normocephalic Eye Eye exam: Present PERRL, EOMI and scleral icterus ENT ENT exam: Present mucous membranes dry Neck Neck exam: Present normal inspection Chest Chest inspection: Present normal inspection and symmetric chest wall rise Respiratory Respiratory exam: Present respiratory distress, accessory muscle use and other (significant respiratory distress with diminished breath sounds bilaterally) Cardiovascular Cardiovascular exam: Present regular rate and normal rhythm Abdominal Exam Abdominal exam: Present distention Extremities Exam Extremities exam: Present edema Neurological Exam Neurological exam: Present alert, oriented X3 and other (generally weak) Skin Skin exam: Present other (jaundiced) Medical Decision Making Medical Records Screening: Per USPSTF and CDC recommendations, given the prevalence of disease in our region, it is our hospital?s policy to screen for HIV and viral Hepatitis for all patients aged 18 and over and those with ongoing risk factors. Mukesh Inquiry Pt receiving controlled substance: No Vital Signs: 01/24/25 11:52 01/24/25 11:53 01/24/25 12:00 Temperature Temperature Source Pulse Rate 98 H 98 H 98 H Pulse Rate [Right] Respiratory Rate 22 Blood Pressure 75/42 L 68/30 L 74/36 L Blood Pressure [Right Arm] Blood Pressure Mean Blood Pressure Mean [Right Arm] Blood Pressure Source Blood Pressure Source [Right Arm] Blood Pressure Position Blood Pressure Position [Right Arm] 02 Sat by Pulse Oximetry 97 99 100 Oxygen Delivery Method Oxygen Flow Rate (LPM) Fraction of Inspired Oxygen 01/24/25 12:01 01/24/25 12:04 01/24/25 12:10 Temperature 95.4 F L 96.4 F L Temperature Source Pulse Rate 98 H 100 H 102 H Pulse Rate [Right] Respiratory Rate 27 H 25 H Blood Pressure 79/44 L 92/52 L 100/49 L Blood Pressure [Right Arm] Blood Pressure Mean Blood Pressure Mean [Right Arm] Blood Pressure Source Blood Pressure Source [Right Arm] Blood Pressure Position Blood Pressure Position [Right Arm] 02 Sat by Pulse Oximetry 100 98 96 Oxygen Delivery Method Oxygen Flow Rate (LPM) Fraction of Inspired Oxygen 01/24/25 12:15 01/24/25 12:20 01/24/25 12:24 Temperature 96.8 F L 96.8 F L 96.8 F L Temperature Source Core Pulse Rate 105 H 108 H Pulse Rate [Right] 97 H Respiratory Rate 25 H 34 H 28 H Blood Pressure 109/52 L 103/56 L Blood Pressure [Right Arm] 75/42 L Blood Pressure Mean Blood Pressure Mean [Right Arm] 53 Blood Pressure Source Blood Pressure Source [Right Arm] Automatic Cuff Blood Pressure Position Blood Pressure Position [Right Arm] Supine 02 Sat by Pulse Oximetry 96 96 97 Oxygen Delivery Method Non-Rebreather Oxygen Flow Rate (LPM) Fraction of Inspired Oxygen 01/24/25 12:25 01/24/25 12:30 01/24/25 12:35 Temperature 97.0 F L 97.0 F L 97.0 F L Temperature Source Pulse Rate 109 H 110 H 112 H Pulse Rate [Right] Respiratory Rate 18 17 15 Blood Pressure 118/57 L 101/58 L 120/62 Blood Pressure [Right Arm] Blood Pressure Mean Blood Pressure Mean [Right Arm] Blood Pressure Source Blood Pressure Source [Right Arm] Blood Pressure Position Blood Pressure Position [Right Arm] 02 Sat by Pulse Oximetry 95 95 97 Oxygen Delivery Method Oxygen Flow Rate (LPM) Fraction of Inspired Oxygen 01/24/25 12:36 01/24/25 12:40 01/24/25 12:46 Temperature 97.0 F L Temperature Source Pulse Rate 112 H Pulse Rate [Right] Respiratory Rate 21 Blood Pressure 118/56 L 93/75 L Blood Pressure [Right Arm] Blood Pressure Mean 77 Blood Pressure Mean [Right Arm] Blood Pressure Source Blood Pressure Source [Right Arm] Blood Pressure Position Blood Pressure Position [Right Arm] 02 Sat by Pulse Oximetry 95 99 Oxygen Delivery Method Vapotherm Oxygen Flow Rate (LPM) 30 Fraction of Inspired Oxygen 70 01/24/25 12:46 01/24/25 12:51 01/24/25 12:55 Temperature 97.0 F L 97.2 F L Temperature Source Pulse Rate 110 H 112 H Pulse Rate [Right] Respiratory Rate 15 18 Blood Pressure 93/75 L 107/45 L 124/55 L Blood Pressure [Right Arm] Blood Pressure Mean 70 Blood Pressure Mean [Right Arm] Blood Pressure Source Blood Pressure Source [Right Arm] Blood Pressure Position Blood Pressure Position [Right Arm] 02 Sat by Pulse Oximetry 98 99 Oxygen Delivery Method Oxygen Flow Rate (LPM) Fraction of Inspired Oxygen 01/24/25 12:55 01/24/25 13:00 01/24/25 13:05 Temperature 97.2 F L 97.2 F L 97.2 F L Temperature Source Pulse Rate 111 H 111 H 108 H Pulse Rate [Right] Respiratory Rate 18 16 21 Blood Pressure 124/55 L 119/55 L 108/58 L Blood Pressure [Right Arm] Blood Pressure Mean Blood Pressure Mean [Right Arm] Blood Pressure Source Blood Pressure Source [Right Arm] Blood Pressure Position Blood Pressure Position [Right Arm] 02 Sat by Pulse Oximetry 99 99 99 Oxygen Delivery Method Oxygen Flow Rate (LPM) Fraction of Inspired Oxygen 01/24/25 13:10 01/24/25 13:15 01/24/25 13:20 Temperature 97.3 F L 97.3 F L 97.3 F L Temperature Source Pulse Rate 109 H 107 H 108 H Pulse Rate [Right] Respiratory Rate 15 15 18 Blood Pressure 115/56 L 103/50 L 112/49 L Blood Pressure [Right Arm] Blood Pressure Mean Blood Pressure Mean [Right Arm] Blood Pressure Source Blood Pressure Source [Right Arm] Blood Pressure Position Blood Pressure Position [Right Arm] 02 Sat by Pulse Oximetry 100 100 100 Oxygen Delivery Method Oxygen Flow Rate (LPM) Fraction of Inspired Oxygen 01/24/25 13:25 01/24/25 13:30 01/24/25 13:35 Temperature 97.5 F L 97.5 F L 97.5 F L Temperature Source Pulse Rate 108 H 108 H 105 H Pulse Rate [Right] Respiratory Rate 14 20 12 Blood Pressure 115/48 L 97/55 L 85/38 L Blood Pressure [Right Arm] Blood Pressure Mean Blood Pressure Mean [Right Arm] Blood Pressure Source Blood Pressure Source [Right Arm] Blood Pressure Position Blood Pressure Position [Right Arm] 02 Sat by Pulse Oximetry 100 98 100 Oxygen Delivery Method Oxygen Flow Rate (LPM) Fraction of Inspired Oxygen 01/24/25 13:40 01/24/25 13:45 01/24/25 13:50 Temperature 97.7 F 97.7 F 97.7 F Temperature Source Pulse Rate 104 H 103 H 103 H Pulse Rate [Right] Respiratory Rate 13 22 15 Blood Pressure 71/37 L 72/36 L 72/37 L Blood Pressure [Right Arm] Blood Pressure Mean Blood Pressure Mean [Right Arm] Blood Pressure Source Blood Pressure Source [Right Arm] Blood Pressure Position Blood Pressure Position [Right Arm] 02 Sat by Pulse Oximetry 99 100 99 Oxygen Delivery Method Oxygen Flow Rate (LPM) Fraction of Inspired Oxygen 01/24/25 13:55 01/24/25 14:00 01/24/25 14:05 Temperature 97.9 F 97.9 F 97.9 F Temperature Source Pulse Rate 104 H 103 H 103 H Pulse Rate [Right] Respiratory Rate 25 H 21 27 H Blood Pressure 72/38 L 67/34 L 74/40 L Blood Pressure [Right Arm] Blood Pressure Mean Blood Pressure Mean [Right Arm] Blood Pressure Source Blood Pressure Source [Right Arm] Blood Pressure Position Blood Pressure Position [Right Arm] 02 Sat by Pulse Oximetry 98 98 100 Oxygen Delivery Method Oxygen Flow Rate (LPM) Fraction of Inspired Oxygen 01/24/25 14:10 01/24/25 14:12 01/24/25 14:15 Temperature 97.9 F 97.9 F 97.9 F Temperature Source Pulse Rate 102 H 103 H 105 H Pulse Rate [Right] Respiratory Rate 21 22 18 Blood Pressure 63/34 L 80/35 L 98/50 L Blood Pressure [Right Arm] Blood Pressure Mean Blood Pressure Mean [Right Arm] Blood Pressure Source Blood Pressure Source [Right Arm] Blood Pressure Position Blood Pressure Position [Right Arm] 02 Sat by Pulse Oximetry 98 98 99 Oxygen Delivery Method Oxygen Flow Rate (LPM) Fraction of Inspired Oxygen 01/24/25 14:20 01/24/25 14:25 01/24/25 14:30 Temperature 97.9 F 98.1 F 98.1 F Temperature Source Pulse Rate 107 H 109 H 109 H Pulse Rate [Right] Respiratory Rate 15 17 18 Blood Pressure 100/48 L 108/51 L 110/49 L Blood Pressure [Right Arm] Blood Pressure Mean Blood Pressure Mean [Right Arm] Blood Pressure Source Blood Pressure Source [Right Arm] Blood Pressure Position Blood Pressure Position [Right Arm] 02 Sat by Pulse Oximetry 99 99 99 Oxygen Delivery Method Oxygen Flow Rate (LPM) Fraction of Inspired Oxygen 01/24/25 14:35 01/24/25 14:40 01/24/25 14:45 Temperature 98.1 F 98.1 F 98.1 F Temperature Source Pulse Rate 109 H 108 H 108 H Pulse Rate [Right] Respiratory Rate 19 19 19 Blood Pressure 108/59 L 109/58 L 102/46 L Blood Pressure [Right Arm] Blood Pressure Mean Blood Pressure Mean [Right Arm] Blood Pressure Source Blood Pressure Source [Right Arm] Blood Pressure Position Blood Pressure Position [Right Arm] 02 Sat by Pulse Oximetry 97 98 98 Oxygen Delivery Method Oxygen Flow Rate (LPM) Fraction of Inspired Oxygen 01/24/25 14:50 01/24/25 14:55 01/24/25 15:00 Temperature 98.2 F 98.2 F 98.2 F Temperature Source Pulse Rate 109 H 108 H 109 H Pulse Rate [Right] Respiratory Rate 17 21 14 Blood Pressure 103/55 L 109/58 L 95/60 L Blood Pressure [Right Arm] Blood Pressure Mean Blood Pressure Mean [Right Arm] Blood Pressure Source Blood Pressure Source [Right Arm] Blood Pressure Position Blood Pressure Position [Right Arm] 02 Sat by Pulse Oximetry 98 97 97 Oxygen Delivery Method Oxygen Flow Rate (LPM) Fraction of Inspired Oxygen 01/24/25 15:05 01/24/25 15:10 01/24/25 15:15 Temperature 98.2 F 98.4 F 98.4 F Temperature Source Pulse Rate 110 H 110 H 109 H Pulse Rate [Right] Respiratory Rate 20 20 17 Blood Pressure 99/59 L 111/62 103/58 L Blood Pressure [Right Arm] Blood Pressure Mean Blood Pressure Mean [Right Arm] Blood Pressure Source Blood Pressure Source [Right Arm] Blood Pressure Position Blood Pressure Position [Right Arm] 02 Sat by Pulse Oximetry 97 96 95 Oxygen Delivery Method Oxygen Flow Rate (LPM) Fraction of Inspired Oxygen 01/24/25 15:20 01/24/25 15:25 01/24/25 15:30 Temperature 98.4 F 98.6 F 98.6 F Temperature Source Pulse Rate 110 H 109 H 110 H Pulse Rate [Right] Respiratory Rate 26 H 23 29 H Blood Pressure 98/54 L 103/57 L 104/56 L Blood Pressure [Right Arm] Blood Pressure Mean Blood Pressure Mean [Right Arm] Blood Pressure Source Blood Pressure Source [Right Arm] Blood Pressure Position Blood Pressure Position [Right Arm] 02 Sat by Pulse Oximetry 95 95 95 Oxygen Delivery Method Oxygen Flow Rate (LPM) Fraction of Inspired Oxygen 01/24/25 15:35 01/24/25 15:40 01/24/25 15:45 Temperature 98.6 F 98.6 F 98.6 F Temperature Source Pulse Rate 109 H 107 H 110 H Pulse Rate [Right] Respiratory Rate 30 H 18 23 Blood Pressure 107/55 L 99/51 L 108/56 L Blood Pressure [Right Arm] Blood Pressure Mean Blood Pressure Mean [Right Arm] Blood Pressure Source Blood Pressure Source [Right Arm] Blood Pressure Position Blood Pressure Position [Right Arm] 02 Sat by Pulse Oximetry 96 96 95 Oxygen Delivery Method Oxygen Flow Rate (LPM) Fraction of Inspired Oxygen 01/24/25 16:33 01/24/25 16:35 Temperature 98.8 F 98.5 F Temperature Source Axillary Pulse Rate 107 H Pulse Rate [Right] 105 H Respiratory Rate 28 H 24 Blood Pressure 72/39 L Blood Pressure [Right Arm] 72/39 L Blood Pressure Mean Blood Pressure Mean [Right Arm] 50 Blood Pressure Source Automatic Cuff Blood Pressure Source [Right Arm] Automatic Cuff Blood Pressure Position Supine Blood Pressure Position [Right Arm] Supine 02 Sat by Pulse Oximetry 95 Oxygen Delivery Method Non-Rebreather Non-Rebreather Oxygen Flow Rate (LPM) Fraction of Inspired Oxygen Lab Data Lab Results 01/24/25 11:55: WBC 57.7 H*, RBC 3.13 L, Hgb 8.2 L, Hct 25.9 L, MCV 82.7, MCH 26.2 L, MCHC 31.7 L, RDW 22.6 H, Plt Count 435 H, MPV 9.9, Neut % (Auto) 88.9 H, Lymph % (Auto) 1.7 L, [place] % (Auto) 5.5, Eos % (Auto) 0.0 L, Baso % (Auto) 0.3, Neut # (Auto) 51.3 H, Lymph # (Auto) 1.0, [place] # (Auto) 3.2 H, Eos # (Auto) 0.0, Baso # (Auto) 0.2, Total Counted 100, Neutrophils % (Manual) 90 H, Lymphocytes % (Manual) 2 L, Atypical Lymphs % 2.0, Monocytes % (Manual) 6, Platelet Estimate Slight increase, Hypochromasia 1+, ESR Cancelled, PT 16.6 H, INR 1.54 H, APTT 33.0 H, VBG pH 7.13 L, VBG pCO2 39.8, VBG pO2 55.2 H, VBG HCO3 12.8 L, VBG Total CO2 14.0 L, VBG O2 Saturation 74.3 H, VBG Base Excess -16.4 L, VBG Lactic Acid 8.6 H, Sodium 118 L, Potassium 5.6 H, Chloride 89 L, Carbon Dioxide 13 L, Anion Gap 21.6 H, BUN 78 H, Creatinine 2.60 H, Estimated Creat Clear 43, Estimated GFR 26 L, Est GFR ( Amer) 32 L, Glucose 229 H, Lactate 8.1 H, Calcium 7.7 L, Total Bilirubin 16.6 H*, AST 867 H*, ALT 327 H*, Alkaline Phosphatase 949 H, Total Creatine Kinase 1673 H*, Troponin I < 0.01, C-Reactive Protein 51.5 H, Total Protein 5.7 L, Albumin 2.8 L, Globulin 2.9, Albumin/Globulin Ratio 1.0 L, TSH 1.11, Thyroxine (T4) 2.9 L 01/24/25 11:59: Chlamy pneumoniae PCR Not detected, Adenovirus (PCR) Not detected, B. pertussis DNA (PCR) Not detected, Coronavirus OC43 (PCR) Not detected, Coronavirus HKU1 (PCR) Not detected, Coronavirus 229E (PCR) Not detected, SARS-CoV-2 (PCR) Not detected, Coronavirus NL63 (PCR) Not detected, Human Metapneumovir PCR Not detected, Influenza A (H1) PCR Not detected, Influ A (H1N1/09) PCR Not detected, Influenza A (H3) PCR Not detected, Influenza Type A (PCR) Not detected, Influenza Type B (PCR) Not detected, M. pneumoniae (PCR) Not detected, Parainfluenza 1 (PCR) Not detected, Parainfluenza 2 (PCR) Not detected, Parainfluenza 3 (PCR) Not detected, Parainfluenza 4 (PCR) Not detected, RSV (PCR) Not detected, Entero/Rhino (PCR) Not detected 01/24/25 12:04: Urine Color Yellow, Urine Appearance Clear, Urine pH 5.5, Ur Specific [place] >= 1.030, Urine Protein Negative, Urine Glucose (UA) 1+, Urine Ketones Negative, Urine Blood Negative, Urine Nitrate Negative, Urine Bilirubin 3+ A, Urine Urobilinogen 1.0, Ur Leukocyte Esterase Negative, Urine RBC None, Urine WBC 5-10, Ur Squamous Epith Cells 3-5, Urine Bacteria 3+ 01/24/25 12:11: Fluid Source Paracentesis fluid, Fluid Volume 2000, Fluid Appearance Hazy, Fluid RBC (Auto) 4000, Fld Tot Nucleated Cell 3169, Fld Polynuclear WBCs % 79, Fld Mononuclear WBCs % 21 01/24/25 12:18: Ammonia 66 H 01/24/25 11:55 01/24/25 11:55 Orders (Tests/Meds): ED MEDICATIONS Discontinued Medications Generic Name Dose Route Start Last Admin Trade Name Freq PRN Reason Stop Dose Admin Acetaminophen 650 mg 01/24/25 13:30 Acetaminophen 325mg Tab PO 02/23/25 13:29 Q4HP PRN Fever or Mild Pain (1-3) Lactated Ringer's 1,000 mls @ 999 mls/hr 01/24/25 11:56 01/24/25 12:55 Lactated Ringer's 1000 Ml Bag IV 01/24/25 12:56 999 mls/hr .Q1H1M ONE Administration Norepinephrine/Dextrose 8 mg in 250 mls @ 15 mls/hr 01/24/25 11:56 01/24/25 15:52 Levophed 8mg/250ml-D5w Premix IV 02/23/25 11:55 0 mcg/min .[id number] SHANI 0 mls/hr Titration Protocol 8 MCG/MIN Albumin Human 12.5 gm in 50 mls @ 100 mls/hr 01/24/25 12:22 01/24/25 12:54 Albumin 25% (12.5gm) Soln 50ml Bag IV 01/24/25 12:51 100 mls/hr ONCE ONE Administration Piperacillin Sod/Tazobactam 50 mls @ 100 mls/hr 01/24/25 12:37 01/24/25 13:01 Sod 3.375 gm/ Sodium Chloride IV 01/24/25 13:06 100 mls/hr ONCE ONE Administration Vancomycin/PEG/NADA/Lysine/Water 1.75 gm in 350 mls @ 175 mls/hr 01/24/25 12:45 01/24/25 14:03 Vancomycin 1.75gm/350ml (Peg) Premix IV 01/24/25 14:44 175 mls/hr ONCE ONE Administration Lorazepam 1 mg 01/24/25 13:34 01/24/25 17:05 Lorazepam 2mg/Ml Vial IV 01/24/25 13:35 Not Given ONCE ONE Lorazepam 1 mg 01/24/25 19:17 01/25/25 02:43 Lorazepam 2mg/Ml Vial IV 02/23/25 19:16 1 mg Q2HP PRN Administration Agitation Miscellaneous 1 each 01/24/25 12:45 Vancomycin Consult Request NOTAPPLIC 02/23/25 12:44 CON[facility]ULT [facility]Y [facility] Morphine Sulfate 2 mg 01/24/25 13:34 Morphine 2mg/Ml Syringe IV 02/23/25 13:33 Q2HP PRN Severe Pain (7-10) Morphine Sulfate 4 mg 01/24/25 13:34 01/25/25 03:33 Morphine 4mg/Ml Syringe IV 02/23/25 13:33 4 mg Q2HP PRN Administration Severe Pain (7-10) Ondansetron HCl 4 mg 01/24/25 13:30 Ondansetron 4mg/2ml Vial IV 02/23/25 13:29 Q6HP PRN Nausea Sodium Chloride 10 ml 01/24/25 13:34 Sodium Chloride 0.9% 10ml Vial IV 02/23/25 13:33 Q2HP PRN to Dilute Lorazepam inj Sodium Chloride 10 ml 01/24/25 19:17 Sodium Chloride 0.9% 10ml Vial IV 02/23/25 19:16 NEEDED PRN to Dilute Lorazepam inj ORDERS Category Date Time Status Chest XR -- portable [XR chest portable] Stat Exams 01/24/25 11:59 Completed POCUS Point of Care (ER Only) Stat Exams 01/24/25 13:33 Taken Activated Partial Thrombo Time Stat Lab 01/24/25 11:55 Completed Ammonia Stat Lab 01/24/25 12:18 Completed Body Fluid: Cell Count w/ Diff Stat Lab 01/24/25 12:11 Completed C-Reactive Protein Stat Lab 01/24/25 11:55 Completed Complete Blood Count Auto Diff Stat Lab 01/24/25 11:55 Completed Comprehensive Metabolic Panel Stat Lab 01/24/25 11:55 Completed Creatine Kinase Stat Lab 01/24/25 11:55 Completed Full Resp Panel w/COVID ([facility]) Routine Lab 01/24/25 11:59 Completed Lactic Acid Stat Lab 01/24/25 11:55 Completed Peripheral Smear Review Stat Lab 01/24/25 12:11 Received Prothrombin Time INR Stat Lab 01/24/25 11:55 Completed T4 (Thyroxine) Stat Lab 01/24/25 11:55 Completed TSH [Thyroid Stimulating Hormone] Stat Lab 01/24/25 11:55 Completed Trop I [Troponin I] Stat Lab 01/24/25 11:55 Completed Urinalysis and Microscopic Stat Lab 01/24/25 12:04 Completed Blood Culture Stat Micro 01/24/25 12:11 Results Body Fluid Cult & Gram Stain Stat Micro 01/24/25 12:11 Results Urine Culture Stat Micro 01/24/25 12:04 Received VBG [Venous Blood Gas] Stat RT 01/24/25 11:55 Completed ECG Data Tracing #1: I reviewed this ECG and interpreted as documented below: Normal sinus rhythm with a ventricular rate of 97 bpm. Some motion artifact in the respiratory distress. No acute STEMI ECG initial impression date: 01/24/25 ECG initial impression time: 11:54 Medical Decision Narrative: In summary, this patient is a 49-year-old male presenting to the Emergency Department for evaluation of shortness of breath and respiratory distress in the setting of significant abdominal distention, cirrhosis, newly diagnosed cancer. Differential diagnoses considered include but are not limited to pulmonary edema, pleural effusion, anasarca, abdominal compartment syndrome, pneumonia, PE, ACS, sepsis. Ruling out the most morbid conditions drove assessment. It should be noted patient's history includes nonalcoholic cirrhosis, new diagnosis of esophageal adenocarcinoma which are not at goal therapy. This complicates all aspects of care by increasing patient's risk for morbidity. I reviewed patient's past medical records and noted decompensation previous evaluations in our emergency department here including admission here to the hospital during 1 visit as well as transfer to [facility] for his most recent ED visit. He was discharged from [facility] on hospice on Saturday. Upon arrival, the patient is in significant distress with significant abdominal distention. He arrives hypotensive, hypoxic, and very toxic appearing. I felt his abdominal distention was contributing to his clinical picture, and he noted that the distention had become so severe that he was unable to urinate. Given this, verbal consent was obtained to perform emergent paracentesis to hopefully help alleviate hypotension and his respiratory distress. Stat portable chest x-ray was performed prior to doing this procedure and I noted significant elevation of the diaphragm related to abdominal distention with some likely mild pulmonary edema. Paracentesis was performed with around 6 L of fluid drained off the patient's abdomen. Fluid studies were sent to evaluate for SBP. While this was happening, IV fluid resuscitation was initiated with first a liter of LR and then albumin. Patient arrived on hospice, but I had extensive goals of care discussion with him and his daughter who was at bedside. Patient states that he wants to be on life support to be kept alive while waiting for family to get to the hospital so that he can pass peacefully with all of them by his side. He still had hypotension refractory to volume resuscitation, so he was started on IV Levophed with improvement. He arrived on CPAP and was transitioned to Vapotherm for respiratory support, which he tolerated well. He did have improvement in his work of breathing after his abdominal distension was improved. workup included broad lab evaluation to evaluate for infectious and metabolic derangements as a cause of his symptoms. He has significant elevation in lactic acid, significant lactic acidosis, significant leukocytosis with a white count greater than 50,000, and worsening of his labs overall. He was started on broad-spectrum antibiotics here in the emergency department given this.. I independently interpreted chest x-ray prior to the radiologist read and noted significant elevation of his diaphragm bilaterally related to his abdominal fluid as detailed above. Please see their read for final interpretation On multiple reassessments, the patient continues to be in significant distress, so I had ongoing goals of care discussion with him regarding whether he would want to be intubated and put on mechanical ventilation for support, and he stated he only wants to be kept around long enough for family to get here. Family did arrive while the patient was in the emergency department. Once they all had arrived, I had discussion with patient and family and they are all in agreement that he would like to pursue comfort measures only and to be made comfortable while he passes peacefully. He states that he is ready to go now that all of his family was here. Given this, Levophed was stopped, and I called the hospitalist who admitted the patient for end of life care Procedures Paracentesis Time Out Performed: Yes Indication: Ascites Procedure: therapeutic paracentesis Location: RLQ Local Anesthetic: lidocaine 1% Amount of anesthesia used (mL): 8 Bedside Ultrasound Used: yes, Ascites confirmed and location marked Preparation: sterile prep and drape Amount of fluid obtained (mL): 6,000 Fluid: clear (clear yellow) Post Procedure Exam: awake, alert and other (improved clinical status) Patient Tolerated Procedure: well and no complications Complications: none Additional Comments: Performed with safety-centesis kit, tolerated well Critical Care Critical Care Time Critical Care Time: Yes Attestation: On 01/24/25, the high probability of a clinically significant, sudden or life threatening deterioration of the following system(s) required my full and direct attention, intervention and personal management. The time I documented below is in addition to time spent performing reported procedures but includes the following listed in this critical care notation. Total Time Total Critical Care Time: 75
--- NOTE | 2025-01-24 15:01 | PC.NURSE ---
call made to house for bed placement
--- NOTE | 2025-01-24 15:27 | PC.NURSE ---
Called report to KORINA Rosenberg.
[2025-01-24 15:34] LABS: Mononuclear WBCs,Body Fluid 21 %; Polynuclear WBC,Body Fluid 79 %
--- NOTE | 2025-01-24 15:51 | PC.NURSE ---
Levophen stopped per , due to pt being comfort care only.
--- NOTE | 2025-01-24 15:57 | PC.NURSE ---
I called an updated report to Chet HUI
[2025-01-24 16:35] LABS: Reflex Lactic Add Lactic Reflex
[2025-01-24 18:24] LABS: Lactic Acid Follow Up (RFLX 1) 5.6 mmol/L (0.7-2.1)
--- NOTE | 2025-01-24 18:26 | PC.NURSE ---
CRITICAL LAB RECEIVED: LACTIC 5.6. AWARE.
--- NOTE | 2025-01-24 19:13 | PC.NURSE ---
MED REC NOT COMPLETED AT ADMISSION, PATIENT IS FULL COMFORT CARE.
[2025-01-24] MEDS: LORazepam 2MG/ML VIAL 1 MG IV ×2 (19:26→22:30)
[2025-01-24 19:43] LABS: Reflex Lactic (2 hrs) Add Lactic Reflex
[2025-01-24] MEDS: MORPHINE 4MG/ML SYRINGE 4 MG IV ×2 (20:48→23:25)
[2025-01-25] VITALS: PULSE 85
[2025-01-25] MEDS: LORazepam 2MG/ML VIAL 1 MG IV (02:43)
[2025-01-25] MEDS: MORPHINE 4MG/ML SYRINGE 4 MG IV (03:33)
[2025-01-25 03:56] VITALS: PULSE 65
--- NOTE | 2025-01-25 04:09 | PC.NURSE ---
Pt's breathing is absent. Provider notified, provider in route.
--- NOTE | 2025-01-25 04:26 | PC.NURSE ---
Spoke with State Archivist Tiny Huang, stated she would be up to speak with family.
--- NOTE | 2025-01-25 04:29 | EXP.DEATH.NO ---
Pronouncement Note Date and Time of Date of : 01/25/25 Time of : 04:03 PCOD Preliminary cause of : Septic shock Contributing Factors (1) Decompensated cirrhosis: (2) Abdominal compartment syndrome: (3) Acute hypoxic respiratory failure: (4) Adenocarcinoma of esophagus: (5) BPH (benign prostatic hyperplasia): (6) T2DM (type 2 diabetes mellitus): (7) History of tobacco abuse: (8) Thrombocytopenia: (9) Cirrhosis of liver: (10) RAMESH and COPD overlap syndrome: (11) HAROLDO (acute kidney injury): (12) Anemia: (13) SBP (spontaneous bacterial peritonitis): (14) Septic shock: (15) Hyponatremia: Summary Additional details: Tariq Cruz is a 49-year-old male with medical history for end-stage liver cirrhosis, esophageal adenocarcinoma who presents with worsening abdominal distention, jaundice, generalized weakness. Patient was recently admitted to [facility] for similar symptoms and unfortunately due to esophageal adenocarcinoma, end-stage liver cirrhosis is not a transplant candidate. He was discharged on hospice care who evaluated him yesterday at home. However, patient symptoms became worse overnight and into today and patient called hospice care and advised patient to proceed to the ED. En route, he was placed on a nonrebreather and on arrival patient's BP was in the 70s over 40s. Workup in the ED significant for WBC 57, sodium 118, total bilirubin 16.6, AST/ALT 867/327, ALP 949. It was not known that patient had been accepted to hospice care, so the ED resuscitated him with albumin, fluids, Levophed. When family arrived, extensive conversation was had with the ED provider and decision was made to make patient comfort care. Levophed was discontinued. Case discussed with ED provider and decision made to admit for hospice/comfort care. #Comfort care #End-stage liver cirrhosis #Esophageal adenocarcinoma #Hepatic failure #Transaminitis, #Jaundice #Decompensated cirrhosis # SBP/septic shock # HAROLDO vs hepatorenal syndrome ?Patient has shown significant decline since recent admission within the past 2 weeks. On evaluation on admission, in moderate distress. Significant jaundice noted. Labs remarkable for marked leukocytosis, electrolyte disturbances, endorgan dysfunction with respiratory failure necessitating supplemental oxygen and acute kidney injury along with decompensated cirrhosis. Therapeutic/palliative paracentesis performed with removal of 3 L of fluid. Had some improvement in his respiratory distress. Fluid grossly abnormal meeting criteria for SBP given marked number of polymorphonuclear cells. Decision made to not intervene with aggressive life-prolonging measures. Antibiotics, Levophed, IV fluids held. Patient initiated on comfort medications with morphine and Ativan. Family at bedside. Patient passed in his sleep at 4:03 AM. DNR/DNI Additional Data Confirmation of : no pulse, no respirations, no heart sounds and pupils fixed and dilated Family: at bedside Attending/PCP notified?: Yes Attending physician: Tariq Vidal MD Was code activated?: No Autopsy should be considered if:: Unknown or unanticipated medical complications Cause is not known with certainty on clinical grounds Would allay concerns of the public/family regarding Unexplained/unexpected apparently natural and not subject to a forensic medical jurisdiction DOA Within 24 hours of admission Sustained or apparently sustained injury while in the hospital Result of high risk, infectious and contagious disease Obstetric and pediatric arising from environmental or occupational hazard Unexplained/unexpected from dental, medical, or surgical diagnostic procedures and/or therapies Would disclose a known or suspected illness which also may have a bearing on survivors or recipients of transplanted organs Autopsy requested?: No Inappropriate situation pension examiner notified?: Yes Organ bank notified?: Yes Advance directives: No
--- NOTE | 2025-01-25 04:52 | PC.NURSE ---
Provider announced time of 402. Family has been at bedside overnight. refueling ramp supervisor and charge nurse made aware of pt's passing and time of . Pearl Digger contacted. [employer] contacted. [employer] sales representative: Martha Joseph. Case numer [id number].
--- NOTE | 2025-01-25 05:57 | PC.NURSE ---
Post mortem care complete. Personal belongings given to next of kin.
[2025-01-26 12:26] LABS: Albumin, Body Fluid 0.9 g/dL (Not Estab.); LD, Body Fluid 1280 IU/L (.)
[2025-01-26 13:56] LABS: Peripheral Smear Review Scanned Result
--- NOTE | 2025-01-31 08:41 | PC.NURSE ---
BFC & Gram stain results back and no growth. ntd.
== END 2025-01-25 04:03 | DRG 951 ==
LOC: ER 12:08 → 2ND 01-25 04:37
PROVIDERS: Admitting Provider Student in an Organized Health Care Education/Training Program; Emergency Provider Emergency Medicine; Visit Provider Student in an Organized Health Care Education/Training Program
DX: Z51.5 Encounter for palliative care (principal); A41.9 Sepsis, unspecified organism; J96.01 Acute respiratory failure with hypoxia; R65.21 Severe sepsis with septic shock; K65.2 Spontaneous bacterial peritonitis; K76.7 Hepatorenal syndrome; C15.9 Malignant neoplasm of esophagus, unspecified; N17.9 Acute kidney failure, unspecified; R18.8 Other ascites; N40.0 Benign prostatic hyperplasia without lower urinary tract symptoms; E11.9 Type 2 diabetes mellitus without complications; K76.0 Fatty (change of) liver, not elsewhere classified; K74.69 Other cirrhosis of liver; D69.6 Thrombocytopenia, unspecified; G47.33 Obstructive sleep apnea (adult) (pediatric); J44.9 Chronic obstructive pulmonary disease, unspecified; E78.5 Hyperlipidemia, unspecified; Z80.9 Family history of malignant neoplasm, unspecified; Z82.3 Family history of stroke; Z82.49 Family history of ischemic heart disease and other diseases of the circulatory system; Z83.3 Family history of diabetes mellitus; Z87.891 Personal history of nicotine dependence; Z79.899 Other long term (current) drug therapy; Z79.4 Long term (current) use of insulin; Z66 Do not resuscitate
CPT/HCPCS: 36415; 49083; 51702; 71045; 80053; 81001; 82042; 82140; 82550; 82803; 83605; 83615; 84436; 84443; 84484; 85007; 85025; 85610; 85730; 86140; 87040; 87070; 87086; 87205; 87633; 89051; 93005; 99291; G0378; J2060; J2270; J2543; J3372; J7120; P9047